=== PATIENT | male | born 1940 | race Caucasian/White ===

== ENCOUNTER → 2017-04-12 | Day surgery (SDC) | payer OTHER ==
[2017-04-06 09:14] VITALS: Ht 182.9 cm; Wt 95.5 kg
[~2017-04-12] VITALS: Ht 182.9 cm; Wt 95.5 kg
[~2017-04-12] MED LIST: 500ML BSS 0.3ML EPI 1:1000PF IRRIG ONE; ACET1TAB84 PO; ACETAMINOPHEN 325 MG TAB PO PRN; AMVISC PLUS 0.8ML SYRINGE INT OCU ONE; ASPI81TA28 PO; ATROPINE SULFATE 0.1 MG/ML 5ML SYR IV PRN; BROM0.0911 OP; BSS FLUSH ONE; CYCLOPENTOLATE HCL 1% OP SOLN PER DROP CHARGE OPL ONE; ENDOCOAT 0.85ML SYRINGE INT OCU ONE; EpHEDrine SULFATE INJ 50 MG/ML AMP IV PRN; EpINEphrine INJ 1MG/ML AMP 1 MG/ML AMP ONE; GLUC10007 PO; LACTATED RINGER'S 1000ML 500 ML IV SCH; LIDOCAINE 4% OP SOLN DROP CHARGE ONE; LIDOCAINE 4% OP SOLN DROP CHARGE OPL SCH; LIDOCAINE HCL 1% MPF 2 ML VIAL ONE; LISI20TA3 PO; LYSI500C2 PO; MIDAZOLAM HCL 1 MG/ML 2ML VIAL ONE; MIX: 4ML BSS 1ML EPI 1:1000 PF TOP ONE; MOXIFLOXACIN OPH SOLN PER DROP CHARGE ONE; MULT-221 PO; MULT15TA2 PO; NURSING VERBAL MED ORDER ONE; OFLO0.3S4 OPL; OMEG-21 PO; PHENYLEPHRINE HCL 10% OP SOLN 5 ML BTL OPL ONE; PHENYLEPHRINE HCL 10% OP SOLN PER DROP CHARGE OPL ONE; POTA99TA PO; POVIDONE-IODINE OP SOLN 30 ML BTL ONE; PRED1SUS3 OPL; PROPARACAINE 0.5% OP SOLN PER DROP CHARGE OPL SCH; PROPARACAINE HCL 0.5% OP SOLN 15 ML BTL OPL ONE; TOBRAMYCIN/DEXAMETHASONE OPH OINT PER APPLN CHARGE ONE; TRAZ100T29 PO; TROPICAMIDE 1% OP SOLN PER DROP CHARGE OPL ONE
[2017-04-12] MEDS: PHENYLEPHRINE HCL 10% OP SOLN PER DROP CHARGE OPL SCH ×3 (09:21→09:31)
[2017-04-12] MEDS: TROPICAMIDE 1% OP SOLN PER DROP CHARGE OPL SCH ×3 (09:23→09:32)
[2017-04-12] MEDS: CYCLOPENTOLATE HCL 1% OP SOLN PER DROP CHARGE OPL SCH ×3 (09:24→09:35)
[2017-04-12] MEDS: MOXIFLOXACIN OPH SOLN PER DROP CHARGE OPL SCH ×3 (09:25→09:36)
--- NOTE | 2017-04-12 09:35 | History & Physical Bridge - [place] ---
H&P Re-Evaluation Bridge Note: I have examined the patient, reviewed the History & Physical and in the interval since the performance of the History & Physical I have noted the following changes of clinical significance: No changes noted
--- NOTE | 2017-04-12 10:52 | [facility] Post Operative Brief Note ---
Immediate Operative Summary Operative Date Apr 12, 2017. Pre-Operative Diagnosis Cataract Left Eye Post-Operative Diagnosis Same Procedure(s) Performed Left Cataract Phacoemulsification With Intraocular Lens Implant Surgeon Dr. Allen Crystal Calibrator Surgeon(s) None Estimated Blood Loss 0 Findings left cataract Specimens 0 Complication(s) None Disposition
--- NOTE | 2017-04-12 10:54 | [facility] Operative Report ---
Operative Report Date of Service Apr 12, 2017. Operative Report DATE OF OPERATION: 04/12/17 PREOPERATIVE DIAGNOSIS: Senile nuclear cataract and astigmatism, left eye POSTOPERATIVE DIAGNOSIS: Senile nuclear cataract and astigmatism, left eye PROCEDURE PERFORMED: Phacoemulsification with toric intraocular lens implantation, left eye SURGEON: Dr. Diaz Allen ANESTHESIA: Topical with 1% intracameral lidocaine and monitored anesthesia care COMPLICATIONS: None DESCRIPTION OF PROCEDURE: After positively identifying the patient both verbally and by wristband in the preoperative area, the left eye was marked as the operative eye. Using a sterile marker, the 3:00, 6:00, and 9:00 positions on the limbus were marked after placing a drop of proparacaine, and the 173 degree axis was marked with a Robomarker. The patient was first taken to the femtosecond laser room, but the femto portion of the procedure had to be aborted due to inadequate docking and suction. The patient was then brought back to the operating room by the anesthesia and nursing staff where they were given a drop of tetracaine and betadine into the operative eye. They were then sterilely prepped and draped in the standard fashion typical for ophthalmic surgery. Steri-strips were placed along the upper eyelids to keep the lashes back, and a lid speculum was placed into the operative eye. At this point, a documented time out was performed with members of the ophthalmology, nursing, and anesthesia staffs all agreeing upon the correct patient, correct location for surgery, correct procedure, and correct type and power of intraocular lens to be implanted. The microscope was then swung into position. Then, a paracentesis wound was made using a sideport blade. Then, in sequence, 1% preservative-free lidocaine followed by Endocoat viscoelastic was injected into the anterior chamber. Next , the main incision was made with a keratome blade in triplanar fashion. A sharp cystotome was introduced into the eye and used to create a tear in the anterior capsule, which was directed into a continuous curvilinear capsulorrhexis using Utrata forceps. Hydrodissection was then performed with BSS on a flat-tip cannula. Next, the phacoemulsification handpiece was introduced into the eye and used to remove the nucleus in a [id number]-[id number] fashion. This was done without complication and then the irrigation-aspiration handpiece was introduced into the eye and used to remove all remaining cortical and epinuclear material. Amvisc was then injected into the anterior chamber as well as into the capsular bag and using the lens injector system, a [id number] 21.0 D lens, serial number [id number], and expiration date 10/2021 was injected into the capsular bag and rotated into the correct position to correctly line up with the toric marking. Next, the irrigation-aspiration handpiece was used to remove all remaining Amvisc. BSS was used to hydrate the main wound, and then BSS was injected into the paracentesis site to reach physiologic pressure and then the main wound was checked and found to be watertight. The patient was given drops of Vigamox and tobradex ointment into the operative eye, and then the surrounding area was cleaned and dried. A clear plastic shield was placed over the eye and the patient was then sat up and taken from the operating room by the anesthesia staff having tolerated the procedure well and suffering no complications. DISPOSITION: The patient was returned to the recovery room in stable condition. I attest to the content of the Intraoperative Record and any orders documented therein. Any exceptions are noted below.
[2017-04-12 10:55] VITALS: TEMP 36.7
--- NOTE | 2017-04-12 10:55 | Discharge Instructions-SurgCtr ---
Discharge Instructions Date of Service Apr 12, 2017. Visit Reason for Visit: Left Cataract Discharge Discharge Diagnosis / Problem: left cataract Discharge Goals Goal(s): Decrease discomfort, Improve function Activity Recommendations Activity Limitations: as noted below Anesthesia . Post Anesthesia Instructions: If you have had General Anesthesia or IV Sedation: * Do not drive today. * Resume driving when surgeon permits. * Do not make important decisions or sign legal documents today. * Call surgeon for: 1. Temperature elevations greater than 101 degrees F. 2. Uncontrollable pain. 3. Excessive bleeding. 4. Persistent nausea and vomiting. 5. Medication intolerance (nausea, vomiting or rash). * For nausea and vomiting use only clear liquids such as: tea, soda, bouillon until nausea subsides, then gradually increase diet as tolerated. * If you have any concerns or questions, call your surgeon's office. If physician is unavailable and it is an emergency, call 911 or go to the nearest emergency room. . Instructions / Follow-Up Instructions / Follow-Up ACTIVITY RECOMMENDATIONS: * Light activities. * You may walk outside, read, watch television. * You may notice redness on the white part of the eye and some blurry vision - this is normal. MEDICATIONS: Resume previous medications unless instructed otherwise by your surgeon. Start all eye drops at 1 pm today: * Eye drops (today): Prednisone - one drop in operative eye every 2 hours while awake Ofloxacin - one drop in operative eye every 2 hours while awake Bromfenac - one drop in operative eye daily SPECIAL CARE INSTRUCTIONS: * Tape plastic shield over eye to sleep at night. Call your doctor at with any concerns or problems. FOLLOW UP VISIT: Follow-up with Dr Allen at [place] office as scheduled. Diet Recommendations Home Diet: no limitations Procedures Procedures Performed: Left Cataract Phacoemulsification With Intraocular Lens Implant Pending Studies Studies pending at discharge: no Medical Emergencies . Who to Call and When: Medical Emergencies: If at any time you feel your situation is an emergency, please call 911 immediately. . Non-Emergent Contact Non-Emergency issues call your: Surgeon . . "Provider Documentation" section prepared by Diaz Allen. .
--- NOTE | 2017-04-12 11:10 | Anesthesiology Progress Note ---
Anesthesia Post Op Note Date & Time Apr 12, 2017 at 11:10 Vital Signs Pain Intensity: 0 Vital Signs Past 12 Hours Date Time Temp Pulse Resp B/P (MAP) Pulse Ox O2 Delivery O2 Flow Rate FiO2 04/12/17 10:55 36.7 54 16 157/87 (110) 98 Room Air 04/12/17 10:22 60 16 150/94 95 Room Air 04/12/17 10:13 57 16 166/96 94 Room Air 04/12/17 09:16 36.6 60 16 165/103 (123) 96 Room Air Notes Mental Status: alert / awake / arousable, participated in evaluation Nausea / Vomiting: adequately controlled Pain: adequately controlled Airway Patency, RR, SpO2: stable & adequate BP & HR: stable & adequate Hydration State: stable & adequate Anesthetic Complications: no major complications apparent
[2017-04-12 11:17] VITALS: BP 165/93; PULSE 57; O2SAT 97
== END | disposition home or self-care (01) ==
LOC: X.SURG 08:50
PROVIDERS: ATTEND Ophthalmology
DX: H25.12 Age-related nuclear cataract, left eye (principal); H52.202 Unspecified astigmatism, left eye; I10 Essential (primary) hypertension; E66.9 Obesity, unspecified; M19.90 Unspecified osteoarthritis, unspecified site; Z79.82 Long term (current) use of aspirin; Z90.2 Acquired absence of lung [part of]; Z98.890 Other specified postprocedural states

== ENCOUNTER 2019-05-19 10:27 | Inpatient (IN) ==
[2019-05-19] MEDS ORDERED: MoRPHine SULFATE 4 MG/ML 1 ML CARP\\VIAL IV STA ×2 (11:00→14:20)
[2019-05-19] MEDS ORDERED: ONDANSETRON INJ 2 MG/ML 2 ML VIAL IV STA (11:00)
[2019-05-19 11:49] LABS: Basophils # (auto) 0.03 K/uL (0-0.2); Basophils % (auto) 0.2 %; Eosinophils # (auto) 0.13 K/uL (0-0.5); Hematocrit (blood only) 44.8 % (42-52); Immature Granulocytes # (auto) 0.11 K/uL (0.00-0.02); Immature Granulocytes % (auto) 0.8 %; Lymphocytes # (auto) 1.88 K/uL (1.2-3.4); Mean Corpuscular Hemoglobin 31.3 pg (25-34); Mean Corpuscular Hgb Conc 33.5 g/dL (32-36); Mean Corpuscular Volume 93.3 fL (80-100); Mean Platelet Volume 11.3 fL (7.4-10.4); Monocytes # (auto) 0.91 K/uL (0.11-0.59); Monocytes % (auto) 6.8 %; Neutrophils # (auto) 10.35 K/uL (1.4-6.5); Neutrophils % (auto) 77.2 %; Platelet Count 165 K/uL (130-400); RDW Coefficient of Variation 14.3 % (11.5-14.5); RDW Standard Deviation 48.8 fL (36.4-46.3); White Blood Count 13.41 K/uL (4.8-10.8)
[2019-05-19 12:01] LABS: Partial Thromboplastin Ratio 0.8; Partial Thromboplastin Time 22.7 Seconds (21.0-31.0)
[2019-05-19 12:07] LABS: BUN Creatinine Ratio 14.4 (10-20); Calcium 9.9 mg/dl (8.5-10.1); Creatinine Clr Calc Pharmacy 72.4 ml/min; Est GFR (African American) 76.9; Est GFR (Non-African American) 66.3; Potassium 4.4 mmol/L (3.5-5.1)
--- NOTE | 2019-05-19 12:32 | XRay Report ---
XR chest 1V portable CLINICAL HISTORY: Preoperative chest. Trauma. Hip fracture. COMPARISON STUDY: No previous studies for comparison. FINDINGS: The heart is enlarged. Postsurgical changes are present within the right hemithorax. There are right-sided pleurodiaphragmatic calcifications. There is partial absence of the right sixth rib. There is a small right pleural effusion versus chronic right pleural thickening. There is right apica l capping. There is no failure. There is no lobar consolidation.[ IMPRESSION: 1. Postsurgical changes within the right hemithorax. No acute findings. Electronically signed by: Dave Fontana M.D. 05/19/2019 12:30 PM
--- NOTE | 2019-05-19 12:33 | XRay Report ---
XR hip RT min 2V CLINICAL HISTORY: Right hip pain status post trauma COMPARISON: None. DISCUSSION: There is an acute mid cervical right femoral neck fracture. There is no dislocation. IMPRESSION: Acute right femoral neck fracture. Electronically signed by: Dave Fontana M.D. 05/19/2019 12:32 PM
--- NOTE | 2019-05-19 12:34 | XRay Report ---
XR lumbar spine 2-3V CLINICAL HISTORY: Back pain status post trauma COMPARISON STUDY: No previous studies for comparison. FINDINGS: There are moderate degenerative changes with disc space narrowing most pronounced at the L4 -5 and L5-S1 levels. There are pleurodiaphragmatic calcifications present. There is a thoracolumbar s estrella curvature convex to the right. There are no acute fractures. IMPRESSION: 1. No acute fractures 2. 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 Electronically signed by: Dave Fontana M.D. 05/19/2019 12:33 PM
--- NOTE | 2019-05-19 14:13 | Anesthesiology Consultation ---
Date of Service May 19, 2019 Assessment & Plan (1) Encounter for pre-operative examination: 78 year old M with hx of mechanical fall on 05/19. Surgical hx includes R middle lobectomy for what was an apparently benign pulmonary nodule in the . He has had multiple minor general surgeries without anesthetic complications. PMH + for HTN and HLD. He appears moderately dehydrated on exam and BP is somewhat labile in the ER. Medicine will consult on the patient to optimize medical management and if approved, we will plan for operative management tomorrow morning. Spinal vs General anesthesia discussed with patient and he prefers GA. 78 year old M with hx of mechanical fall on 05/19. Surgical hx includes R middle lobectomy for what was an apparently benign pulmonary nodule in the . He has had multiple minor general surgeries without anesthetic complications. PMH + for HTN and HLD. He appears moderately dehydrated on exam and BP is somewhat labile in the ER. Medicine will consult on the patient to optimize medical management and if approved, we will plan for operative management tomorrow morning. Spinal vs General anesthesia discussed with patient and he prefers GA. Chart Review Chart Review: Pending: Refer to Additional Notes / Consult section (awaiting admission and medical management.) Consults Requested medical History Height/Weight Height: 6 ft Weight: 103.4 kg Allergies Allergy/AdvReac Type Severity Reaction Status Date / Time No Known Allergies Allergy Unverified 05/19/19 11:05 Medications Home Medications Medication Instructions Recorded Confirmed Last Taken atorvastatin [Lipitor] 10 mg PO HS 05/19/19 05/19/19 05/18/19 gabapentin [Neurontin] 200 mg PO BID 05/19/19 05/19/19 05/19/19 lisinopril [Zestril] 20 mg PO QAM 05/19/19 05/19/19 05/19/19 metoprolol succinate [Toprol XL] 25 mg PO QAM 05/19/19 05/19/19 05/19/19 omega 5-fao-nfo-fish oil [Fish Oil] 1 cap PO DAILY 05/19/19 05/19/19 Unknown Past Medical History Medical History S/P TURP (status post transurethral resection of prostate) (Acute) Past Family History Family History Other No pertinent family history in first degree relatives Physical Exam Vital Signs Last Vital Signs Temp 37.1 C 05/19/19 10:27 Pulse 65 05/19/19 12:27 Resp 22 05/19/19 12:27 BP 142/89 H 05/19/19 12:27 Pulse Ox 92 05/19/19 12:27 ENMT Mouth: + dentures Thyromental Distance: > or= 3.5 Finger Breadths Mallampati Class: II Neck normal visual inspection Respiratory normal respiratory effort Auscultation: lungs clear to auscultation bilaterally Cardiovascular Rate/Rhythm: regular rate and regular rhythm Psychiatric Orientation: alert Testing Laboratory Results 05/19/19 11:28 05/19/19 11:28 PT 10.0 Seconds (9.0-12.0) 05/19/19 11:28 INR 1.0 (0.9-1.1) 05/19/19 11:28 APTT 22.7 Seconds (21.0-31.0) 05/19/19 11:28 Blood Type O Positive 05/19/19 11:28 Antibody Screen NEGATIVE 05/19/19 11:28 Electrocardiogram Date: 05/19/19 Findings: + NSR @ (+ PVC) Chest X-Ray Date: 05/19/19 Findings: + NAD (s/p R lobectomy) :
--- NOTE | 2019-05-19 15:09 | XRay Report ---
XR pelvis 1-2V routine CLINICAL HISTORY: Right hip pain COMPARISON: Right hip films dated 05/19/2019 DISCUSSION: There is no SI joint diastases. There is no symphysis diastases. Degenerative changes are present within the lower lumbar spine. There is a right femoral neck fracture. IMPRESSION: Right femoral neck fracture. Electronically signed by: Dave Fontana M.D. 05/19/2019 3:08 PM
--- NOTE | 2019-05-19 15:15 | History & Physical Report ---
Date of Service May 19, 2019 Assessment & Plan (1) Fall: (2) Closed fracture of right hip: Mr. Jade is a 78-year-old male who has significant past medical history of HTN, HLD, BPH who presents to [facility] ED after sustaining a mechanical fall walking his dog with subsequent right hip pain. Right hip x-ray revealed right femoral neck fracture. Chest x-ray negative for acute cardiopulmonary abnormality. EKG revealed normal sinus rhythm with PVC. H&H stable at 15.0 and 44.8, WBC 13.4K, 165, INR 1.0. BMP relatively unremarkable. Admit to Med/surg Orthopedics consulted - Dr. Campa has already seen and evaluated patient, case scheduled for 7 AM tomorrow morning Anesthesia consulted -seen and evaluated Preop antibiotics ordered IV morphine 2 mg every 2 hours as needed pain, oxycodone 5 mg every 4 hours as needed pain SCD/teds Cook cath ordered MRSA screen IVF 125 cc/h x 2 L for preop hydration From medicine standpoint he is capable of achieving 4 METs without any significant chest discomfort or shortness of breath. Risk factors include hypertension hyperlipidemia but no prior history of cardiac disease. He is medically cleared to undergo surgical intervention for right femoral neck fracture. (3) HTN (hypertension): BP elevated in ED likely in setting of acute pain Controlled on outpatient regimen of lisinopril and metoprolol Monitor (4) HLD (hyperlipidemia): continue statin (5) BPH (benign prostatic hyperplasia): cook cath ordered UA negative for infection (6) DVT prophylaxis: SCD/TEDS Will hold chemical prophylaxis today in setting of the scheduled procedure for 7 AM tomorrow Disposition: Admit to Med/Surg, case management consulted Follow-up: PCP Dr. Cerda upon discharge Patient was seen and examined in collaboration with Dr. Soliman, please see addendum History of Present Illness Chief Complaint: Fall prior to arrival with subsequent right hip pain. Primary Care Provider: Alexander Cerda DO Mr. Jade is a 78-year-old male who has significant past medical history of HTN, HLD, BPH who presents to [facility] ED after sustaining a mechanical fall walking his dog with subsequent right hip pain. is at bedside. Patient was walking his brown retriever outside when he sustained a mechanical fall on the ice and landing in wet grass. He had significant right hip pain and was unable to get up on his own. Somebody assisted him to his feet and brought him into ED for further evaluation. At baseline he is very active. He walks for 30 minutes 3 times a day with his brown retriever. This is on a flat and graded incline. He denies any chest pain, palpitations, shortness of breath with exertion or at rest, chest pain with exertion during this. He can climb a flight of stairs without getting chest pain or shortness of breath. He denies any prior history of cardiac disease or cardiac surgery. Up until today he was in a normal state of health. Denies any recent illness, fever, chills, sweats, syncope, lightheadedness, dizziness, cough, hemoptysis, nausea, vomiting, abdominal pain. He did have a bowel movement this morning and denies melena or hematochezia. He does have increased urinary frequency secondary to BPH but denies any dysuria, hematuria. He did take his metoprolol and lisinopril this morning. Last time he had anything to eat or drink was at 6 AM this morning. 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 He also had a TURP in 2013. Denies any difficulty with anesthesia. Allergies Allergy/AdvReac Type Severity Reaction Status Date / Time No Known Allergies Allergy Unverified 05/19/19 11:05 Home Medications Home Medications Medication Instructions Recorded Confirmed Type atorvastatin [Lipitor] 10 mg PO HS 05/19/19 05/19/19 History gabapentin [Neurontin] 200 mg PO BID 05/19/19 05/19/19 History lisinopril [Zestril] 20 mg PO QAM 05/19/19 05/19/19 History metoprolol succinate [Toprol XL] 25 mg PO QAM 05/19/19 05/19/19 History omega 1-qmu-rqy-fish oil [Fish Oil] 1 cap PO DAILY 05/19/19 05/19/19 History vitamins A,C,S-tfsl-gaarzs 1 tab PO BID 05/19/19 05/19/19 History [PreserVision AREDS] Past Med/Surg History Medical History BPH (benign prostatic hyperplasia) HLD (hyperlipidemia) HTN (hypertension) Surgical History History of hemorrhoidectomy History of lobectomy of lung Right middle lobe lobectomy 1983, benign History of transurethral resection of prostate Family History Father Cancer Neck and brain Sister Stroke Social History Preferred Language: Liberian Communication Ability: Effective Travel Pt Required: No Beliefs That Will Affect Care: None Current Living Situation: Spouse Other Information That Helps Us Care for You: No Feels Safe at Home: Yes Safety Concerns: Feels Safe At This Time Smoking Status: Former smoker Tobacco Type: cigars ; Cigarettes Per Day: 2 ; Do You Dip or Chew Tobacco: No ; Smoking End Date: 1 week since last cigar ; Second Hand Exposure: No ; Tobacco Cessation Education Requested by Patient: No Hx Alcohol Use: Yes Alcohol type: hard liquor Alcohol Intake Frequency: Daily Alcohol Intake Frequency Comment: 1 2oz shot mixed drink daily Hx Substance Use: No Review of Systems Review of Systems: All systems reviewed & are unremarkable except as noted in HPI & below Physical Exam Physical Exam: Constitutional: WD/WN, vitals as above, NAD, sitting up in bed, pleasant, conversing easily Head: Normocephalic, Atraumatic Eyes: PERRL, conjunctivae normal, anicteric sclerae ENMT: external ear and nose normal, oropharynx normal Neck: trachea midline, no thyromegaly normal visual inspection Respiratory: normal respiratory effort, lungs clear to auscultation, no wheeze, rales, rhonchi. Normal insp/exp effort, no accessory muscle use Cardiovascular: RRR, no murmur, no edema Vessels: no JVD or carotid bruit Chest: normal inspection of chest Abdomen: normal bowel sounds, soft, nontender, no hepatosplenomegaly Musculoskeletal: no cyanosis or clubbing, Skin: no rashes, warm and dry normal turgor Neurologic: PERRL, EOMI, accommodation nl, no face palsy, no dysarthria CN's II-XI intact bilaterally and moves all extremities except RLE not assessed given fracture Psychiatric: A+Ox3, euthymic affect Lymphatic: no cervical or axillary lymphadenopathy : deferred Results & Data Vital Signs (Past 12 Hours) Vital Signs Temp Pulse Pulse Resp BP BP Pulse Ox 05/19/19 12:27 65 22 142/89 H 92 05/19/19 10:27 37.1 C 67 18 171/122 H 96 Laboratory Results Short CBC 05/19/19 Range/Units 11:28 WBC 13.41 H (4.8-10.8) K/uL Hgb 15.0 (14.0-18.0) g/dL Hct 44.8 (42-52) % Plt Count 165 (130-400) K/uL BMP 05/19/19 11:28 Sodium 139 Potassium 4.4 Chloride 108 H Carbon Dioxide 27 BUN 16 Creatinine 1.08 Glucose 104 H Calcium 9.9 Urine 05/19/19 Range/Units 15:05 Urine Color Yellow Urine Appearance Clear (Clear) Urine pH 5.5 (4.5-7.5) Ur Specific [place] 1.020 (1.000-1.030) Urine Protein Trace H (Negative) Urine Glucose (UA) Negative (Negative) Diagnostic Findings CXR: IMPRESSION: 1. Postsurgical changes within the right hemithorax. No acute findings. Hip xray: IMPRESSION: Acute right femoral neck fracture. Lumbar Spine Xray: IMPRESSION: 1. No acute fractures 2. 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 Pelvis Xray: IMPRESSION: Right femoral neck fracture. Medications Administered Discontinued Medications Morphine Sulfate (Morphine Sulfate) 4 mg IV NOW STA Stop: 05/19/19 11:01 Last Admin: 05/19/19 11:42 Dose: 4 mg Documented by: [id number] Ondansetron HCl (Zofran) 4 mg IV NOW STA Stop: 05/19/19 11:01 Last Admin: 05/19/19 11:44 Dose: 4 mg Documented by: [id number] ECG Rate (beats per minute): 65 Rhythm: normal sinus Findings: + PVC Code Status & VTE Plan Code Status Full Code VTE Prophylaxis Plan VTE Prophylaxis will be ordered: Yes Supervising Physician Co-Signing Physician Notes Attending addendum: The patient was seen and examined in emergency room Is a 78 years old gentleman with significant past medical history of hypertension and hyperlipidemia apparently has had a fall while he was walking his dog He could not have managed to get off following the fall and is complaining of severe pain in right hip He was found to have closed fracture of the right hip Complaints pain at the right hip but otherwise denies any other symptoms On examination No apparent distress at rest Hemodynamically stable Chest- clear to auscultate bilaterally Heart-S1-S2, regular, no murmur appreciated Abdomen-soft, benign, nontender Extremities-negative for any edema Right lower extremity is shorter and externally rotated His admission labs, EKG and imaging studies reviewed He does not have any medical history and his blood pressure is controlled He denies any shortness of breath and/or chest pain on usual activities He will be medically cleared for proposed surgery tomorrow He will continue his beta-lenny even on the day of surgery Agree with assessment and plan as outlined above by OTTO [address] Dr (1) Fall Encounter type: initial encounter Qualified Code(s): W19.XXXA - Unspecified fall, initial encounter (2) Closed fracture of right hip Encounter type: initial encounter Qualified Code(s): S72.001A - Fracture of unspecified part of neck of right femur, initial encounter for closed fracture
[2019-05-19 15:18] LABS: Appearance Urine Clear (Clear); Bacteria Urine Automated Negative (Negative); Bilirubin Urine Negative (Negative); Blood Urine Trace (Negative); Color Urine Yellow; Glucose Urine UA Negative (Negative); Ketones Urine Trace (Negative); Leukocyte Esterase Urine Negative (Negative); Nitrite Urine Negative (Negative); Protein Urine Trace (Negative); Urobilinogen Urine Negative (Negative); pH Urine 5.5 (4.5-7.5)
[2019-05-19] MEDS ORDERED: ALUMINUM/MAGNESIUM SUSP 30 ML UDC PO PRN (15:56)
[2019-05-19] MEDS ORDERED: ONDANSETRON INJ 2 MG/ML 2 ML VIAL IV PRN (15:56)
[2019-05-19] MEDS ORDERED: MoRPHine SULFATE 2 MG/ML CARP IV PRN (15:56)
[2019-05-19] MEDS ORDERED: bisacodyL 10 MG SUPP PR PRN (15:56)
[2019-05-19] MEDS ORDERED: MAGNESIUM HYDROXIDE SUSP 30 ML UDC PO PRN ×2 (15:56)
[2019-05-19] MEDS ORDERED: NALOXONE HCL 0.4 MG/1 ML VIAL/CARP IV PRN (15:56)
[2019-05-19] MEDS ORDERED: POLYETHYLENE (MIRALAX) 17 GM PACK PO PRN (15:56)
[2019-05-19] MEDS: SODIUM CHLORIDE 0.9% 1000ML 1,000 ML IV SCH (16:24)
--- NOTE | 2019-05-19 16:38 | Orthopedic Consultation ---
Date of Consultation May 19, 2019 Assessment & Plan (1) Closed fracture of right hip: The patient is a 78 year old active male who sustained a right hip fracture. The patients treatment options of conservative versus surgical intervention were discussed. Since the patient was an ambulatory prior to the injury and to avoid the risks of bed sores, pulmonary complications, and to give the best chance for ambulation, I recommended surgery. The patient and family understands the risks of surgery, which include but are not limited to: bleeding, infection, re-operation, damage to nerves and arteries, continued pain, failure of the hardware, mal-union, non-union, DVT, and . In addition she is aware of the 20-30% morbidity associated with hip fracture for up to 1 year following a hip fracture. The patient and family understands all of these instructions and explanations, all of their questions have been satisfactorily addressed. The patient has elected to proceed with surgery and the informed consent was signed for ORIF. They understand that if the fracture is unable to be reduced, he may require a dona-arthroplasty. He will be admitted to the medicine service with planned surgery tomorrow if medically stable. For additional pre-operative planning, to assess the configuration of the fracture a CT of the right hip will be obtained. Patient is NWB and NPO after midnight. Ancef will be on-call to the OR. Present on Admission?: Yes History of Present Illness Reason for Consultation: Right hip fracture Requesting Physician: Mp Campa MD Attending Physician: Pauline Soliman MD History of Present Illness 78 year old active male slipped while walking his dog earlier today injuring his right hip. Unable to bare weight. Came to ER where x-rays were obtained and I was consulted for further evaluation and treatment. Allergies Allergy/AdvReac Type Severity Reaction Status Date / Time No Known Allergies Allergy Unverified 05/19/19 11:05 Home Medications Home Medications Medication Instructions Recorded Confirmed Type atorvastatin [Lipitor] 10 mg PO HS 05/19/19 05/19/19 History gabapentin [Neurontin] 200 mg PO BID 05/19/19 05/19/19 History lisinopril [Zestril] 20 mg PO QAM 05/19/19 05/19/19 History metoprolol succinate [Toprol XL] 25 mg PO QAM 05/19/19 05/19/19 History omega 1-hjn-tfx-fish oil [Fish Oil] 1 cap PO DAILY 05/19/19 05/19/19 History vitamins A,C,R-nvvp-tvpvwg 1 tab PO BID 05/19/19 05/19/19 History [PreserVision AREDS] Patient History Medical History BPH (benign prostatic hyperplasia) HLD (hyperlipidemia) HTN (hypertension) Surgical History History of hemorrhoidectomy History of lobectomy of lung Right middle lobe lobectomy 1983, benign History of transurethral resection of prostate Family History Father Cancer Neck and brain Sister Stroke Social History (Updated 05/19/19 @ 15:19 by Eli Parkinson PA-C) Preferred Language: [place] Leonean Communication Ability: Effective Foreign Diplomat Required: No Beliefs That Will Affect Care: None Current Living Situation: Spouse Other Information That Helps Us Care for You: No Feels Safe at Home: Yes Safety Concerns: Feels Safe At This Time Smoking Status: Former smoker Tobacco Type: cigars ; Cigarettes Per Day: 2 ; Do You Dip or Chew Tobacco: No ; Smoking End Date: 1 week since last cigar ; Second Hand Exposure: No ; Tobacco Cessation Education Requested by Patient: No Hx Alcohol Use: Yes Alcohol type: hard liquor Alcohol Intake Frequency: Daily Alcohol Intake Frequency Comment: 1 2oz shot mixed drink daily Hx Substance Use: No Review of Systems Review of Systems: All systems reviewed & are unremarkable except as noted in HPI & below Denies CP, SOB. Was feeling in his [place] state of health prior to fall. Physical Exam Physical Exam: RLE: Sensation to light touch is intact distally. 2+ DP pulse. Ablr to wiggle toes and ankle up and down. Shortened and externally rotated. Calf soft and non-tender. Results & Data Vital Signs (Past 12 Hours) Vital Signs Temp Pulse Pulse Pulse Resp BP BP 05/19/19 15:57 36.9 C 73 18 153/91 H 05/19/19 15:01 82 27 H 113/79 05/19/19 14:31 73 17 101/56 L 05/19/19 14:00 74 22 137/74 05/19/19 12:27 65 22 142/89 H 05/19/19 12:00 65 22 142/89 H 05/19/19 11:37 72 13 127/82 05/19/19 10:27 37.1 C 67 18 171/122 H Pulse Ox 05/19/19 15:57 97 05/19/19 15:01 98 05/19/19 14:31 96 05/19/19 14:00 95 05/19/19 12:27 92 05/19/19 12:00 92 05/19/19 11:37 95 05/19/19 10:27 96 Laboratory Results 05/19/19 05/19/19 05/19/19 Range/Units 15:05 11:28 11:28 WBC (4.8-10.8) K/uL RBC (4.7-6.1) M/uL Hgb (14.0-18.0) g/dL Hct (42-52) % MCV (80-100) fL MCH (25-34) pg MCHC (32-36) g/dL RDW Std Deviation (36.4-46.3) fL RDW Coeff of Leeann (11.5-14.5) % Plt Count (130-400) K/uL MPV (7.4-10.4) fL Immature Gran % (Auto) % Neut % (Auto) % Lymph % (Auto) % Green % (Auto) % Eos % (Auto) % Baso % (Auto) % Immature Gran # (Auto) (0.00-0.02) K/uL Neut # (Auto) (1.4-6.5) K/uL Lymph # (Auto) (1.2-3.4) K/uL Green # (Auto) (0.11-0.59) K/uL Eos # (Auto) (0-0.5) K/uL Baso # (Auto) (0-0.2) K/uL PT (9.0-12.0) Seconds INR (0.9-1.1) APTT (21.0-31.0) Seconds PTT Ratio Sodium 139 (136-145) mmol/L Potassium 4.4 (3.5-5.1) mmol/L Chloride 108 H (98-107) mmol/L Carbon Dioxide 27 (21-32) mmol/L Anion Gap 4.0 (3-11) BUN 16 (7-18) mg/dl Creatinine 1.08 (0.6-1.4) mg/dl Est Cr Clr Drug Dosing 72.4 ml/min Est GFR ( Amer) 76.9 Est GFR (Non-Af Amer) 66.3 BUN/Creatinine Ratio 14.4 (10-20) Glucose 104 H (70-99) mg/dl Calcium 9.9 (8.5-10.1) mg/dl Urine Color Yellow Urine Appearance Clear (Clear) Urine pH 5.5 (4.5-7.5) Ur Specific Mey[place] Chuck 1.020 (1.000-1.030) Urine Protein Trace H (Negative) Urine Glucose (UA) Negative (Negative) Urine Ketones Trace H (Negative) Urine Blood Trace H (Negative) Urine Nitrite Negative (Negative) Urine Bilirubin Negative (Negative) Urine Urobilinogen Negative (Negative) Ur Leukocyte Esterase Negative (Negative) Urine WBC (Auto) 1-5 (0-5) /hpf Urine RBC (Auto) 10-30 H (0-4) /hpf U Hyaline Cast (Auto) 1-5 (0-5) /lpf U Epithel Cells (Auto) 10-20 H (0-5) /lpf Urine Bacteria (Auto) Negative (Negative) Blood Type O Positive Antibody Screen NEGATIVE 05/19/19 05/19/19 Range/Units 11:28 11:28 WBC 13.41 H (4.8-10.8) K/uL RBC 4.80 (4.7-6.1) M/uL Hgb 15.0 (14.0-18.0) g/dL Hct 44.8 (42-52) % MCV 93.3 (80-100) fL MCH 31.3 (25-34) pg MCHC 33.5 (32-36) g/dL RDW Std Deviation 48.8 H (36.4-46.3) fL RDW Coeff of Leeann 14.3 (11.5-14.5) % Plt Count 165 (130-400) K/uL MPV 11.3 H (7.4-10.4) fL Immature Gran % (Auto) 0.8 % Neut % (Auto) 77.2 % Lymph % (Auto) 14.0 % Green % (Auto) 6.8 % Eos % (Auto) 1.0 % Baso % (Auto) 0.2 % Immature Gran # (Auto) 0.11 H (0.00-0.02) K/uL Neut # (Auto) 10.35 H (1.4-6.5) K/uL Lymph # (Auto) 1.88 (1.2-3.4) K/uL Green # (Auto) 0.91 H (0.11-0.59) K/uL Eos # (Auto) 0.13 (0-0.5) K/uL Baso # (Auto) 0.03 (0-0.2) K/uL PT 10.0 (9.0-12.0) Seconds INR 1.0 (0.9-1.1) APTT 22.7 (21.0-31.0) Seconds PTT Ratio 0.8 Sodium (136-145) mmol/L Potassium (3.5-5.1) mmol/L Chloride (98-107) mmol/L Carbon Dioxide (21-32) mmol/L Anion Gap (3-11) BUN (7-18) mg/dl Creatinine (0.6-1.4) mg/dl Est Cr Clr Drug Dosing ml/min Est GFR ( Amer) Est GFR (Non-Af Amer) BUN/Creatinine Ratio (10-20) Glucose (70-99) mg/dl Calcium (8.5-10.1) mg/dl Urine Color Urine Appearance (Clear) Urine pH (4.5-7.5) Ur Specific Mey[place] Chuck (1.000-1.030) Urine Protein (Negative) Urine Glucose (UA) (Negative) Urine Ketones (Negative) Urine Blood (Negative) Urine Nitrite (Negative) Urine Bilirubin (Negative) Urine Urobilinogen (Negative) Ur Leukocyte Esterase (Negative) Urine WBC (Auto) (0-5) /hpf Urine RBC (Auto) (0-4) /hpf U Hyaline Cast (Auto) (0-5) /lpf U Epithel Cells (Auto) (0-5) /lpf Urine Bacteria (Auto) (Negative) Blood Type Antibody Screen Diagnostic Findings AP Pelvis and AP & Lateral Right hip show an acute femoral neck fracture. (1) Closed fracture of right hip Encounter type: initial encounter Qualified Code(s): S72.001A - Fracture of unspecified part of neck of right femur, initial encounter for closed fracture
--- NOTE | 2019-05-19 16:53 | Emergency Department Note ---
Entered by Kady Yan acting as a scribe for Miki Draper MD History of Present Illness General Chief complaint: Fall Stated complaint: FELL;HURT R HIP/LEG Time Seen by Provider: 05/19/19 10:53 Source: patient History of Present Illness Onset (ago): hour(s) 1 Location: right (hip, buttock) Pain Consistency: + other (after a fall while walking his dog) Maximum Pain Intensity: 8 Quality: + other (fall) Relieved By: + movement Associated symptoms: + other (Positive right hip pain. Negative head pain, abdominal pain, neck pain, toe numbness, syncope); no chest pain The patient is a 78 year old male who presents to the ED with complaints of a fall around 1 hour area captain. He reports he was walking his dog and slipped when he was walking from the [facility] onto the wet grass. He did land on the grass but the ground was very hard and likely frozen underneath. He states he landed on his right buttock and hip. He reports he tried standing up, but could not due to his pain. He notes he has a sharp pain in his right hip that is worse with movement. The patient denies head pain, chest pain, abdominal pain, neck pain, toe numbness, syncope. Home Medications Home Medications Medication Instructions Recorded Confirmed Type atorvastatin [Lipitor] 10 mg PO HS 05/19/19 05/19/19 History gabapentin [Neurontin] 200 mg PO BID 05/19/19 05/19/19 History lisinopril [Zestril] 20 mg PO QAM 05/19/19 05/19/19 History metoprolol succinate [Toprol XL] 25 mg PO QAM 05/19/19 05/19/19 History omega 5-mxd-zjb-fish oil [Fish Oil] 1 cap PO DAILY 05/19/19 05/19/19 History vitamins A,C,X-uexe-mopcfj 1 tab PO BID 05/19/19 05/19/19 History [PreserVision AREDS] Allergies Allergy/AdvReac Type Severity Reaction Status Date / Time No Known Allergies Allergy Unverified 05/19/19 11:05 Past Med/Surg History Medical History BPH (benign prostatic hyperplasia) HLD (hyperlipidemia) HTN (hypertension) Surgical History History of hemorrhoidectomy History of lobectomy of lung Right middle lobe lobectomy 1983, benign History of transurethral resection of prostate Family History Father Cancer Neck and brain Sister Stroke Social History Preferred Language: [place] Islander Communication Ability: Effective Enrobing Machine Corder Required: No Beliefs That Will Affect Care: None Current Living Situation: Spouse Other Information That Helps Us Care for You: No Feels Safe at Home: Yes Safety Concerns: Feels Safe At This Time Smoking Status: Former smoker Tobacco Type: cigars ; Cigarettes Per Day: 2 ; Do You Dip or Chew Tobacco: No ; Smoking End Date: 1 week since last cigar ; Second Hand Exposure: No ; Tobacco Cessation Education Requested by Patient: No Hx Alcohol Use: Yes Alcohol type: hard liquor Alcohol Intake Frequency: Daily Alcohol Intake Frequency Comment: 1 2oz shot mixed drink daily Hx Substance Use: No Review of Systems See HPI for pertinent positives & negatives. and A total of 10 systems reviewed and were otherwise negative Physical Exam Vital Signs Vital Signs - 24 hr 05/19/19 10:27 05/19/19 11:37 05/19/19 12:00 Temperature 37.1 C Temperature Source Oral Pulse Rate 67 72 65 Pulse Rate [Apical] Pulse Rate from SpO2 Sensor 69 68 Pulse Rhythm Regular Respiratory Rate 18 13 22 Respiratory Depth Blood Pressure 171/122 H 127/82 142/89 H Blood Pressure [Right Arm] Blood Pressure Mean 138 90 113 Blood Pressure Mean [Right Arm] Blood Pressure Position Lying Pulse Oximetry 96 95 92 Oxygen Delivery Method Room Air Sepsis Recent Fever Within 48 Hours No Sepsis Action Taken by Nursing No Action Required 05/19/19 12:27 05/19/19 14:00 Temperature Temperature Source Pulse Rate 74 Pulse Rate [Apical] 65 Pulse Rate from SpO2 Sensor 73 Pulse Rhythm Respiratory Rate 22 22 Respiratory Depth Normal Blood Pressure 137/74 Blood Pressure [Right Arm] 142/89 H Blood Pressure Mean 89 Blood Pressure Mean [Right Arm] 106 Blood Pressure Position Pulse Oximetry 92 95 Oxygen Delivery Method Room Air Sepsis Recent Fever Within 48 Hours Sepsis Action Taken by Nursing Constitutional: Vital signs reviewed. Eyes: Pupils are equal round reactive to light. Conjunctiva are noninjected. ENT: Pharynx is clear without erythema or exudate. Mucous membranes are moist. Neck supple without meningeal signs. Respiratory: Clear to auscultation bilaterally. Breath sounds are equal bilaterally. Cardiovascular: Regular rate and rhythm. No rubs or gallops. GI: Soft, nondistended and nontender. Bowel sounds are present. Musculoskeletal: Right hip tenderness with external rotation. NVI Integumentary: No cyanosis. Neurological: The patient is awake and alert. No focal deficits. Psychiatric: Normal affect. Course Course 1056: Past medical records reviewed. The patient was evaluated in room A12. A complete history and physical exam was performed. 1300: I reevaluated the patient at this time. He states his pain is controlled. 1312: Discussed the patient's case with Nadia Clements. He states he will check the OR schedule to see if he can evaluate the patient today. 1314: I updated the patient at this time. He has not eaten or drank 0600 today. 1321: Discussed the patient's case with Eli Parkinson PA-C on behalf of Dr. Soliman, [facility] Hospitalist. The patient will be evaluated for further management. 1400: Nadia Clements and anesthesia evaluated the patient. They are taking him to the OR. 1450: Nadia Clements is taking him to the OR tomorrow morning instead. Administered Medications Sodium Chloride (Nss 1000ml) 1,000 mls @ 125 mls/hr IV .Q8H [facility] Stop: 05/20/19 08:59 Last Admin: 05/19/19 16:24 Dose: 125 mls/hr Documented by: [id number] Morphine Sulfate (Morphine Sulfate) 2 mg IV Q2H PRN PRN Reason: MODERATE Pain (Scale 4,5,6) Stop: 06/02/19 15:55 Last Admin: 05/19/19 16:23 Dose: 2 mg Documented by: [id number] Discontinued Medications Morphine Sulfate (Morphine Sulfate) 4 mg IV NOW STA Stop: 05/19/19 11:01 Last Admin: 05/19/19 11:42 Dose: 4 mg Documented by: [id number] Morphine Sulfate (Morphine Sulfate) 4 mg IV NOW STA Stop: 05/19/19 14:21 Last Admin: 05/19/19 15:15 Dose: 4 mg Documented by: [id number] Ondansetron HCl (Zofran) 4 mg IV NOW STA Stop: 05/19/19 11:01 Last Admin: 05/19/19 11:44 Dose: 4 mg Documented by: [id number] Medical Decision Making Differential Diagnosis Differential diagnosis: Etiologies such as hip fracture, pelvis fracture, vertebral fracture, contusion, strain, as well as others were entertained. Medical Records Attestation: I reviewed the patient's medical records. I did perform a limited focused review of portions of the patient's old chart on the electronic medical record. The patient has had no recent pertinent visits to this hospital. Home Medications Current Medication List: was personally reviewed by me Laboratory Data Attestation: I reviewed the patient's lab results. Result diagrams: 05/19/19 11:28 05/19/19 11:28 Lab Results 05/19/19 05/19/19 05/19/19 Range/Units 11:28 11:28 11:28 WBC 13.41 H (4.8-10.8) K/uL RBC 4.80 (4.7-6.1) M/uL Hgb 15.0 (14.0-18.0) g/dL Hct 44.8 (42-52) % MCV 93.3 (80-100) fL MCH 31.3 (25-34) pg MCHC 33.5 (32-36) g/dL RDW Std Deviation 48.8 H (36.4-46.3) fL RDW Coeff of Leeann 14.3 (11.5-14.5) % Plt Count 165 (130-400) K/uL MPV 11.3 H (7.4-10.4) fL Immature Gran % (Auto) 0.8 % Neut % (Auto) 77.2 % Lymph % (Auto) 14.0 % [place] % (Auto) 6.8 % Eos % (Auto) 1.0 % Baso % (Auto) 0.2 % Immature Gran # (Auto) 0.11 H (0.00-0.02) K/uL Neut # (Auto) 10.35 H (1.4-6.5) K/uL Lymph # (Auto) 1.88 (1.2-3.4) K/uL [place] # (Auto) 0.91 H (0.11-0.59) K/uL Eos # (Auto) 0.13 (0-0.5) K/uL Baso # (Auto) 0.03 (0-0.2) K/uL PT 10.0 (9.0-12.0) Seconds INR 1.0 (0.9-1.1) APTT 22.7 (21.0-31.0) Seconds PTT Ratio 0.8 Sodium 139 (136-145) mmol/L Potassium 4.4 (3.5-5.1) mmol/L Chloride 108 H (98-107) mmol/L Carbon Dioxide 27 (21-32) mmol/L Anion Gap 4.0 (3-11) BUN 16 (7-18) mg/dl Creatinine 1.08 (0.6-1.4) mg/dl Est Cr Clr Drug Dosing 72.4 ml/min Est GFR ( Amer) 76.9 Est GFR (Non-Af Amer) 66.3 BUN/Creatinine Ratio 14.4 (10-20) Glucose 104 H (70-99) mg/dl Calcium 9.9 (8.5-10.1) mg/dl Blood Type Antibody Screen 05/19/19 Range/Units 11:28 WBC (4.8-10.8) K/uL RBC (4.7-6.1) M/uL Hgb (14.0-18.0) g/dL Hct (42-52) % MCV (80-100) fL MCH (25-34) pg MCHC (32-36) g/dL RDW Std Deviation (36.4-46.3) fL RDW Coeff of Leeann (11.5-14.5) % Plt Count (130-400) K/uL MPV (7.4-10.4) fL Immature Gran % (Auto) % Neut % (Auto) % Lymph % (Auto) % [place] % (Auto) % Eos % (Auto) % Baso % (Auto) % Immature Gran # (Auto) (0.00-0.02) K/uL Neut # (Auto) (1.4-6.5) K/uL Lymph # (Auto) (1.2-3.4) K/uL [place] # (Auto) (0.11-0.59) K/uL Eos # (Auto) (0-0.5) K/uL Baso # (Auto) (0-0.2) K/uL PT (9.0-12.0) Seconds INR (0.9-1.1) APTT (21.0-31.0) Seconds PTT Ratio Sodium (136-145) mmol/L Potassium (3.5-5.1) mmol/L Chloride (98-107) mmol/L Carbon Dioxide (21-32) mmol/L Anion Gap (3-11) BUN (7-18) mg/dl Creatinine (0.6-1.4) mg/dl Est Cr Clr Drug Dosing ml/min Est GFR ( Amer) Est GFR (Non-Af Amer) BUN/Creatinine Ratio (10-20) Glucose (70-99) mg/dl Calcium (8.5-10.1) mg/dl Blood Type O Positive Antibody Screen NEGATIVE Imaging Data Radiologist's Impression: Radiology results as stated below per my review and the radiologist's interpretation: XR lumbar spine 2-3V CLINICAL HISTORY: Back pain status post trauma COMPARISON STUDY: No previous studies for comparison. FINDINGS: There are moderate degenerative changes with disc space narrowing most pronounced at the L4-5 and L5-S1 levels. There are pleurodiaphragmatic calcifications present. There is a thoracolumbar spinal curvature convex to the right. There are no acute fractures. IMPRESSION: 1. No acute fractures 2. 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 Electronically signed by: Dave Fontana M.D. 05/19/2019 12:33 PM XR hip RT min 2V CLINICAL HISTORY: Right hip pain status post trauma COMPARISON: None. DISCUSSION: There is an acute mid cervical right femoral neck fracture. There is no dislocation. IMPRESSION: Acute right femoral neck fracture. Electronically signed by: Dave Fontana M.D. 05/19/2019 12:32 PM XR chest 1V portable CLINICAL HISTORY: Preoperative chest. Trauma. Hip fracture. COMPARISON STUDY: No previous studies for comparison. FINDINGS: The heart is enlarged. Postsurgical changes are present within the right hemithorax. There are right-sided pleurodiaphragmatic calcifications. There is partial absence of the right sixth rib. There is a small right pleural effusion versus chronic right pleural thickening. There is right apical capping. There is no failure. There is no lobar consolidation.[ IMPRESSION: 1. Postsurgical changes within the right hemithorax. No acute findings. Electronically signed by: Dave Fontana M.D. 05/19/2019 12:30 PM ECG Data Attestation: I personally reviewed and interpreted this ECG as follows: Indication: + other (pre op) Rate (beats per minute): 65 Rhythm: + sinus rhythm ECG ST segments: no ST elevation ECG Findings: + PVCs and + Other (QRS is 80) Blood Pressure Blood Pressure Findings: Elevated blood pressure Blood Pressure Disposition: further management by hospitalist MDM Narrative I did evaluate the patient as noted above. The patient presents after mecha nical fall while walking his dog. He complains of low back pain and hip pain. He has external rotation of the right hip with significant tenderness. He is neurovascular intact. He denies any other injury including head or neck injury. IV access was established. The patient was placed on a continuous marketing development representative. I did treat the patient with IV morphine and Zofran. I did order and personally review the patient's 12-lead EKG as described above. He has normal sinus rhythm with PVCs. No acute ischemia. I did order and personally reviewed the images of the patient's chest/lumbar spine/hip and pelvis x-rays as described above. The patient has a right femoral neck fracture. No compression fractures of the lumbar spine. I did order and review the patient's blood work as noted in the electronic medical record. His white count is 13,000. He is not anemic. Electrolytes are unremarkable. I did discuss the case with the orthopedic physician on-call as well as the hospitalist. He was admitted to the hospital for operative repair tomorrow. I did discuss the test results with the patient and his . Impression & Plan Closed fracture of right hip, Fall Discharge Plan Visit Data *Final* Discharge Date/Time: 05/19/19 15:15 Chief Complaint: Fall Stated Complaint: FELL;HURT R HIP/LEG ED Provider: Miki Draper Discharge Problem: Closed fracture of right hip, Fall Patient Disposition: Admitted As Inpatient Discharge Instructions Interventions: ED Discharge Assessment Last Done: 05/19/19 15:15 Discharge Problem: Closed fracture of right hip Qualifiers: Encounter type: initial encounter Qualified Code(s): S72.001A - Fracture of unspecified part of neck of right femur, initial encounter for closed fracture Fall Qualifiers: Encounter type: initial encounter Qualified Code(s): W19.XXXA - Unspecified fall, initial encounter The scribe's documentation has been prepared under my direction and personally reviewed by me in its entirety. I confirm that the note above accurately reflects all work, treatment, procedures, and medical decision making performed by me.
--- NOTE | 2019-05-19 16:57 | CT Scan Report ---
CT hip RT wo con CT DOSE: 587.86 mGy.cm CLINICAL HISTORY: Right hip fracture. Preoperative planning. TECHNIQUE: Helical images were acquired in the transverse plane. Sagittal and coronal reformatted desiree ges were acquired. A dose lowering technique was utilized adhering to the principles of ALARA. COMPARISON STUDY: X-ray study performed 05/19/2019 FINDINGS: There is an acute oblique femoral neck fracture with mild comminution. There is no dislocat ion. There is lateral displacement of the femoral shaft. There is mild surrounding soft tissue edema. IMPRESSION: 1. Acute comminuted oblique femoral neck fracture. No evidence of intertrochanteric extension. No franky dence of dislocation Electronically signed by: Dave Fontana M.D. 05/19/2019 4:55 PM
[2019-05-19] MEDS: OXYCODONE HCL IR 5 MG TAB (IMMEDIATE RELEASE) PO PRN (18:11)
[2019-05-19] MEDS: DOCUSATE SODIUM/SENNA 50/8.6MG TAB PO SCH (20:44)
[2019-05-19] MEDS: ATORVASTATIN 10 MG TAB PO SCH (20:44)
[2019-05-19] MEDS: GABAPENTIN 100 MG CAP PO SCH (20:45)
[2019-05-20] MEDS: SODIUM CHLORIDE 0.9% 1000ML 1,000 ML IV SCH ×3 (00:51→21:23)
[2019-05-20 05:25] LABS: Hematocrit (blood only) 40.4 % (42-52); Hemoglobin 13.4 g/dL (14.0-18.0); Mean Corpuscular Hemoglobin 30.6 pg (25-34); Mean Corpuscular Hgb Conc 33.2 g/dL (32-36); Mean Corpuscular Volume 92.2 fL (80-100); Mean Platelet Volume 11.1 fL (7.4-10.4); Platelet Count 154 K/uL (130-400); RDW Coefficient of Variation 14.3 % (11.5-14.5); RDW Standard Deviation 48.3 fL (36.4-46.3); Red Blood Count 4.38 M/uL (4.7-6.1); White Blood Count 13.44 K/uL (4.8-10.8)
[2019-05-20 05:48] LABS: BUN Creatinine Ratio 13.7 (10-20); Calcium 8.9 mg/dl (8.5-10.1); Creatinine Clr Calc Pharmacy 84.5 ml/min; Est GFR (African American) 95.8; Est GFR (Non-African American) 82.7; Potassium 4.1 mmol/L (3.5-5.1)
[2019-05-20] MEDS: OXYCODONE HCL IR 5 MG TAB (IMMEDIATE RELEASE) PO PRN (05:48)
[2019-05-20] MEDS ORDERED: CEFAZOLIN 2000MG 2,000 MG/15 ML SYR IV SCH (06:00)
[2019-05-20] MEDS ORDERED: ROPIVACAINE 0.5% HCL/PF 150 MG, BUPIVACAINE 0.5% MPF 30 ML, EPINEPHrine 0.15 MG, Ketoro... INFIL SCH (06:00)
[2019-05-20] MEDS ORDERED: BUPIVACAINE 0.5 % 5 MG/1 ML PF 10ML VIAL ONE (06:37)
[2019-05-20] MEDS ORDERED: PROPOFOL IV EMULSION 10 MG/ML 20 ML VIAL IV ONE (06:50)
[2019-05-20] MEDS ORDERED: fentaNYL citrate 100 MCG/2 ML VIAL ONE (06:52)
[2019-05-20] MEDS ORDERED: ORTHO JOINT ANESTHETIC ONE (06:53)
[2019-05-20] MEDS ORDERED: BUPIVACAINE 0.5 % 5 MG/1 ML MPF 30ML VIAL ONE (06:54)
[2019-05-20] MEDS ORDERED: LIDOCAINE/EPINEPHRINE 1% 20 ML VIAL ONE (06:54)
--- NOTE | 2019-05-20 06:54 | Orthopedic Progress Note ---
Date of Service May 20, 2019 Assessment & Plan (1) Closed fracture of right hip: The patient is a 78 year old active male who sustained a right hip fracture. The patients treatment options of conservative versus surgical intervention were discussed. Since the patient was an ambulatory prior to the injury and to avoid the risks of bed sores, pulmonary complications, and to give the best chance for ambulation, I recommended surgery. The patient and family understands the risks of surgery, which include but are not limited to: bleeding, infection, re-operation, damage to nerves and arteries, continued pain, fracture, dislocation, progression of arthritis, TN, stroke, DVT, and de ath. In addition she is aware of the 20-30% morbidity associated with hip fracture for up to 1 year following a hip fracture. The patient and family understands all of these instructions and explanations, all of their questions have been satisfactorily addressed. The patient has elected to proceed with surgery and the informed consent was signed for dona-arthroplasty, as I explained that due to his fracture type , attempted ORIF has a high failure rate. Patient is NWB and NPO since midnight. Ancef is on-call to the OR. Subjective Right hip pain. Did not get any sleep last night due to noise. Review of Systems Review of Systems: All systems reviewed & are unremarkable except as noted in HPI & below Physical Exam Physical Exam: RLE: Neurovascularly intact. Shortened and externally rotated. Results & Data Vital Signs (Past 12 Hours) Vital Signs Temp Pulse Resp BP Pulse Ox Pulse Ox 05/20/19 06:36 37.4 C 80 16 160/84 H 92 05/20/19 00:35 94 05/19/19 22:55 37.4 C 89 18 161/82 H [address] Right hip showed displaced right femoral neck fracture, [place] Type 3. (1) Closed fracture of right hip Encounter type: initial encounter Qualified Code(s): S72.001A - Fracture of unspecified part of neck of right femur, initial encounter for closed fracture
[2019-05-20] MEDS ORDERED: MIDAZOLAM HCL 1 MG/ML 2ML VIAL ONE (07:11)
[2019-05-20] MEDS: GABAPENTIN 100 MG CAP PO SCH ×2 (07:50→21:14)
[2019-05-20] MEDS: lisinopriL 20 MG TAB PO SCH (07:51)
[2019-05-20] MEDS: METOPROLOL SUCC 25MG EXT REL TAB PO SCH (07:51)
[2019-05-20] MEDS ORDERED: CISATRACURIUM BESYLATE IV SOLN 2 MG/ML 10 ML VIAL IV ONE (08:10)
[2019-05-20] MEDS ORDERED: SUCCINYLCHOLINE 100MG/5ML SYR ONE (08:10)
[2019-05-20] MEDS ORDERED: HYDROmorphone INJ 2 MG/ML SYR/VIAL ONE (08:11)
[2019-05-20] MEDS ORDERED: TRANEXAMIC ACID / 0.7% NACL 1,000 MG/100 ML BAG IV STA ×2 (08:19→08:22)
[2019-05-20] MEDS ORDERED: TRANEXAMIC ACID 1,000 MG in 0.9 % SODIUM CHLORIDE 100 ML IV ONE ×2 (08:30→08:45)
--- NOTE | 2019-05-20 09:25 | XRay Report ---
XR hip RT 1V CLINICAL HISTORY: INTRAOPERATIVE XTABLE RIGHT HIP COMPARISON STUDY: Right hip CT 05/19/2019. FINDINGS: Single view of the right hip demonstrates an acetabular and femoral spacer for a right tota l arthroplasty. The hardware appears intact. No fracture or dislocation. A David catheter is in place . IMPRESSION: Intraoperative image for a right total hip arthroplasty. Electronically signed by: Alberto Lino M.D. 05/20/2019 9:24 AM
--- NOTE | 2019-05-20 10:06 | Post Operative Brief Note ---
Immediate Post Op Note v1 Date of Surgery May 20, 2019 Pre & Post Diagnosis Operation Date: 05/20/19 07:00 Pre-Op Diagnosis: Closed fracture of right hip. Post-Op Diagnosis: Closed fracture of right hip. I identified the patient and participated in the time-out.: Yes Procedure Operation Date: 05/20/19 07:00 Actual Procedures p Right hip hemiarthroplasty.(Right) - Mp Campa MD Surgeon Mp Campa MD Political Advisor Luis Hurd MD Estimated Blood Loss 100 Findings See Below Displaced, comminuted femoral neck fracture. Fluids 1600 cc Specimens Right femoral head Drains David Catheter Anesthesia Type General Complications none
--- NOTE | 2019-05-20 10:07 | Operative Report ---
Post Operative Report Pre & Post Diagnosis Operation Date: 05/20/19 07:00 Pre-Op Diagnosis: Closed fracture of right hip. Post-Op Diagnosis: Closed fracture of right hip. I identified the patient and participated in the time-out.: Yes Procedure Operation Date: 05/20/19 07:00 Actual Procedures p Right hip hemiarthroplasty.(Right) - Mp Campa MD Surgeon Mp Campa MD Nurse Practitioner Physicians Assistant Luis Hurd MD Estimated Blood Loss 100 Findings See Below Displaced, comminuted femoral neck fracture, that tore through the posterior capsule. 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 After orthopedic consult discussing the patients treatment options of conservative versus surgical intervention, she agreed for a planned hemiarthroplasty. Since the patient was ambulatory prior to the injury and to avoid the risks of bed sores, pulmonary complications, and to give the patient the best chance for ambulation, I recommended surgery. The patient understands the risks of surgery, which include but are not limited to: bleeding, infection, re- operation, damage to nerves and arteries, continued pain, failure of the hardware, dislocation, DVT, and . In addition the patient is aware of the 20-30% morbidity associated with hip fracture for up to 1 year following a hip fracture. The patient understands all of these instructions and explanations, all of their questions have been satisfactorily addressed. The patient has elected to proceed with surgery and the informed consent was signed. Description of Procedure Implants: 1) LD/FX, Size 14 Standard body/Neck Offset Cemented (Linda/Biomet), with 13 mm centralizer. 2) Femoral Head 28mm Diameter, + 3.5 mm Neck Length. 3) 53 mm Multipolar Bipolar Cup. 4) 28 mm ID Liner, Multipolar Bipolar Cup. 5) Simplex cement 2 (Styker). Description of Procedure The patient was taken to the Operating Room and placed in the lateral position with a herrmann bag following general anesthesia administration. A multidisciplinary time-out was performed identifying my initials on the right lower limb as the correct and operative limb. Prior to the incision being made, 2 grams of intravenous Ancef were given. The right lower extremity was prepped in the standard fashion. The trochanter was marked as was the planned incision 1/3 proximal and 2/3 distal to the tip of the greater trochanter. The incisions were injected with a 50:50 mixture of 1% Lidocaine epi and 0.5% Bupivacaine plain for a total of 10cc. A standard posterior approach was made. The planned incision was carried down through the Tensor Fascia Katie , which was then split in-line with its fibers. The Gluteus [place] was bluntly dissected. The Piriformis and short external rotators were dissected off the femur and tagged for later repair. The fracture was easily identified as it had impaled and tore the posterior capsule. The remaining capsule was incised and freed off the fracture fragments. The Neck cut was made to allow removal of the femoral head and comminuted fragments. The femoral canal was prepared with Box osteotome, followed by a canal finder. The femur was sequentially broached in the standard fashion, and trial heads were placed. Fluoroscopy was brought in to ensure adequate proper alignment, fill of the canal, head size, and leg length With a little difficult to spiritual counselor as prior to taking the remaining edge and attempt had been made to shuck the hip and the connector to the broach had slightly . The femur was then prepped and cemented using 3rd generation technique followed by placement of the trial components initially with a zero head and then switch to a +3.5 mm head in the standard fashion and the hip reduced. There was excellent stability with no sense of dislocation with 20 degrees adduction, flexion 90 degrees, and internal rotation to 60 degrees. The wounds were copiously irrigated. The remaining capsule was closed with 0 Vicryl. The external rotators were closed over bon bridges with #2 FiberWire and 0 Vicryl. The Tensor Fascia Katie was closed with #1 Vicryl. The subcutaneous tissue was closed with 3-0 Vicryl. The skin was closed with Zipline and shield. The incision was covered with 4 x 4's, ABD and foam tape. The patient was transfer to her hospital bed and taken to the PACU in stable condition. The sponge and needle counts were correct. Post-op Instructions: The patient was admitted to back to the Med/Surg floor. Final x-rays will be obtained in the PACU. The patient will be WBAT with a walker. The patient will be seen by PT/OT. The patient's labs will be checked in the am. DVT prophylaxis will be with TEDs, mechanical devices and will start ASA in the AM. I attest to the content of the Intraoperative Record and any orders documented therein. Any exceptions are noted below.
[2019-05-20] MEDS ORDERED: ONDANSETRON INJ 2 MG/ML 2 ML VIAL ONE (10:13)
[2019-05-20] MEDS ORDERED: GLYCOPYRROLATE 0.2 MG/ML VIAL ONE (10:14)
[2019-05-20] MEDS ORDERED: DEXAMETHASONE SOD INJ 4 MG/ML VIAL ONE (10:14)
[2019-05-20] MEDS ORDERED: NEOSTIGMINE METHYLSULFATE 5 MG/5 ML SYR ONE (10:14)
[2019-05-20] MEDS ORDERED: ATROPINE SULFATE 0.1 MG/ML 10ML SYR IV PRN (10:37)
[2019-05-20] MEDS ORDERED: fentaNYL citrate 100 MCG/2 ML VIAL IV PRN (10:37)
[2019-05-20] MEDS ORDERED: ONDANSETRON INJ 2 MG/ML 2 ML VIAL IV PRN ×2 (10:37→12:39)
[2019-05-20] MEDS ORDERED: LABETALOL HCL IV 5 MG/ML 20ML IV PRN (10:37)
[2019-05-20] MEDS ORDERED: ePHEDrine sulfate 50 MG/ML AMP IV PRN (10:37)
[2019-05-20] MEDS ORDERED: PROMETHAZINE HCL 12.5 MG in SODIUM CHLORIDE 0.9% 50 ML IV PRN (10:37)
[2019-05-20] MEDS ORDERED: FLUMAZENIL 0.1 MG/1 ML 10 ML VIAL IV PRN (10:37)
[2019-05-20] MEDS ORDERED: NALOXONE HCL 0.4 MG/1 ML VIAL/CARP IV PRN (10:37)
--- NOTE | 2019-05-20 11:15 | Operative Report ---
Post Operative Report Pre & Post Diagnosis Operation Date: 05/20/19 07:00 Pre-Op Diagnosis: Closed fracture of right hip. Post-Op Diagnosis: Closed fracture of right hip. I identified the patient and participated in the time-out.: Yes Procedure Operation Date: 05/20/19 07:00 Actual Procedures p Right hip hemiarthroplasty.(Right) - Mp Campa MD Surgeon Mp Campa MD Fuel Operator Luis Hurd MD Estimated Blood Loss 100 Findings Consistent with Post-Op Diagnosis Specimens femoral head Complications none Disposition Accompanied Patient To Recovery: Yes Disposition: Recovery Room Description of Procedure Lateral decubitus position, standard prep and drape, Time-out Tee's approach, Right hip hemiarthroplasty Please see Dr Campa's procedure notes for specific details I was present throughout the case, assisted for wound closure and transferred the patient to PACU in stable condition I attest to the content of the Intraoperative Record and any orders documented therein. Any exceptions are noted below.
--- NOTE | 2019-05-20 12:10 | Anesthesiology Progress Note ---
Date of Service May 20, 2019 Anesthesia Post Procedure Vital Signs Vital Signs: Temp Pulse Pulse Pulse Resp BP BP 05/20/19 11:55 78 16 139/71 05/20/19 11:45 80 14 137/76 05/20/19 11:35 81 12 126/69 05/20/19 11:25 36.5 C 82 12 133/74 05/20/19 11:15 93 H 14 137/71 05/20/19 11:05 89 15 137/92 05/20/19 10:55 85 15 149/77 H 05/20/19 10:45 83 15 131/73 05/20/19 10:37 37.8 C H 82 14 156/90 H 05/20/19 06:44 37.5 C 77 18 05/20/19 06:36 37.4 C 80 16 05/20/19 00:35 05/19/19 22:55 37.4 C 89 18 05/19/19 15:57 36.9 C 73 18 05/19/19 15:01 82 27 H 113/79 05/19/19 14:31 73 17 101/56 L 05/19/19 14:00 74 22 137/74 05/19/19 12:27 65 22 BP Pulse Ox Pulse Ox 05/20/19 11:55 95 05/20/19 11:45 95 05/20/19 11:35 97 05/20/19 11:25 98 05/20/19 11:15 98 05/20/19 11:05 100 05/20/19 10:55 98 05/20/19 10:45 98 05/20/19 10:37 98 05/20/19 06:44 156/83 H 94 05/20/19 06:36 160/84 H 92 05/20/19 00:35 94 05/19/19 22:55 161/82 H 94 05/19/19 15:57 153/91 H 97 05/19/19 15:01 98 05/19/19 14:31 96 05/19/19 14:00 95 05/19/19 12:27 142/89 H 92 Pain Intensity Right Leg: Pain Intensity: 0 Transfer of Care Handoff Completed per policy Notes Mental Status: alert / awake / arousable Patient Amnestic to Procedure: Yes Nausea / Vomiting: adequately controlled Pain: adequately controlled Airway Patency, RR, SpO2: stable & adequate BP & HR: stable & adequate Hydration State: stable & adequate Anesthetic Complications: no major complications apparent
--- NOTE | 2019-05-20 12:29 | XRay Report ---
XR pelvis 1-2V routine HISTORY: 78 years-old Male AP pelvis centered on hips right hip total joint arthroplasty COMPARISON: Right hip radiographs same day TECHNIQUE: Single AP view of the pelvis FINDINGS: Right hip total joint arthroplasty appears to be in satisfactory alignment. No acute fracture or disl ocation. Mild to moderate left hip osteoarthritis. Expected postsurgical soft tissue swelling and gege p tissue air about the lateral right hip. No retained foreign body. Surgical clips project over the u pper scrotum. David catheter noted. IMPRESSION: Satisfactory alignment of the right hip total joint arthroplasty with expected postsurgic al findings. The above report was generated using voice recognition software. It may contain grammatical, syntax o r spelling errors. Electronically signed by: Chriss Walsh M.D. 05/20/2019 12:27 PM
[2019-05-20] MEDS ORDERED: METOCLOPRAMIDE HCL INJ 5 MG/ML 2 ML VIAL IV PRN (12:39)
[2019-05-20] MEDS ORDERED: DiphenhydrAMINE HCL 50 MG/ML VIAL IV PRN (12:39)
[2019-05-20] MEDS: KETOROLAC TROMETHAMINE 15 MG/ML VIAL IV SCH ×2 (13:32→19:45)
[2019-05-20] MEDS ORDERED: TRANEXAMIC ACID 1,000 MG in 0.9 % SODIUM CHLORIDE 100 ML IV SCH ×2 (14:00→16:29)
[2019-05-20] MEDS: CEFAZOLIN 2000MG 2,000 MG/15 ML SYR IV SCH ×2 (15:16→23:31)
--- NOTE | 2019-05-20 18:02 | Hospitalist Progress Note ---
Date of Service May 20, 2019 Assessment & Plan (1) Fall: (2) Closed fracture of right hip: Mr. Jade is a 78-year-old male who has significant past medical history of HTN, HLD, BPH who presents to [facility] after sustaining a mechanical fall walking his dog with subsequent right hip pain. Right hip x-ray revealed right femoral neck fracture. No medical contraindication to go for the proposed surgery Status post right hip hemiarthroplasty on 05/20 Remains drowsy from the effect of anesthetics Denies any significant symptom Management will be as per Ortho (3) HTN (hypertension): BP elevated in ED likely in setting of acute pain Controlled on outpatient regimen of lisinopril and metoprolol Blood pressure remains stable but at the lower side of normal (4) HLD (hyperlipidemia): continue statin (5) BPH (benign prostatic hyperplasia): cook cath ordered UA negative for infection (6) DVT prophylaxis: SCD/TEDS Will hold chemical prophylaxis today in setting of the scheduled procedure for 7 AM tomorrow Anticoagulation as per Ortho Disposition: Admit to Med/Surg, case management consulted Follow-up: PCP Dr. Cerda upon discharge Subjective 05/20 The patient was seen and examined in medical floor He is status post right hip hemiarthroplasty, POD #0 He remains very drowsy and has been having bad dreams Denies any chest pain and/or palpitation, any numbness and/or tingling in the extremities Review of Systems Review of Systems: Unobtainable due to reduced consciousness Physical Exam Physical Exam: Lying in bed with some discomfort and anxiety Constitutional: well developed, well nourished and + ill appearing; no acute distress Eyes: PERRL, conjunctivae normal, anicteric sclerae ENMT: external ear and nose normal, oropharynx normal Neck: trachea midline, no thyromegaly Respiratory: normal respiratory effort Auscultation: lungs clear to auscultation bilaterally Cardiovascular: Rate/Rhythm: regular rate and regular rhythm Heart Sounds: no murmur Gastrointestinal (Abdomen): Inspection/Auscultation: abdomen normal to inspection and normal bowel sounds; abdomen not distended Percussion/Palpation: abdomen soft; abdomen nontender Musculoskeletal: No acute arthritis in any joints but the right lower extremity was not examined Neurologic: Alert and awake. Drowsy from the effect of medications Results & Data Vital Signs (Past 12 Hours) Vital Signs Temp Pulse Pulse Pulse Resp BP BP 05/20/19 14:39 69 16 107/65 05/20/19 13:35 75 16 114/69 05/20/19 13:12 71 16 123/78 05/20/19 12:30 36.9 C 90 14 162/73 H 05/20/19 12:05 37.2 C 84 18 130/74 05/20/19 11:55 78 16 139/71 05/20/19 11:45 80 14 137/76 05/20/19 11:35 81 12 126/69 05/20/19 11:25 36.5 C 82 12 133/74 05/20/19 11:15 93 H 14 137/71 05/20/19 11:05 89 15 137/92 05/20/19 10:55 85 15 149/77 H 05/20/19 10:45 83 15 131/73 05/20/19 10:37 37.8 C H 82 14 156/90 H 05/20/19 06:44 37.5 C 77 18 156/83 H 05/20/19 06:36 37.4 C 80 16 160/84 H Pulse Ox 05/20/19 14:39 93 05/20/19 13:35 92 05/20/19 13:12 95 05/20/19 12:30 97 05/20/19 12:05 97 05/20/19 11:55 95 05/20/19 11:45 95 05/20/19 11:35 97 05/20/19 11:25 98 05/20/19 11:15 98 05/20/19 11:05 100 05/20/19 10:55 98 05/20/19 10:45 98 05/20/19 10:37 98 05/20/19 06:44 94 05/20/19 06:36 92 Laboratory Results Short CBC 05/20/19 Range/Units 05:07 WBC 13.44 H (4.8-10.8) K/uL Hgb 13.4 L (14.0-18.0) g/dL Hct 40.4 L (42-52) % Plt Count 154 (130-400) K/uL BMP 05/20/19 05:07 Sodium 137 Potassium 4.1 Chloride 106 Carbon Dioxide 26 BUN 12 Creatinine 0.90 Glucose 123 H Calcium 8.9 Medications Administered Current Inpatient Medications Acetaminophen (Tylenol) 650 mg PO Q6H PRN PRN Reason: MILD Pain (Scale 1,2,3) Stop: 06/18/19 15:55 Al Hydrox/Mg Hydrox/Simethicone (Maalox) 30 ml PO Q6H PRN PRN Reason: Dyspepsia Stop: 06/18/19 15:55 Aspirin (Ecotrin) 325 mg PO BID [facility] Stop: 06/19/19 20:59 Atorvastatin Calcium (Lipitor) 10 mg PO HS [facility] Stop: 06/18/19 20:59 Last Admin: 05/19/19 20:44 Dose: 10 mg Documented by: Bisacodyl (Dulcolax) 10 mg [place] DAILY PRN PRN Reason: Constipation Stop: 06/18/19 15:55 Diphenhydramine HCl (Benadryl) 25 mg IV Q8H PRN PRN Reason: Itching Stop: 06/19/19 12:38 Gabapentin (Neurontin) 200 mg PO BID [facility] Stop: 06/18/19 20:59 Last Admin: 05/20/19 07:50 Dose: Not Given Documented by: Cefazolin Sodium (Ancef 2000mg) 2,000 mg in 15 mls @ 3.75 mls/min IV Q8H [facility]IZ[facility]ETH; Protocol Stop: 05/21/19 00:03 Last Admin: 05/20/19 15:16 Dose: 3.75 mls/min Documented by: Sodium Chloride (Nss 1000ml) 1,000 mls @ 100 mls/hr IV .Q10H [facility]ETH Stop: 05/21/19 06:00 Last Infusion: 05/20/19 15:50 Dose: 100 mls/hr Documented by: Ketorolac Tromethamine (Toradol) 15 mg IV Q6H [facility] Stop: 05/21/19 08:01 Last Admin: 05/20/19 13:32 Dose: 15 mg Documented by: Lisinopril (Zestril) 20 mg PO QAM [facility] Stop: 06/19/19 08:59 Last Admin: 05/20/19 07:51 Dose: Not Given Documented by: Magnesium Hydroxide (Milk Of Magnesia) 30 ml PO DAILY PRN PRN Reason: Constipation Stop: 06/18/19 15:55 Metoclopramide HCl (Reglan) 10 mg IV Q6H PRN PRN Reason: Nausea And Vomiting Stop: 06/19/19 12:38 Metoprolol Succinate ([facility]rol Xl) [facility] Stop: 06/19/19 08:59 Last Admin: 05/20/19 07:51 Dose: Not Given Documented by: Morphine Sulfate (Morphine Sulfate) 2 mg IV Q2H PRN PRN Reason: MODERATE Pain (Scale 4,5,6) Stop: 06/02/19 15:55 Last Admin: 05/19/19 16:23 Dose: 2 mg Documented by: Multivitamins (Multivitamin Tab) 1 tab PO [facility] Stop: 06/20/19 08:59 Naloxone HCl (Narcan) 0.1 mg IV UD PRN PRN Reason: Opiate Overdose Stop: 06/18/19 15:55 Ondansetron HCl (Zofran) 4 mg IV Q6H PRN PRN Reason: Nausea And Vomiting Stop: 06/18/19 15:55 Ondansetron HCl (Zofran) 4 mg IV Q6H PRN PRN Reason: Nausea And Vomiting Stop: 06/19/19 12:38 Oxycodone HCl (Roxicodone Immediate Rel) 5 mg PO Q4H PRN PRN Reason: MODERATE Pain (Scale 4,5,6) Stop: 06/02/19 15:55 Last Admin: 05/20/19 05:48 Dose: 5 mg Documented by: Polyethylene Glycol (Miralax Powder Packet) 17 gm PO DAILY PRN PRN Reason: Constipation Stop: 06/18/19 15:55 Senna/Docusate Sodium (Senokot S) 2 tab PO [facility] Stop: 06/18/19 20:59 Last Admin: 05/19/19 20:44 Dose: 2 tab Documented by: Sennosides (Senokot) 17.2 mg PO [facility] Stop: 06/19/19 20:59 (1) Fall Encounter type: initial encounter Qualified Code(s): W19.XXXA - Unspecified fall, initial encounter (2) Closed fracture of right hip Encounter type: initial encounter Qualified Code(s): S72.001A - Fracture of unspecified part of neck of right femur, initial encounter for closed fracture
[2019-05-20] MEDS: SENNA 8.6 MG TAB PO SCH (21:13)
[2019-05-20] MEDS: DOCUSATE SODIUM/SENNA 50/8.6MG TAB PO SCH (21:14)
[2019-05-20] MEDS: ASPIRIN 325 MG ECTAB PO SCH (21:14)
[2019-05-20] MEDS: ATORVASTATIN 10 MG TAB PO SCH (21:14)
[2019-05-21] MEDS: KETOROLAC TROMETHAMINE 15 MG/ML VIAL IV SCH ×2 (02:28→08:00)
[2019-05-21 05:58] LABS: Basophils # (auto) 0.01 K/uL (0-0.2); Basophils % (auto) 0.1 %; Eosinophils # (auto) 0.01 K/uL (0-0.5); Eosinophils % (auto) 0.1 %; Hematocrit (blood only) 33.6 % (42-52); Hemoglobin 11.1 g/dL (14.0-18.0); Immature Granulocytes # (auto) 0.05 K/uL (0.00-0.02); Immature Granulocytes % (auto) 0.3 %; Lymphocytes # (auto) 1.44 K/uL (1.2-3.4); Lymphocytes % (auto) 9.7 %; Mean Corpuscular Hemoglobin 30.5 pg (25-34); Mean Corpuscular Volume 92.3 fL (80-100); Monocytes # (auto) 1.21 K/uL (0.11-0.59); Monocytes % (auto) 8.1 %; Neutrophils # (auto) 12.18 K/uL (1.4-6.5); Neutrophils % (auto) 81.7 %; Platelet Count 125 K/uL (130-400); RDW Coefficient of Variation 14.1 % (11.5-14.5); RDW Standard Deviation 47.9 fL (36.4-46.3); Red Blood Count 3.64 M/uL (4.7-6.1)
[2019-05-21 06:36] LABS: BUN Creatinine Ratio 17.4 (10-20); Creatinine Clr Calc Pharmacy 75.3 ml/min; Est GFR (African American) 83.4; Est GFR (Non-African American) 71.9; Potassium 4.4 mmol/L (3.5-5.1)
--- NOTE | 2019-05-21 08:20 | Anesthesiology Progress Note ---
Date of Service May 21, 2019 Anesthesia Post Procedure Vital Signs Vital Signs: Temp Pulse Pulse Resp BP Pulse Ox Pulse Ox 05/21/19 07:04 36.4 C L 101 H 21 147/81 H 94 05/21/19 05:30 95 05/21/19 03:29 37.1 C 87 16 130/74 92 05/20/19 23:45 92 05/20/19 23:14 37.4 C 91 H 16 137/75 92 05/20/19 19:52 36.5 C 89 17 141/80 H 94 05/20/19 14:39 69 16 107/65 93 05/20/19 13:35 75 16 114/69 92 05/20/19 13:12 71 16 123/78 95 05/20/19 12:30 36.9 C 90 14 162/73 H 97 05/20/19 12:05 37.2 C 84 18 130/74 97 05/20/19 11:55 78 16 139/71 95 05/20/19 11:45 80 14 137/76 95 05/20/19 11:35 81 12 126/69 97 05/20/19 11:25 36.5 C 82 12 133/74 98 05/20/19 11:15 93 H 14 137/71 98 05/20/19 11:05 89 15 137/92 100 05/20/19 10:55 85 15 149/77 H 98 05/20/19 10:45 83 15 131/73 98 05/20/19 10:37 37.8 C H 82 14 156/90 H 98 Pain Intensity Right Leg: Pain Intensity: 0 Notes Mental Status: alert / awake / arousable and participated in evaluation Patient Amnestic to Procedure: Yes Nausea / Vomiting: adequately controlled Pain: adequately controlled Airway Patency, RR, SpO2: stable & adequate BP & HR: stable & adequate Hydration State: stable & adequate Anesthetic Complications: no major complications apparent and Pt Satisfied with anesthetic care
[2019-05-21] MEDS: GABAPENTIN 100 MG CAP PO SCH ×2 (08:58→20:15)
[2019-05-21] MEDS: MULTIVITAMIN TAB PO SCH (08:58)
[2019-05-21] MEDS: ASPIRIN 325 MG ECTAB PO SCH ×2 (08:58→20:15)
[2019-05-21] MEDS: lisinopriL 20 MG TAB PO SCH (08:59)
[2019-05-21] MEDS: METOPROLOL SUCC 25MG EXT REL TAB PO SCH (08:59)
[2019-05-21] MEDS: OXYCODONE HCL IR 5 MG TAB (IMMEDIATE RELEASE) PO PRN ×2 (10:03→16:04)
--- NOTE | 2019-05-21 14:35 | Orthopedic Progress Note ---
Date of Service May 21, 2019 Assessment & Plan (1) Closed fracture of right hip: Patient doing well. Postop day 1 right hip hemiarthroplasty. May be out of bed, weight-bear as tolerated right lower extremity with the assistance of a walker. Hip precautions right hip at all times. Use walker to assist with ambulation. Use abduction pillow or pillow between knees when sitting or lying in bed. Continue aspirin 325 mg twice daily for DVT prophylaxis as well as TOM stockings and SCDs. Case management for disposition. Patient would like to return home with in-home health nursing. No dressing change today. We will plan on doing this tomorrow. Will cover with Silverlon. Ice and elevate as needed for pain and swelling. Continue physical therapy and Occupational Therapy. Findings will be discussed with Dr. Campa. Call [phone] with any questions. i, Dr. Campa, saw and examined the patient and agree with the above findings and plan of care discussed with my PA. Continue care per primary service. Subjective doing well, no complaints of pain, states he's doing great. He has been out of bed with PT/OT with a walker. Resting in bed currently. Physical Exam Physical Exam: Right hip dressing clean, dry, intact. No distal edema. Distal pulses are 2+. Moves toes and ankle well. Strength is 5/5. Nontender in his right knee with trace knee effusion. Tolerates logrolling of his right hip. He did not have anything between his legs as he was resting so I placed a standard pillow between his knees. Results & Data Vital Signs (Past 12 Hours) Vital Signs Temp Pulse Resp BP Pulse Ox Pulse Ox 05/21/19 07:04 36.4 C L 101 H 21 147/81 H 94 05/21/19 05:30 95 05/21/19 03:29 37.1 C 87 16 130/74 92 Laboratory Results 05/21/19 05/21/19 Range/Units 05:27 05:27 WBC 14.90 H (4.8-10.8) K/uL RBC 3.64 L (4.7-6.1) M/uL Hgb 11.1 L (14.0-18.0) g/dL Hct 33.6 L (42-52) % MCV 92.3 (80-100) fL MCH 30.5 (25-34) pg MCHC 33.0 (32-36) g/dL RDW Std Deviation 47.9 H (36.4-46.3) fL RDW Coeff of Leeann 14.1 (11.5-14.5) % Plt Count 125 L (130-400) K/uL MPV 11.0 H (7.4-10.4) fL Immature Gran % (Auto) 0.3 % Neut % (Auto) 81.7 % Lymph % (Auto) 9.7 % Donley % (Auto) 8.1 % Eos % (Auto) 0.1 % Baso % (Auto) 0.1 % Immature Gran # (Auto) 0.05 H (0.00-0.02) K/uL Neut # (Auto) 12.18 H (1.4-6.5) K/uL Lymph # (Auto) 1.44 (1.2-3.4) K/uL Donley # (Auto) 1.21 H (0.11-0.59) K/uL Eos # (Auto) 0.01 (0-0.5) K/uL Baso # (Auto) 0.01 (0-0.2) K/uL Sodium 138 (136-145) mmol/L Potassium 4.4 (3.5-5.1) mmol/L Chloride 107 (98-107) mmol/L Carbon Dioxide 24 (21-32) mmol/L Anion Gap 7.0 (3-11) BUN 18 (7-18) mg/dl Creatinine 1.01 (0.6-1.4) mg/dl Est Cr Clr Drug Dosing 75.3 ml/min Est GFR ( Amer) 83.4 Est GFR (Non-Af Amer) 71.9 BUN/Creatinine Ratio 17.4 (10-20) Glucose 123 H (70-99) mg/dl Calcium 9.0 (8.5-10.1) mg/dl Diagnostic Findings XR pelvis 1-2V routine HISTORY: 78 years-old Male AP pelvis centered on hips right hip total joint arthroplasty COMPARISON: Right hip radiographs same day TECHNIQUE: Single AP view of the pelvis FINDINGS: Right hip cemented Hemiarthroplasty in satisfactory alignment. No acute fracture or dislocation. Mild to moderate left hip osteoarthritis. Expected postsurgical soft tissue swelling and deep tissue air about the lateral right hip. No retained foreign body. Surgical clips project over the upper scrotum. David catheter noted. IMPRESSION: Satisfactory alignment of the right hip cemented hemiarthroplasty with expected postsurgical findings. (1) Closed fracture of right hip Encounter type: initial encounter Qualified Code(s): S72.001A - Fracture of unspecified part of neck of right femur, initial encounter for closed fracture
--- NOTE | 2019-05-21 16:40 | Hospitalist Progress Note ---
Date of Service May 21, 2019 Assessment & Plan (1) Fall: (2) Closed fracture of right hip: Mr. Jade is a 78-year-old male who has significant past medical history of HTN, HLD, BPH who presents to [facility] ED after sustaining a mechanical fall walking his dog with subsequent right hip pain. Right hip x-ray revealed right femoral neck fracture. No medical contraindication to go for the proposed surgery Status post right hip hemiarthroplasty on 05/20 Remains drowsy from the effect of anesthetics Denies any significant symptom Management will be as per Ortho Clinically much better and has been getting physical therapy Plan to discharge home with home health as per the Ortho DVT prophylaxis with aspirin 325-minute twice daily as well as TOM stockings and SCDs (3) HTN (hypertension): BP elevated in ED likely in setting of acute pain Controlled on outpatient regimen of lisinopril and metoprolol Blood pressure remains stable but at the lower side of normal (4) HLD (hyperlipidemia): continue statin (5) BPH (benign prostatic hyperplasia): cook cath ordered UA negative for infection (6) DVT prophylaxis: SCD/TEDS Will hold chemical prophylaxis today in setting of the scheduled procedure for 7 AM tomorrow Anticoagulation as per Ortho DVT prophylaxis with aspirin 325 mg twice daily as well as TOM stockings and SCDs Disposition: Admit to Med/Surg, case management consulted Follow-up: PCP Dr. Cerda upon discharge Subjective 05/20 The patient was seen and examined in medical floor He is status post right hip hemiarthroplasty, POD #0 He remains very drowsy and has been having bad dreams Denies any chest pain and/or palpitation, any numbness and/or tingling in the extremities 05/21 The patient was seen and examined in medical floor He complains of some pain in the right hip Has been getting physical therapy Likely to be discharged home with home health Review of Systems Review of Systems: All systems reviewed and are unremarkable except as noted Musculoskeletal: Complaints to have right hip pain status post right hip surgery Physical Exam Physical Exam: Sitting on a chair with some discomfort Constitutional: well developed, well nourished and + ill appearing; no acute distress Eyes: PERRL, conjunctivae normal, anicteric sclerae ENMT: external ear and nose normal, oropharynx normal Neck: trachea midline, no thyromegaly Respiratory: normal respiratory effort; no respiratory distress Auscultation: lungs clear to auscultation bilaterally Cardiovascular: Rate/Rhythm: regular rate and regular rhythm Heart Sounds: no murmur Gastrointestinal (Abdomen): Inspection/Auscultation: abdomen normal to inspection and normal bowel sounds Percussion/Palpation: abdomen soft; abdomen nontender Musculoskeletal: Right hip pain Neurologic: moves all extremities and + focal motor deficit Results & Data Vital Signs (Past 12 Hours) Vital Signs Temp Pulse Resp BP Pulse Ox Pulse Ox 05/21/19 15:01 37.2 C 82 18 106/66 96 05/21/19 07:04 36.4 C L 101 H 21 147/81 H 94 05/21/19 05:30 95 Laboratory Results Short CBC 05/21/19 Range/Units 05:27 WBC 14.90 H (4.8-10.8) K/uL Hgb 11.1 L (14.0-18.0) g/dL Hct 33.6 L (42-52) % Plt Count 125 L (130-400) K/uL BMP 05/21/19 05:27 Sodium 138 Potassium 4.4 Chloride 107 Carbon Dioxide 24 BUN 18 Creatinine 1.01 Glucose 123 H Calcium 9.0 Medications Administered Current Inpatient Medications Acetaminophen (Tylenol) 650 mg PO Q6H PRN PRN Reason: MILD Pain (Scale 1,2,3) Stop: 06/18/19 15:55 Al Hydrox/Mg Hydrox/Simethicone (Maalox) 30 ml PO Q6H PRN PRN Reason: Dyspepsia Stop: 06/18/19 15:55 Aspirin (Ecotrin) 325 mg PO BID [facility] Stop: 06/19/19 20:59 Last Admin: 05/21/19 08:58 Dose: 325 mg Documented by: Atorvastatin Calcium (Lipitor) 10 mg PO HS [facility] Stop: 06/18/19 20:59 Last Admin: 05/20/19 21:14 Dose: 10 mg Documented by: Bisacodyl (Dulcolax) 10 mg [place] DAILY PRN PRN Reason: Constipation Stop: 06/18/19 15:55 Diphenhydramine HCl (Benadryl) 25 mg IV Q8H PRN PRN Reason: Itching Stop: 06/19/19 12:38 Gabapentin (Neurontin) 200 mg PO BID [facility] Stop: 06/18/19 20:59 Last Admin: 05/21/19 08:58 Dose: 200 mg Documented by: Lisinopril (Zestril) 20 mg PO [facility] Stop: 06/19/19 08:59 Last Admin: 05/21/19 08:59 Dose: 20 mg Documented by: Magnesium Hydroxide (Milk Of Magnesia) 30 ml PO DAILY PRN PRN Reason: Constipation Stop: 06/18/19 15:55 Metoclopramide HCl (Reglan) 10 mg IV Q6H PRN PRN Reason: Nausea And Vomiting Stop: 06/19/19 12:38 Metoprolol Succinate (Toprol Xl) 25 mg PO [facility] Stop: 06/19/19 08:59 Last Admin: 05/21/19 08:59 Dose: 25 mg Documented by: Morphine Sulfate (Morphine Sulfate) 2 mg IV Q2H PRN PRN Reason: MODERATE Pain (Scale 4,5,6) Stop: 06/02/19 15:55 Last Admin: 05/19/19 16:23 Dose: 2 mg Documented by: Multivitamins (Multivitamin Tab) 1 tab PO [facility] Stop: 06/20/19 08:59 Last Admin: 05/21/19 08:58 Dose: 1 tab Documented by: Naloxone HCl (Narcan) 0.1 mg IV UD PRN PRN Reason: Opiate Overdose Stop: 06/18/19 15:55 Ondansetron HCl (Zofran) 4 mg IV Q6H PRN PRN Reason: Nausea And Vomiting Stop: 06/18/19 15:55 Ondansetron HCl (Zofran) 4 mg IV Q6H PRN PRN Reason: Nausea And Vomiting Stop: 06/19/19 12:38 Oxycodone HCl (Roxicodone Immediate Rel) 5 mg PO Q4H PRN PRN Reason: MODERATE Pain (Scale 4,5,6) Stop: 06/02/19 15:55 Last Admin: 05/21/19 16:04 Dose: 5 mg Documented by: Polyethylene Glycol (Miralax Powder Packet) 17 gm PO DAILY PRN PRN Reason: Constipation Stop: 06/18/19 15:55 Senna/Docusate Sodium (Senokot S) 2 tab PO [facility] Stop: 06/18/19 20:59 Last Admin: 05/20/19 21:14 Dose: 2 tab Documented by: Sennosides (Senokot) 17.2 mg PO HS [facility] Stop: 06/19/19 20:59 Last Admin: 05/20/19 21:13 Dose: 17.2 mg Documented by: (1) Fall Encounter type: initial encounter Qualified Code(s): W19.XXXA - Unspecified fall, initial encounter (2) Closed fracture of right hip Encounter type: initial encounter Qualified Code(s): S72.001A - Fracture of unspecified part of neck of right femur, initial encounter for closed fracture
[2019-05-21] MEDS: SENNA 8.6 MG TAB PO SCH (20:16)
[2019-05-21] MEDS: ATORVASTATIN 10 MG TAB PO SCH (20:16)
[2019-05-21] MEDS: DOCUSATE SODIUM/SENNA 50/8.6MG TAB PO SCH (20:16)
[2019-05-21] MEDS: ACETAMINOPHEN 325 MG TAB PO PRN (23:51)
[2019-05-22] MEDS: METOPROLOL SUCC 25MG EXT REL TAB PO SCH (07:57)
[2019-05-22] MEDS: lisinopriL 20 MG TAB PO SCH (07:58)
[2019-05-22] MEDS: ASPIRIN 325 MG ECTAB PO SCH (07:58)
[2019-05-22] MEDS: GABAPENTIN 100 MG CAP PO SCH ×2 (07:58→20:43)
[2019-05-22] MEDS: MULTIVITAMIN TAB PO SCH (07:58)
[2019-05-22 08:18] LABS: Basophils # (auto) 0.02 K/uL (0-0.2); Basophils % (auto) 0.2 %; Eosinophils # (auto) 0.12 K/uL (0-0.5); Hematocrit (blood only) 31.1 % (42-52); Hemoglobin 10.6 g/dL (14.0-18.0); Immature Granulocytes # (auto) 0.05 K/uL (0.00-0.02); Immature Granulocytes % (auto) 0.4 %; Lymphocytes # (auto) 1.54 K/uL (1.2-3.4); Lymphocytes % (auto) 12.9 %; Mean Corpuscular Hemoglobin 30.9 pg (25-34); Mean Corpuscular Hgb Conc 34.1 g/dL (32-36); Mean Corpuscular Volume 90.7 fL (80-100); Mean Platelet Volume 10.6 fL (7.4-10.4); Monocytes # (auto) 1.51 K/uL (0.11-0.59); Monocytes % (auto) 12.7 %; Neutrophils # (auto) 8.69 K/uL (1.4-6.5); Neutrophils % (auto) 72.8 %; Platelet Count 113 K/uL (130-400); RDW Coefficient of Variation 14.2 % (11.5-14.5); Red Blood Count 3.43 M/uL (4.7-6.1); White Blood Count 11.93 K/uL (4.8-10.8)
--- NOTE | 2019-05-22 08:34 | Orthopedic Progress Note ---
Date of Service May 22, 2019 Assessment & Plan (1) Closed fracture of right hip: Patient doing well. Postop day 2 right hip hemiarthroplasty. May be out of bed, weight-bear as tolerated right lower extremity with the assistance of a walker. Hip precautions right hip at all times, for 8 weeks. Use walker to assist with ambulation. Use abduction pillow or pillow between knees when sitting or lying in bed. DVT prophylaxis: Switch aspirin to 81 mg twice daily, continue TOM stockings and SCDs. Case management for disposition. Patient would like to return home with in-home health nursing. Dressing change to Silverlon 05/22/2019. Ice and elevate as needed for pain and swelling. Continue physical therapy and Occupational Therapy. Labs: Palettes low, continue to monitor, switched ASA to 81 mg. Continue care per primary service. Subjective Feeling better, but does not feel comfortable with moving or getting out of bed. Review of Systems Review of Systems: All systems reviewed & are unremarkable except as noted in HPI & below Physical Exam Physical Exam: RLE: Incision clean, dry, intact. calf soft non-tender. Neuro intact. Results & Data Vital Signs (Past 12 Hours) Vital Signs Temp Pulse Resp BP BP Pulse Ox Pulse Ox 05/22/19 06:50 36.8 C 74 20 126/76 94 05/22/19 04:00 94 05/21/19 23:45 92 05/21/19 23:02 36.4 C L 85 18 131/75 92 Diagnostic Findings 05/22/19 05/22/19 Range/Units 08:05 08:05 WBC 11.93 H (4.8-10.8) K/uL RBC 3.43 L (4.7-6.1) M/uL Hgb 10.6 L (14.0-18.0) g/dL Hct 31.1 L (42-52) % MCV 90.7 (80-100) fL MCH 30.9 (25-34) pg MCHC 34.1 (32-36) g/dL RDW Std Deviation 47.0 H (36.4-46.3) fL RDW Coeff of Leeann 14.2 (11.5-14.5) % Plt Count 113 L (130-400) K/uL MPV 10.6 H (7.4-10.4) fL Immature Gran % (Auto) 0.4 % Neut % (Auto) 72.8 % Lymph % (Auto) 12.9 % [place] % (Auto) 12.7 % Eos % (Auto) 1.0 % Baso % (Auto) 0.2 % Immature Gran # (Auto) 0.05 H (0.00-0.02) K/uL Neut # (Auto) 8.69 H (1.4-6.5) K/uL Lymph # (Auto) 1.54 (1.2-3.4) K/uL [place] # (Auto) 1.51 H (0.11-0.59) K/uL Eos # (Auto) 0.12 (0-0.5) K/uL Baso # (Auto) 0.02 (0-0.2) K/uL Sodium Pending Potassium Pending Chloride Pending Carbon Dioxide Pending Anion Gap Pending BUN Pending Creatinine Pending Est Cr Clr Drug Dosing Pending Est GFR ( Amer) Pending Est GFR (Non-Af Amer) Pending BUN/Creatinine Ratio Pending Glucose Pending Calcium Pending (1) Closed fracture of right hip Encounter type: initial encounter Qualified Code(s): S72.001A - Fracture of unspecified part of neck of right femur, initial encounter for closed fracture
[2019-05-22 08:55] LABS: BUN Creatinine Ratio 18.7 (10-20); Calcium 9.1 mg/dl (8.5-10.1); Creatinine Clr Calc Pharmacy 88.5 ml/min; Est GFR (African American) 97.6; Est GFR (Non-African American) 84.2; Potassium 3.8 mmol/L (3.5-5.1)
--- NOTE | 2019-05-22 13:42 | XRay Report ---
XR hip RT 1V CLINICAL HISTORY: post-op right hip dona-arthroplasty COMPARISON STUDY: Pelvis 05/20/2019. FINDINGS: Single crosstable lateral view of the right hip demonstrates a right hip hemiarthroplasty. Hardware appears intact. No fracture or dislocation. Overlying bandage an incision are again noted. IMPRESSION: Right hip hemiarthroplasty. No evidence for hardware complication. Electronically signed by: Alberto Lino M.D. 05/22/2019 1:41 PM
[2019-05-22] MEDS: ACETAMINOPHEN 325 MG TAB PO PRN ×2 (15:47→20:44)
[2019-05-22] MEDS ORDERED: LIDOCAINE 5% 1 PATCH TD SCH (19:00)
--- NOTE | 2019-05-22 19:32 | Hospitalist Progress Note ---
Date of Service May 22, 2019 Assessment & Plan (1) Fall: (2) Closed fracture of right hip: Mr. Jade is a 78-year-old male who has significant past medical history of HTN, HLD, BPH who presented to [facility] ED after sustaining a mechanical fall walking his dog with subsequent right hip pain. Right hip x-ray revealed right femoral neck fracture. No medical contraindication to go for the proposed surgery Status post right hip hemiarthroplasty on 05/20 Pt was drowsy from the effect of anesthetics, also gets confused easy when taking opioid medications - For pain will start scheduled tylenol and lidocaine patches Management, per Ortho Clinically much better and has been getting physical therapy Plan to discharge home with home health as per the Ortho DVT prophylaxis with aspirin 325-minute twice daily (now decreased to 81 bid d/t thrombocytopenia) as well as TOM stockings and SCDs (3) HTN (hypertension): BP elevated in ED likely in setting of acute pain, now well controlled Controlled on outpatient regimen of lisinopril and metoprolol (4) HLD (hyperlipidemia): continue statin Thrombocytopenia - will cont. to monitor - ASA decreased per ortho to 81mg bid (5) BPH (benign prostatic hyperplasia): cook cath ordered UA negative for infection (6) DVT prophylaxis: SCD/TEDS Anticoagulation as per Ortho DVT prophylaxis with aspirin 325 mg twice daily (now decreased to 81 mg twice a day due to thrombocytopenia) as well as TOM stockings and SCDs Disposition: Admit to Med/Surg, case management consulted, plan for d/c home w/ home health Follow-up: PCP Dr. Cerda upon discharge Subjective Patient seems to be confused with any narcotics. Per nurse patient received Chandler yesterday in the afternoon and he was still confused in the evening. He feels much better today though and he is doing quite well however he is complaining about low back pain, which is chronic and possibly right hip pain. X-ray of his R hip unremarkable. He denies any fevers, chills, chest pain, shortness of breath, dental pain, nausea or vomiting. However he is also concerned about going home yet because of his pain and difficulty with walking. Per nursing patient was able to walk with a walker without much difficulty. Plt decr., ASA decr. by ortho 81mg bid Review of Systems Review of Systems: All systems reviewed & are unremarkable except as noted in HPI & below Constitutional: no fever and no chills Respiratory: no cough, no dyspnea and no pain on inspiration Cardiovascular: no chest pain, no dyspnea on exertion and no palpitations Gastrointestinal: no abdominal pain, no nausea and no vomiting Physical Exam Physical Exam: Physical Exam: Elderly male lying in bed, in no acute distress Constitutional: well developed, well nourished, no acute distress Eyes: PERRL, EOMI, conjunctivae normal, anicteric sclerae ENMT: external ear and nose normal, oropharynx normal Neck: trachea midline, no thyromegaly Respiratory: normal respiratory effort; no respiratory distress Auscultation: lungs clear to auscultation bilaterally Cardiovascular: Rate/Rhythm: regular rate and regular rhythm Heart Sounds: no murmur Gastrointestinal (Abdomen): Inspection/Auscultation: abdomen normal to inspection and normal bowel sounds Percussion/Palpation: abdomen soft; abdomen nontender Musculoskeletal: Low back pain (chronic),Right hip pain Neurologic: Alert and oriented x3, speech fluent, no facial asymmetry, moves all 4 extremities Results & Data Vital Signs (Past 12 Hours) Vital Signs Temp Pulse Resp BP Pulse Ox 05/22/19 15:56 37.5 C 75 16 132/79 95 Laboratory Results 05/22/19 05/22/19 Range/Units 08:05 08:05 WBC 11.93 H (4.8-10.8) K/uL RBC 3.43 L (4.7-6.1) M/uL Hgb 10.6 L (14.0-18.0) g/dL Hct 31.1 L (42-52) % MCV 90.7 (80-100) fL MCH 30.9 (25-34) pg MCHC 34.1 (32-36) g/dL RDW Std Deviation 47.0 H (36.4-46.3) fL RDW Coeff of Leeann 14.2 (11.5-14.5) % Plt Count 113 L (130-400) K/uL MPV 10.6 H (7.4-10.4) fL Immature Gran % (Auto) 0.4 % Neut % (Auto) 72.8 % Lymph % (Auto) 12.9 % Saline % (Auto) 12.7 % Eos % (Auto) 1.0 % Baso % (Auto) 0.2 % Immature Gran # (Auto) 0.05 H (0.00-0.02) K/uL Neut # (Auto) 8.69 H (1.4-6.5) K/uL Lymph # (Auto) 1.54 (1.2-3.4) K/uL Saline # (Auto) 1.51 H (0.11-0.59) K/uL Eos # (Auto) 0.12 (0-0.5) K/uL Baso # (Auto) 0.02 (0-0.2) K/uL Sodium 136 (136-145) mmol/L Potassium 3.8 (3.5-5.1) mmol/L Chloride 105 (98-107) mmol/L Carbon Dioxide 26 (21-32) mmol/L Anion Gap 5.0 (3-11) BUN 16 (7-18) mg/dl Creatinine 0.86 (0.6-1.4) mg/dl Est Cr Clr Drug Dosing 88.5 ml/min Est GFR ( Amer) 97.6 Est GFR (Non-Af Amer) 84.2 BUN/Creatinine Ratio 18.7 (10-20) Glucose 121 H (70-99) mg/dl Calcium 9.1 (8.5-10.1) mg/dl Medications Administered Current Inpatient Medications Acetaminophen (Tylenol) 650 mg PO Q6H [facility] Stop: 06/21/19 19:59 Al Hydrox/Mg Hydrox/Simethicone (Maalox) 30 ml PO Q6H PRN PRN Reason: Dyspepsia Stop: 06/18/19 15:55 Aspirin (Ecotrin Ectab) 81 mg PO BID [facility] Stop: 06/21/19 20:59 Atorvastatin Calcium (Lipitor) 10 mg PO HS [facility] Stop: 06/18/19 20:59 Last Admin: 05/21/19 20:16 Dose: 10 mg Documented by: Bisacodyl (Dulcolax) 10 mg [place] DAILY PRN PRN Reason: Constipation Stop: 06/18/19 15:55 Diphenhydramine HCl (Benadryl) 25 mg IV Q8H PRN PRN Reason: Itching Stop: 06/19/19 12:38 Gabapentin (Neurontin) 200 mg PO BID [facility] Stop: 06/18/19 20:59 Last Admin: 05/22/19 07:58 Dose: 200 mg Documented by: Lidocaine (Lidoderm 5%) 1 patch TD 1900 [facility] Stop: 06/21/19 18:59 Lisinopril (Zestril) 20 mg PO [facility] Stop: 06/19/19 08:59 Last Admin: 05/22/19 07:58 Dose: 20 mg Documented by: Magnesium Hydroxide (Milk Of Magnesia) 30 ml PO DAILY PRN PRN Reason: Constipation Stop: 06/18/19 15:55 Metoclopramide HCl (Reglan) 10 mg IV Q6H PRN PRN Reason: Nausea And Vomiting Stop: 06/19/19 12:38 Metoprolol Succinate (Toprol Xl) 25 mg PO [facility] Stop: 06/19/19 08:59 Last Admin: 05/22/19 07:57 Dose: 25 mg Documented by: Miscellaneous (Remove Lidoderm Patch) 1 ea N/A DAILY@0700 [facility] Stop: 06/22/19 06:59 Morphine Sulfate (Morphine Sulfate) 2 mg IV Q2H PRN PRN Reason: MODERATE Pain (Scale 4,5,6) Stop: 06/02/19 15:55 Last Admin: 05/19/19 16:23 Dose: 2 mg Documented by: Multivitamins (Multivitamin Tab) 1 tab PO [facility] Stop: 06/20/19 08:59 Last Admin: 05/22/19 07:58 Dose: 1 tab Documented by: Naloxone HCl (Narcan) 0.1 mg IV UD PRN PRN Reason: Opiate Overdose Stop: 06/18/19 15:55 Ondansetron HCl (Zofran) 4 mg IV Q6H PRN PRN Reason: Nausea And Vomiting Stop: 06/18/19 15:55 Ondansetron HCl (Zofran) 4 mg IV Q6H PRN PRN Reason: Nausea And Vomiting Stop: 06/19/19 12:38 Oxycodone HCl (Roxicodone Immediate Rel) 5 mg PO Q4H PRN PRN Reason: MODERATE Pain (Scale 4,5,6) Stop: 06/02/19 15:55 Last Admin: 05/21/19 16:04 Dose: 5 mg Documented by: Polyethylene Glycol (Miralax Powder Packet) 17 gm PO DAILY PRN PRN Reason: Constipation Stop: 06/18/19 15:55 Senna/Docusate Sodium (Senokot S) 2 tab PO HS [facility] Stop: 06/18/19 20:59 Last Admin: 05/21/19 20:16 Dose: 2 tab Documented by: Sennosides (Senokot) 17.2 mg PO HS [facility] Stop: 06/19/19 20:59 Last Admin: 05/21/19 20:16 Dose: Not Given Documented by: (1) Fall Encounter type: initial encounter Qualified Code(s): W19.XXXA - Unspecified fall, initial encounter (2) Closed fracture of right hip Encounter type: initial encounter Qualified Code(s): S72.001A - Fracture of unspecified part of neck of right femur, initial encounter for closed fracture
[2019-05-22] MEDS: ASPIRIN 81 MG ECTAB PO SCH (20:42)
[2019-05-22] MEDS: ATORVASTATIN 10 MG TAB PO SCH (20:42)
[2019-05-22] MEDS: DOCUSATE SODIUM/SENNA 50/8.6MG TAB PO SCH (20:43)
[2019-05-22] MEDS: SENNA 8.6 MG TAB PO SCH (20:43)
[2019-05-22] MEDS: ACETAMINOPHEN 325 MG TAB PO SCH (20:55)
[2019-05-23] MEDS: ACETAMINOPHEN 325 MG TAB PO SCH ×3 (02:26→12:39)
[2019-05-23] MEDS: OXYCODONE HCL IR 5 MG TAB (IMMEDIATE RELEASE) PO PRN (07:38)
[2019-05-23] MEDS: GABAPENTIN 100 MG CAP PO SCH (07:39)
[2019-05-23] MEDS: lisinopriL 20 MG TAB PO SCH (07:40)
[2019-05-23] MEDS: METOPROLOL SUCC 25MG EXT REL TAB PO SCH (07:40)
[2019-05-23] MEDS: ASPIRIN 81 MG ECTAB PO SCH (07:40)
[2019-05-23] MEDS: MULTIVITAMIN TAB PO SCH (07:40)
--- NOTE | 2019-05-23 12:55 | Orthopedic Progress Note ---
Date of Service May 23, 2019 Assessment & Plan (1) Closed fracture of right hip: Patient doing well. Postop day 3 right hip hemiarthroplasty. May be out of bed, weight-bear as tolerated right lower extremity with the assistance of a walker. Hip precautions right hip at all times, for 8 weeks. Use walker to assist with ambulation. Use abduction pillow or pillow between knees when sitting or lying in bed. DVT prophylaxis: Switch aspirin to 81 mg twice daily, continue TOM stockings and SCDs. Case management for disposition. Patient would like to return home with in-home health nursing. Dressing change to Silverlon 05/22/2019. Keep dressing on until follow-up appt i n 2 weeks. Ice and elevate as needed for pain and swelling. Continue physical therapy and Occupational Therapy. Labs: Palettes low, continue to monitor, switched ASA to 81 mg. Continue care per primary service. Subjective Feeling much better. States he was up this am walked the nielsen with walker on his own Review of Systems Review of Systems: All systems reviewed & are unremarkable except as noted in HPI & below Physical Exam Physical Exam: Sitting comfortably in chair. RLE: Dressing clean, dry, intact. Results & Data Vital Signs (Past 12 Hours) Vital Signs Temp Pulse Resp BP Pulse Ox Pulse Ox 05/23/19 06:57 37.3 C 71 18 139/81 95 05/23/19 06:07 36.7 C 71 16 136/77 95 05/23/19 04:29 94 Diagnostic Findings Lateral x-ray right hip, alignment looks good. (1) Closed fracture of right hip Encounter type: initial encounter Qualified Code(s): S72.001A - Fracture of unspecified part of neck of right femur, initial encounter for closed fracture
--- NOTE | 2019-05-23 14:18 | Discharge Summary ---
Date of Service May 23, 2019 Admission HPI Per Admitting Provider Mr. Jade is a 78-year-old male who has significant past medical history of HTN, HLD, BPH who presents to [facility] ED after sustaining a mechanical fall walking his dog with subsequent right hip pain. is at bedside. Patient was walking his brown retriever outside when he sustained a mechanical fall on the ice and landing in wet grass. He had significant right hip pain and was unable to get up on his own. Somebody assisted him to his feet and brought him into ED for further evaluation. At baseline he is very active. He walks for 30 minutes 3 times a day with his brown retriever. This is on a flat and graded incline. He denies any chest pain, palpitations, shortness of breath with exertion or at rest, chest pain with exertion during this. He can climb a flight of stairs without getting chest pain or shortness of breath. He denies any prior history of cardiac disease or cardiac surgery. Up until today he was in a normal state of health. Denies any recent illness, fever, chills, sweats, syncope, lightheadedness, dizziness, cough, hemoptysis, nausea, vomiting, abdominal pain. He did have a bowel movement this morning and denies melena or hematochezia. He does have increased urinary frequency secondary to BPH but denies any dysuria, hematuria. He did take his metoprolol and lisinopril this morning. Last time he had anything to eat or drink was at 6 AM this morning. 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 He also had a TURP in 2013. Denies any difficulty with anesthesia. Discharge Data Allergies Allergy/AdvReac Type Severity Reaction Status Date / Time No Known Allergies Allergy Unverified 05/19/19 11:05 Consultations 05/19/19 13:33 ED Decision to Admit Stat 05/19/19 14:03 Consult Anesthesiology Routine Consult Orthopedic Surgery Routine 05/19/19 15:56 Consult Case Management - Discharge Planning Routine Procedures Performed Operation Date: 05/20/19 07:00 Actual Procedures p Right hip hemiarthroplasty.(Right) - Mp Campa MD Ordered Studies 05/19/19 16:23 CT hip RT wo con Urgent Discharge Plan Discharge Items Patient Disposition: Home - Home Health Services Reason For Visit: HIP FX Discharge Diagnosis: Closed fracture of right hip Activity: Per Instructions section Non-emergency contact: Surgeon Call non-emergency contact if: you have any medication questions, your pain is worsening, your pain is unusual for you, you have a fever, your wound has increased redness and your wound has increased drainage Follow-up/Referrals: Alexander Cerda DO [Primary Care Provider] - Eva Stanley P.A.-C. [Physician Pole Setter] - 06/03/19 2:00 pm Diet: Regular Addtl Attending Provider Instructions: Please have blood work done (CBC w/ diff) on Monday05/27/2019, and have results faxed to your primary care provider. Make sure to contact your primary care provider to discuss the results of your blood work, your platelet count was little lower in the hospital. Keep taking aspirin 81 mg twice a day, for at least 2 weeks, discuss further with your orthopedic surgeon how long you should be on it. Keep dressing on until follow-up appt with your orthopedic surgeon, in 2 weeks. Addtl Special Education Resource Teacher Provider Instructions: Weight bear as tolerated right lower extremity Posterior hip precautions at all times Keep standard pillow between knees when sleeping and sitting in a chair Use walker to assist with ambulation Keep Silverlon in place x 7 days, then may be removed by home nursing and left open to air. Keep dry at all times while bathing. When Silverlon is in place, may shower with that on, otherwise cover with waterproof dressing once that is removed. Keep dressing on until follow-up appt in 2 weeks. Aaron stocking bilateral lower extremities, on during the day, off at night. Ankle pumps frequently to prevent stiffness and for circulation to prevent blood clots. Ice to right hip as needed for pain/swelling Elevate right leg above heart to relieve pain and swelling. Allowed for full range of motion right knee and ankle. Aspirin 81 mg twice daily x 6 weeks Pending Studies at Discharge: No Stand-Alone Forms: My [employer] Smoking Cessation Medications and DC Order Prescriptions: New acetaminophen [Mapap (acetaminophen)] 325 mg Tablet 650 mg PO Q6H 7 Days Qty: 56 RF: 0 polyethylene glycol 3350 [Miralax] 17 gram Powder In Packet 17 g PO DAILY PRN (Reason: constipation) 7 Days Qty: 10 RF: 0 aspirin [Ecotrin Low Strength] 81 mg Tablet,Delayed Release (Dr/Ec) 81 mg PO BID Qty: 14 RF: 0 sennosides [Senokot] 8.6 mg Tablet 8.6 mg PO HS 7 Days Qty: 7 RF: 0 lidocaine 5 % Adhesive Patch,Medicated 1 patch transdermal 1900 5 Days Qty: 15 RF: 0 oxycodone 5 mg Tablet 5 mg PO Q6H PRN (Reason: pain) 5 Days Qty: 10 RF: 0 Continued atorvastatin [Lipitor] 10 mg tablet 10 mg PO HS RF: 0 lisinopril [Zestril] 20 mg tablet 20 mg PO QAM RF: 0 gabapentin [Neurontin] 100 mg capsule 200 mg PO BID RF: 0 metoprolol succinate [Toprol XL] 25 mg tablet extended release 24 hr 25 mg PO QAM RF: 0 omega 3-tan-hav-fish oil [Fish Oil] 1,000 mg (120 mg-180 mg) Capsule 1 cap PO DAILY RF: 0 PreserVision AREDS 7,160-113-100 bpqb-an-oagg Tablet 1 tab PO BID RF: 0 Discharge Orders: Discharge Order (Routine); Ordered 05/23/19 Ordered By: Chicho Castellanos Admission Data Admit Date/Time: 05/19/19 14:05 Attending Provider: Chicho Castellanos Admit Provider: Pauline Soliman Primary Care Provider: Alexander Cerda Other Providers: Pauline Soliman ; Karan Fleming ; Mp Campa ; [facility],Home Health
== END 2019-05-23 16:46 | disposition home health service (06) | DRG 470 ==
LOC: ED 10:34 → 3W 14:05 → SUATTDRO 14:05 → 3W 15:15

== ENCOUNTER 2022-06-24 09:53 | Inpatient (IN) ==
--- NOTE | 2022-06-24 10:27 | Emergency Department Note ---
Impression & Plan Altered mental status, Headache ED Provider Note NAME: IZZY URIARTE AGE: 81 SEX: M : 1940 ARRIVES VIA: Ambulance INFORMANT: Patient, EMS, the patient's family members ED PROVIDER(S): Curt Randle DO CHIEF COMPLAINT: Altered mental status HPI: The patient is a 81-year-old male who presented to the emergency department for evaluation of altered mental status. The patient presented to the emergency department with EMS. He lives at home and reportedly has a history of dementia. He was last known well last evening according to his who did present to the emergency department with him. There was no reported trauma. The patient did have a headache reportedly. There is been no reported fever. There is been no reported neck pain. The patient's been compliant with his outpatient medications. The patient does have a history of hypertension. ROS: See above HPI for pertinent positives & negatives. A total of 10 systems reviewed and were otherwise negative. PAST MEDICAL HISTORY: See Below PAST SURGICAL HISTORY: See Below FAMILY HISTORY: See Below SOCIAL HISTORY: See Below HOME MEDICATIONS: See Below ALLERGIES: See Below VITALS: See Below PHYSICAL EXAMINATION: GENERAL: The patient is listless. He does follow commands slowly. He does not answer questions verbally. EYES: The conjunctivae are clear. The pupils are round and reactive. EARS, NOSE, MOUTH AND THROAT: The nose is without any evidence of any deformity. Mucous membranes are dry. NECK: The neck is nontender and supple. RESPIRATORY: Normal respiratory effort is noted there is no evidence of wheezing rhonchi or rales CARDIOVASCULAR: Regular rate and rhythm noted there no murmurs rubs or gallops normal S1 normal S2. GASTROINTESTINAL: The abdomen is soft. Abdomen is nontender. MUSCULOSKELETAL/EXTREMITIES: There is no evidence of gross deformity full range of motion is noted in the hips and shoulders. SKIN: Skin is warm and dry. Trace pedal edema was noted bilaterally. NEUROLOGIC: Patient is awake to verbal commands. The patient does not answer questions I am unable to assess orientation at this time but he does respond to his name. Strength was symmetric but diminished. There is no facial droop. MEDICAL DECISION MAKING: The patient is a 81-year-old male who presented to the emergency department by ambulance for an evaluation of headache. The patient was having alteration in his mental status. Reportedly the patient was placed on a new medication. He was placed on a muscle relaxer by his primary care physician. It is unclear if this is part of the cause of the patient's presentation. He was observed in the emergency department for a period of time. I discussed the patient's laboratory and radiographic studies with him as well as with his significant other. The patient's condition did not significantly improve. He may require further inpat ient management and work-up for this alteration of mental status as well as the headache. For this reason I discussed his case with the on-call [facility]. They have agreed to evaluate the patient in the emergency department for further management and disposition. Triage Nursing notes reviewed. Prior medical records reviewed Vital Signs: reviewed and remarkable for elevated blood pressure. Differential diagnosis: Infection, hypoglycemia, electrolyte abnormalities, overdose, toxicologic, cardiac sources, intracerebral event, neurologic, trauma, as well as other pathologies. ER treatment provided: See below Diagnostics interpreted by me: ECG: EKG was obtained in the emergency department. My interpretation is normal sinus rhythm at 62 bpm. There is no ectopy. There is no acute ST segment abnormalities noted. This was compared to a tracing from June 08, 2022. No changes were noted. Cardiac Monitoring: An order was placed for continuous cardiac monitoring. The monitor shows a rate of 65 bpm with sinus rhythm. Laboratory studies: As stated above and show below. Imaging studies: See below Consultation(s): I discussed this case with Mar who is on for the [facility]ist group. Past Med/Surg History Medical History (Updated 06/24/22 @ 15:26 by Curt Randle DO) BPH (benign prostatic hyperplasia) Chronic diastolic CHF (congestive heart failure) Closed fracture of right hip S/p repair Dementia History of CVA (cerebrovascular accident) History of frequent headaches HLD (hyperlipidemia) HTN (hypertension) Mild persistent asthma Surgical History History of hemorrhoidectomy History of lobectomy of lung Right middle lobe lobectomy 1983, benign History of transurethral resection of prostate Family History Father Cancer Neck and brain Sister Stroke Social History Smoking Status: Unknown if ever smoked Cigarettes Per Day: 2; Second Hand Exposure: No; Hx Alcohol Use: Yes Alcohol type: hard liquor Alcohol Intake Frequency Comment: 1 2oz shot mixed drink daily Hx Substance Use: No Preferred Language: Luxembourgish Communication Ability: Effective Agricultural And Forestry Supervisor Required: No Beliefs That Will Affect Care: None marital status: Current Living Situation: Spouse Feels Safe at Home: Yes Assistive Devices: None, Denture - Upper, Denture - Lower, Glasses and Walker Allergies Allergies Allergy/AdvReac Type Severity Reaction Status Date / Time No Known Allergies Allergy Verified 06/24/22 15:09 Home Meds Home Medications Medication Instructions Recorded Confirmed atorvastatin 10 mg tablet (Lipitor) 10 mg PO HS 05/19/19 06/24/22 gabapentin 100 mg capsule 300 mg PO TID Dizziness and 05/19/19 06/24/22 (Neurontin) Headaches metoprolol succinate 25 mg 12.5 mg PO QAM 05/19/19 06/24/22 tablet,extended release 24 hr (Toprol XL) omega 1-prg-ses-fish oil 1,000 mg 1 cap PO QAM 05/19/19 06/24/22 (120 mg-180 mg) capsule (Fish Oil) vitamins A,C,X-cedi-uzvjjj 2,148 1 tab PO BID 05/19/19 06/24/22 mcg-113 mg-45 mg-17.4 mg tablet (PreserVision AREDS) furosemide 20 mg tablet (Lasix) 20 mg PO Q2D 04/08/21 06/24/22 lisinopril 10 mg tablet (Zestril) 10 mg PO QAM 04/08/21 06/24/22 memantine 5 mg tablet (Namenda) 5 mg PO BID 04/08/21 06/24/22 tamsulosin 0.4 mg capsule (Flomax) 0.4 mg PO QAM 04/08/21 06/24/22 aspirin 81 mg tablet,delayed 81 mg PO DAILY 06/24/22 06/24/22 release (Ecotrin Low Strength) baclofen 10 mg tablet 10 mg PO BID PRN Headache 06/24/22 06/24/22 escitalopram oxalate 10 mg tablet 10 mg PO DAILY 06/24/22 06/24/22 fluticasone 100 mcg-salmeterol 50 1 inh inhalation BID 06/24/22 06/24/22 mcg/dose blistr powdr for inhalation (Wixela Inhub) lysine 1,000 mg tablet 1,000 mg PO DAILY 06/24/22 06/24/22 multivitamin 1 tab PO QAM 06/24/22 06/24/22 Results & Data (ED) Vital Signs Vital Signs - 24 hr 06/24/22 10:03 06/24/22 10:02 06/24/22 10:59 Temperature 36.7 C Temperature Source Oral Pulse Rate 63 Pulse Rate [Apical] 60 Pulse Rhythm [Apical] Regular Pulse Strength [Apical] Respiratory Rate 18 18 Respiratory Effort / Characteristics Non-Labored Respiratory Depth Normal Blood Pressure 167/97 H Blood Pressure [Left Arm] 134/94 Blood Pressure Mean 120 Blood Pressure Mean [Left Arm] 107 Pulse Oximetry 95 100 Oxygen Delivery Method Room Air Room Air Room Air Sepsis New/Unexplained Change in Mental Status Yes Sepsis Action Taken by Nursing No Action Required 06/24/22 10:59 06/24/22 12:33 06/24/22 14:11 Temperature Temperature Source Pulse Rate Pulse Rate [Apical] 66 65 Pulse Rhythm [Apical] Regular Pulse Strength [Apical] Normal Respiratory Rate 18 18 Respiratory Effort / Characteristics Non-Labored Non-Labored Spontaneous Respiratory Depth Normal Normal Blood Pressure Blood Pressure [Left Arm] 135/82 152/80 H Blood Pressure Mean Blood Pressure Mean [Left Arm] 99 104 Pulse Oximetry 100 99 97 Oxygen Delivery Method Room Air Room Air Room Air Sepsis New/Unexplained Change in Mental Status Sepsis Action Taken by Custodial Medications Current Medication List: was personally reviewed by me Laboratory Data Attestation: I reviewed the patient's lab results. 06/24/22 10:34 06/24/22 10:34 Lab Results 06/24/22 06/24/22 06/24/22 Range/Units 10:21 10:34 10:34 WBC 8.05 (4.8-10.8) K/ul RBC 4.30 L (4.63-6.08) M/uL Hgb 13.2 L (14.0-18.0) g/dl Hct 38.5 L (40.1-51.0) % MCV 89.5 (80.0-100.0) fL MCH 30.7 (25.0-34.0) pg MCHC 34.3 (32.0-36.0) g/dL RDW Std Deviation 49.5 H (36.4-46.3) fL RDW Coeff of Leeann 15.0 H (11.5-14.5) % Plt Count 154 (130-400) K/uL MPV 10.8 (9.4-12.4) fL Immature Gran % (Auto) 0.4 % Neut % (Auto) 70.0 % Lymph % (Auto) 20.7 % [place] % (Auto) 7.0 % Eos % (Auto) 1.5 % Baso % (Auto) 0.4 % Neut # (Auto) 5.64 (1.4-6.5) K/uL Lymph # (Auto) 1.67 (1.2-3.4) K/uL [place] # (Auto) 0.56 (0.24-0.82) K/uL Eos # (Auto) 0.12 (0-0.50) K/uL Baso # (Auto) 0.03 (0-0.2) K/uL Immature Gran # (Auto) 0.03 H (0.00-0.02) K/uL PT 10.9 (9.0-12.0) Seconds INR 1.0 (0.9-1.1) APTT 25.5 (21.0-31.0) Seconds PTT Ratio 0.9 Sodium (136-145) mmol/L Potassium (3.5-5.1) mmol/L Chloride (98-107) mmol/L Carbon Dioxide (21-32) mmol/L Anion Gap (3-11) BUN (6-23) mg/dl Creatinine (0.6-1.4) mg/dl Est Cr Clr Drug Dosing Est GFR ( Amer) ml/min Est GFR (Non-Af Amer) ml/min BUN/Creatinine Ratio (10-20) Glucose (70-99(Fasting)) mg/dl POC Glucose 99 (70-99) mg/dl Calcium (8.5-10.1) mg/dl Magnesium (1.7-2.4) mg/dl Total Bilirubin (0.2-1.0) mg/dl AST (13-39) U/L ALT (7-52) U/L Alkaline Phosphatase (34-104) U/L Total Creatine Kinase (30-223) U/L Troponin I High Sens (0-20) pg/ml Total Protein (6.0-8.3) gm/dl Albumin (3.4-5.0) gm/dl Globulin (2.5-4.0) gm/dl Albumin/Globulin Ratio (0.9-2) TSH (0.300-4.500) uIu/ml Urine Color Urine Appearance (Clear) Urine pH (4.5-7.5) Ur Specific [place] (1.000-1.030) Urine Protein (Negative) Urine Glucose (UA) (Negative) Urine Ketones (Negative) Urine Blood (Negative) Urine Nitrite (Negative) Urine Bilirubin (Negative) Urine Urobilinogen (Negative) Ur Leukocyte Esterase (Negative) SARS-CoV-2, RNA, NAAT (NEGATIVE) 06/24/22 06/24/22 06/24/22 Range/Units 10:34 10:34 12:16 WBC (4.8-10.8) K/ul RBC (4.63-6.08) M/uL Hgb (14.0-18.0) g/dl Hct (40.1-51.0) % MCV (80.0-100.0) fL MCH (25.0-34.0) pg MCHC (32.0-36.0) g/dL RDW Std Deviation (36.4-46.3) fL RDW Coeff of Leeann (11.5-14.5) % Plt Count (130-400) K/uL MPV (9.4-12.4) fL Immature Gran % (Auto) % Neut % (Auto) % Lymph % (Auto) % [place] % (Auto) % Eos % (Auto) % Baso % (Auto) % Neut # (Auto) (1.4-6.5) K/uL Lymph # (Auto) (1.2-3.4) K/uL [place] # (Auto) (0.24-0.82) K/uL Eos # (Auto) (0-0.50) K/uL Baso # (Auto) (0-0.2) K/uL Immature Gran # (Auto) (0.00-0.02) K/uL PT (9.0-12.0) Seconds INR (0.9-1.1) APTT (21.0-31.0) Seconds PTT Ratio Sodium 139 (136-145) mmol/L Potassium 4.5 (3.5-5.1) mmol/L Chloride 106 (98-107) mmol/L Carbon Dioxide 27 (21-32) mmol/L Anion Gap 6 (3-11) BUN 19 (6-23) mg/dl Creatinine 0.98 (0.6-1.4) mg/dl Est Cr Clr Drug Dosing Not Reportable Est GFR ( Amer) 84.6 ml/min Est GFR (Non-Af Amer) 73.0 ml/min BUN/Creatinine Ratio 19.4 (10-20) Glucose 95 (70-99(Fasting)) mg/dl POC Glucose (70-99) mg/dl Calcium 9.2 (8.5-10.1) mg/dl Magnesium 2.0 (1.7-2.4) mg/dl Total Bilirubin 1.1 H (0.2-1.0) mg/dl AST 22 (13-39) U/L ALT 28 (7-52) U/L Alkaline Phosphatase 46 (34-104) U/L Total Creatine Kinase 73 (30-223) U/L Troponin I High Sens 4.6 (0-20) pg/ml Total Protein 6.7 (6.0-8.3) gm/dl Albumin 3.7 (3.4-5.0) gm/dl Globulin 3.0 (2.5-4.0) gm/dl Albumin/Globulin Ratio 1.2 (0.9-2) TSH 0.839 (0.300-4.500) uIu/ml Urine Color Yellow Urine Appearance Clear (Clear) Urine pH 8.5 H (4.5-7.5) Ur Specific [place] 1.010 (1.000-1.030) Urine Protein Negative (Negative) Urine Glucose (UA) Negative (Negative) Urine Ketones Trace H (Negative) Urine Blood Negative (Negative) Urine Nitrite Negative (Negative) Urine Bilirubin Negative (Negative) Urine Urobilinogen Negative (Negative) Ur Leukocyte Esterase Negative (Negative) SARS-CoV-2, RNA, NAAT (NEGATIVE) 06/24/22 Range/Units 12:30 WBC (4.8-10.8) K/ul RBC (4.63-6.08) M/uL Hgb (14.0-18.0) g/dl Hct (40.1-51.0) % MCV (80.0-100.0) fL MCH (25.0-34.0) pg MCHC (32.0-36.0) g/dL RDW Std Deviation (36.4-46.3) fL RDW Coeff of Leeann (11.5-14.5) % Plt Count (130-400) K/uL MPV (9.4-12.4) fL Immature Gran % (Auto) % Neut % (Auto) % Lymph % (Auto) % [place] % (Auto) % Eos % (Auto) % Baso % (Auto) % Neut # (Auto) (1.4-6.5) K/uL Lymph # (Auto) (1.2-3.4) K/uL [place] # (Auto) (0.24-0.82) K/uL Eos # (Auto) (0-0.50) K/uL Baso # (Auto) (0-0.2) K/uL Immature Gran # (Auto) (0.00-0.02) K/uL PT (9.0-12.0) Seconds INR (0.9-1.1) APTT (21.0-31.0) Seconds PTT Ratio Sodium (136-145) mmol/L Potassium (3.5-5.1) mmol/L Chloride (98-107) mmol/L Carbon Dioxide (21-32) mmol/L Anion Gap (3-11) BUN (6-23) mg/dl Creatinine (0.6-1.4) mg/dl Est Cr Clr Drug Dosing Est GFR ( Amer) ml/min Est GFR (Non-Af Amer) ml/min BUN/Creatinine Ratio (10-20) Glucose (70-99(Fasting)) mg/dl POC Glucose (70-99) mg/dl Calcium (8.5-10.1) mg/dl Magnesium (1.7-2.4) mg/dl Total Bilirubin (0.2-1.0) mg/dl AST (13-39) U/L ALT (7-52) U/L Alkaline Phosphatase (34-104) U/L Total Creatine Kinase (30-223) U/L Troponin I High Sens (0-20) pg/ml Total Protein (6.0-8.3) gm/dl Albumin (3.4-5.0) gm/dl Globulin (2.5-4.0) gm/dl Albumin/Globulin Ratio (0.9-2) TSH (0.300-4.500) uIu/ml Urine Color Urine Appearance (Clear) Urine pH (4.5-7.5) Ur Specific [place] (1.000-1.030) Urine Protein (Negative) Urine Glucose (UA) (Negative) Urine Ketones (Negative) Urine Blood (Negative) Urine Nitrite (Negative) Urine Bilirubin (Negative) Urine Urobilinogen (Negative) Ur Leukocyte Esterase (Negative) SARS-CoV-2, RNA, NAAT NEGATIVE (NEGATIVE) Administered Medications Discontinued Medications Sodium Chloride (Nss) 500 mls @ 999 mls/hr IV .Q31M ELIZABETH Stop: 06/24/22 11:00 Last Infusion: 06/24/22 12:17 Dose: 0 mls/hr Documented By: Admin: 06/24/22 11:15 Dose: 999 mls/hr Documented By: DEX Imaging Data Radiologist's Impression: Chest X-Ray 06/24/22 10:21 XR chest 1V portable HISTORY: weakness COMPARISON: Chest 05/19/2019. FINDINGS: Chronic postoperative changes again noted within the right hemithorax including calcification of the right basilar pleura. The left lung is clear. No pneumothorax. No pleural effusions. The cardiac silhouette remains borderline enlarged. IMPRESSION: No significant change compared to the prior study. No acute process. ACT 112: Negative or not required by law. Electronically signed by: Alberto Lino M.D. 06/24/2022 11:[address] 06/24/22 10:21 CT OF THE HEAD WITHOUT CONTRAST CLINICAL HISTORY: Altered mental status. COMPARISON STUDY: Head CT June 08, 2022. CT DOSE: 1228.53 mGy.cm TECHNIQUE: Helical axial images of the head were obtained without IV contrast. Automated exposure control was utilized for the study. A dose lowering technique was utilized adhering to the principles of ALARA. FINDINGS: No acute intracranial hemorrhage, midline shift or mass effect is present. The ventricular system is unremarkable. The basal cisterns are patent. No extra-axial collections are present. There are no findings to suggest acute dural sinus thrombosis or acute territorial infarct. No significant calvarial abnormalities are present. Visualized portions of the sinuses and mastoid air cells are clear. IMPRESSION: No acute intracranial findings. ACT 112: Negative or not required by law. Electronically signed by: Pj Og M.D. 06/24/2022 11:22 AM Discharge Plan Visit Data Chief Complaint: Altered Mental Status Stated Complaint: AMS ED Provider: Curt Randle Discharge Problem: Altered mental status, Headache Patient Disposition: Being Evaluated by Hospitalist Forms Stand Alone Forms: My [facility] Prescriptions Prescriptions: No Action atorvastatin [Lipitor] 10 mg tablet 10 mg PO HS gabapentin [Neurontin] 100 mg capsule 300 mg PO TID metoprolol succinate [Toprol XL] 25 mg tablet extended release 24 hr 12.5 mg PO QAM omega 8-lln-vkw-fish oil [Fish Oil] 1,000 mg (120 mg-180 mg) Capsule 1 cap PO QAM PreserVision AREDS 7,160-113-100 zdxf-ci-hdic Tablet 1 tab PO BID multivitamin Tablet 1 tab PO QAM lysine 1,000 mg Tablet 1,000 mg PO DAILY baclofen 10 mg tablet 10 mg PO BID PRN (Reason: Headache) fluticasone propion-salmeterol [Wixela Inhub] 100-50 mcg/dose Blister With Device 1 inh INHALATION BID escitalopram oxalate 10 mg tablet 10 mg PO DAILY aspirin [Ecotrin Low Strength] 81 mg tablet,delayed release (DR/EC) 81 mg PO DAILY tamsulosin [Flomax] 0.4 mg capsule 0.4 mg PO QAM lisinopril [Zestril] 10 mg tablet 10 mg PO QAM furosemide [Lasix] 20 mg tablet 20 mg PO Q2D memantine [Namenda] 5 mg tablet 5 mg PO BID Referrals Referrals: Alexander Cerda, [Primary Care Provider] -
[2022-06-24] MEDS ORDERED: SODIUM CHLORIDE 0.9% 500 ML IV SCH (10:30)
[2022-06-24 11:01] LABS: Basophils # (auto) 0.03 K/uL (0-0.2); Basophils % (auto) 0.4 %; Eosinophils # (auto) 0.12 K/uL (0-0.50); Eosinophils % (auto) 1.5 %; Hematocrit (blood only) 38.5 % (40.1-51.0); Hemoglobin 13.2 g/dl (14.0-18.0); Immature Granulocytes # (auto) 0.03 K/uL (0.00-0.02); Immature Granulocytes % (auto) 0.4 %; Lymphocytes # (auto) 1.67 K/uL (1.2-3.4); Lymphocytes % (auto) 20.7 %; Mean Corpuscular Hemoglobin 30.7 pg (25.0-34.0); Mean Corpuscular Hgb Conc 34.3 g/dL (32.0-36.0); Mean Corpuscular Volume 89.5 fL (80.0-100.0); Mean Platelet Volume 10.8 fL (9.4-12.4); Monocytes # (auto) 0.56 K/uL (0.24-0.82); Neutrophils # (auto) 5.64 K/uL (1.4-6.5); Platelet Count 154 K/uL (130-400); RDW Standard Deviation 49.5 fL (36.4-46.3); White Blood Count 8.05 K/ul (4.8-10.8)
--- NOTE | 2022-06-24 11:03 | XRay Report ---
XR chest 1V portable HISTORY: weakness COMPARISON: Chest 05/19/2019. FINDINGS: Chronic postoperative changes again noted within the right hemithorax including calcificati on of the right basilar pleura. The left lung is clear. No pneumothorax. No pleural effusions. The ca rdiac silhouette remains borderline enlarged. IMPRESSION: No significant change compared to the prior study. No acute process. ACT 112: Negative or not required by law. Electronically signed by: Alberto Lino M.D. 06/24/2022 11:02 AM
[2022-06-24 11:23] LABS: Alanine Aminotransferase 28 U/L (7-52); Albumin Globulin Ratio 1.2 (0.9-2); Albumin Level 3.7 gm/dl (3.4-5.0); Alkaline Phosphatase 46 U/L (34-104); Anion Gap 6 (3-11); Aspartate Aminotransferase 22 U/L (13-39); BUN Creatinine Ratio 19.4 (10-20); Bilirubin,Total 1.1 mg/dl (0.2-1.0); Blood Urea Nitrogen 19 mg/dl (6-23); Calcium 9.2 mg/dl (8.5-10.1); Carbon Dioxide 27 mmol/L (21-32); Chloride 106 mmol/L (98-107); Creatine Kinase 73 U/L (30-223); Est GFR (African American) 84.6 ml/min; Glucose 95 mg/dl (70-99(Fasting)); Potassium 4.5 mmol/L (3.5-5.1); Sodium 139 mmol/L (136-145); Total Protein 6.7 gm/dl (6.0-8.3)
--- NOTE | 2022-06-24 11:24 | CT Scan Report ---
CT OF THE HEAD WITHOUT CONTRAST CLINICAL HISTORY: Altered mental status. COMPARISON STUDY: Head CT June 08, 2022. CT DOSE: 1228.53 mGy.cm TECHNIQUE: Helical axial images of the head were obtained without IV contrast. Automated exposure con trol was utilized for the study. A dose lowering technique was utilized adhering to the principles o f ALARA. FINDINGS: No acute intracranial hemorrhage, midline shift or mass effect is present. The ventricular system is unremarkable. The basal cisterns are patent. No extra-axial collections are present. There are no findings to suggest acute dural sinus thrombosis or acute territorial infarct. No significant calvarial abnormalities are present. Visualized portions of the sinuses and mastoid air cells are gillian ar. IMPRESSION: No acute intracranial findings. ACT 112: Negative or not required by law. Electronically signed by: Pj Og M.D. 06/24/2022 11:22 AM
[2022-06-24 11:27] LABS: Partial Thromboplastin Ratio 0.9; Partial Thromboplastin Time 25.5 Seconds (21.0-31.0); Prothrombin Time 10.9 Seconds (9.0-12.0)
[2022-06-24 11:29] LABS: Troponin I High Sensitivity 4.6 pg/ml (0-20)
[2022-06-24 12:32] LABS: Appearance Urine Clear (Clear); Bilirubin Urine Negative (Negative); Blood Urine Negative (Negative); Color Urine Yellow; Glucose Urine UA Negative (Negative); Ketones Urine Trace (Negative); Leukocyte Esterase Urine Negative (Negative); Nitrite Urine Negative (Negative); Protein Urine Negative (Negative); Urobilinogen Urine Negative (Negative); pH Urine 8.5 (4.5-7.5)
--- NOTE | 2022-06-24 15:20 | History & Physical Report ---
Date of Service June 24, 2022 Assessment & Plan (1) Altered mental status: (2) History of frequent headaches: (3) Dementia: (4) History of CVA (cerebrovascular accident): Plan: Admit to [facility] with telemetry Patient presenting from home with altered mental status and worsened speech difficulty/expressive aphasia from baseline. Patient with history of recurrent, frequent ice pick type headaches. Typically managed with gabapentin. Recently started on baclofen by PCP 2 days ago. In the ED, labs, head CT unremarkable. Suspect that patient's symptoms are due to recent use of baclofen however due to history of CVA and worsening of speech, will obtain brain MRI to rule out acute CVA. If MRI positive for CVA, will obtain additional imaging with echo and carotid ultrasound Continue ASA and statin Continue home medications for management of chronic headaches and dementia - gabapentin, escitalopram, Namenda (5) Chronic diastolic CHF (congestive heart failure): Plan: Appears euvolemic, continue home dose Lasix (6) HTN (hypertension): Plan: BP controlled, continue lisinopril and metoprolol (7) BPH (benign prostatic hyperplasia): Plan: Continue tamsulosin (8) Mild persistent asthma: Plan: No signs of acute exacerbation, continue home inhalers (9) DVT prophylaxis: Plan: SQ Lovenox History of Present Illness Chief Complaint: Altered mental status Primary Care Provider: Alexander Cerda, 81-year-old male with PMH dementia, history of frequent headaches, chronic diastolic CHF, mild persistent asthma, BPH, HLD, and other problems listed below who presents to the ED for evaluation of altered mental status. Patient with history of frequent ice pick type headaches, typically managed with gabapentin. Patient seen in ED on 06/08 for worsening of headaches. Patient was given OTC medication with improvement in symptoms. Patient's is at the bedside who provides some history due to patient's current altered mental status and dementia. History also obtained by review of outpatient records. Patient seen at PCPs office on 06/22 for ER follow-up and reports of increased frequency of headaches. Patient was started on baclofen for suspected tension-like headache. reports the patient has had 3 doses of baclofen since that, last dose being this morning. This morning when the patient woke up he reported to his that he was having a headache so she gave him a dose of Motrin and baclofen. Shortly after, she reports the patient did not recognize who she was and the patient would not get dressed. These are both very unusual for him. There was no unilateral weakness or facial droop noted. reports history of CVA with some baseline difficulty with speech. feels as though this is slightly worse than normal. No other recent illnesses, fevers, chills. Denies abdominal pain, nausea, vomiting, diarrhea. No urinary symptoms. In the ED, patient is hemodynamically stable. Labs are unremarkable. Head CT is negative for acute findings. Patient was given IVF. Allergies Allergy/AdvReac Type Severity Reaction Status Date / Time No Known Allergies Allergy Verified 06/24/22 15:09 Home Medications Medication Instructions Recorded Confirmed Type atorvastatin 10 mg tablet (Lipitor) 10 mg PO HS 05/19/19 06/24/22 History gabapentin 100 mg capsule 300 mg PO TID Dizziness and 05/19/19 06/24/22 History (Neurontin) Headaches metoprolol succinate 25 mg 12.5 mg PO QAM 05/19/19 06/24/22 History tablet,extended release 24 hr (Toprol XL) omega 6-hmq-lki-fish oil 1,000 mg 1 cap PO QAM 05/19/19 06/24/22 History (120 mg-180 mg) capsule (Fish Oil) vitamins A,C,Y-rtnu-xnkhsz 2,148 1 tab PO BID 05/19/19 06/24/22 History mcg-113 mg-45 mg-17.4 mg tablet (PreserVision AREDS) furosemide 20 mg tablet (Lasix) 20 mg PO Q2D 04/08/21 06/24/22 History lisinopril 10 mg tablet (Zestril) 10 mg PO QAM 04/08/21 06/24/22 History memantine 5 mg tablet (Namenda) 5 mg PO BID 04/08/21 06/24/22 History tamsulosin 0.4 mg capsule (Flomax) 0.4 mg PO QAM 04/08/21 06/24/22 History aspirin 81 mg tablet,delayed 81 mg PO DAILY 06/24/22 06/24/22 History release (Ecotrin Low Strength) baclofen 10 mg tablet 10 mg PO BID PRN Headache 06/24/22 06/24/22 History escitalopram oxalate 10 mg tablet 10 mg PO DAILY 06/24/22 06/24/22 History fluticasone 100 mcg-salmeterol 50 1 inh inhalation BID 06/24/22 06/24/22 History mcg/dose blistr powdr for inhalation (Wixela Inhub) lysine 1,000 mg tablet 1,000 mg PO DAILY 06/24/22 06/24/22 History multivitamin 1 tab PO QAM 06/24/22 06/24/22 History Past Med/Surg History Medical History (Updated 06/24/22 @ 15:26 by Curt Randle DO) BPH (benign prostatic hyperplasia) Chronic diastolic CHF (congestive heart failure) Closed fracture of right hip S/p repair Dementia History of CVA (cerebrovascular accident) History of frequent headaches HLD (hyperlipidemia) HTN (hypertension) Mild persistent asthma Surgical History History of hemorrhoidectomy History of lobectomy of lung Right middle lobe lobectomy 1983, benign History of transurethral resection of prostate Family History Father Cancer Neck and brain Sister Stroke Social History Smoking Status: Unknown if ever smoked Cigarettes Per Day: 2; Second Hand Exposure: No; Hx Alcohol Use: Yes Alcohol type: hard liquor Alcohol Intake Frequency Comment: 1 2oz shot mixed drink daily Hx Substance Use: No Preferred Language: Japanese Communication Ability: Effective Bleach Mixer Required: No Beliefs That Will Affect Care: None marital status: Current Living Situation: Spouse Feels Safe at Home: Yes Assistive Devices: None, Denture - Upper, Denture - Lower, Glasses and Walker Review of Systems Review of Systems: ROS per HPI, all other systems reviewed and negative Physical Exam Constitutional: WD/WN, vitals as above Eyes: PERRL, conjunctivae normal, anicteric sclerae ENMT: external ear and nose normal, oropharynx normal Respiratory: normal respiratory effort, lungs clear to auscultation Cardiovascular: Rate/Rhythm: regular rate and regular rhythm Vessels: normal peripheral pulses Extremities: + edema (Trace edema BLE) Gastrointestinal (Abdomen): normal bowel sounds, soft, nontender, no hepatosplenomegaly Musculoskeletal: no cyanosis or clubbing, extremities motor strength 5/5 Skin: no rashes, warm and dry Neurologic: moves all extremities, awake and + confused Speech / Cognition: + expressive aphasia Cranial Nerves: PERRL, normal accommodation, EOM intact bilaterally and normal facial strength Psychiatric: Orientation: alert, oriented to person, cooperative and + guarded; + not oriented to place and + not oriented to time Affect: + tearful affect Results & Data Results & Data ([facility]) Vital Signs (Past 12 Hours) Vital Signs Temp Pulse Pulse Resp BP BP Pulse Ox 06/24/22 14:11 65 18 152/80 H 97 06/24/22 12:33 66 18 135/82 99 06/24/22 10:59 100 06/24/22 10:59 60 18 134/94 100 06/24/22 10:02 06/24/22 10:03 36.7 C 63 18 167/97 H 95 O2 Del Method 06/24/22 14:11 Room Air 06/24/22 12:33 Room Air 06/24/22 10:59 Room Air 06/24/22 10:59 Room Air 06/24/22 10:02 Room Air 06/24/22 10:03 Room Air Laboratory Results Short CBC 06/24/22 Range/Units 10:34 WBC 8.05 (4.8-10.8) K/ul Hgb 13.2 L (14.0-18.0) g/dl Hct 38.5 L (40.1-51.0) % Plt Count 154 (130-400) K/uL BMP 06/24/22 10:34 Sodium 139 Potassium 4.5 Chloride 106 Carbon Dioxide 27 BUN 19 Creatinine 0.98 Glucose 95 Calcium 9.2 Cardiac Enzymes 06/24/22 Range/Units 10:34 Total Creatine Kinase 73 (30-223) U/L Liver Function 06/24/22 Range/Units 10:34 Total Bilirubin 1.1 H (0.2-1.0) mg/dl AST 22 (13-39) U/L ALT 28 (7-52) U/L Alkaline Phosphatase 46 (34-104) U/L Albumin 3.7 (3.4-5.0) gm/dl Urine 06/24/22 Range/Units 12:16 Urine Color Yellow Urine Appearance Clear (Clear) Urine pH 8.5 H (4.5-7.5) Ur Specific Ary 1.010 (1.000-1.030) Urine Protein Negative (Negative) Urine Glucose (UA) Negative (Negative) Diagnostic Findings Chest X-Ray 06/24/22 10:21 XR chest 1V portable HISTORY: weakness COMPARISON: Chest 05/19/2019. FINDINGS: Chronic postoperative changes again noted within the right hemithorax including calcification of the right basilar pleura. The left lung is clear. No pneumothorax. No pleural effusions. The cardiac silhouette remains borderline enlarged. IMPRESSION: No significant change compared to the prior study. No acute process. ACT 112: Negative or not required by law. Electronically signed by: Alberto Lino M.D. 06/24/2022 11:[address] 06/24/22 10:21 CT OF THE HEAD WITHOUT CONTRAST CLINICAL HISTORY: Altered mental status. COMPARISON STUDY: Head CT June 08, 2022. CT DOSE: 1228.53 mGy.cm TECHNIQUE: Helical axial images of the head were obtained without IV contrast. Automated exposure control was utilized for the study. A dose lowering technique was utilized adhering to the principles of ALARA. FINDINGS: No acute intracranial hemorrhage, midline shift or mass effect is present. The ventricular system is unremarkable. The basal cisterns are patent. No extra-axial collections are present. There are no findings to suggest acute dural sinus thrombosis or acute territorial infarct. No significant calvarial abnormalities are present. Visualized portions of the sinuses and mastoid air cells are clear. IMPRESSION: No acute intracranial findings. ACT 112: Negative or not required by law. Electronically signed by: Pj Og M.D. 06/24/2022 11:22 AM Code Status & VTE Plan Code Status Patient is a DNR as per my discussion with patient's who is at the bedside. VTE Prophylaxis Plan VTE Prophylaxis will be ordered: Yes Supervising Physician Co-Signing Physician Notes Patient was seen and examined. Chart Reviewed. Case discussed with RASHEED. Agree with assessment and plan as outlined
--- NOTE | 2022-06-24 16:05 | Electrocardiogram Report ---
Test Reason : Blood Pressure : / mmHG Vent. Rate : 062 BPM Atrial Rate : 062 BPM P-R Int : 118 ms QRS Dur : 082 ms QT Int : 408 ms P-R-T Axes : 046 035 030 degrees QTc Int : 414 ms Poor data quality, interpretation may be adversely affected Normal sinus rhythm Normal ECG When compared with ECG of 08-JUN-2022 19:19, No significant change was found Confirmed by Curt Issa ([id number]) on 06/24/2022 4:05:26 PM Referred By: REFERRED SELF Confirmed By:Curt Issa
[2022-06-24] MEDS ORDERED: GADOBUTROL 65ML VIAL IV ONE (16:45)
--- NOTE | 2022-06-24 16:58 | Magnetic Resonance Report ---
MRI OF THE BRAIN COMBO CLINICAL HISTORY: Weakness. Dementia. Headache. COMPARISON STUDY: CT of the brain dated 06/24/2022. TECHNIQUE: MRI of the brain was performed utilizing various T1 and T2-weighted sequences in the axial , sagittal, and coronal planes. Contrast-enhanced sequences were acquired following the administratio n of 9 cc of Gadavist. FINDINGS: Brain parenchyma: There is age-related involutional change noting mild to moderate subcortical and pe riventricular microangiopathic disease. There is no hemorrhage or mass effect. There is no restricted diffusion to suggest acute ischemia. No enhancing mass lesion is identified on the postcontrast imag es. Gonzalez-white matter differentiation is preserved. No extra-axial fluid collection is seen. The cere bellar tonsils are normal in configuration. Ventricles, sulci, and cisterns: Prominent significant delusional change. Pituitary and sella: Unremarkable. Intracranial vasculature: Normal flow voids are maintained at the skull base. Orbits: The bony orbits are grossly intact. Orbital contents are normal in appearance noting bilatera l ocular lens implants. Sinuses and mastoids: Clear. Calvarium: Unremarkable. Cervical cord: Partially visualized cervical spinal cord is normal in morphology and signal intensity . IMPRESSION: No acute intracranial abnormality. ACT 112: Negative or not required by law. Electronically signed by: Josiah Contreras M.D. 06/24/2022 4:57 PM
[2022-06-24] MEDS ORDERED: PHARMACIST DISCHARGE MED REC CONSULT PRN (17:20)
[2022-06-24] MEDS ORDERED: HALOPERIDOL LACTATE 5 MG/ML 1 ML VIAL IV STA (18:02)
[2022-06-24] MEDS ORDERED: HALOPERIDOL LACTATE 5 MG/ML 1 ML VIAL IM STA (18:02)
[2022-06-24] MEDS: ACETAMINOPHEN 325 MG TAB PO PRN (19:41)
[2022-06-24] MEDS: ENOXAPARIN INJ 40 MG/0.4 ML SYR SQ SCH ×2 (19:42→19:58)
[2022-06-24] MEDS: MEMANTINE HCL 5 MG TAB PO SCH (19:43)
[2022-06-24] MEDS: FUROSEMIDE 20 MG TAB PO SCH (19:43)
[2022-06-24] MEDS: ATORVASTATIN 10 MG TAB PO SCH (19:45)
[2022-06-24] MEDS: GABAPENTIN 300 MG CAP PO SCH (19:45)
[2022-06-24] MEDS ORDERED: INFLUENZA VACCINE HIGH DOSE PF 65+ 0.7 ML SYR IM ONE (22:30)
[2022-06-25 09:09] LABS: Basophils # (auto) 0.03 K/uL (0-0.2); Basophils % (auto) 0.4 %; Eosinophils # (auto) 0.09 K/uL (0-0.50); Eosinophils % (auto) 1.3 %; Hematocrit (blood only) 38.3 % (40.1-51.0); Immature Granulocytes # (auto) 0.02 K/uL (0.00-0.02); Immature Granulocytes % (auto) 0.3 %; Lymphocytes # (auto) 1.74 K/uL (1.2-3.4); Lymphocytes % (auto) 25.7 %; Mean Corpuscular Hemoglobin 30.2 pg (25.0-34.0); Mean Corpuscular Hgb Conc 33.9 g/dL (32.0-36.0); Mean Corpuscular Volume 89.1 fL (80.0-100.0); Mean Platelet Volume 11.2 fL (9.4-12.4); Monocytes # (auto) 0.63 K/uL (0.24-0.82); Monocytes % (auto) 9.3 %; Neutrophils # (auto) 4.27 K/uL (1.4-6.5); Platelet Count 162 K/uL (130-400); RDW Coefficient of Variation 14.9 % (11.5-14.5); RDW Standard Deviation 48.7 fL (36.4-46.3); White Blood Count 6.78 K/ul (4.8-10.8)
[2022-06-25] MEDS: MEMANTINE HCL 5 MG TAB PO SCH ×2 (09:15→20:47)
[2022-06-25] MEDS: lisinopril 10 MG TAB PO SCH (09:15)
[2022-06-25] MEDS: ESCITALOPRAM OXALATE 10 MG TAB PO SCH (09:15)
[2022-06-25] MEDS: ASPIRIN 81 MG ECTAB PO SCH (09:15)
[2022-06-25] MEDS: METOPROLOL SUCC 25MG EXT REL TAB PO SCH (09:15)
[2022-06-25] MEDS: GABAPENTIN 300 MG CAP PO SCH ×3 (09:15→20:47)
[2022-06-25] MEDS: TAMSULOSIN HCL 0.4 MG CAP PO SCH (09:15)
[2022-06-25] MEDS: FLUTICASONE/VILANTEROL 100/25MCG 14 PUFFS/INHALER INH SCH (09:16)
[2022-06-25 09:26] LABS: BUN Creatinine Ratio 19.1 (10-20); Calcium 8.2 mg/dl (8.5-10.1); Creatinine Clr Calc Pharmacy 74.4 ml/min; Est GFR (African American) 94.3 ml/min; Est GFR (Non-African American) 81.3 ml/min
[2022-06-25 10:32] LABS: Estimated Average Glucose 111 mg/dl; Hemoglobin A1C 5.5 % (4.5-5.6)
[2022-06-25] MEDS: ENOXAPARIN INJ 40 MG/0.4 ML SYR SQ SCH (17:55)
--- NOTE | 2022-06-25 19:41 | Hospitalist Progress Note ---
Date of Service June 25, 2022 Assessment & Plan (1) Altered mental status: Plan: Now resolved. Likely due to baclofen he received at home MRI brain negative for acute stroke (2) History of frequent headaches: (3) Dementia: (4) History of CVA (cerebrovascular accident): (5) Chronic diastolic CHF (congestive heart failure): Plan: Appears euvolemic, continue home dose Lasix (6) HTN (hypertension): Plan: BP controlled, continue lisinopril and metoprolol (7) BPH (benign prostatic hyperplasia): Plan: Continue tamsulosin (8) Mild persistent asthma: Plan: No signs of acute exacerbation, continue home inhalers (9) DVT prophylaxis: Plan: SQ Lovenox Plan Disposition -from home. Will ask for PT evaluation for discharge planning Admission and Anticipated Discharge Date Admission Date: June 24, 2022 Subjective Yesterday received IM haldol due to confusion and agitation. Today much less confused. He is conversive and answering questions Physical Exam Physical Exam: Pleasant, answering questions, appears to have cognitive impairment (forgetfulness) Respiratory: Breathing comfortably on room air, no wheezing/rhonchi Cardiovascular: Regular rate and rhythm, no murmurs/rubs/gallops Gastrointestinal (Abdomen): Soft,non tender, non distended Neurologic: Resting tremors, awake, alert, spontaneously moving extremities Results & Data Results & Data ([facility]) Vital Signs (Past 12 Hours) Vital Signs Temp Pulse Resp BP Pulse Ox O2 Del Method 06/25/22 19:27 36.8 C 73 20 131/66 96 Room Air (1) Altered mental status Altered mental status type: unspecified Qualified Code(s): R41.82 - Altered mental status, unspecified
[2022-06-25] MEDS: ACETAMINOPHEN 325 MG TAB PO PRN (20:46)
[2022-06-25] MEDS: ATORVASTATIN 10 MG TAB PO SCH (20:47)
[2022-06-26 06:33] LABS: Basophils # (auto) 0.04 K/uL (0-0.2); Basophils % (auto) 0.6 %; Eosinophils # (auto) 0.21 K/uL (0-0.50); Eosinophils % (auto) 2.9 %; Hematocrit (blood only) 38.6 % (40.1-51.0); Hemoglobin 13.1 g/dl (14.0-18.0); Immature Granulocytes # (auto) 0.03 K/uL (0.00-0.02); Immature Granulocytes % (auto) 0.4 %; Lymphocytes # (auto) 2.76 K/uL (1.2-3.4); Lymphocytes % (auto) 38.4 %; Mean Corpuscular Hemoglobin 30.4 pg (25.0-34.0); Mean Corpuscular Hgb Conc 33.9 g/dL (32.0-36.0); Mean Corpuscular Volume 89.6 fL (80.0-100.0); Mean Platelet Volume 11.4 fL (9.4-12.4); Monocytes # (auto) 0.73 K/uL (0.24-0.82); Monocytes % (auto) 10.2 %; Neutrophils # (auto) 3.42 K/uL (1.4-6.5); Neutrophils % (auto) 47.5 %; Platelet Count 153 K/uL (130-400); RDW Coefficient of Variation 14.6 % (11.5-14.5); RDW Standard Deviation 48.6 fL (36.4-46.3); Red Blood Count 4.31 M/uL (4.63-6.08); White Blood Count 7.19 K/ul (4.8-10.8)
[2022-06-26 07:04] LABS: BUN Creatinine Ratio 17.6 (10-20); Calcium 8.6 mg/dl (8.5-10.1); Creatinine Clr Calc Pharmacy 72.8 ml/min; Est GFR (African American) 92.6 ml/min; Est GFR (Non-African American) 79.9 ml/min; Potassium 3.9 mmol/L (3.5-5.1)
[2022-06-26] MEDS: FLUTICASONE/VILANTEROL 100/25MCG 14 PUFFS/INHALER INH SCH (09:25)
[2022-06-26] MEDS: ESCITALOPRAM OXALATE 10 MG TAB PO SCH (09:25)
[2022-06-26] MEDS: ASPIRIN 81 MG ECTAB PO SCH (09:25)
[2022-06-26] MEDS: MEMANTINE HCL 5 MG TAB PO SCH ×2 (09:26→20:25)
[2022-06-26] MEDS: METOPROLOL SUCC 25MG EXT REL TAB PO SCH (09:26)
[2022-06-26] MEDS: GABAPENTIN 300 MG CAP PO SCH ×3 (09:26→20:25)
[2022-06-26] MEDS: TAMSULOSIN HCL 0.4 MG CAP PO SCH (09:26)
[2022-06-26] MEDS: lisinopril 10 MG TAB PO SCH (09:26)
--- NOTE | 2022-06-26 13:24 | Hospitalist Progress Note ---
Date of Service June 26, 2022 Assessment & Plan (1) Altered mental status: Plan: Now resolved. Likely due to baclofen he received at home MRI brain negative for acute stroke Baseline dementia (2) History of frequent headaches: (3) Dementia: (4) History of CVA (cerebrovascular accident): (5) Chronic diastolic CHF (congestive heart failure): Plan: Appears euvolemic, continue home dose Lasix (6) HTN (hypertension): Plan: BP controlled, continue lisinopril and metoprolol (7) BPH (benign prostatic hyperplasia): Plan: Continue tamsulosin (8) Mild persistent asthma: Plan: No signs of acute exacerbation, continue home inhalers (9) DVT prophylaxis: Plan: SQ Lovenox Plan Disposition -from home. Will ask for PT evaluation for discharge planning. does not feel comfortable taking him home. He will need some sort of placement. CM notified Admission and Anticipated Discharge Date Admission Date: June 24, 2022 Subjective Patient feels well. Wants to return home. Requires supervision and some assistance when getting out of bed to use rest room I spoke with Mrs Jade and she does not feel comfortable taking her home. Requests to speak with CM to discuss placement options Physical Exam Physical Exam: Pleasantly demented, no acute distress, non toxic Respiratory: Breathing comfortably on room air, no wheezing/rhonchi/rales Cardiovascular: Regular rate and rhythm, no murmurs/rubs/gallops Gastrointestinal (Abdomen): soft, non tender, non distended Musculoskeletal: No edema Neurologic: awake, alert, answers questions somewhat appropriately, pleasantly demented Results & Data Results & Data ([facility]) Vital Signs (Past 12 Hours) Vital Signs Temp Pulse Resp BP Pulse Ox O2 Del Method 06/26/22 11:34 36.4 C L 55 L 18 144/93 H 97 Room Air 06/26/22 08:03 36.7 C 63 19 140/88 95 Room Air 06/26/22 04:10 36.4 C L 60 18 124/81 96 Room Air (1) Altered mental status Altered mental status type: unspecified Qualified Code(s): R41.82 - Altered mental status, unspecified
[2022-06-26] MEDS: FUROSEMIDE 20 MG TAB PO SCH (18:30)
[2022-06-26] MEDS: ENOXAPARIN INJ 40 MG/0.4 ML SYR SQ SCH (18:30)
[2022-06-26] MEDS: ATORVASTATIN 10 MG TAB PO SCH (20:25)
[2022-06-27 07:42] LABS: Basophils # (auto) 0.04 K/uL (0-0.2); Basophils % (auto) 0.6 %; Eosinophils # (auto) 0.21 K/uL (0-0.50); Eosinophils % (auto) 2.9 %; Hematocrit (blood only) 37.4 % (40.1-51.0); Hemoglobin 13.1 g/dl (14.0-18.0); Immature Granulocytes # (auto) 0.02 K/uL (0.00-0.02); Immature Granulocytes % (auto) 0.3 %; Lymphocytes # (auto) 2.19 K/uL (1.2-3.4); Lymphocytes % (auto) 30.4 %; Mean Corpuscular Volume 88.4 fL (80.0-100.0); Monocytes # (auto) 0.75 K/uL (0.24-0.82); Monocytes % (auto) 10.4 %; Neutrophils % (auto) 55.4 %; Platelet Count 158 K/uL (130-400); RDW Coefficient of Variation 14.7 % (11.5-14.5); RDW Standard Deviation 47.4 fL (36.4-46.3); Red Blood Count 4.23 M/uL (4.63-6.08); White Blood Count 7.21 K/ul (4.8-10.8)
[2022-06-27 08:09] LABS: BUN Creatinine Ratio 17.7 (10-20); Calcium 8.8 mg/dl (8.5-10.1); Creatinine Clr Calc Pharmacy 62.4 ml/min; Est GFR (African American) 86.8 ml/min; Est GFR (Non-African American) 74.9 ml/min; Potassium 4.2 mmol/L (3.5-5.1)
[2022-06-27] MEDS: ASPIRIN 81 MG ECTAB PO SCH (08:24)
[2022-06-27] MEDS: ESCITALOPRAM OXALATE 10 MG TAB PO SCH (08:24)
[2022-06-27] MEDS: GABAPENTIN 300 MG CAP PO SCH ×3 (08:25→20:26)
[2022-06-27] MEDS: FLUTICASONE/VILANTEROL 100/25MCG 14 PUFFS/INHALER INH SCH (08:25)
[2022-06-27] MEDS: lisinopril 10 MG TAB PO SCH (08:26)
[2022-06-27] MEDS: MEMANTINE HCL 5 MG TAB PO SCH ×2 (08:26→20:26)
[2022-06-27] MEDS: METOPROLOL SUCC 25MG EXT REL TAB PO SCH (08:27)
[2022-06-27] MEDS: TAMSULOSIN HCL 0.4 MG CAP PO SCH (08:28)
[2022-06-27] MEDS: PSYLLIUM or GUAR GUM FIBER POWDER PACKET PO SCH (17:58)
[2022-06-27] MEDS: ENOXAPARIN INJ 40 MG/0.4 ML SYR SQ SCH (19:15)
--- NOTE | 2022-06-27 19:25 | Hospitalist Progress Note ---
Date of Service June 27, 2022 Assessment & Plan (1) Altered mental status: Plan: Now resolved. Likely due to baclofen he received at home MRI brain negative for acute stroke Baseline dementia (2) History of frequent headaches: (3) Dementia: (4) History of CVA (cerebrovascular accident): (5) Chronic diastolic CHF (congestive heart failure): Plan: Appears euvolemic, continue home dose Lasix (6) HTN (hypertension): Plan: BP controlled, continue lisinopril and metoprolol (7) BPH (benign prostatic hyperplasia): Plan: Continue tamsulosin (8) Mild persistent asthma: Plan: No signs of acute exacerbation, continue home inhalers (9) DVT prophylaxis: Plan: SQ Lovenox Plan Disposition -from home. Will ask for PT evaluation for discharge planning. does not feel comfortable taking him home. He will need some sort of placement. CM notified Admission and Anticipated Discharge Date Admission Date: June 26, 2022 Subjective No issues overnight Patient very tearful today and wants to go home Physical Exam Physical Exam: Sitting in chair, crying Respiratory: Breathing comfortably on room air, no accessory muscle use Musculoskeletal: No edema Neurologic: awake, pleasantly demented. spontaneously moving extremities Psychiatric: tearful Results & Data Results & Data ([facility]) Vital Signs (Past 12 Hours) Vital Signs Temp Pulse Resp BP Pulse Ox O2 Del Method 06/27/22 16:04 36.7 C 54 L 17 117/73 94 Room Air 06/27/22 07:43 36.4 C L 60 16 153/78 H 97 Room Air (1) Altered mental status Altered mental status type: unspecified Qualified Code(s): R41.82 - Altered mental status, unspecified
[2022-06-27] MEDS: ATORVASTATIN 10 MG TAB PO SCH (20:26)
[2022-06-28] MEDS: ZOLPIDEM TARTRATE 5 MG TAB PO PRN (02:26)
[2022-06-28] MEDS: ASPIRIN 81 MG ECTAB PO SCH (10:11)
[2022-06-28] MEDS: ESCITALOPRAM OXALATE 10 MG TAB PO SCH (10:11)
[2022-06-28] MEDS: FLUTICASONE/VILANTEROL 100/25MCG 14 PUFFS/INHALER INH SCH (10:12)
[2022-06-28] MEDS: lisinopril 10 MG TAB PO SCH (10:13)
[2022-06-28] MEDS: GABAPENTIN 300 MG CAP PO SCH ×3 (10:13→21:55)
[2022-06-28] MEDS: MEMANTINE HCL 5 MG TAB PO SCH ×2 (10:15→21:55)
[2022-06-28] MEDS: TAMSULOSIN HCL 0.4 MG CAP PO SCH (10:15)
[2022-06-28] MEDS: METOPROLOL SUCC 25MG EXT REL TAB PO SCH (10:15)
[2022-06-28] MEDS: PSYLLIUM or GUAR GUM FIBER POWDER PACKET PO SCH (10:16)
[2022-06-28] MEDS: ENOXAPARIN INJ 40 MG/0.4 ML SYR SQ SCH (17:54)
[2022-06-28] MEDS: FUROSEMIDE 20 MG TAB PO SCH (17:57)
--- NOTE | 2022-06-28 20:31 | Hospitalist Progress Note ---
Date of Service June 28, 2022 Assessment & Plan (1) Altered mental status: Plan: Now resolved. Likely due to baclofen he received at home MRI brain negative for acute stroke Baseline dementia (2) History of frequent headaches: (3) Dementia: (4) History of CVA (cerebrovascular accident): (5) Chronic diastolic CHF (congestive heart failure): Plan: Appears euvolemic, continue home dose Lasix (6) HTN (hypertension): Plan: BP controlled, continue lisinopril and metoprolol (7) BPH (benign prostatic hyperplasia): Plan: Continue tamsulosin (8) Mild persistent asthma: Plan: No signs of acute exacerbation, continue home inhalers (9) DVT prophylaxis: Plan: SQ Lovenox Plan Disposition -from home. does not feel comfortable taking him home. Needs placement Admission and Anticipated Discharge Date Admission Date: June 26, 2022 Subjective No issues overnight. No complaints currently. visitng at bedside Waiting for rehab Physical Exam Physical Exam: sitting in chair, pleasant and comfortable Respiratory: Breathing comfortably on room air, no wheezing/rhonchi Cardiovascular: Regular rate and rhythm, no murmurs/rubs Gastrointestinal (Abdomen): soft Musculoskeletal: No khadra Neurologic: awake, pleasantly demented, resting tremors Results & Data Results & Data ([facility]) Vital Signs (Past 12 Hours) Vital Signs Temp Pulse Resp BP Pulse Ox O2 Del Method 06/28/22 19:57 36.8 C 68 16 148/78 H 96 Room Air 06/28/22 15:28 36.6 C 59 L 18 122/73 95 Room Air (1) Altered mental status Altered mental status type: unspecified Qualified Code(s): R41.82 - Altered mental status, unspecified
[2022-06-28] MEDS: ATORVASTATIN 10 MG TAB PO SCH (21:55)
[2022-06-29] MEDS: ACETAMINOPHEN 325 MG TAB PO PRN ×2 (08:36→15:57)
[2022-06-29] MEDS: GABAPENTIN 300 MG CAP PO SCH ×3 (08:37→20:22)
[2022-06-29] MEDS: MEMANTINE HCL 5 MG TAB PO SCH ×2 (08:37→20:22)
[2022-06-29] MEDS: lisinopril 10 MG TAB PO SCH (08:37)
[2022-06-29] MEDS: ESCITALOPRAM OXALATE 10 MG TAB PO SCH (08:37)
[2022-06-29] MEDS: FLUTICASONE/VILANTEROL 100/25MCG 14 PUFFS/INHALER INH SCH (08:37)
[2022-06-29] MEDS: ASPIRIN 81 MG ECTAB PO SCH (08:37)
[2022-06-29] MEDS: TAMSULOSIN HCL 0.4 MG CAP PO SCH (08:38)
[2022-06-29] MEDS: PSYLLIUM or GUAR GUM FIBER POWDER PACKET PO SCH (08:38)
[2022-06-29] MEDS: METOPROLOL SUCC 25MG EXT REL TAB PO SCH (08:38)
[2022-06-29] MEDS: ENOXAPARIN INJ 40 MG/0.4 ML SYR SQ SCH (17:07)
--- NOTE | 2022-06-29 19:02 | Hospitalist Progress Note ---
Date of Service June 29, 2022 Assessment & Plan (1) Altered mental status: Plan: Now resolved. Likely due to baclofen he received at home MRI brain negative for acute stroke Baseline dementia Clinically stable Waiting for placement (2) History of frequent headaches: (3) Dementia: (4) History of CVA (cerebrovascular accident): (5) Chronic diastolic CHF (congestive heart failure): Plan: Appears euvolemic, continue home dose Lasix (6) HTN (hypertension): Plan: BP controlled, continue lisinopril and metoprolol (7) BPH (benign prostatic hyperplasia): Plan: Continue tamsulosin (8) Mild persistent asthma: Plan: No signs of acute exacerbation, continue home inhalers (9) DVT prophylaxis: Plan: SQ Lovenox Plan Disposition -from home. does not feel comfortable taking him home. Needs placement Admission and Anticipated Discharge Date Admission Date: June 26, 2022 Subjective Pt was seen and examined or follow up Lying in bed with no acute distress Pt said that he feels ok He is waiting for placement Review of Systems Review of Systems: All systems reviewed & are unremarkable except as noted in Subjective Physical Exam Physical Exam: General- No acute distress Head- atraumatic Eyes- PERRL, EOMI, ENT- oropharynx clear Neck- supple, no JVD Lungs- clear to auscultation Heart- regular rhythm; no murmur Abdomen- normal bowel sounds, soft, nontender Extremities- no calf tenderness Neuro- alert, oriented x 3; PERRL, EOMI; no facial palsy; no dysarthria Skin- warm & dry Results & Data Results & Data ([facility]) Vital Signs (Past 12 Hours) Vital Signs Temp Pulse Pulse Resp BP BP Pulse Ox 06/29/22 15:21 36.7 C 66 18 136/74 94 06/29/22 07:40 06/29/22 07:09 36.7 C 60 14 151/72 H 95 O2 Del Method 06/29/22 15:21 Room Air 06/29/22 07:40 Room Air 06/29/22 07:09 Room Air (1) Altered mental status Altered mental status type: unspecified Qualified Code(s): R41.82 - Altered mental status, unspecified
[2022-06-29] MEDS: PRESERVISION AREDS PO SCH (20:21)
[2022-06-29] MEDS: ATORVASTATIN 10 MG TAB PO SCH (20:22)
[2022-06-30] MEDS: ASPIRIN 81 MG ECTAB PO SCH (08:34)
[2022-06-30] MEDS: TAMSULOSIN HCL 0.4 MG CAP PO SCH (08:34)
[2022-06-30] MEDS: FLUTICASONE/VILANTEROL 100/25MCG 14 PUFFS/INHALER INH SCH (08:35)
[2022-06-30] MEDS: lisinopril 10 MG TAB PO SCH (08:35)
[2022-06-30] MEDS: ESCITALOPRAM OXALATE 10 MG TAB PO SCH (08:35)
[2022-06-30] MEDS: PSYLLIUM or GUAR GUM FIBER POWDER PACKET PO SCH (08:35)
[2022-06-30] MEDS: PRESERVISION AREDS PO SCH ×2 (08:35→20:18)
[2022-06-30] MEDS: GABAPENTIN 300 MG CAP PO SCH ×3 (08:35→20:18)
[2022-06-30] MEDS: MEMANTINE HCL 5 MG TAB PO SCH ×2 (08:35→20:18)
[2022-06-30] MEDS: METOPROLOL SUCC 25MG EXT REL TAB PO SCH (08:39)
[2022-06-30] MEDS: FUROSEMIDE 20 MG TAB PO SCH (17:53)
[2022-06-30] MEDS: ENOXAPARIN INJ 40 MG/0.4 ML SYR SQ SCH (17:55)
[2022-06-30] MEDS: ATORVASTATIN 10 MG TAB PO SCH (20:18)
[2022-06-30] MEDS: ZOLPIDEM TARTRATE 5 MG TAB PO PRN (20:18)
--- NOTE | 2022-06-30 20:54 | Hospitalist Progress Note ---
Date of Service June 30, 2022 Assessment & Plan (1) Altered mental status: Plan: Now resolved. Likely due to baclofen he received at home MRI brain negative for acute stroke Baseline dementia Clinically stable Waiting for placement (2) History of frequent headaches: (3) Dementia: (4) History of CVA (cerebrovascular accident): (5) Chronic diastolic CHF (congestive heart failure): Plan: Appears euvolemic, continue home dose Lasix (6) HTN (hypertension): Plan: BP controlled, continue lisinopril and metoprolol (7) BPH (benign prostatic hyperplasia): Plan: Continue tamsulosin (8) Mild persistent asthma: Plan: No signs of acute exacerbation, continue home inhalers (9) DVT prophylaxis: Plan: SQ Lovenox Plan Disposition -from home. does not feel comfortable taking him home. Needs placement Admission and Anticipated Discharge Date Admission Date: June 26, 2022 Subjective Pt was seen and examined for follow up Sitting in chair with no acute distress Pt said that he feels fine He is waiting for placement Review of Systems Review of Systems: All systems reviewed & are unremarkable except as noted in Subjective Physical Exam Physical Exam: General- No acute distress Head- atraumatic Eyes- PERRL, EOMI, ENT- oropharynx clear Neck- supple, no JVD Lungs- clear to auscultation Heart- regular rhythm; no murmur Abdomen- normal bowel sounds, soft, nontender Extremities- no calf tenderness Neuro- alert, oriented x 3; PERRL, EOMI; no facial palsy; no dysarthria Skin- warm & dry Results & Data Results & Data ([facility]) Vital Signs (Past 12 Hours) Vital Signs Temp Pulse Pulse Resp BP Pulse Ox O2 Del Method 06/30/22 20:16 37.0 C 65 17 150/78 H 95 Room Air 06/30/22 15:54 36.7 C 62 18 111/68 97 Room Air (1) Altered mental status Altered mental status type: unspecified Qualified Code(s): R41.82 - Altered mental status, unspecified
[2022-07-01] MEDS: TAMSULOSIN HCL 0.4 MG CAP PO SCH (08:46)
[2022-07-01] MEDS: lisinopril 10 MG TAB PO SCH (08:46)
[2022-07-01] MEDS: ASPIRIN 81 MG ECTAB PO SCH (08:46)
[2022-07-01] MEDS: METOPROLOL SUCC 25MG EXT REL TAB PO SCH (08:47)
[2022-07-01] MEDS: PSYLLIUM or GUAR GUM FIBER POWDER PACKET PO SCH (08:47)
[2022-07-01] MEDS: ESCITALOPRAM OXALATE 10 MG TAB PO SCH (08:47)
[2022-07-01] MEDS: FLUTICASONE/VILANTEROL 100/25MCG 14 PUFFS/INHALER INH SCH (08:47)
[2022-07-01] MEDS: GABAPENTIN 300 MG CAP PO SCH ×3 (08:48→20:06)
[2022-07-01] MEDS: PRESERVISION AREDS PO SCH ×2 (08:49→20:06)
[2022-07-01] MEDS: MEMANTINE HCL 5 MG TAB PO SCH ×2 (08:49→20:07)
[2022-07-01] MEDS: ACETAMINOPHEN 325 MG TAB PO PRN ×3 (08:58→17:52)
--- NOTE | 2022-07-01 17:46 | Hospitalist Progress Note ---
Date of Service July 01, 2022 Assessment & Plan (1) Altered mental status: Plan: Now resolved. Likely due to baclofen he received at home MRI brain negative for acute stroke Baseline dementia Clinically stable Waiting for placement (2) History of frequent headaches: (3) Dementia: (4) History of CVA (cerebrovascular accident): (5) Chronic diastolic CHF (congestive heart failure): Plan: Appears euvolemic, continue home dose Lasix (6) HTN (hypertension): Plan: BP controlled, continue lisinopril and metoprolol (7) BPH (benign prostatic hyperplasia): Plan: Continue tamsulosin (8) Mild persistent asthma: Plan: No signs of acute exacerbation, continue home inhalers (9) DVT prophylaxis: Plan: SQ Lovenox Plan Disposition -from home. does not feel comfortable taking him home. Needs placement Admission and Anticipated Discharge Date Admission Date: June 26, 2022 Subjective Pt was seen and examined for follow up Lying in bed with no acute distress He is waiting for placement Review of Systems Review of Systems: All systems reviewed & are unremarkable except as noted in Subjective Physical Exam Physical Exam: General- No acute distress Head- atraumatic Eyes- PERRL, EOMI, ENT- oropharynx clear Neck- supple, no JVD Lungs- clear to auscultation Heart- regular rhythm; no murmur Abdomen- normal bowel sounds, soft, nontender Extremities- no calf tenderness Neuro- alert, oriented x 3; PERRL, EOMI; no facial palsy; no dysarthria Skin- warm & dry Results & Data Results & Data ([facility]) Vital Signs (Past 12 Hours) Vital Signs Temp Pulse Resp BP Pulse Ox O2 Del Method 07/01/22 15:14 36.8 C 55 L 16 116/70 96 Room Air 07/01/22 09:00 Room Air 07/01/22 08:35 77 152/91 H 07/01/22 07:06 36.3 C L 59 L 18 148/80 H 97 Room Air (1) Altered mental status Altered mental status type: unspecified Qualified Code(s): R41.82 - Altered mental status, unspecified
[2022-07-01] MEDS: ENOXAPARIN INJ 40 MG/0.4 ML SYR SQ SCH (17:51)
[2022-07-01] MEDS: ZOLPIDEM TARTRATE 5 MG TAB PO PRN (20:06)
[2022-07-01] MEDS: ATORVASTATIN 10 MG TAB PO SCH (20:07)
[2022-07-02] MEDS: ACETAMINOPHEN 325 MG TAB PO PRN ×3 (03:20→19:35)
[2022-07-02] MEDS: PSYLLIUM or GUAR GUM FIBER POWDER PACKET PO SCH (08:44)
[2022-07-02] MEDS: ASPIRIN 81 MG ECTAB PO SCH (08:45)
[2022-07-02] MEDS: METOPROLOL SUCC 25MG EXT REL TAB PO SCH (08:45)
[2022-07-02] MEDS: lisinopril 10 MG TAB PO SCH (08:46)
[2022-07-02] MEDS: ESCITALOPRAM OXALATE 10 MG TAB PO SCH (08:46)
[2022-07-02] MEDS: GABAPENTIN 300 MG CAP PO SCH ×3 (08:46→19:34)
[2022-07-02] MEDS: MEMANTINE HCL 5 MG TAB PO SCH ×2 (08:47→19:35)
[2022-07-02] MEDS: FLUTICASONE/VILANTEROL 100/25MCG 14 PUFFS/INHALER INH SCH (08:47)
[2022-07-02] MEDS: PRESERVISION AREDS PO SCH ×2 (08:47→19:35)
[2022-07-02] MEDS: TAMSULOSIN HCL 0.4 MG CAP PO SCH (08:47)
--- NOTE | 2022-07-02 17:22 | Hospitalist Progress Note ---
Date of Service July 02, 2022 Assessment & Plan (1) Altered mental status: Plan: Now resolved. Likely due to baclofen he received at home MRI brain negative for acute stroke Baseline dementia Clinically stable Waiting for placement (2) History of frequent headaches: (3) Dementia: (4) History of CVA (cerebrovascular accident): (5) Chronic diastolic CHF (congestive heart failure): Plan: Appears euvolemic, continue home dose Lasix (6) HTN (hypertension): Plan: BP controlled, continue lisinopril and metoprolol (7) BPH (benign prostatic hyperplasia): Plan: Continue tamsulosin (8) Mild persistent asthma: Plan: No signs of acute exacerbation, continue home inhalers (9) DVT prophylaxis: Plan: SQ Lovenox Plan Disposition -from home. does not feel comfortable taking him home. Needs placement Admission and Anticipated Discharge Date Admission Date: June 26, 2022 Subjective Pt was seen and examined for follow up Sitting in chair with no acute distress Spoke to family member at bedside in detail and answered all their questions He is waiting for placement to rehab Review of Systems Review of Systems: All systems reviewed & are unremarkable except as noted in Subjective Physical Exam Physical Exam: General- No acute distress Head- atraumatic Eyes- PERRL, EOMI, ENT- oropharynx clear Neck- supple, no JVD Lungs- clear to auscultation Heart- regular rhythm; no murmur Abdomen- normal bowel sounds, soft, nontender Extremities- no calf tenderness Neuro- alert, oriented x 3; PERRL, EOMI; no facial palsy; no dysarthria Skin- warm & dry Results & Data Results & Data ([facility]) Vital Signs (Past 12 Hours) Vital Signs Temp Pulse Resp BP Pulse Ox O2 Del Method 07/02/22 16:00 37 C 75 18 148/75 H 97 Room Air 07/02/22 07:30 36.3 C L 59 L 16 129/77 96 Room Air 07/02/22 07:20 36.3 C L 59 L 16 129/77 96 Room Air (1) Altered mental status Altered mental status type: unspecified Qualified Code(s): R41.82 - Altered mental status, unspecified
[2022-07-02] MEDS: ENOXAPARIN INJ 40 MG/0.4 ML SYR SQ SCH (19:34)
[2022-07-02] MEDS: ATORVASTATIN 10 MG TAB PO SCH (19:34)
[2022-07-02] MEDS: ZOLPIDEM TARTRATE 5 MG TAB PO PRN (19:35)
[2022-07-02] MEDS: FUROSEMIDE 20 MG TAB PO SCH (19:35)
[2022-07-03] MEDS: ACETAMINOPHEN 325 MG TAB PO PRN ×2 (06:30→18:41)
[2022-07-03] MEDS: GABAPENTIN 300 MG CAP PO SCH ×3 (07:32→20:26)
[2022-07-03] MEDS: TAMSULOSIN HCL 0.4 MG CAP PO SCH (07:32)
[2022-07-03] MEDS: METOPROLOL SUCC 25MG EXT REL TAB PO SCH (07:33)
[2022-07-03] MEDS: PSYLLIUM or GUAR GUM FIBER POWDER PACKET PO SCH (07:33)
[2022-07-03] MEDS: lisinopril 10 MG TAB PO SCH (07:34)
[2022-07-03] MEDS: ASPIRIN 81 MG ECTAB PO SCH (07:34)
[2022-07-03] MEDS: ESCITALOPRAM OXALATE 10 MG TAB PO SCH (07:35)
[2022-07-03] MEDS: FLUTICASONE/VILANTEROL 100/25MCG 14 PUFFS/INHALER INH SCH (07:35)
[2022-07-03] MEDS: MEMANTINE HCL 5 MG TAB PO SCH ×2 (07:35→20:26)
[2022-07-03] MEDS: PRESERVISION AREDS PO SCH ×2 (07:36→20:26)
[2022-07-03] MEDS: LIDOCAINE 5% 1 PATCH TD SCH (11:46)
[2022-07-03] MEDS: ENOXAPARIN INJ 40 MG/0.4 ML SYR SQ SCH (17:19)
--- NOTE | 2022-07-03 18:22 | Hospitalist Progress Note ---
Date of Service July 03, 2022 Assessment & Plan (1) Altered mental status: Plan: Now resolved. Likely due to baclofen he received at home MRI brain negative for acute stroke Baseline dementia Clinically stable Waiting for placement (2) History of frequent headaches: (3) Dementia: (4) History of CVA (cerebrovascular accident): (5) Chronic diastolic CHF (congestive heart failure): Plan: Appears euvolemic, continue home dose Lasix (6) HTN (hypertension): Plan: BP controlled, continue lisinopril and metoprolol (7) BPH (benign prostatic hyperplasia): Plan: Continue tamsulosin (8) Mild persistent asthma: Plan: No signs of acute exacerbation, continue home inhalers (9) DVT prophylaxis: Plan: SQ Lovenox Plan Disposition -from home. does not feel comfortable taking him home. waiting for placement Admission and Anticipated Discharge Date Admission Date: June 26, 2022 Subjective Pt was seen and examined for follow up Sitting in chair with no acute distress at bedside waiting for placement to rehab Review of Systems Review of Systems: All systems reviewed & are unremarkable except as noted in Subjective Physical Exam Physical Exam: General- No acute distress Head- atraumatic Eyes- PERRL, EOMI, ENT- oropharynx clear Neck- supple, no JVD Lungs- clear to auscultation Heart- regular rhythm; no murmur Abdomen- normal bowel sounds, soft, nontender Extremities- no calf tenderness Neuro- alert, oriented x 3; PERRL, EOMI; no facial palsy; no dysarthria Skin- warm & dry Results & Data Results & Data ([facility]) Vital Signs (Past 12 Hours) Vital Signs Temp Pulse Resp BP Pulse Ox O2 Del Method 07/03/22 15:15 37.0 C 61 18 123/78 94 Room Air 07/03/22 07:45 36.6 C 58 L 18 148/91 H 95 Room Air (1) Altered mental status Altered mental status type: unspecified Qualified Code(s): R41.82 - Altered mental status, unspecified
[2022-07-03] MEDS: ATORVASTATIN 10 MG TAB PO SCH (20:26)
[2022-07-03] MEDS: ZOLPIDEM TARTRATE 5 MG TAB PO PRN (21:21)
[2022-07-04] MEDS: ACETAMINOPHEN 325 MG TAB PO PRN (06:27)
[2022-07-04] MEDS: METOPROLOL SUCC 25MG EXT REL TAB PO SCH (08:37)
[2022-07-04] MEDS: GABAPENTIN 300 MG CAP PO SCH ×3 (08:37→20:03)
[2022-07-04] MEDS: MEMANTINE HCL 5 MG TAB PO SCH ×2 (08:37→20:03)
[2022-07-04] MEDS: ASPIRIN 81 MG ECTAB PO SCH (08:37)
[2022-07-04] MEDS: lisinopril 10 MG TAB PO SCH (08:37)
[2022-07-04] MEDS: ESCITALOPRAM OXALATE 10 MG TAB PO SCH (08:37)
[2022-07-04] MEDS: FLUTICASONE/VILANTEROL 100/25MCG 14 PUFFS/INHALER INH SCH (08:38)
[2022-07-04] MEDS: PSYLLIUM or GUAR GUM FIBER POWDER PACKET PO SCH (08:38)
[2022-07-04] MEDS: PRESERVISION AREDS PO SCH ×2 (08:38→20:03)
[2022-07-04] MEDS: LIDOCAINE 5% 1 PATCH TD SCH (08:38)
[2022-07-04] MEDS: TAMSULOSIN HCL 0.4 MG CAP PO SCH (08:38)
[2022-07-04] MEDS: ENOXAPARIN INJ 40 MG/0.4 ML SYR SQ SCH (17:50)
[2022-07-04] MEDS: FUROSEMIDE 20 MG TAB PO SCH (17:50)
[2022-07-04] MEDS: ATORVASTATIN 10 MG TAB PO SCH (20:03)
[2022-07-04] MEDS: ZOLPIDEM TARTRATE 5 MG TAB PO PRN (20:50)
--- NOTE | 2022-07-05 03:03 | Hospitalist Progress Note ---
Date of Service July 04, 2022 Assessment & Plan (1) Altered mental status: Plan: Now resolved. Likely due to baclofen he received at home MRI brain negative for acute stroke Baseline dementia Clinically stable Waiting for placement (2) History of frequent headaches: (3) Dementia: (4) History of CVA (cerebrovascular accident): (5) Chronic diastolic CHF (congestive heart failure): Plan: Appears euvolemic, continue home dose Lasix (6) HTN (hypertension): Plan: BP controlled, continue lisinopril and metoprolol (7) BPH (benign prostatic hyperplasia): Plan: Continue tamsulosin (8) Mild persistent asthma: Plan: No signs of acute exacerbation, continue home inhalers (9) DVT prophylaxis: Plan: SQ Lovenox Plan Disposition -from home. does not feel comfortable taking him home. waiting for placement Admission and Anticipated Discharge Date Admission Date: June 26, 2022 Subjective Pt was seen and examined for follow up Sitting in chair with no acute distress at bedside waiting for placement to rehab Review of Systems Review of Systems: All systems reviewed & are unremarkable except as noted in Subjective Physical Exam Physical Exam: General- No acute distress Head- atraumatic Eyes- PERRL, EOMI, ENT- oropharynx clear Neck- supple, no JVD Lungs- clear to auscultation Heart- regular rhythm; no murmur Abdomen- normal bowel sounds, soft, nontender Extremities- no calf tenderness Neuro- alert, oriented x 3; PERRL, EOMI; no facial palsy; no dysarthria Skin- warm & dry Results & Data Results & Data ([facility]) Vital Signs (Past 12 Hours) Vital Signs Temp Pulse Resp BP Pulse Ox O2 Del Method 07/04/22 19:43 36.8 C 61 16 132/79 96 Room Air (1) Altered mental status Altered mental status type: unspecified Qualified Code(s): R41.82 - Altered mental status, unspecified
[2022-07-05] MEDS: ASPIRIN 81 MG ECTAB PO SCH (09:22)
[2022-07-05] MEDS: MEMANTINE HCL 5 MG TAB PO SCH ×2 (09:22→20:31)
[2022-07-05] MEDS: GABAPENTIN 300 MG CAP PO SCH ×3 (09:22→20:31)
[2022-07-05] MEDS: PSYLLIUM or GUAR GUM FIBER POWDER PACKET PO SCH (09:22)
[2022-07-05] MEDS: lisinopril 10 MG TAB PO SCH (09:23)
[2022-07-05] MEDS: TAMSULOSIN HCL 0.4 MG CAP PO SCH (09:23)
[2022-07-05] MEDS: FLUTICASONE/VILANTEROL 100/25MCG 14 PUFFS/INHALER INH SCH (09:23)
[2022-07-05] MEDS: ESCITALOPRAM OXALATE 10 MG TAB PO SCH (09:23)
[2022-07-05] MEDS: LIDOCAINE 5% 1 PATCH TD SCH (09:23)
[2022-07-05] MEDS: METOPROLOL SUCC 25MG EXT REL TAB PO SCH (09:23)
[2022-07-05] MEDS: PRESERVISION AREDS PO SCH ×2 (09:24→20:31)
[2022-07-05] MEDS: ENOXAPARIN INJ 40 MG/0.4 ML SYR SQ SCH (18:10)
--- NOTE | 2022-07-05 18:50 | Hospitalist Progress Note ---
Date of Service July 05, 2022 Assessment & Plan (1) Altered mental status: Plan: Now resolved. Likely due to baclofen he received at home MRI brain negative for acute stroke Baseline dementia Clinically stable Waiting for placement Back pain Will add Voltaren gel Continue monitor (2) History of frequent headaches: (3) Dementia: (4) History of CVA (cerebrovascular accident): (5) Chronic diastolic CHF (congestive heart failure): Plan: Appears euvolemic, continue home dose Lasix (6) HTN (hypertension): Plan: BP controlled, continue lisinopril and metoprolol (7) BPH (benign prostatic hyperplasia): Plan: Continue tamsulosin (8) Mild persistent asthma: Plan: No signs of acute exacerbation, continue home inhalers (9) DVT prophylaxis: Plan: SQ Lovenox Plan Disposition -from home. does not feel comfortable taking him home. waiting for placement Admission and Anticipated Discharge Date Admission Date: June 26, 2022 Subjective Pt was seen and examined for follow up Sitting in chair with no acute distress He is complaining of back pain waiting for placement to rehab Review of Systems Review of Systems: All systems reviewed & are unremarkable except as noted in Subjective Physical Exam Physical Exam: General- No acute distress Head- atraumatic Eyes- PERRL, EOMI, ENT- oropharynx clear Neck- supple, no JVD Lungs- clear to auscultation Heart- regular rhythm; no murmur Abdomen- normal bowel sounds, soft, nontender Extremities- no calf tenderness Neuro- alert, oriented x 3; PERRL, EOMI; no facial palsy; no dysarthria Skin- warm & dry Results & Data Results & Data ([facility]) Vital Signs (Past 12 Hours) Vital Signs Temp Pulse Resp BP BP Pulse Ox O2 Del Method 07/05/22 15:12 36.7 C 63 16 133/73 96 Room Air 07/05/22 08:01 36.3 C L 65 16 131/88 98 Room Air (1) Altered mental status Altered mental status type: unspecified Qualified Code(s): R41.82 - Altered mental status, unspecified
[2022-07-05] MEDS: ATORVASTATIN 10 MG TAB PO SCH (20:31)
[2022-07-05] MEDS: ZOLPIDEM TARTRATE 5 MG TAB PO PRN (20:31)
[2022-07-05] MEDS: ACETAMINOPHEN 325 MG TAB PO PRN (20:36)
[2022-07-06] MEDS: ACETAMINOPHEN 325 MG TAB PO PRN ×2 (08:16→19:05)
[2022-07-06] MEDS: DICLOFENAC SOD 1% GEL 100 GM TUBE EXT SCH ×2 (08:18→21:03)
[2022-07-06] MEDS: LIDOCAINE 5% 1 PATCH TD SCH (08:19)
[2022-07-06] MEDS: ESCITALOPRAM OXALATE 10 MG TAB PO SCH (08:26)
[2022-07-06] MEDS: ASPIRIN 81 MG ECTAB PO SCH (08:26)
[2022-07-06] MEDS: TAMSULOSIN HCL 0.4 MG CAP PO SCH (08:26)
[2022-07-06] MEDS: GABAPENTIN 300 MG CAP PO SCH ×3 (08:27→21:04)
[2022-07-06] MEDS: lisinopril 10 MG TAB PO SCH (08:28)
[2022-07-06] MEDS: MEMANTINE HCL 5 MG TAB PO SCH ×2 (08:28→21:04)
[2022-07-06] MEDS: FLUTICASONE/VILANTEROL 100/25MCG 14 PUFFS/INHALER INH SCH (08:29)
[2022-07-06] MEDS: METOPROLOL SUCC 25MG EXT REL TAB PO SCH (08:29)
[2022-07-06] MEDS: PRESERVISION AREDS PO SCH ×2 (08:30→21:03)
[2022-07-06] MEDS: PSYLLIUM or GUAR GUM FIBER POWDER PACKET PO SCH (08:30)
--- NOTE | 2022-07-06 13:27 | Hospitalist Progress Note ---
Date of Service July 06, 2022 Assessment & Plan (1) Altered mental status: Plan: Now resolved. Likely due to baclofen he received at home MRI brain negative for acute stroke Baseline dementia Clinically stable Waiting for placement Back pain Will add Voltaren gel Continue monitor Leg Cramps check bmp and mag in a.m. encourage fluid intake (2) History of frequent headaches: (3) Dementia: (4) History of CVA (cerebrovascular accident): (5) Chronic diastolic CHF (congestive heart failure): Plan: Appears euvolemic, continue home dose Lasix (6) HTN (hypertension): Plan: BP controlled, continue lisinopril and metoprolol 137/80 (7) BPH (benign prostatic hyperplasia): Plan: Continue tamsulosin (8) Mild persistent asthma: Plan: No signs of acute exacerbation, continue home inhalers (9) DVT prophylaxis: Plan: SQ Lovenox Plan Disposition -from home. does not feel comfortable taking him home. waiting for placement to [facility] Pt was seen and examined in collaboration with Dr. Domínguez, please see addendum A total of 25 minutes were spent with greater than 50% of that time face to face with the patient, personally reviewing all current laboratories, imaging studies, past medication reconciliation, outpatient chart review, and discussion with specialists to collaborate care for the patient with attending. Please see attending documentation for corrections and/or additions. Admission and Anticipated Discharge Date Admission Date: June 26, 2022 Supervising Physician Co-Signing Physician Notes Patient seen and examined Agree with findings and plans as detailed by Eli Bowers PA-C Subjective Pt was seen and examined in room 375-2. Follow up AMS 2/2 baclofen. Awaiting placement. at bedside. pt c/o intermittent leg cramps. Denies f/c/s, chest pain, sob, n/v/d. APpetite is good. Review of Systems Review of Systems: All systems reviewed & are unremarkable except as noted in HPI & below Physical Exam Physical Exam: Gen: Tall, elderly M, sitting up in bed, WD/WN, NAD, A&O x 2 HEENT: Normocephalic, atraumatic, conjunctivae moist, sclerae anicteric, mucous membranes moist. Lung: Clear to Auscultation bilaterally, no wheezes/rales/rhonchi Heart: Regular rate, regular rhythm, no murmurs, rubs, or gallops Abdomen: Soft, NT, ND +BS x 4 Extremities: No edema Skin: Warm, no rash, negative turgor. Neuro: noted expressive aphasia - per at baseline Results & Data Results & Data ([facility]) Vital Signs (Past 12 Hours) Vital Signs Temp Pulse Resp BP Pulse Ox O2 Del Method 07/06/22 08:25 56 L 137/80 07/06/22 07:04 37.1 C 56 L 16 126/76 97 Room Air Medications Administered Current Inpatient Medications Acetaminophen (Acetaminophen 325 Mg Tab) 650 mg PO Q4H PRN PRN Reason: Pain or Fever Stop: 07/24/22 17:19 Last Admin: 07/06/22 08:16 Dose: 650 mg Aspirin (Aspirin 81 Mg Ectab) 81 mg PO DAILY [facility] Stop: 07/25/22 08:59 Last Admin: 07/06/22 08:26 Dose: 81 mg Atorvastatin Calcium (Atorvastatin 10 Mg Tab) 10 mg PO HS [facility] Stop: 07/24/22 20:59 Last Admin: 07/05/22 20:31 Dose: 10 mg Diclofenac Sodium (Diclofenac Sod 1% Gel 100 Gm Tube) 2 gm EXT BID [facility]; Protocol Stop: 08/05/22 08:59 Last Admin: 07/06/22 08:18 Dose: 2 gm Enoxaparin Sodium (Enoxaparin Inj 40 Mg/0.4 Ml Syr) 40 mg SQ Q24H [facility] Stop: 07/24/22 17:59 Last Admin: 07/05/22 18:10 Dose: 40 mg Escitalopram Oxalate (Escitalopram Oxalate 10 Mg Tab) 10 mg PO DAILY [facility] Stop: 07/25/22 08:59 Last Admin: 07/06/22 08:26 Dose: 10 mg Fluticasone/Vilanterol (Fluticasone/Vilanterol 100/25mcg 14 Puffs/Inhaler) 1 puffs INH DAILY [facility] Stop: 07/25/22 08:59 Last Admin: 07/06/22 08:29 Dose: 1 puffs Furosemide (Furosemide 20 Mg Tab) 20 mg PO Q2D@1800 [facility] Stop: 07/24/22 17:59 Last Admin: 07/04/22 17:50 Dose: 20 mg Gabapentin (Gabapentin 300 Mg Cap) 300 mg PO TID [facility] Stop: 07/24/22 20:59 Last Admin: 07/06/22 08:27 Dose: 300 mg Lidocaine (L[facility]ocaine 5% 1 Patch) [facility] Stop: 08/02/22 11:14 Last Admin: 07/06/22 08:19 Dose: 1 patch Lisinopril (Lisinopril 10 Mg Tab) 10 mg PO QAM [facility] Stop: 07/25/22 08:59 Last Admin: 07/06/22 08:28 Dose: 10 mg Memantine (Memantine Hcl 5 Mg Tab) 5 mg PO BID [facility] Stop: 07/24/22 20:59 Last Admin: 07/06/22 08:28 Dose: 5 mg Metoprolol Succinate (Metoprolol Succ 25mg Ext Rel Tab) [facility] Stop: 07/25/22 08:59 Last Admin: 07/06/22 08:29 Dose: Not Given Miscellaneous (Remove Lidoderm Patch) 1 each N/A DAILY@2100 [facility] Stop: 08/02/22 20:59 Last Admin: 07/05/22 20:31 Dose: 1 each Multivitamins/Minerals (Preservision Areds) 1 tab PO BID [facility] Stop: 07/29/22 20:59 Last Admin: 07/06/22 08:30 Dose: 1 tab Psyllium Hydrophilic Mucilloid (Psyllium Or Guar Gum Fiber Powder Packet) [facility] pkt [facility] Stop: 07/27/22 14:59 Last Admin: 07/06/22 08:30 Dose: 1 pkt Tamsulosin HCl (Tamsulosin Hcl 0.4 Mg Cap) 0.4 mg [facility] Stop: 07/25/22 08:59 Last Admin: 07/06/22 08:26 Dose: 0.4 mg Zolpidem Tartrate (Zolpidem Tartrate 5 Mg Tab) 5 mg PO HS PRN PRN Reason: Sleep Stop: 07/28/22 02:08 Last Admin: 07/05/22 20:31 Dose: 5 mg (1) Altered mental status Altered mental status type: unspecified Qualified Code(s): R41.82 - Altered mental status, unspecified
[2022-07-06] MEDS: FUROSEMIDE 20 MG TAB PO SCH (17:36)
[2022-07-06] MEDS: ENOXAPARIN INJ 40 MG/0.4 ML SYR SQ SCH (17:36)
[2022-07-06] MEDS: ATORVASTATIN 10 MG TAB PO SCH (21:04)
[2022-07-06] MEDS: ZOLPIDEM TARTRATE 5 MG TAB PO PRN (21:04)
[2022-07-07 07:19] LABS: Basophils # (auto) 0.06 K/uL (0-0.2); Basophils % (auto) 0.9 %; Eosinophils # (auto) 0.18 K/uL (0-0.50); Eosinophils % (auto) 2.8 %; Hematocrit (blood only) 38.9 % (40.1-51.0); Hemoglobin 13.2 g/dl (14.0-18.0); Immature Granulocytes # (auto) 0.04 K/uL (0.00-0.02); Immature Granulocytes % (auto) 0.6 %; Lymphocytes # (auto) 2.54 K/uL (1.2-3.4); Lymphocytes % (auto) 39.4 %; Mean Corpuscular Hemoglobin 30.4 pg (25.0-34.0); Mean Corpuscular Hgb Conc 33.9 g/dL (32.0-36.0); Mean Corpuscular Volume 89.6 fL (80.0-100.0); Mean Platelet Volume 10.8 fL (9.4-12.4); Monocytes # (auto) 0.64 K/uL (0.24-0.82); Monocytes % (auto) 9.9 %; Neutrophils # (auto) 2.98 K/uL (1.4-6.5); Neutrophils % (auto) 46.4 %; Platelet Count 185 K/uL (130-400); RDW Coefficient of Variation 14.3 % (11.5-14.5); RDW Standard Deviation 47.4 fL (36.4-46.3); Red Blood Count 4.34 M/uL (4.63-6.08); White Blood Count 6.44 K/ul (4.8-10.8)
[2022-07-07 07:48] LABS: Calcium 8.9 mg/dl (8.5-10.1); Potassium 4.4 mmol/L (3.5-5.1)
[2022-07-07 07:53] LABS: BUN Creatinine Ratio 23.6 (10-20); Creatinine Clr Calc Pharmacy 56.5 ml/min; Est GFR (Non-African American) 66.4 ml/min
[2022-07-07] MEDS: PSYLLIUM or GUAR GUM FIBER POWDER PACKET PO SCH (08:49)
[2022-07-07] MEDS: ESCITALOPRAM OXALATE 10 MG TAB PO SCH (08:50)
[2022-07-07] MEDS: GABAPENTIN 300 MG CAP PO SCH ×3 (08:50→21:02)
[2022-07-07] MEDS: TAMSULOSIN HCL 0.4 MG CAP PO SCH (08:50)
[2022-07-07] MEDS: ASPIRIN 81 MG ECTAB PO SCH (08:51)
[2022-07-07] MEDS: MEMANTINE HCL 5 MG TAB PO SCH ×2 (08:51→21:02)
[2022-07-07] MEDS: METOPROLOL SUCC 25MG EXT REL TAB PO SCH (08:51)
[2022-07-07] MEDS: lisinopril 10 MG TAB PO SCH (08:51)
[2022-07-07] MEDS: PRESERVISION AREDS PO SCH ×2 (08:52→21:01)
[2022-07-07] MEDS: LIDOCAINE 5% 1 PATCH TD SCH (09:23)
[2022-07-07] MEDS: DICLOFENAC SOD 1% GEL 100 GM TUBE EXT SCH ×2 (09:23→21:01)
[2022-07-07] MEDS: FLUTICASONE/VILANTEROL 100/25MCG 14 PUFFS/INHALER INH SCH (12:06)
--- NOTE | 2022-07-07 14:24 | Hospitalist Progress Note ---
Date of Service July 07, 2022 Assessment & Plan (1) Altered mental status: Plan: Now resolved. Likely due to baclofen he received at home MRI brain negative for acute stroke Baseline dementia Clinically stable Waiting for placement Back pain Will add Voltaren gel Continue monitor Leg Cramps check bmp and mag in a.m. encourage fluid intake (2) History of frequent headaches: (3) Dementia: (4) History of CVA (cerebrovascular accident): (5) Chronic diastolic CHF (congestive heart failure): Plan: Appears euvolemic, continue home dose Lasix (6) HTN (hypertension): Plan: BP normotensive, continue lisinopril and metoprolol (7) BPH (benign prostatic hyperplasia): Plan: Continue tamsulosin (8) Mild persistent asthma: Plan: No signs of acute exacerbation, continue home inhalers (9) DVT prophylaxis: Plan: SQ Lovenox Plan Disposition From home. does not feel comfortable taking him home. Waiting for placement to [facility] Pt was seen and examined in collaboration with Dr. Domínguez, please see addendum. A total of 25 minutes were spent with greater than 50% of that time face to face with the patient, personally reviewing all current laboratories, imaging studies, past medication reconciliation, outpatient chart review, and discussion with specialists to collaborate care for the patient with attending. Please see attending documentation for corrections and/or additions. Admission and Anticipated Discharge Date Admission Date: June 26, 2022 Supervising Physician Co-Signing Physician Notes Patient seen and examined Agree with findings and plans per Herminia Gil PA-C Subjective Pt was seen and examined in room 375-2. Follow up AMS 2/2 baclofen. Awaiting placement. Resting comfortably in bedside chair after getting ready with SOIL TECHNICIAN help in the bathroom. Had some back pain initially this morning that resolved with movement. Denies any new symptoms overnight. No f/c/s, chest pain, sob, n/v/d. Eating without issue. Review of Systems Review of Systems: At least ten systems reviewed and negative except as noted in the HPI. Physical Exam Physical Exam: Gen: WD/WN, NAD, sitting in bedside chair, A&Ox2 (baseline) HEENT: Normocephalic, atraumatic, conjunctivae moist, sclerae anicteric, mucous membranes moist Lung: Clear to Auscultation bilaterally, no wheezes/rales/rhonchi Heart: Regular rate, regular rhythm, no murmurs, rubs, or gallops Abdomen: Soft, NT, ND +BS x 4 Extremities: no edema Skin: Warm, no rash Results & Data Results & Data ([facility]) Vital Signs (Past 12 Hours) Vital Signs Temp Pulse Resp BP Pulse Ox O2 Del Method 07/07/22 07:29 36.8 C 56 L 16 127/79 96 Room Air Laboratory Results Short CBC 07/07/22 Range/Units 06:05 WBC 6.44 (4.8-10.8) K/ul Hgb 13.2 L (14.0-18.0) g/dl Hct 38.9 L (40.1-51.0) % Plt Count 185 (130-400) K/uL BMP 07/07/22 06:05 Sodium 138 Potassium 4.4 Chloride 104 Carbon Dioxide 30 BUN 25 H Creatinine 1.06 Glucose 89 Calcium 8.9 Diagnostic Findings Chest X-Ray 06/24/22 10:21 XR chest 1V portable HISTORY: weakness COMPARISON: Chest 05/19/2019. FINDINGS: Chronic postoperative changes again noted within the right hemithorax including calcification of the right basilar pleura. The left lung is clear. No pneumothorax. No pleural effusions. The cardiac silhouette remains borderline enlarged. IMPRESSION: No significant change compared to the prior study. No acute process. ACT 112: Negative or not required by law. Electronically signed by: Alberto Lino M.D. 06/24/2022 11:[address] 06/24/22 10:21 CT OF THE HEAD WITHOUT CONTRAST CLINICAL HISTORY: Altered mental status. COMPARISON STUDY: Head CT June 08, 2022. CT DOSE: 1228.53 mGy.cm TECHNIQUE: Helical axial images of the head were obtained without IV contrast. Automated exposure control was utilized for the study. A dose lowering technique was utilized adhering to the principles of ALARA. FINDINGS: No acute intracranial hemorrhage, midline shift or mass effect is present. The ventricular system is unremarkable. The basal cisterns are patent. No extra-axial collections are present. There are no findings to suggest acute dural sinus thrombosis or acute territorial infarct. No significant calvarial abnormalities are present. Visualized portions of the sinuses and mastoid air ce lls are clear. IMPRESSION: No acute intracranial findings. ACT 112: Negative or not required by law. Electronically signed by: Pj Og M.D. 06/24/2022 11:22 AM Brain MRI 06/24/22 14:44 MRI OF THE BRAIN COMBO CLINICAL HISTORY: Weakness. Dementia. Headache. COMPARISON STUDY: CT of the brain dated 06/24/2022. TECHNIQUE: MRI of the brain was performed utilizing various T1 and T2-weighted sequences in the axial, sagittal, and coronal planes. Contrast-enhanced sequences were acquired following the administration of 9 cc of Gadavist. FINDINGS: Brain parenchyma: There is age-related involutional change noting mild to moderate subcortical and periventricular microangiopathic disease. There is no hemorrhage or mass effect. There is no restricted diffusion to suggest acute ischemia. No enhancing mass lesion is identified on the postcontrast images. Gonzalez-white matter differentiation is preserved. No extra-axial fluid collection is seen. The cerebellar tonsils are normal in configuration. Ventricles, sulci, and cisterns: Prominent significant delusional change. Pituitary and sella: Unremarkable. Intracranial vasculature: Normal flow voids are maintained at the skull base. Orbits: The bony orbits are grossly intact. Orbital contents are normal in appearance noting bilateral ocular lens implants. Sinuses and mastoids: Clear. Calvarium: Unremarkable. Cervical cord: Partially visualized cervical spinal cord is normal in morphology and signal intensity. IMPRESSION: No acute intracranial abnormality. ACT 112: Negative or not required by law. Electronically signed by: Josiah Contreras M.D. 06/24/2022 4:57 PM (1) Altered mental status Altered mental status type: unspecified Qualified Code(s): R41.82 - Altered mental status, unspecified
[2022-07-07] MEDS: ENOXAPARIN INJ 40 MG/0.4 ML SYR SQ SCH (17:31)
[2022-07-07] MEDS: ACETAMINOPHEN 325 MG TAB PO PRN (21:00)
[2022-07-07] MEDS: ZOLPIDEM TARTRATE 5 MG TAB PO PRN (21:00)
[2022-07-07] MEDS: ATORVASTATIN 10 MG TAB PO SCH (21:02)
[2022-07-08] MEDS: ACETAMINOPHEN 325 MG TAB PO PRN ×3 (03:56→20:31)
[2022-07-08] MEDS: GABAPENTIN 300 MG CAP PO SCH ×3 (08:49→20:33)
[2022-07-08] MEDS: FLUTICASONE/VILANTEROL 100/25MCG 14 PUFFS/INHALER INH SCH (08:49)
[2022-07-08] MEDS: MEMANTINE HCL 5 MG TAB PO SCH ×2 (08:49→20:34)
[2022-07-08] MEDS: DICLOFENAC SOD 1% GEL 100 GM TUBE EXT SCH ×2 (08:49→20:32)
[2022-07-08] MEDS: ESCITALOPRAM OXALATE 10 MG TAB PO SCH (08:50)
[2022-07-08] MEDS: ASPIRIN 81 MG ECTAB PO SCH (08:50)
[2022-07-08] MEDS: lisinopril 10 MG TAB PO SCH (08:50)
[2022-07-08] MEDS: METOPROLOL SUCC 25MG EXT REL TAB PO SCH (08:50)
[2022-07-08] MEDS: TAMSULOSIN HCL 0.4 MG CAP PO SCH (08:51)
[2022-07-08] MEDS: LIDOCAINE 5% 1 PATCH TD SCH (08:51)
[2022-07-08] MEDS: PRESERVISION AREDS PO SCH ×2 (08:52→20:32)
[2022-07-08] MEDS: PSYLLIUM or GUAR GUM FIBER POWDER PACKET PO SCH (08:52)
--- NOTE | 2022-07-08 14:40 | Hospitalist Progress Note ---
Date of Service July 08, 2022 Assessment & Plan (1) Altered mental status: Plan: Now resolved. Likely due to baclofen he received at home MRI brain negative for acute stroke Baseline dementia Clinically stable Waiting for placement Back pain Will add Voltaren gel Continue monitor Leg Cramps check bmp and mag in a.m. encourage fluid intake (2) History of frequent headaches: (3) Dementia: (4) History of CVA (cerebrovascular accident): (5) Chronic diastolic CHF (congestive heart failure): Plan: Appears euvolemic, continue home dose Lasix (6) HTN (hypertension): Plan: BP normotensive, continue lisinopril and metoprolol (7) BPH (benign prostatic hyperplasia): Plan: Continue tamsulosin (8) Mild persistent asthma: Plan: No signs of acute exacerbation, continue home inhalers (9) DVT prophylaxis: Plan: SQ Lovenox Plan Disposition From home. does not feel comfortable taking him home. Waiting for placement to [facility] Pt was seen and examined in collaboration with Dr. Domínguez, please see addendum. Will update over the phone this afternoon. A total of 25 minutes were spent with greater than 50% of that time face to face with the patient, personally reviewing all current laboratories, imaging studies, past medication reconciliation, outpatient chart review, and discussion with specialists to collaborate care for the patient with attending. Please see attending documentation for corrections and/or additions. Admission and Anticipated Discharge Date Admission Date: June 26, 2022 Supervising Physician Co-Signing Physician Notes Patient sen and examined Reports only chronic low back pain Findings and plan is as detailed by Herminia Mane PA-C Awaiting placement Subjective Pt was seen and examined in room 375-2. Follow up AMS 2/2 baclofen. Awaiting placement. Resting comfortably in bedside chair after getting ready. Denies any new symptoms overnight. No f/c/s, chest pain, sob, n/v/d. Eating without issue. Review of Systems Review of Systems: At least ten systems reviewed and negative except as noted in the HPI. Physical Exam Physical Exam: Gen: WD/WN, NAD, sitting in bedside chair, A&Ox2 (baseline) HEENT: Normocephalic, atraumatic, conjunctivae moist, sclerae anicteric, mucous membranes moist Lung: Clear to Auscultation bilaterally, no wheezes/rales/rhonchi Heart: Regular rate, regular rhythm, no murmurs, rubs, or gallops Abdomen: Soft, NT, ND +BS x 4 Extremities: no edema Skin: Warm, no rash Results & Data Results & Data ([facility]) Vital Signs (Past 12 Hours) Vital Signs Temp Pulse Resp BP Pulse Ox O2 Del Method 07/08/22 07:34 36.4 C L 60 16 137/72 97 Room Air Diagnostic Findings Chest X-Ray 06/24/22 10:21 XR chest 1V portable HISTORY: weakness COMPARISON: Chest 05/19/2019. FINDINGS: Chronic postoperative changes again noted within the right hemithorax including calcification of the right basilar pleura. The left lung is clear. No pneumothorax. No pleural effusions. The cardiac silhouette remains borderline enlarged. IMPRESSION: No significant change compared to the prior study. No acute process. ACT 112: Negative or not required by law. Electronically signed by: Alberto Lino M.D. 06/24/2022 11:[address] 06/24/22 10:21 CT OF THE HEAD WITHOUT CONTRAST CLINICAL HISTORY: Altered mental status. COMPARISON STUDY: Head CT June 08, 2022. CT DOSE: 1228.53 mGy.cm TECHNIQUE: Helical axial images of the head were obtained without IV contrast. Automated exposure control was utilized for the study. A dose lowering technique was utilized adhering to the principles of ALARA. FINDINGS: No acute intracranial hemorrhage, midline shift or mass effect is present. The ventricular system is unremarkable. The basal cisterns are patent. No extra-axial collections are present. There are no findings to suggest acute dural sinus thrombosis or acute territorial infarct. No significant calvarial abnormalities are present. Visualized portions of the sinuses and mastoid air cells are clear. IMPRESSION: No acute intracranial findings. ACT 112: Negative or not required by law. Electronically signed by: Pj Og M.D. 06/24/2022 11:22 AM Brain MRI 06/24/22 14:44 MRI OF THE BRAIN COMBO CLINICAL HISTORY: Weakness. Dementia. Headache. COMPARISON STUDY: CT of the brain dated 06/24/2022. TECHNIQUE: MRI of the brain was performed utilizing various T1 and T2-weighted sequences in the axial, sagittal, and coronal planes. Contrast-enhanced sequences were acquired following the administration of 9 cc of Gadavist. FINDINGS: Brain parenchyma: There is age-related involutional change noting mild to moderate subcortical and periventricular microangiopathic disease. There is no hemorrhage or mass effect. There is no restricted diffusion to suggest acute ischemia. No enhancing mass lesion is identified on the postcontrast images. Gonzalez-white matter differentiation is preserved. No extra-axial fluid collection is seen. The cerebellar tonsils are normal in configuration. Ventricles, sulci, and cisterns: Prominent significant delusional change. Pituitary and sella: Unremarkable. Intracranial vasculature: Normal flow voids are maintained at the skull base. Orbits: The bony orbits are grossly intact. Orbital contents are normal in appearance noting bilateral ocular lens implants. Sinuses and mastoids: Clear. Calvarium: Unremarkable. Cervical cord: Partially visualized cervical spinal cord is normal in morphology and signal intensity. IMPRESSION: No acute intracranial abnormality. ACT 112: Negative or not required by law. Electronically signed by: Josiah Contreras M.D. 06/24/2022 4:57 PM (1) Altered mental status Altered mental status type: unspecified Qualified Code(s): R41.82 - Altered mental status, unspecified
[2022-07-08] MEDS: ENOXAPARIN INJ 40 MG/0.4 ML SYR SQ SCH (17:22)
[2022-07-08] MEDS: FUROSEMIDE 20 MG TAB PO SCH (17:22)
[2022-07-08] MEDS: ZOLPIDEM TARTRATE 5 MG TAB PO PRN (20:32)
[2022-07-08] MEDS: ATORVASTATIN 10 MG TAB PO SCH (20:33)
[2022-07-09] MEDS: DICLOFENAC SOD 1% GEL 100 GM TUBE EXT SCH ×2 (08:31→20:06)
[2022-07-09] MEDS: ESCITALOPRAM OXALATE 10 MG TAB PO SCH (08:32)
[2022-07-09] MEDS: TAMSULOSIN HCL 0.4 MG CAP PO SCH (08:32)
[2022-07-09] MEDS: MEMANTINE HCL 5 MG TAB PO SCH ×2 (08:32→20:06)
[2022-07-09] MEDS: LIDOCAINE 5% 1 PATCH TD SCH (08:32)
[2022-07-09] MEDS: ASPIRIN 81 MG ECTAB PO SCH (08:32)
[2022-07-09] MEDS: METOPROLOL SUCC 25MG EXT REL TAB PO SCH (08:32)
[2022-07-09] MEDS: lisinopril 10 MG TAB PO SCH (08:32)
[2022-07-09] MEDS: FLUTICASONE/VILANTEROL 100/25MCG 14 PUFFS/INHALER INH SCH (08:33)
[2022-07-09] MEDS: GABAPENTIN 300 MG CAP PO SCH ×3 (08:33→20:06)
[2022-07-09] MEDS: PRESERVISION AREDS PO SCH ×2 (08:33→20:07)
[2022-07-09] MEDS: PSYLLIUM or GUAR GUM FIBER POWDER PACKET PO SCH (08:34)
--- NOTE | 2022-07-09 14:57 | Hospitalist Progress Note ---
Date of Service July 09, 2022 Assessment & Plan (1) Altered mental status: Plan: Now resolved. Likely due to baclofen he received at home MRI brain negative for acute stroke Baseline dementia Clinically stable Waiting for placement Back pain This is chronic per Review of out hip XR on [employer] [facility] show osteoarthrosis Continue prn tylenol (2) History of frequent headaches: (3) Dementia: (4) History of CVA (cerebrovascular accident): (5) Chronic diastolic CHF (congestive heart failure): Plan: Appears euvolemic, continue home dose Lasix (6) HTN (hypertension): Plan: BP normotensive Continue lisinopril and metoprolol (7) BPH (benign prostatic hyperplasia): Plan: Continue tamsulosin (8) Mild persistent asthma: Plan: Stable Continue home inhalers (9) DVT prophylaxis: Plan: SQ Lovenox Plan Disposition From home. does not feel comfortable taking him home. Waiting for placement to [facility] Admission and Anticipated Discharge Date Admission Date: June 26, 2022 Subjective Patient seen and examined Denied any new complaints No back pain at this time Physical Exam Constitutional: + well hydrated; no acute distress Eyes: PERRL, conjunctivae normal, anicteric sclerae ENMT: external ear and nose normal, oropharynx normal Respiratory: normal respiratory effort, lungs clear to auscultation Cardiovascular: Rate/Rhythm: regular rate and regular rhythm S1 S2 Gastrointestinal (Abdomen): normal bowel sounds, soft, nontender, no hepatosplenomegaly Musculoskeletal: No pedal edema Neurologic: PERRL, EOMI, accommodation nl, no face palsy, no dysarthria Psychiatric: Orientation: alert, oriented to person, oriented to place and cooperative; + not oriented to time Results & Data Results & Data ([facility]) Vital Signs (Past 12 Hours) Vital Signs Pulse Resp BP Pulse Ox O2 Del Method 07/09/22 08:10 56 L 18 137/89 97 Room Air (1) Altered mental status Altered mental status type: unspecified Qualified Code(s): R41.82 - Altered mental status, unspecified
[2022-07-09] MEDS: ENOXAPARIN INJ 40 MG/0.4 ML SYR SQ SCH (17:29)
[2022-07-09] MEDS: ATORVASTATIN 10 MG TAB PO SCH (20:07)
[2022-07-09] MEDS: ZOLPIDEM TARTRATE 5 MG TAB PO PRN (20:09)
[2022-07-09] MEDS: ACETAMINOPHEN 325 MG TAB PO PRN (20:09)
[2022-07-10 07:05] LABS: Hematocrit (blood only) 41.4 % (40.1-51.0); Hemoglobin 14.1 g/dl (14.0-18.0); Mean Corpuscular Hemoglobin 30.7 pg (25.0-34.0); Mean Corpuscular Hgb Conc 34.1 g/dL (32.0-36.0); Mean Platelet Volume 10.1 fL (9.4-12.4); Platelet Count 176 K/uL (130-400); RDW Coefficient of Variation 14.1 % (11.5-14.5); RDW Standard Deviation 46.4 fL (36.4-46.3); White Blood Count 6.86 K/ul (4.8-10.8)
[2022-07-10 07:59] LABS: Calcium 9.1 mg/dl (8.5-10.1); Potassium 4.3 mmol/L (3.5-5.1)
[2022-07-10 08:05] LABS: BUN Creatinine Ratio 24.2 (10-20); Creatinine Clr Calc Pharmacy 63.1 ml/min; Est GFR (African American) 87.9 ml/min; Est GFR (Non-African American) 75.8 ml/min
[2022-07-10] MEDS: MEMANTINE HCL 5 MG TAB PO SCH ×2 (08:05→20:48)
[2022-07-10] MEDS: FLUTICASONE/VILANTEROL 100/25MCG 14 PUFFS/INHALER INH SCH (08:05)
[2022-07-10] MEDS: DICLOFENAC SOD 1% GEL 100 GM TUBE EXT SCH ×2 (08:05→20:46)
[2022-07-10] MEDS: GABAPENTIN 300 MG CAP PO SCH ×3 (08:05→20:47)
[2022-07-10] MEDS: ASPIRIN 81 MG ECTAB PO SCH (08:07)
[2022-07-10] MEDS: PRESERVISION AREDS PO SCH ×2 (08:07→20:47)
[2022-07-10] MEDS: METOPROLOL SUCC 25MG EXT REL TAB PO SCH (08:09)
[2022-07-10] MEDS: TAMSULOSIN HCL 0.4 MG CAP PO SCH (08:09)
[2022-07-10] MEDS: lisinopril 10 MG TAB PO SCH (08:09)
[2022-07-10] MEDS: ESCITALOPRAM OXALATE 10 MG TAB PO SCH (08:10)
[2022-07-10] MEDS: LIDOCAINE 5% 1 PATCH TD SCH (08:10)
[2022-07-10] MEDS: PSYLLIUM or GUAR GUM FIBER POWDER PACKET PO SCH (08:11)
--- NOTE | 2022-07-10 11:30 | Hospitalist Progress Note ---
Date of Service July 10, 2022 Assessment & Plan (1) Altered mental status: Plan: Now resolved. Likely due to baclofen he received at home MRI brain negative for acute stroke Baseline dementia Clinically stable Waiting for placement Back pain This is chronic per Review of out hip XR on [employer] show osteoarthrosis Continue prn tylenol (2) History of frequent headaches: (3) Dementia: (4) History of CVA (cerebrovascular accident): (5) Chronic diastolic CHF (congestive heart failure): Plan: Appears euvolemic, continue home dose Lasix (6) HTN (hypertension): Plan: BP normotensive Continue lisinopril and metoprolol (7) BPH (benign prostatic hyperplasia): Plan: Continue tamsulosin (8) Mild persistent asthma: Plan: Stable Continue home inhalers (9) DVT prophylaxis: Plan: SQ Lovenox Plan Disposition From home. does not feel comfortable taking him home. Waiting for placement to [facility] Admission and Anticipated Discharge Date Admission Date: June 26, 2022 Subjective Patient seen and examined Denied any new complaints Physical Exam Constitutional: + well hydrated; no acute distress Eyes: PERRL, conjunctivae normal, anicteric sclerae ENMT: external ear and nose normal, oropharynx normal Respiratory: normal respiratory effort, lungs clear to auscultation Cardiovascular: Rate/Rhythm: regular rate and regular rhythm S1 S2 Gastrointestinal (Abdomen): normal bowel sounds, soft, nontender, no hepatosplenomegaly Musculoskeletal: No pedal edema Neurologic: PERRL, EOMI, accommodation nl, no face palsy, no dysarthria Psychiatric: Orientation: alert, oriented to person, oriented to place and cooperative; + not oriented to time Results & Data Results & Data ([facility]) Vital Signs (Past 12 Hours) Vital Signs Temp Pulse Resp BP Pulse Ox O2 Del Method 07/10/22 07:35 36.9 C 63 16 147/83 H 97 Room Air (1) Altered mental status Altered mental status type: unspecified Qualified Code(s): R41.82 - Altered mental status, unspecified
[2022-07-10] MEDS: ENOXAPARIN INJ 40 MG/0.4 ML SYR SQ SCH (17:34)
[2022-07-10] MEDS: FUROSEMIDE 20 MG TAB PO SCH (17:35)
[2022-07-10] MEDS: ZOLPIDEM TARTRATE 5 MG TAB PO PRN (20:46)
[2022-07-10] MEDS: ACETAMINOPHEN 325 MG TAB PO PRN (20:46)
[2022-07-10] MEDS: ATORVASTATIN 10 MG TAB PO SCH (20:47)
[2022-07-11] MEDS: ASPIRIN 81 MG ECTAB PO SCH (08:39)
[2022-07-11] MEDS: GABAPENTIN 300 MG CAP PO SCH ×3 (08:39→20:21)
[2022-07-11] MEDS: ESCITALOPRAM OXALATE 10 MG TAB PO SCH (08:39)
[2022-07-11] MEDS: lisinopril 10 MG TAB PO SCH (08:40)
[2022-07-11] MEDS: TAMSULOSIN HCL 0.4 MG CAP PO SCH (08:40)
[2022-07-11] MEDS: METOPROLOL SUCC 25MG EXT REL TAB PO SCH (08:40)
[2022-07-11] MEDS: MEMANTINE HCL 5 MG TAB PO SCH ×2 (08:40→20:21)
[2022-07-11] MEDS: PSYLLIUM or GUAR GUM FIBER POWDER PACKET PO SCH (08:41)
[2022-07-11] MEDS: FLUTICASONE/VILANTEROL 100/25MCG 14 PUFFS/INHALER INH SCH (08:42)
[2022-07-11] MEDS: PRESERVISION AREDS PO SCH ×2 (08:58→20:21)
[2022-07-11] MEDS: DICLOFENAC SOD 1% GEL 100 GM TUBE EXT SCH ×2 (10:56→20:21)
[2022-07-11] MEDS: LIDOCAINE 5% 1 PATCH TD SCH (10:56)
--- NOTE | 2022-07-11 11:36 | Hospitalist Progress Note ---
Date of Service July 11, 2022 Assessment & Plan (1) Altered mental status: Plan: Now resolved. Likely due to baclofen he received at home MRI brain negative for acute stroke Baseline dementia Clinically stable Waiting for placement Back pain Is much improved, no complaints today Continue monitor Outpatient hip x-ray shows osteoarthrosis As needed Tylenol (2) History of frequent headaches: (3) Dementia: (4) History of CVA (cerebrovascular accident): (5) Chronic diastolic CHF (congestive heart failure): Plan: Appears euvolemic, continue home dose Lasix (6) HTN (hypertension): Plan: BP controlled, continue lisinopril and metoprolol 120/74 (7) BPH (benign prostatic hyperplasia): Plan: Continue tamsulosin (8) Mild persistent asthma: Plan: No signs of acute exacerbation, continue home inhalers (9) DVT prophylaxis: Plan: SQ Lovenox Plan Disposition -from home. does not feel comfortable taking him home. waiting for placement to [facility] Pt was seen and examined in collaboration with Dr. Domínguez, please see addendum A total of 15 minutes were spent with greater than 50% of that time face to face with the patient, personally reviewing all current laboratories, imaging studies, past medication reconciliation, outpatient chart review, and discussion with specialists to collaborate care for the patient with attending. Please see attending documentation for corrections and/or additions. Admission and Anticipated Discharge Date Admission Date: June 26, 2022 Supervising Physician Co-Signing Physician Notes Patient seen and examined Agree with findings and plans as detailed by Eli Bowers PA-C Subjective Pt was seen and examined in room 375-2. Follow up AMS 2/2 baclofen. Awaiting placement. Doing Well this morning. States he was up at 6 AM. Denies further back pain. Nurse Kaleb at bedside offers no new complaints. Denies fever, chills, sweats, chest pain, shortness breath, nausea, vomiting. Unsure if he has had BM. Per nursing positive BM. Review of Systems Review of Systems: At least ten systems reviewed and negative except as noted in the HPI. Physical Exam Physical Exam: Gen: Tall, elderly M, sitting up in bed, WD/WN, NAD, A&O x 1 person only HEENT: Normocephalic, atraumatic, conjunctivae moist, sclerae anicteric, mucous membranes moist. Lung: Clear to Auscultation bilaterally, no wheezes/rales/rhonchi Heart: Regular rate, regular rhythm, no murmurs, rubs, or gallops Abdomen: Soft, NT, ND +BS x 4 Extremities: No edema Skin: Warm, no rash, negative turgor. Neuro: noted expressive aphasia Results & Data Results & Data ([facility]) Vital Signs (Past 12 Hours) Vital Signs Temp Pulse Resp BP Pulse Ox O2 Del Method 07/11/22 07:59 36.6 C 62 18 120/74 96 Room Air 07/11/22 00:10 36.3 C L 60 18 149/78 H 94 Room Air Medications Administered Current Inpatient Medications Acetaminophen (Acetaminophen 325 Mg Tab) 650 mg PO Q4H PRN PRN Reason: Pain or Fever Stop: 07/24/22 17:19 Last Admin: 07/10/22 20:46 Dose: 650 mg Aspirin (Aspirin 81 Mg Ectab) 81 mg PO DAILY [facility] Stop: 07/25/22 08:59 Last Admin: 07/11/22 08:39 Dose: 81 mg Atorvastatin Calcium (Atorvastatin 10 Mg Tab) 10 mg PO HS [facility] Stop: 07/24/22 20:59 Last Admin: 07/10/22 20:47 Dose: 10 mg Diclofenac Sodium (Diclofenac Sod 1% Gel 100 Gm Tube) 2 gm EXT BID [facility]; Protocol Stop: 08/05/22 08:59 Last Admin: 07/11/22 10:56 Dose: 2 gm Enoxaparin Sodium (Enoxaparin Inj 40 Mg/0.4 Ml Syr) 40 mg SQ Q24H [facility] Stop: 07/24/22 17:59 Last Admin: 07/10/22 17:34 Dose: 40 mg Escitalopram Oxalate (Escitalopram Oxalate 10 Mg Tab) 10 mg PO DAILY [facility] Stop: 07/25/22 08:59 Last Admin: 07/11/22 08:39 Dose: 10 mg Fluticasone/Vilanterol (Fluticasone/Vilanterol 100/25mcg 14 Puffs/Inhaler) 1 puffs INH DAILY [facility] Stop: 07/25/22 08:59 Last Admin: 07/11/22 08:42 Dose: 1 puffs Furosemide (Furosemide 20 Mg Tab) 20 mg PO Q2D@1800 [facility] Stop: 07/24/22 17:59 Last Admin: 07/10/22 17:35 Dose: 20 mg Gabapentin (Gabapentin 300 Mg Cap) 300 mg PO TID [facility] Stop: 07/24/22 20:59 Last Admin: 07/11/22 08:39 Dose: 300 mg Lidocaine (Lidocaine 5% 1 Patch) 1 patch TD QAM [facility] Stop: 08/02/22 11:14 Last Admin: 07/11/22 10:56 Dose: 1 patch Lisinopril (Lisinopril 10 Mg Tab) 10 mg PO [facility] Stop: 07/25/22 08:59 Last Admin: 07/11/22 08:40 Dose: 10 mg Memantine (Memantine Hcl 5 Mg Tab) 5 mg PO BID [facility] Stop: 07/24/22 20:59 Last Admin: 07/11/22 08:40 Dose: 5 mg Metoprolol Succinate (Metoprolol Succ 25mg Ext Rel Tab) [facility] [place] Stop: 07/25/22 08:59 Last Admin: 07/11/22 08:40 Dose: 12.5 mg Miscellaneous (Remove Lidoderm Patch) 1 each N/A DAILY@2100 [facility] Stop: 08/02/22 20:59 Last Admin: 07/10/22 20:47 Dose: 1 each Multivitamins/Minerals (Preservision Areds) 1 tab PO BID [facility] Stop: 07/29/22 20:59 Last Admin: 07/11/22 08:58 Dose: 1 tab Psyllium Hydrophilic Mucilloid (Psyllium Or Guar Gum Fiber Powder Packet) [facility] pkt [facility] [place] Stop: 07/27/22 14:59 Last Admin: 07/11/22 08:41 Dose: 1 pkt Tamsulosin HCl (Tamsulosin Hcl 0.4 Mg Cap) 0.4 [facility] [place] Stop: 07/25/22 08:59 Last Admin: 07/11/22 08:40 Dose: 0.4 mg Zolpidem Tartrate (Zolpidem Tartrate 5 Mg Tab) 5 mg PO HS PRN PRN Reason: Sleep Stop: 07/28/22 02:08 Last Admin: 07/10/22 20:46 Dose: 5 mg (1) Altered mental status Altered mental status type: unspecified Qualified Code(s): R41.82 - Altered mental status, unspecified
[2022-07-11] MEDS: ENOXAPARIN INJ 40 MG/0.4 ML SYR SQ SCH (17:58)
[2022-07-11] MEDS: ATORVASTATIN 10 MG TAB PO SCH (20:21)
[2022-07-11] MEDS: ZOLPIDEM TARTRATE 5 MG TAB PO PRN (20:42)
[2022-07-12] MEDS: MEMANTINE HCL 5 MG TAB PO SCH ×2 (08:07→20:32)
[2022-07-12] MEDS: lisinopril 10 MG TAB PO SCH (08:07)
[2022-07-12] MEDS: GABAPENTIN 300 MG CAP PO SCH ×3 (08:07→20:32)
[2022-07-12] MEDS: ASPIRIN 81 MG ECTAB PO SCH (08:08)
[2022-07-12] MEDS: TAMSULOSIN HCL 0.4 MG CAP PO SCH (08:09)
[2022-07-12] MEDS: ESCITALOPRAM OXALATE 10 MG TAB PO SCH (08:10)
[2022-07-12] MEDS: PRESERVISION AREDS PO SCH ×2 (08:11→20:33)
[2022-07-12] MEDS: METOPROLOL SUCC 25MG EXT REL TAB PO SCH (08:12)
[2022-07-12] MEDS: FLUTICASONE/VILANTEROL 100/25MCG 14 PUFFS/INHALER INH SCH (08:48)
[2022-07-12] MEDS: DICLOFENAC SOD 1% GEL 100 GM TUBE EXT SCH ×2 (08:49→20:33)
[2022-07-12] MEDS: LIDOCAINE 5% 1 PATCH TD SCH (08:50)
[2022-07-12] MEDS: PSYLLIUM or GUAR GUM FIBER POWDER PACKET PO SCH (10:07)
[2022-07-12] MEDS ORDERED: Nursing to Pharmacy Communication SCH (12:00)
--- NOTE | 2022-07-12 12:07 | Hospitalist Progress Note ---
Date of Service July 12, 2022 Assessment & Plan (1) Altered mental status: Plan: Now resolved. Likely due to baclofen he received at home MRI brain negative for acute stroke Baseline dementia Clinically stable Waiting for placement Back pain Is much improved, had mild discomfort this morning but now resolved, suspect MSK Continue monitor Outpatient hip x-ray shows osteoarthrosis As needed Tylenol (2) History of frequent headaches: (3) Dementia: Plan: pleasantly confused mood stable (4) History of CVA (cerebrovascular accident): (5) Chronic diastolic CHF (congestive heart failure): Plan: Appears euvolemic, continue home dose Lasix (6) HTN (hypertension): Plan: BP controlled, continue lisinopril and metoprolol 120/70 (7) BPH (benign prostatic hyperplasia): Plan: Continue tamsulosin (8) Mild persistent asthma: Plan: No signs of acute exacerbation, continue home inhalers (9) DVT prophylaxis: Plan: SQ Lovenox Plan Disposition -from home. does not feel comfortable taking him home. waiting for placement to [facility] Pt was seen and examined in collaboration with Dr. Domínguez, please see addendum A total of 15 minutes were spent with greater than 50% of that time face to face with the patient, personally reviewing all current laboratories, imaging studies, past medication reconciliation, outpatient chart review, and discussion with specialists to collaborate care for the patient with attending. Please see attending documentation for corrections and/or additions. Admission and Anticipated Discharge Date Admission Date: June 26, 2022 Supervising Physician Co-Signing Physician Notes Patient seen and examined Reported some low back pain earlier today that resolved with medication Otherwise no new complaints Exam is unremarkable Currently waiting placement for waterm[facility] bed at [facility] Agree with findings and plans as detailed by Eli Bowers PA-C Subjective Pt was seen and examined in room 375-2. Follow up AMS 2/2 baclofen. Awaiting placement. at bedside. C/o L low back pain this a.m. but not resolved. he is sitting in bedside chair. offers no complaints, but misses dog Susy. Denies cp, sob, f/c/s, n/v/d. Review of Systems Review of Systems: All systems reviewed & are unremarkable except as noted in HPI & below Physical Exam Physical Exam: please refer to Dr. Domínguez addendum for exam findings. Results & Data Results & Data ([facility]) Vital Signs (Past 12 Hours) Vital Signs Temp Pulse Resp BP Pulse Ox O2 Del Method 07/12/22 10:53 36.3 C L 70 19 120/70 97 Room Air 07/12/22 07:33 36.5 C 54 L 20 112/74 95 Room Air Medications Administered Current Inpatient Medications Acetaminophen (Acetaminophen 325 Mg Tab) 650 mg PO Q4H PRN PRN Reason: Pain or Fever Stop: 07/24/22 17:19 Last Admin: 07/10/22 20:46 Dose: 650 mg Aspirin (Aspirin 81 Mg Ectab) 81 mg PO DAILY [facility] Stop: 07/25/22 08:59 Last Admin: 07/12/22 08:08 Dose: 81 mg Atorvastatin Calcium (Atorvastatin 10 Mg Tab) 10 mg PO HS [facility] Stop: 07/24/22 20:59 Last Admin: 07/11/22 20:21 Dose: 10 mg Diclofenac Sodium (Diclofenac Sod 1% Gel 100 Gm Tube) 2 gm EXT BID [facility]; Protocol Stop: 08/05/22 08:59 Last Admin: 07/12/22 08:49 Dose: 2 gm Enoxaparin Sodium (Enoxaparin Inj 40 Mg/0.4 Ml Syr) 40 mg SQ Q24H [facility] Stop: 07/24/22 17:59 Last Admin: 07/11/22 17:58 Dose: 40 mg Escitalopram Oxalate (Escitalopram Oxalate 10 Mg Tab) 10 mg PO DAILY [facility] Stop: 07/25/22 08:59 Last Admin: 07/12/22 08:10 Dose: 10 mg Fluticasone/Vilanterol (Fluticasone/Vilanterol 100/25mcg 14 Puffs/Inhaler) 1 puffs INH DAILY [facility] Stop: 07/25/22 08:59 Last Admin: 07/12/22 08:48 Dose: 1 puffs Furosemide (Furosemide 20 Mg Tab) 20 mg PO Q2D@0900 [facility] Stop: 08/11/22 12:14 Gabapentin (Gabapentin 300 Mg Cap) 300 mg PO TID [facility] Stop: 07/24/22 20:59 Last Admin: 07/12/22 08:07 Dose: 300 mg Lidocaine (Lidocaine 5% 1 Patch) 1 patch TD QAM [facility] Stop: 08/02/22 11:14 Last Admin: 07/12/22 08:50 Dose: 1 patch Lisinopril (Lisinopril 10 Mg Tab) 10 mg PO QAM [facility] Stop: 07/25/22 08:59 Last Admin: 07/12/22 08:07 Dose: 10 mg Memantine (Memantine Hcl 5 Mg Tab) 5 mg PO BID [facility] Stop: 07/24/22 20:59 Last Admin: 07/12/22 08:07 Dose: 5 mg Metoprolol Succinate (Metoprolol Succ 25mg Ext Rel Tab) 12.5 mg PO QAM [facility] Stop: 07/25/22 08:59 Last Admin: 07/12/22 08:12 Dose: Not Given Miscellaneous (Remove Lidoderm Patch) 1 each N/A DAILY@2100 [facility] Stop: 08/02/22 20:59 Last Admin: 07/11/22 20:21 Dose: 1 each Miscellaneous Information (Nursing To Pharmacy Communication) 1 each N/A TODAY [facility] Stop: 08/11/22 11:59 Multivitamins/Minerals (Preservision Areds) 1 tab PO BID [facility] Stop: 07/29/22 20:59 Last Admin: 07/12/22 08:11 Dose: 1 tab Psyllium Hydrophilic Mucilloid (Psyllium Or Guar Gum Fiber Powder Packet) [facility] [place]: 07/27/22 14:59 Last Admin: 07/12/22 10:07 Dose: 1 pkt Tamsulosin HCl (Tamsulosin Hcl 0.4 Mg Cap) 0.4 mg [facility] [place]: 07/25/22 08:59 Last Admin: 07/12/22 08:09 Dose: 0.4 mg Zolpidem Tartrate (Zolpidem Tartrate 5 Mg Tab) 5 mg PO HS PRN PRN Reason: Sleep Stop: 07/28/22 02:08 Last Admin: 07/11/22 20:42 Dose: 5 mg (1) Altered mental status Altered mental status type: unspecified Qualified Code(s): R41.82 - Altered mental status, unspecified
[2022-07-12] MEDS: FUROSEMIDE 20 MG TAB PO SCH (12:53)
[2022-07-12] MEDS: ENOXAPARIN INJ 40 MG/0.4 ML SYR SQ SCH (17:14)
[2022-07-12] MEDS: ZOLPIDEM TARTRATE 5 MG TAB PO PRN (20:32)
[2022-07-12] MEDS: ATORVASTATIN 10 MG TAB PO SCH (20:32)
[2022-07-13] MEDS: LIDOCAINE 5% 1 PATCH TD SCH (08:16)
[2022-07-13] MEDS: MEMANTINE HCL 5 MG TAB PO SCH ×2 (08:16→21:03)
[2022-07-13] MEDS: PRESERVISION AREDS PO SCH ×2 (08:16→21:04)
[2022-07-13] MEDS: DICLOFENAC SOD 1% GEL 100 GM TUBE EXT SCH ×2 (08:16→21:03)
[2022-07-13] MEDS: FLUTICASONE/VILANTEROL 100/25MCG 14 PUFFS/INHALER INH SCH (08:16)
[2022-07-13] MEDS: TAMSULOSIN HCL 0.4 MG CAP PO SCH (08:17)
[2022-07-13] MEDS: GABAPENTIN 300 MG CAP PO SCH ×3 (08:17→21:03)
[2022-07-13] MEDS: lisinopril 10 MG TAB PO SCH (08:17)
[2022-07-13] MEDS: ASPIRIN 81 MG ECTAB PO SCH (08:17)
[2022-07-13] MEDS: METOPROLOL SUCC 25MG EXT REL TAB PO SCH (08:18)
[2022-07-13] MEDS: ESCITALOPRAM OXALATE 10 MG TAB PO SCH (08:18)
[2022-07-13] MEDS: PSYLLIUM or GUAR GUM FIBER POWDER PACKET PO SCH (08:28)
--- NOTE | 2022-07-13 12:41 | Hospitalist Progress Note ---
Date of Service July 13, 2022 Assessment & Plan (1) Altered mental status: Plan: Now resolved. Likely due to baclofen he received at home MRI brain negative for acute stroke Baseline dementia Clinically stable Waiting for placement Back pain Is much improved, suspect msk Continue monitor Outpatient hip x-ray shows osteoarthrosis As needed Tylenol Bowel Regimen no BM since 07/10 will add daily colace with hold parameters (2) History of frequent headaches: (3) Dementia: Plan: pleasantly confused mood stable (4) History of CVA (cerebrovascular accident): (5) Chronic diastolic CHF (congestive heart failure): Plan: Appears euvolemic, continue home dose Lasix (6) HTN (hypertension): Plan: BP controlled, continue lisinopril and metoprolol 133/76 (7) BPH (benign prostatic hyperplasia): Plan: Continue tamsulosin (8) Mild persistent asthma: Plan: No signs of acute exacerbation, continue home inhalers (9) DVT prophylaxis: Plan: SQ Lovenox Plan Disposition -from home. does not feel comfortable taking him home. waiting for placement to [facility] Pt was seen and examined in collaboration with Dr. Lentz, please see addendum A total of 15 minutes were spent with greater than 50% of that time face to face with the patient, personally reviewing all current laboratories, imaging studies, past medication reconciliation, outpatient chart review, and discussion with specialists to collaborate care for the patient with attending. Please see attending documentation for corrections and/or additions. Admission and Anticipated Discharge Date Admission Date: June 26, 2022 Supervising Physician Co-Signing Physician Notes I have seen and examined the patient and have discussed the case with the provider above. I agree with the assessment and plan as stated. Patient seen and examined. He is doing well today without complaints. Eager to move out of here and move forward to rehab. Still awaiting a bed and states that he understands. No changes, cont current medical therapy while awaiting placement. DO Debra Lentz Pt was seen and examined in room 375-2. Follow up AMS 2/2 baclofen. Awaiting placement. Feels well this morning. Denies f/c/s, chest pain, sob, n/v/d. No back pain this morning. Review of Systems Review of Systems: All systems reviewed & are unremarkable except as noted in HPI & below Physical Exam Physical Exam: Gen: Tall, elderly M, sitting up in bed, WD/WN, NAD, A&O x 2 HEENT: Normocephalic, atraumatic, conjunctivae moist, sclerae anicteric, mucous membranes moist. Lung: Clear to Auscultation bilaterally, no wheezes/rales/rhonchi Heart: Regular rate, regular rhythm, no murmurs, rubs, or gallops Abdomen: Soft, NT, ND +BS x 4 Extremities: No edema Skin: Warm, no rash, negative turgor. Neuro: noted expressive aphasia Results & Data Results & Data ([facility]) Vital Signs (Past 12 Hours) Vital Signs Temp Pulse Resp BP Pulse Ox O2 Del Method 07/13/22 08:34 36.7 C 62 18 133/76 95 Room Air Medications Administered Current Inpatient Medications Acetaminophen (Acetaminophen 325 Mg Tab) 650 mg PO Q4H PRN PRN Reason: Pain or Fever Stop: 07/24/22 17:19 Last Admin: 07/10/22 20:46 Dose: 650 mg Aspirin (Aspirin 81 Mg Ectab) 81 mg PO DAILY [facility] Stop: 07/25/22 08:59 Last Admin: 07/13/22 08:17 Dose: 81 mg Atorvastatin Calcium (Atorvastatin 10 Mg Tab) 10 mg PO HS [facility] Stop: 07/24/22 20:59 Last Admin: 07/12/22 20:32 Dose: 10 mg Diclofenac Sodium (Diclofenac Sod 1% Gel 100 Gm Tube) 2 gm EXT BID [facility]; Protocol Stop: 08/05/22 08:59 Last Admin: 07/13/22 08:16 Dose: 2 gm Enoxaparin Sodium (Enoxaparin Inj 40 Mg/0.4 Ml Syr) 40 mg SQ Q24H [facility] Stop: 07/24/22 17:59 Last Admin: 07/12/22 17:14 Dose: 40 mg Escitalopram Oxalate (Escitalopram Oxalate 10 Mg Tab) 10 mg PO DAILY [facility] Stop: 07/25/22 08:59 Last Admin: 07/13/22 08:18 Dose: 10 mg Fluticasone/Vilanterol (Fluticasone/Vilanterol 100/25mcg 14 Puffs/Inhaler) 1 puffs INH DAILY [facility] Stop: 07/25/22 08:59 Last Admin: 07/13/22 08:16 Dose: 1 puffs Furosemide (Furosemide 20 Mg Tab) 20 mg PO Q2D@0900 [facility] Stop: 08/11/22 12:14 Last Admin: 07/12/22 12:53 Dose: 20 mg Gabapentin (Gabapentin 300 Mg Cap) 300 mg PO TID [facility] Stop: 07/24/22 20:59 Last Admin: 07/13/22 08:17 Dose: 300 mg Lidocaine (Lidocaine 5% 1 Patch) 1 patch TD QAM [facility] Stop: 08/02/22 11:14 Last Admin: 07/13/22 08:16 Dose: 1 patch Lisinopril (Lisinopril 10 Mg Tab) 10 mg PO QAM [facility] Stop: 07/25/22 08:59 Last Admin: 07/13/22 08:17 Dose: 10 mg Memantine (Memantine Hcl 5 Mg Tab) 5 mg PO BID [facility] Stop: 07/24/22 20:59 Last Admin: 07/13/22 08:16 Dose: 5 mg Metoprolol Succinate (Metoprolol Succ 25mg Ext Rel Tab) 12.5 [facility] Stop: 07/25/22 08:59 Last Admin: 07/13/22 08:18 Dose: 12.5 mg Miscellaneous (Remove Lidoderm Patch) 1 each N/A DAILY@2100 [facility] Stop: 08/02/22 20:59 Last Admin: 07/12/22 20:33 Dose: 1 each Multivitamins/Minerals (Preservision Areds) 1 tab PO BID [facility] Stop: 07/29/22 20:59 Last Admin: 07/13/22 08:16 Dose: 1 tab Psyllium Hydrophilic Mucilloid (Psyllium Or Guar Gum Fiber Powder Packet) 1 pkt PO QAM [facility] Stop: 07/27/22 14:59 Last Admin: 07/13/22 08:28 Dose: 1 pkt Tamsulosin HCl (Tamsulosin Hcl 0.4 Mg Cap) 0.4 mg PO QAM [facility] Stop: 07/25/22 08:59 Last Admin: 07/13/22 08:17 Dose: 0.4 mg Zolpidem Tartrate (Zolpidem Tartrate 5 Mg Tab) 5 mg PO HS PRN PRN Reason: Sleep Stop: 07/28/22 02:08 Last Admin: 07/12/22 20:32 Dose: 5 mg (1) Altered mental status Altered mental status type: unspecified Qualified Code(s): R41.82 - Altered mental status, unspecified
[2022-07-13] MEDS: DOCUSATE SODIUM 100 MG CAP PO SCH ×2 (13:23→21:03)
[2022-07-13] MEDS: ENOXAPARIN INJ 40 MG/0.4 ML SYR SQ SCH (18:23)
[2022-07-13] MEDS: ATORVASTATIN 10 MG TAB PO SCH (21:03)
[2022-07-13] MEDS: ZOLPIDEM TARTRATE 5 MG TAB PO PRN (21:03)
[2022-07-14] MEDS: PRESERVISION AREDS PO SCH ×2 (08:39→21:52)
[2022-07-14] MEDS: TAMSULOSIN HCL 0.4 MG CAP PO SCH (08:39)
[2022-07-14] MEDS: lisinopril 10 MG TAB PO SCH (08:40)
[2022-07-14] MEDS: PSYLLIUM or GUAR GUM FIBER POWDER PACKET PO SCH (08:40)
[2022-07-14] MEDS: GABAPENTIN 300 MG CAP PO SCH ×3 (08:40→21:49)
[2022-07-14] MEDS: DICLOFENAC SOD 1% GEL 100 GM TUBE EXT SCH ×2 (08:40→21:51)
[2022-07-14] MEDS: METOPROLOL SUCC 25MG EXT REL TAB PO SCH (08:40)
[2022-07-14] MEDS: MEMANTINE HCL 5 MG TAB PO SCH ×2 (08:40→21:49)
[2022-07-14] MEDS: LIDOCAINE 5% 1 PATCH TD SCH (08:41)
[2022-07-14] MEDS: ASPIRIN 81 MG ECTAB PO SCH (08:41)
[2022-07-14] MEDS: DOCUSATE SODIUM 100 MG CAP PO SCH ×2 (08:41→21:50)
[2022-07-14] MEDS: FLUTICASONE/VILANTEROL 100/25MCG 14 PUFFS/INHALER INH SCH (08:41)
[2022-07-14] MEDS: ESCITALOPRAM OXALATE 10 MG TAB PO SCH (08:41)
[2022-07-14] MEDS: FUROSEMIDE 20 MG TAB PO SCH (08:41)
--- NOTE | 2022-07-14 16:08 | Hospitalist Progress Note ---
Date of Service July 14, 2022 Assessment & Plan (1) Altered mental status: Plan: Now resolved. Likely due to baclofen he received at home MRI brain negative for acute stroke Baseline dementia Clinically stable Waiting for placement Back pain Is much improved, suspect msk Continue monitor Outpatient hip x-ray shows osteoarthrosis As needed Tylenol Bowel Regimen Colace added with hold parameters Had a bowel movement this morning (2) History of frequent headaches: (3) Dementia: Plan: pleasantly confused mood stable (4) History of CVA (cerebrovascular accident): (5) Chronic diastolic CHF (congestive heart failure): Plan: Appears euvolemic, continue home dose Lasix (6) HTN (hypertension): Plan: BP controlled, continue lisinopril and metoprolol 133/76 (7) BPH (benign prostatic hyperplasia): Plan: Continue tamsulosin (8) Mild persistent asthma: Plan: No signs of acute exacerbation, continue home inhalers (9) DVT prophylaxis: Plan: SQ Lovenox Plan Disposition -from home. does not feel comfortable taking him home. -Waiting for placement to [facility] Pt was seen and examined in collaboration with Dr. Lentz, please see addendum Admission and Anticipated Discharge Date Admission Date: June 26, 2022 Supervising Physician Co-Signing Physician Notes I have seen and examined the patient and have discussed the case with the provider above. I agree with the assessment and plan as stated. Patient seen and examined. He is doing well today without complaints. Eager to return home and adamant that his puppy come with him. No changes, cont current medical therapy while awaiting placement. DO Debra Lentz Pt was seen and examined in room 375-2. Follow up AMS 2/2 baclofen. Awaiting placement. Family at bedside visiting with patient. Feeling well. Denies f/c/s, chest pain, sob, n/v/d. Review of Systems Review of Systems: At least ten systems reviewed and negative except as noted in the HPI. Physical Exam Physical Exam: Gen: WD/WN, NAD, sitting in bedside chair, A&Ox2 (baseline), expressive aphasia HEENT: Normocephalic, atraumatic, conjunctivae moist, sclerae anicteric, mucous membranes moist Lung: Clear to Auscultation bilaterally, no wheezes/rales/rhonchi Heart: Regular rate, regular rhythm, no murmurs, rubs, or gallops Abdomen: Soft, NT, ND +BS x 4 Extremities: no edema Skin: Warm, no rash Results & Data Results & Data ([facility]) Vital Signs (Past 12 Hours) Vital Signs Temp Pulse Resp BP Pulse Ox O2 Del Method 07/14/22 15:13 36.5 C 56 L 16 116/71 97 Room Air 07/14/22 07:33 36.4 C L 55 L 18 132/75 96 Room Air (1) Altered mental status Altered mental status type: unspecified Qualified Code(s): R41.82 - Altered mental status, unspecified
[2022-07-14] MEDS: ENOXAPARIN INJ 40 MG/0.4 ML SYR SQ SCH (17:48)
[2022-07-14] MEDS: ZOLPIDEM TARTRATE 5 MG TAB PO PRN (21:49)
[2022-07-14] MEDS: ATORVASTATIN 10 MG TAB PO SCH (21:50)
[2022-07-15] MEDS: DICLOFENAC SOD 1% GEL 100 GM TUBE EXT SCH ×2 (07:31→20:06)
[2022-07-15] MEDS: FLUTICASONE/VILANTEROL 100/25MCG 14 PUFFS/INHALER INH SCH (07:31)
[2022-07-15] MEDS: DOCUSATE SODIUM 100 MG CAP PO SCH ×2 (07:34→20:05)
[2022-07-15] MEDS: MEMANTINE HCL 5 MG TAB PO SCH ×2 (07:34→20:06)
[2022-07-15] MEDS: ESCITALOPRAM OXALATE 10 MG TAB PO SCH (07:34)
[2022-07-15] MEDS: GABAPENTIN 300 MG CAP PO SCH ×3 (07:34→20:06)
[2022-07-15] MEDS: TAMSULOSIN HCL 0.4 MG CAP PO SCH (07:34)
[2022-07-15] MEDS: ASPIRIN 81 MG ECTAB PO SCH (07:34)
[2022-07-15] MEDS: ENOXAPARIN INJ 40 MG/0.4 ML SYR SQ SCH (07:34)
[2022-07-15] MEDS: lisinopril 10 MG TAB PO SCH (07:34)
[2022-07-15] MEDS: LIDOCAINE 5% 1 PATCH TD SCH (07:35)
[2022-07-15] MEDS: METOPROLOL SUCC 25MG EXT REL TAB PO SCH (08:46)
[2022-07-15] MEDS: PRESERVISION AREDS PO SCH ×2 (08:47→20:04)
[2022-07-15] MEDS: PSYLLIUM or GUAR GUM FIBER POWDER PACKET PO SCH (09:32)
--- NOTE | 2022-07-15 14:22 | Hospitalist Progress Note ---
Date of Service July 15, 2022 Assessment & Plan (1) Altered mental status: Plan: Now resolved. Likely due to baclofen he received at home MRI brain negative for acute stroke Baseline dementia Clinically stable Waiting for placement Back pain Is much improved, suspect msk Continue monitor Outpatient hip x-ray shows osteoarthrosis As needed Tylenol Bowel Regimen Colace added with hold parameters Last bowel movement 07/14 (2) History of frequent headaches: (3) Dementia: Plan: pleasantly confused mood stable (4) History of CVA (cerebrovascular accident): (5) Chronic diastolic CHF (congestive heart failure): Plan: Appears euvolemic, continue home dose Lasix (6) HTN (hypertension): Plan: BP controlled, continue lisinopril and metoprolol 133/76 (7) BPH (benign prostatic hyperplasia): Plan: Continue tamsulosin (8) Mild persistent asthma: Plan: No signs of acute exacerbation, continue home inhalers (9) DVT prophylaxis: Plan: SQ Lovenox Plan Disposition -from home. does not feel comfortable taking him home. waiting for placement to [facility] Pt was seen and examined in collaboration with Dr. Lentz, please see addendum Admission and Anticipated Discharge Date Admission Date: June 26, 2022 Supervising Physician Co-Signing Physician Notes I have seen and examined the patient and have discussed the case with the provider above. I agree with the assessment and plan as stated. Patient seen and examined. He is doing well today without complaints. Confused and cannot clearly communicate to me that he comprehends what is going on. No changes overall, cont current medical therapy while awaiting placement. DO Debra Lentz Pt was seen and examined in room 375-2 in follow-up for AMS 2/2 baclofen. Anxiously awaiting discharge. Feeling well. Denies f/c/s, chest pain, sob, n/v/d. Review of Systems Review of Systems: At least ten systems reviewed and negative except as noted in the HPI. Physical Exam Physical Exam: Gen: WD/WN, NAD, lying in bed, A&Ox2 (baseline), + expressive aphasia HEENT: Normocephalic, atraumatic, conjunctivae moist, sclerae anicteric, mucous membranes moist Lung: Clear to Auscultation bilaterally, no wheezes/rales/rhonchi Heart: Regular rate, regular rhythm, no murmurs, rubs, or gallops Abdomen: Soft, NT, ND +BS x 4 Extremities: no edema Skin: Warm, no rash Results & Data Results & Data ([facility]) Vital Signs (Past 12 Hours) Vital Signs Temp Pulse Resp BP Pulse Ox O2 Del Method 07/15/22 07:21 36.6 C 55 L 16 135/77 98 Room Air (1) Altered mental status Altered mental status type: unspecified Qualified Code(s): R41.82 - Altered mental status, unspecified
[2022-07-15] MEDS: ATORVASTATIN 10 MG TAB PO SCH (20:06)
[2022-07-16] MEDS: METOPROLOL SUCC 25MG EXT REL TAB PO SCH (09:17)
[2022-07-16] MEDS: FLUTICASONE/VILANTEROL 100/25MCG 14 PUFFS/INHALER INH SCH (09:18)
[2022-07-16] MEDS: DICLOFENAC SOD 1% GEL 100 GM TUBE EXT SCH ×2 (09:18→20:16)
[2022-07-16] MEDS: LIDOCAINE 5% 1 PATCH TD SCH (09:18)
[2022-07-16] MEDS: PRESERVISION AREDS PO SCH ×2 (09:19→20:15)
[2022-07-16] MEDS: ESCITALOPRAM OXALATE 10 MG TAB PO SCH (09:19)
[2022-07-16] MEDS: DOCUSATE SODIUM 100 MG CAP PO SCH ×2 (09:19→20:14)
[2022-07-16] MEDS: FUROSEMIDE 20 MG TAB PO SCH (09:19)
[2022-07-16] MEDS: ASPIRIN 81 MG ECTAB PO SCH (09:19)
[2022-07-16] MEDS: GABAPENTIN 300 MG CAP PO SCH ×3 (09:20→20:15)
[2022-07-16] MEDS: MEMANTINE HCL 5 MG TAB PO SCH ×2 (09:20→20:15)
[2022-07-16] MEDS: PSYLLIUM or GUAR GUM FIBER POWDER PACKET PO SCH (09:20)
[2022-07-16] MEDS: lisinopril 10 MG TAB PO SCH (09:20)
[2022-07-16] MEDS: TAMSULOSIN HCL 0.4 MG CAP PO SCH (09:21)
--- NOTE | 2022-07-16 15:50 | Hospitalist Progress Note ---
Date of Service July 16, 2022 Assessment & Plan (1) Altered mental status: Plan: Now resolved. Likely due to baclofen he received at home MRI brain negative for acute stroke Baseline dementia and he is mentating at his baseline. Clinically stable Waiting for placement Denies back pain which was an earlier issue this admission. Continue monitor Outpatient hip x-ray shows osteoarthrosis As needed Tylenol Bowel Regimen Colace added with hold parameters Last bowel movement 07/14 (2) History of frequent headaches: (3) Dementia: Plan: pleasantly confused mood stable (4) History of CVA (cerebrovascular accident): Plan: chronic, stable. Cont medications for secondary prophylaxis including ASA and statin. (5) Chronic diastolic CHF (congestive heart failure): Plan: Appears euvolemic, continue home dose Lasix and Toprol (6) HTN (hypertension): Plan: BP controlled, continue lisinopril and metoprolol (7) BPH (benign prostatic hyperplasia): Plan: chronic, stable, making good urine. Continue tamsulosin per home regimen. (8) Mild persistent asthma: Plan: No signs of acute exacerbation, continue home inhalers (9) DVT prophylaxis: Plan: SQ Lovenox DNR/DNI Disposition-from home. does not feel comfortable taking him home. [facility] Admission and Anticipated Discharge Date Admission Date: June 26, 2022 Subjective Pt was seen and examined in room 375-2 in follow-up for AMS 2/2 baclofen. Stable without any acute issues and awaiting bed availability Family was at bedside assisting him with lunch. Later came back to evaluate him and he is pleasantly confused but reports alot of noise not allowing him to sleep pat night. No other issues. Review of Systems Review of Systems: All systems were reviewed and negative except as indicated in subjective above. Physical Exam Physical Exam: CONSTITUTIONAL: WNWD, vitals as above, generally well- appearing, NAD EYES: normal conjunctivae, no scleral icterus ENT: external ear and nose normal, NECK: trachea midline, RESPIRATORY: clear to auscultation bilaterally, no crackles, rales or wheezes, normal respiratory effort CARDIOVASCULAR: regular rate and rhythm, S1 and 2 heard without murmurs, gallops or rubs, no JVD, no peripheral edema CHEST: inspection of chest was normal GASTROINTESTINAL: soft, nontender, ND, no guarding MUSCULOSKELETAL: strength 5/5 throughout, head is normocephalic and atraumatic SKIN: warm and dry NEUROLOGIC: CN 2-12 grossly intact, no sensory deficit, normal cognition, normal speech, no tremor PSYCHIATRIC: alert cooperative with exam. Pleasantly confused. Results & Data Results & Data ([facility]) Vital Signs (Past 12 Hours) Vital Signs Temp Pulse Resp BP Pulse Ox O2 Del Method 07/16/22 15:25 36.8 C 60 18 104/63 95 Room Air 07/16/22 07:36 36.4 C L 56 L 16 134/78 97 Room Air Medications Administered Current Inpatient Medications Acetaminophen (Acetaminophen 325 Mg Tab) 650 mg PO Q4H PRN PRN Reason: Pain or Fever Stop: 07/24/22 17:19 Last Admin: 07/10/22 20:46 Dose: 650 mg Aspirin (Aspirin 81 Mg Ectab) 81 mg PO DAILY [facility] Stop: 07/25/22 08:59 Last Admin: 07/16/22 09:19 Dose: 81 mg Atorvastatin Calcium (Atorvastatin 10 Mg Tab) 10 mg PO HS [facility] Stop: 07/24/22 20:59 Last Admin: 07/15/22 20:06 Dose: 10 mg Diclofenac Sodium (Diclofenac Sod 1% Gel 100 Gm Tube) 2 gm EXT BID [facility]; Protocol Stop: 08/05/22 08:59 Last Admin: 07/16/22 09:18 Dose: 2 gm Docusate Sodium (Docusate Sodium 100 Mg Cap) 100 mg PO BID [facility] Stop: 08/12/22 12:44 Last Admin: 07/16/22 09:19 Dose: 100 mg Enoxaparin Sodium (Enoxaparin Inj 40 Mg/0.4 Ml Syr) 40 mg SQ Q24H [facility] Stop: 07/24/22 17:59 Last Admin: 07/15/22 07:34 Dose: 40 mg Escitalopram Oxalate (Escitalopram Oxalate 10 Mg Tab) 10 mg PO DAILY [facility] Stop: 07/25/22 08:59 Last Admin: 07/16/22 09:19 Dose: 10 mg Fluticasone/Vilanterol (Fluticasone/Vilanterol 100/25mcg 14 Puffs/Inhaler) 1 puffs INH DAILY [facility] Stop: 07/25/22 08:59 Last Admin: 07/16/22 09:18 Dose: 1 puffs Furosemide (Furosemide 20 Mg Tab) 20 mg PO Q2D@0900 [facility] Stop: 08/11/22 12:14 Last Admin: 07/16/22 09:19 Dose: 20 mg Gabapentin (Gabapentin 300 Mg Cap) 300 mg PO TID [facility] Stop: 07/24/22 20:59 Last Admin: 07/16/22 14:25 Dose: 300 mg Lidocaine (Lidocaine 5% 1 Patch) 1 patch TD QAM [facility] Stop: 08/02/22 11:14 Last Admin: 07/16/22 09:18 Dose: 1 patch Lisinopril (Lisinopril 10 Mg Tab) 10 mg PO QAM [facility] Stop: 07/25/22 08:59 Last Admin: 07/16/22 09:20 Dose: 10 mg Memantine (Memantine Hcl 5 Mg Tab) 5 mg PO BID [facility] Stop: 07/24/22 20:59 Last Admin: 07/16/22 09:20 Dose: 5 mg Metoprolol Succinate (Metoprolol Succ 25mg Ext Rel Tab) 12.[facility] Stop: 07/25/22 08:59 Last Admin: 07/16/22 09:17 Dose: Not Given Miscellaneous (Remove Lidoderm Patch) 1 each N/A DAILY@2100 [facility] Stop: 08/02/22 20:59 Last Admin: 07/15/22 20:06 Dose: 1 each Multivitamins/Minerals (Preservision Areds) 1 tab PO BID [facility] Stop: 07/29/22 20:59 Last Admin: 07/16/22 09:19 Dose: 1 tab Psyllium Hydrophilic Mucilloid (Psyllium Or Guar Gum Fiber Powder Packet) 1 pkt [facility] Stop: 07/27/22 14:59 Last Admin: 07/16/22 09:20 Dose: 1 pkt Tamsulosin HCl (Tamsulosin Hcl 0.4 Mg Cap) 0.4 mg PO QAM [facility] Stop: 07/25/22 08:59 Last Admin: 07/16/22 09:21 Dose: 0.4 mg Zolpidem Tartrate (Zolpidem Tartrate 5 Mg Tab) 5 mg PO HS PRN PRN Reason: Sleep Stop: 07/28/22 02:08 Last Admin: 07/14/22 21:49 Dose: 5 mg (1) Altered mental status Altered mental status type: unspecified Qualified Code(s): R41.82 - Altered mental status, unspecified
[2022-07-16] MEDS: ENOXAPARIN INJ 40 MG/0.4 ML SYR SQ SCH (17:37)
[2022-07-16] MEDS: ATORVASTATIN 10 MG TAB PO SCH (20:14)
[2022-07-17] MEDS: LIDOCAINE 5% 1 PATCH TD SCH (09:35)
[2022-07-17] MEDS: DICLOFENAC SOD 1% GEL 100 GM TUBE EXT SCH ×2 (09:35→21:05)
[2022-07-17] MEDS: METOPROLOL SUCC 25MG EXT REL TAB PO SCH (09:36)
[2022-07-17] MEDS: PSYLLIUM or GUAR GUM FIBER POWDER PACKET PO SCH (09:37)
[2022-07-17] MEDS: ASPIRIN 81 MG ECTAB PO SCH (09:37)
[2022-07-17] MEDS: ESCITALOPRAM OXALATE 10 MG TAB PO SCH (09:37)
[2022-07-17] MEDS: DOCUSATE SODIUM 100 MG CAP PO SCH ×2 (09:37→21:04)
[2022-07-17] MEDS: PRESERVISION AREDS PO SCH ×2 (09:38→21:06)
[2022-07-17] MEDS: FLUTICASONE/VILANTEROL 100/25MCG 14 PUFFS/INHALER INH SCH (09:38)
[2022-07-17] MEDS: GABAPENTIN 300 MG CAP PO SCH ×3 (09:38→21:05)
[2022-07-17] MEDS: MEMANTINE HCL 5 MG TAB PO SCH ×2 (09:38→21:05)
[2022-07-17] MEDS: lisinopril 10 MG TAB PO SCH (09:38)
[2022-07-17] MEDS: TAMSULOSIN HCL 0.4 MG CAP PO SCH (09:38)
[2022-07-17] MEDS: ENOXAPARIN INJ 40 MG/0.4 ML SYR SQ SCH (17:16)
--- NOTE | 2022-07-17 20:29 | Hospitalist Progress Note ---
Date of Service July 17, 2022 Assessment & Plan (1) Altered mental status: Plan: Now resolved. Likely due to baclofen he received at home MRI brain negative for acute stroke Baseline dementia and he is mentating at his baseline. Clinically stable Waiting for placement Denies back pain which was an earlier issue this admission. Continue monitor Outpatient hip x-ray shows osteoarthrosis As needed Tylenol Bowel Regimen Colace added with hold parameters Last bowel movement 07/17 (2) History of frequent headaches: (3) Dementia: Plan: pleasantly confused mood stable (4) History of CVA (cerebrovascular accident): Plan: chronic, stable. Cont medications for secondary prophylaxis including ASA and statin. (5) Chronic diastolic CHF (congestive heart failure): Plan: Appears euvolemic, continue home dose Lasix and Toprol (6) HTN (hypertension): Plan: BP controlled, continue lisinopril and metoprolol (7) BPH (benign prostatic hyperplasia): Plan: chronic, stable, making good urine. Continue tamsulosin per home regimen. (8) Mild persistent asthma: Plan: No signs of acute exacerbation, continue home inhalers (9) DVT prophylaxis: Plan: SQ Lovenox DNR/DNI Disposition-from home. does not feel comfortable taking him home. [facility] Hospitalist Admission and Anticipated Discharge Date Admission Date: June 26, 2022 Subjective Pt was seen and examined in room 375-2 in follow-up for AMS 2/2 baclofen. Stable without any acute issues and awaiting bed availability Family was at bedside He was walking in room and dancing at bedside Appears cheerful with present. Review of Systems Review of Systems: All systems were reviewed and negative except as indicated in subjective above. Physical Exam Physical Exam: CONSTITUTIONAL: WNWD, vitals as above, generally well- appearing, NAD EYES: normal conjunctivae, no scleral icterus ENT: external ear and nose normal, NECK: trachea midline, RESPIRATORY: clear to auscultation bilaterally, no crackles, rales or wheezes, normal respiratory effort CARDIOVASCULAR: regular rate and rhythm, S1 and 2 heard without murmurs, gallops or rubs, no JVD, no peripheral edema CHEST: inspection of chest was normal GASTROINTESTINAL: soft, nontender, ND, no guarding MUSCULOSKELETAL: strength 5/5 throughout, head is normocephalic and atraumatic SKIN: warm and dry NEUROLOGIC: CN 2-12 grossly intact, no sensory deficit, normal cognition, normal speech, no tremor PSYCHIATRIC: alert cooperative with exam. Pleasantly confused. Results & Data Results & Data ([facility]) Vital Signs (Past 12 Hours) Vital Signs Temp Pulse Resp BP Pulse Ox O2 Del Method 07/17/22 15:04 36.7 C 62 16 117/69 97 Room Air Medications Administered Current Inpatient Medications Acetaminophen (Acetaminophen 325 Mg Tab) 650 mg PO Q4H PRN PRN Reason: Pain or Fever Stop: 07/24/22 17:19 Last Admin: 07/10/22 20:46 Dose: 650 mg Aspirin (Aspirin 81 Mg Ectab) 81 mg PO DAILY [facility] Stop: 07/25/22 08:59 Last Admin: 07/17/22 09:37 Dose: 81 mg Atorvastatin Calcium (Atorvastatin 10 Mg Tab) 10 mg PO HS [facility] Stop: 07/24/22 20:59 Last Admin: 07/16/22 20:14 Dose: 10 mg Diclofenac Sodium (Diclofenac Sod 1% Gel 100 Gm Tube) 2 gm EXT BID [facility]; Protocol Stop: 08/05/22 08:59 Last Admin: 07/17/22 09:35 Dose: Not Given Docusate Sodium (Docusate Sodium 100 Mg Cap) 100 mg PO BID [facility] Stop: 08/12/22 12:44 Last Admin: 07/17/22 09:37 Dose: 100 mg Enoxaparin Sodium (Enoxaparin Inj 40 Mg/0.4 Ml Syr) 40 mg SQ Q24H [facility] Stop: 07/24/22 17:59 Last Admin: 07/17/22 17:16 Dose: 40 mg Escitalopram Oxalate (Escitalopram Oxalate 10 Mg Tab) 10 mg PO DAILY [facility] Stop: 07/25/22 08:59 Last Admin: 07/17/22 09:37 Dose: 10 mg Fluticasone/Vilanterol (Fluticasone/Vilanterol 100/25mcg 14 Puffs/Inhaler) 1 puffs INH DAILY [facility] Stop: 07/25/22 08:59 Last Admin: 07/17/22 09:38 Dose: 1 puffs Furosemide (Furosemide 20 Mg Tab) 20 mg PO Q2D@0900 [facility] Stop: 08/11/22 12:14 Last Admin: 07/16/22 09:19 Dose: 20 mg Gabapentin (Gabapentin 300 Mg Cap) 300 mg PO TID [facility] Stop: 07/24/22 20:59 Last Admin: 07/17/22 13:47 Dose: 300 mg Lidocaine (Lidocaine 5% 1 Patch) [address] [facility] [place] [facility]: 08/02/22 11:14 Last Admin: 07/17/22 09:35 Dose: Not Given Lisinopril (Lisinopril 10 Mg Tab) [address] [facility] [place] Stop: 07/25/22 08:59 Last Admin: 07/17/22 09:38 Dose: 10 mg Memantine (Memantine Hcl 5 Mg Tab) 5 mg PO BID [facility] Stop: 07/24/22 20:59 Last Admin: 07/17/22 09:38 Dose: 5 mg Metoprolol Succinate (Metoprolol Succ 25mg Ext Rel Tab) 12.5 mg [facility] Stop: 07/25/22 08:59 Last Admin: 07/17/22 09:36 Dose: Not Given Miscellaneous (Remove Lidoderm Patch) 1 each N/A DAILY@2100 [facility] Stop: 08/02/22 20:59 Last Admin: 07/16/22 20:18 Dose: Not Given Multivitamins/Minerals (Preservision Areds) 1 tab PO BID [facility] Stop: 07/29/22 20:59 Last Admin: 07/17/22 09:38 Dose: 1 tab Psyllium Hydrophilic Mucilloid (Psyllium Or Guar Gum Fiber Powder Packet) [address] [facility] [place] Stop: 07/27/22 14:59 Last Admin: 07/17/22 09:37 Dose: 1 pkt Tamsulosin HCl (Tamsulosin Hcl 0.4 Mg Cap) 0.4 mg PO [facility] Stop: 07/25/22 08:59 Last Admin: 07/17/22 09:38 Dose: 0.4 mg Zolpidem Tartrate (Zolpidem Tartrate 5 Mg Tab) 5 mg PO HS PRN PRN Reason: Sleep Stop: 07/28/22 02:08 Last Admin: 07/14/22 21:49 Dose: 5 mg (1) Altered mental status Altered mental status type: unspecified Qualified Code(s): R41.82 - Altered mental status, unspecified
[2022-07-17] MEDS: ATORVASTATIN 10 MG TAB PO SCH (21:04)
[2022-07-18] MEDS: MEMANTINE HCL 5 MG TAB PO SCH ×2 (08:28→21:08)
[2022-07-18] MEDS: METOPROLOL SUCC 25MG EXT REL TAB PO SCH (08:28)
[2022-07-18] MEDS: GABAPENTIN 300 MG CAP PO SCH ×3 (08:29→21:08)
[2022-07-18] MEDS: DOCUSATE SODIUM 100 MG CAP PO SCH ×2 (08:29→21:08)
[2022-07-18] MEDS: lisinopril 10 MG TAB PO SCH (08:29)
[2022-07-18] MEDS: FLUTICASONE/VILANTEROL 100/25MCG 14 PUFFS/INHALER INH SCH (08:29)
[2022-07-18] MEDS: TAMSULOSIN HCL 0.4 MG CAP PO SCH (08:30)
[2022-07-18] MEDS: ESCITALOPRAM OXALATE 10 MG TAB PO SCH (08:30)
[2022-07-18] MEDS: DICLOFENAC SOD 1% GEL 100 GM TUBE EXT SCH ×2 (08:30→21:09)
[2022-07-18] MEDS: ASPIRIN 81 MG ECTAB PO SCH (08:30)
[2022-07-18] MEDS: FUROSEMIDE 20 MG TAB PO SCH (08:30)
[2022-07-18] MEDS: PRESERVISION AREDS PO SCH ×2 (08:31→21:09)
[2022-07-18] MEDS: LIDOCAINE 5% 1 PATCH TD SCH (08:31)
[2022-07-18] MEDS: PSYLLIUM or GUAR GUM FIBER POWDER PACKET PO SCH (08:31)
--- NOTE | 2022-07-18 14:44 | Hospitalist Progress Note ---
Date of Service July 18, 2022 Assessment & Plan (1) Altered mental status: Plan: Now resolved. Likely due to baclofen he received at home MRI brain negative for acute stroke Baseline dementia and he is mentating at his baseline. Clinically stable Waiting for placement Denies back pain which was an earlier issue this admission. Continue monitor Outpatient hip x-ray shows osteoarthrosis As needed Tylenol Bowel Regimen Colace added with hold parameters Last bowel movement 07/17 (2) History of frequent headaches: (3) Dementia: Plan: pleasantly confused mood stable (4) History of CVA (cerebrovascular accident): Plan: chronic, stable. Cont medications for secondary prophylaxis including ASA and statin. (5) Chronic diastolic CHF (congestive heart failure): Plan: Appears euvolemic, continue home dose Lasix and Toprol (6) HTN (hypertension): Plan: BP controlled, continue lisinopril and metoprolol (7) BPH (benign prostatic hyperplasia): Plan: chronic, stable, making good urine. Continue tamsulosin per home regimen. (8) Mild persistent asthma: Plan: No signs of acute exacerbation, continue home inhalers (9) DVT prophylaxis: Plan: SQ Lovenox DNR/DNI Disposition-from home. does not feel comfortable taking him home. waiting for placement to [facility] Admission and Anticipated Discharge Date Admission Date: June 26, 2022 Subjective Patient seen and examined at bedside. He is sitting up on the chair; not in any distress. Review of Systems Review of Systems: All systems reviewed & are unremarkable except as noted in Subjective Physical Exam Physical Exam: CONSTITUTIONAL: WNWD, vitals as above, generally well- appearing, NAD EYES: normal conjunctivae, no scleral icterus ENT: external ear and nose normal, NECK: trachea midline, RESPIRATORY: clear to auscultation bilaterally, no crackles, rales or wheezes, normal respiratory effort CARDIOVASCULAR: regular rate and rhythm, S1 and 2 heard without murmurs, gallops or rubs, no JVD, no peripheral edema CHEST: inspection of chest was normal GASTROINTESTINAL: soft, nontender, ND, no guarding MUSCULOSKELETAL: strength 5/5 throughout, head is normocephalic and atraumatic SKIN: warm and dry NEUROLOGIC: CN 2-12 grossly intact, no sensory deficit, normal cognition, normal speech, no tremor PSYCHIATRIC: alert cooperative with exam. Pleasantly confused. Results & Data Results & Data ([facility]) Vital Signs (Past 12 Hours) Vital Signs Temp Pulse Resp BP Pulse Ox O2 Del Method 07/18/22 07:44 36.9 C 60 16 132/81 97 Room Air Laboratory Results Laboratory Results WBC 6.86 K/ul (4.8-10.8) 07/10/22 06:49 RBC 4.60 M/uL (4.63-6.08) L 07/10/22 06:49 Hgb 14.1 g/dl (14.0-18.0) 07/10/22 06:49 Hct 41.4 % (40.1-51.0) 07/10/22 06:49 MCV 90.0 fL (80.0-100.0) 07/10/22 06:49 MCH 30.7 pg (25.0-34.0) 07/10/22 06:49 MCHC 34.1 g/dL (32.0-36.0) 07/10/22 06:49 RDW Std Deviation 46.4 fL (36.4-46.3) H 07/10/22 06:49 RDW Coeff of Leeann 14.1 % (11.5-14.5) 07/10/22 06:49 Plt Count 176 K/uL (130-400) 07/10/22 06:49 MPV 10.1 fL (9.4-12.4) 07/10/22 06:49 Immature Gran % (Auto) 0.6 % 07/07/22 06:05 Neut % (Auto) 46.4 % 07/07/22 06:05 Lymph % (Auto) 39.4 % 07/07/22 06:05 [place] % (Auto) 9.9 % 07/07/22 06:05 Eos % (Auto) 2.8 % 07/07/22 06:05 Baso % (Auto) 0.9 % 07/07/22 06:05 Neut # (Auto) 2.98 K/uL (1.4-6.5) 07/07/22 06:05 Lymph # (Auto) 2.54 K/uL (1.2-3.4) 07/07/22 06:05 [place] # (Auto) 0.64 K/uL (0.24-0.82) 07/07/22 06:05 Eos # (Auto) 0.18 K/uL (0-0.50) 07/07/22 06:05 Baso # (Auto) 0.06 K/uL (0-0.2) 07/07/22 06:05 Immature Gran # (Auto) 0.04 K/uL (0.00-0.02) H 07/07/22 06:05 PT 10.9 Seconds (9.0-12.0) 06/24/22 10:34 INR 1.0 (0.9-1.1) 06/24/22 10:34 APTT 25.5 Seconds (21.0-31.0) 06/24/22 10:34 PTT Ratio 0.9 06/24/22 10:34 Sodium 137 mmol/L (136-145) 07/10/22 06:49 Potassium 4.3 mmol/L (3.5-5.1) 07/10/22 06:49 Chloride 104 mmol/L (98-107) 07/10/22 06:49 Carbon Dioxide 30 mmol/L (21-32) 07/10/22 06:49 Anion Gap 3 (3-11) 07/10/22 06:49 BUN 23 mg/dl (6-23) 07/10/22 06:49 Creatinine 0.95 mg/dl (0.6-1.4) 07/10/22 06:49 Est Cr Clr Drug Dosing 63.1 ml/min 07/10/22 06:49 Est GFR ( Amer) 87.9 ml/min 07/10/22 06:49 Est GFR (Non-Af Amer) 75.8 ml/min 07/10/22 06:49 BUN/Creatinine Ratio 24.2 (10-20) H 07/10/22 06:49 Glucose 93 mg/dl (70-99(Fasting)) 07/10/22 06:49 POC Glucose 99 mg/dl (70-99) 06/24/22 10:21 Estimat Average Glucose 111 mg/dl 06/25/22 08:46 Hemoglobin A1c 5.5 % (4.5-5.6) 06/25/22 08:46 Calcium 9.1 mg/dl (8.5-10.1) 07/10/22 06:49 Magnesium 2.0 mg/dl (1.7-2.4) 07/07/22 06:05 Total Bilirubin 1.1 mg/dl (0.2-1.0) H 06/24/22 10:34 AST 22 U/L (13-39) 06/24/22 10:34 ALT 28 U/L (7-52) 06/24/22 10:34 Alkaline Phosphatase 46 U/L (34-104) 06/24/22 10:34 Total Creatine Kinase 73 U/L (30-223) 06/24/22 10:34 Troponin I High Sens 4.6 pg/ml (0-20) 06/24/22 10:34 Total Protein 6.7 gm/dl (6.0-8.3) 06/24/22 10:34 Albumin 3.7 gm/dl (3.4-5.0) 06/24/22 10:34 Globulin 3.0 gm/dl (2.5-4.0) 06/24/22 10:34 Albumin/Globulin Ratio 1.2 (0.9-2) 06/24/22 10:34 Triglycerides 68 mg/dl (0-150) 06/25/22 08:46 Cholesterol 129 mg/dl (0-200) 06/25/22 08:46 LDL Cholesterol, Calc 51 mg/dl 06/25/22 08:46 VLDL Cholesterol, Calc 14 mg/dl (0-30) 06/25/22 08:46 HDL Cholesterol 64 mg/dl 06/25/22 08:46 Cholesterol/HDL Ratio 2.0 (0-5) 06/25/22 08:46 TSH 0.839 uIu/ml (0.300-4.500) 06/24/22 10:34 Urine Color Yellow 06/24/22 12:16 Urine Appearance Clear (Clear) 06/24/22 12:16 Urine pH 8.5 (4.5-7.5) H 06/24/22 12:16 Ur Specific [place] 1.010 (1.000-1.030) 06/24/22 12:16 Urine Protein Negative (Negative) 06/24/22 12:16 Urine Glucose (UA) Negative (Negative) 06/24/22 12:16 Urine Ketones Trace (Negative) H 06/24/22 12:16 Urine Blood Negative (Negative) 06/24/22 12:16 Urine Nitrite Negative (Negative) 06/24/22 12:16 Urine Bilirubin Negative (Negative) 06/24/22 12:16 Urine Urobilinogen Negative (Negative) 06/24/22 12:16 Ur Leukocyte Esterase Negative (Negative) 06/24/22 12:16 SARS-CoV-2, RNA, NAAT NEGATIVE (NEGATIVE) 06/24/22 12:30 Impressions Chest X-Ray 06/24/22 10:21 XR chest 1V portable HISTORY: weakness COMPARISON: Chest 05/19/2019. FINDINGS: Chronic postoperative changes again noted within the right hemithorax including calcification of the right basilar pleura. The left lung is clear. No pneumothorax. No pleural effusions. The cardiac silhouette remains borderline enlarged. IMPRESSION: No significant change compared to the prior study. No acute process. ACT 112: Negative or not required by law. Electronically signed by: Alberto Lino M.D. 06/24/2022 11:[address] 06/24/22 10:21 CT OF THE HEAD WITHOUT CONTRAST CLINICAL HISTORY: Altered mental status. COMPARISON STUDY: Head CT June 08, 2022. CT DOSE: 1228.53 mGy.cm TECHNIQUE: Helical axial images of the head were obtained without IV contrast. Automated exposure control was utilized for the study. A dose lowering technique was utilized adhering to the principles of ALARA. FINDINGS: No acute intracranial hemorrhage, midline shift or mass effect is present. The ventricular system is unremarkable. The basal cisterns are patent. No extra-axial collections are present. There are no findings to suggest acute dural sinus thrombosis or acute territorial infarct. No significant calvarial abnormalities are present. Visualized portions of the sinuses and mastoid air cells are clear. IMPRESSION: No acute intracranial findings. ACT 112: Negative or not required by law. Electronically signed by: Pj Og M.D. 06/24/2022 11:22 AM Brain MRI 06/24/22 14:44 MRI OF THE BRAIN COMBO CLINICAL HISTORY: Weakness. Dementia. Headache. COMPARISON STUDY: CT of the brain dated 06/24/2022. TECHNIQUE: MRI of the brain was performed utilizing various T1 and T2-weighted sequences in the axial, sagittal, and coronal planes. Contrast-enhanced sequences were acquired following the administration of 9 cc of Gadavist. FINDINGS: Brain parenchyma: There is age-related involutional change noting mild to moderate subcortical and periventricular microangiopathic disease. There is no hemorrhage or mass effect. There is no restricted diffusion to suggest acute ischemia. No enhancing mass lesion is identified on the postcontrast images. Gonzalez-white matter differentiation is preserved. No extra-axial fluid collection is seen. The cerebellar tonsils are normal in configuration. Ventricles, sulci, and cisterns: Prominent significant delusional change. Pituitary and sella: Unremarkable. Intracranial vasculature: Normal flow voids are maintained at the skull base. Orbits: The bony orbits are grossly intact. Orbital contents are normal in appearance noting bilateral ocular lens implants. Sinuses and mastoids: Clear. Calvarium: Unremarkable. Cervical cord: Partially visualized cervical spinal cord is normal in morphology and signal intensity. IMPRESSION: No acute intracranial abnormality. ACT 112: Negative or not required by law. Electronically signed by: Josiah Contreras M.D. 06/24/2022 4:57 PM (1) Altered mental status Altered mental status type: unspecified Qualified Code(s): R41.82 - Altered mental status, unspecified
[2022-07-18] MEDS: ENOXAPARIN INJ 40 MG/0.4 ML SYR SQ SCH (18:58)
[2022-07-18] MEDS: ATORVASTATIN 10 MG TAB PO SCH (21:08)
[2022-07-19] MEDS: MEMANTINE HCL 5 MG TAB PO SCH ×2 (08:16→20:27)
[2022-07-19] MEDS: lisinopril 10 MG TAB PO SCH (08:17)
[2022-07-19] MEDS: DOCUSATE SODIUM 100 MG CAP PO SCH ×2 (08:17→20:28)
[2022-07-19] MEDS: GABAPENTIN 300 MG CAP PO SCH ×3 (08:17→20:28)
[2022-07-19] MEDS: TAMSULOSIN HCL 0.4 MG CAP PO SCH (08:18)
[2022-07-19] MEDS: ASPIRIN 81 MG ECTAB PO SCH (08:18)
[2022-07-19] MEDS: ESCITALOPRAM OXALATE 10 MG TAB PO SCH (08:18)
[2022-07-19] MEDS: DICLOFENAC SOD 1% GEL 100 GM TUBE EXT SCH ×2 (08:18→20:27)
[2022-07-19] MEDS: FLUTICASONE/VILANTEROL 100/25MCG 14 PUFFS/INHALER INH SCH (08:19)
[2022-07-19] MEDS: LIDOCAINE 5% 1 PATCH TD SCH (08:19)
[2022-07-19] MEDS: METOPROLOL SUCC 25MG EXT REL TAB PO SCH (08:20)
[2022-07-19] MEDS: PSYLLIUM or GUAR GUM FIBER POWDER PACKET PO SCH (08:20)
[2022-07-19] MEDS: PRESERVISION AREDS PO SCH ×2 (08:21→20:27)
--- NOTE | 2022-07-19 12:00 | Hospitalist Progress Note ---
Date of Service July 19, 2022 Assessment & Plan (1) Altered mental status: Plan: Now resolved. Likely due to baclofen he received at home MRI brain negative for acute stroke Baseline dementia and he is mentating at his baseline. Clinically stable Waiting for placement Denies back pain which was an earlier issue this admission. Continue monitor Outpatient hip x-ray shows osteoarthrosis As needed Tylenol Bowel Regimen Colace added with hold parameters Last bowel movement 07/17 (2) History of frequent headaches: (3) Dementia: Plan: pleasantly confused mood stable (4) History of CVA (cerebrovascular accident): Plan: chronic, stable. Cont medications for secondary prophylaxis including ASA and statin. (5) Chronic diastolic CHF (congestive heart failure): Plan: Appears euvolemic, continue home dose Lasix and Toprol (6) HTN (hypertension): Plan: BP controlled, continue lisinopril and metoprolol (7) BPH (benign prostatic hyperplasia): Plan: chronic, stable, making good urine. Continue tamsulosin per home regimen. (8) Mild persistent asthma: Plan: No signs of acute exacerbation, continue home inhalers (9) DVT prophylaxis: Plan: SQ Lovenox DNR/DNI Disposition-from home. does not feel comfortable taking him home. waiting for placement to [facility] Admission and Anticipated Discharge Date Admission Date: June 26, 2022 Subjective Comfortable; not in any distress. No overnight events. Review of Systems Review of Systems: All systems reviewed & are unremarkable except as noted in Subjective Physical Exam Physical Exam: CONSTITUTIONAL: WNWD, vitals as above, generally well- appearing, NAD EYES: normal conjunctivae, no scleral icterus ENT: external ear and nose normal, NECK: trachea midline, RESPIRATORY: clear to auscultation bilaterally, no crackles, rales or wheezes, normal respiratory effort CARDIOVASCULAR: regular rate and rhythm, S1 and 2 heard without murmurs, gallops or rubs, no JVD, no peripheral edema CHEST: inspection of chest was normal GASTROINTESTINAL: soft, nontender, ND, no guarding MUSCULOSKELETAL: strength 5/5 throughout, head is normocephalic and atraumatic SKIN: warm and dry NEUROLOGIC: CN 2-12 grossly intact, no sensory deficit, normal cognition, normal speech, no tremor PSYCHIATRIC: alert cooperative with exam. Pleasantly confused. Results & Data Results & Data ([facility]) Vital Signs (Past 12 Hours) Vital Signs Temp Pulse Resp BP BP Pulse Ox O2 Del Method 07/19/22 08:14 49 L 128/73 07/19/22 07:29 36.4 C L 49 L 16 113/72 98 Room Air Laboratory Results Laboratory Results WBC 6.86 K/ul (4.8-10.8) 07/10/22 06:49 RBC 4.60 M/uL (4.63-6.08) L 07/10/22 06:49 Hgb 14.1 g/dl (14.0-18.0) 07/10/22 06:49 Hct 41.4 % (40.1-51.0) 07/10/22 06:49 MCV 90.0 fL (80.0-100.0) 07/10/22 06:49 MCH 30.7 pg (25.0-34.0) 07/10/22 06:49 MCHC 34.1 g/dL (32.0-36.0) 07/10/22 06:49 RDW Std Deviation 46.4 fL (36.4-46.3) H 07/10/22 06:49 RDW Coeff of Leeann 14.1 % (11.5-14.5) 07/10/22 06:49 Plt Count 176 K/uL (130-400) 07/10/22 06:49 MPV 10.1 fL (9.4-12.4) 07/10/22 06:49 Immature Gran % (Auto) 0.6 % 07/07/22 06:05 Neut % (Auto) 46.4 % 07/07/22 06:05 Lymph % (Auto) 39.4 % 07/07/22 06:05 [place] % (Auto) 9.9 % 07/07/22 06:05 Eos % (Auto) 2.8 % 07/07/22 06:05 Baso % (Auto) 0.9 % 07/07/22 06:05 Neut # (Auto) 2.98 K/uL (1.4-6.5) 07/07/22 06:05 Lymph # (Auto) 2.54 K/uL (1.2-3.4) 07/07/22 06:05 [place] # (Auto) 0.64 K/uL (0.24-0.82) 07/07/22 06:05 Eos # (Auto) 0.18 K/uL (0-0.50) 07/07/22 06:05 Baso # (Auto) 0.06 K/uL (0-0.2) 07/07/22 06:05 Immature Gran # (Auto) 0.04 K/uL (0.00-0.02) H 07/07/22 06:05 PT 10.9 Seconds (9.0-12.0) 06/24/22 10:34 INR 1.0 (0.9-1.1) 06/24/22 10:34 APTT 25.5 Seconds (21.0-31.0) 06/24/22 10:34 PTT Ratio 0.9 06/24/22 10:34 Sodium 137 mmol/L (136-145) 07/10/22 06:49 Potassium 4.3 mmol/L (3.5-5.1) 07/10/22 06:49 Chloride 104 mmol/L (98-107) 07/10/22 06:49 Carbon Dioxide 30 mmol/L (21-32) 07/10/22 06:49 Anion Gap 3 (3-11) 07/10/22 06:49 BUN 23 mg/dl (6-23) 07/10/22 06:49 Creatinine 0.95 mg/dl (0.6-1.4) 07/10/22 06:49 Est Cr Clr Drug Dosing 63.1 ml/min 07/10/22 06:49 Est GFR ( Amer) 87.9 ml/min 07/10/22 06:49 Est GFR (Non-Af Amer) 75.8 ml/min 07/10/22 06:49 BUN/Creatinine Ratio 24.2 (10-20) H 07/10/22 06:49 Glucose 93 mg/dl (70-99(Fasting)) 07/10/22 06:49 POC Glucose 99 mg/dl (70-99) 06/24/22 10:21 Estimat Average Glucose 111 mg/dl 06/25/22 08:46 Hemoglobin A1c 5.5 % (4.5-5.6) 06/25/22 08:46 Calcium 9.1 mg/dl (8.5-10.1) 07/10/22 06:49 Magnesium 2.0 mg/dl (1.7-2.4) 07/07/22 06:05 Total Bilirubin 1.1 mg/dl (0.2-1.0) H 06/24/22 10:34 AST 22 U/L (13-39) 06/24/22 10:34 ALT 28 U/L (7-52) 06/24/22 10:34 Alkaline Phosphatase 46 U/L (34-104) 06/24/22 10:34 Total Creatine Kinase 73 U/L (30-223) 06/24/22 10:34 Troponin I High Sens 4.6 pg/ml (0-20) 06/24/22 10:34 Total Protein 6.7 gm/dl (6.0-8.3) 06/24/22 10:34 Albumin 3.7 gm/dl (3.4-5.0) 06/24/22 10:34 Globulin 3.0 gm/dl (2.5-4.0) 06/24/22 10:34 Albumin/Globulin Ratio 1.2 (0.9-2) 06/24/22 10:34 Triglycerides 68 mg/dl (0-150) 06/25/22 08:46 Cholesterol 129 mg/dl (0-200) 06/25/22 08:46 LDL Cholesterol, Calc 51 mg/dl 06/25/22 08:46 VLDL Cholesterol, Calc 14 mg/dl (0-30) 06/25/22 08:46 HDL Cholesterol 64 mg/dl 06/25/22 08:46 Cholesterol/HDL Ratio 2.0 (0-5) 06/25/22 08:46 TSH 0.839 uIu/ml (0.300-4.500) 06/24/22 10:34 Urine Color Yellow 06/24/22 12:16 Urine Appearance Clear (Clear) 06/24/22 12:16 Urine pH 8.5 (4.5-7.5) H 06/24/22 12:16 Ur Specific [place] 1.010 (1.000-1.030) 06/24/22 12:16 Urine Protein Negative (Negative) 06/24/22 12:16 Urine Glucose (UA) Negative (Negative) 06/24/22 12:16 Urine Ketones Trace (Negative) H 06/24/22 12:16 Urine Blood Negative (Negative) 06/24/22 12:16 Urine Nitrite Negative (Negative) 06/24/22 12:16 Urine Bilirubin Negative (Negative) 06/24/22 12:16 Urine Urobilinogen Negative (Negative) 06/24/22 12:16 Ur Leukocyte Esterase Negative (Negative) 06/24/22 12:16 SARS-CoV-2, RNA, NAAT NEGATIVE (NEGATIVE) 06/24/22 12:30 Impressions Chest X-Ray 06/24/22 10:21 XR chest 1V portable HISTORY: weakness COMPARISON: Chest 05/19/2019. FINDINGS: Chronic postoperative changes again noted within the right hemithorax including calcification of the right basilar pleura. The left lung is clear. No pneumothorax. No pleural effusions. The cardiac silhouette remains borderline enlarged. IMPRESSION: No significant change compared to the prior study. No acute process. ACT 112: Negative or not required by law. Electronically signed by: Alberto Lino M.D. 06/24/2022 11:[address] 06/24/22 10:21 CT OF THE HEAD WITHOUT CONTRAST CLINICAL HISTORY: Altered mental status. COMPARISON STUDY: Head CT June 08, 2022. CT DOSE: 1228.53 mGy.cm TECHNIQUE: Helical axial images of the head were obtained without IV contrast. Automated exposure control was utilized for the study. A dose lowering technique was utilized adhering to the principles of ALARA. FINDINGS: No acute intracranial hemorrhage, midline shift or mass effect is present. The ventricular system is unremarkable. The basal cisterns are patent. No extra-axial collections are present. There are no findings to suggest acute dural sinus thrombosis or acute territorial infarct. No significant calvarial abnormalities are present. Visualized portions of the sinuses and mastoid air cells are clear. IMPRESSION: No acute intracranial findings. ACT 112: Negative or not required by law. Electronically signed by: Pj Og M.D. 06/24/2022 11:22 AM Brain MRI 06/24/22 14:44 MRI OF THE BRAIN COMBO CLINICAL HISTORY: Weakness. Dementia. Headache. COMPARISON STUDY: CT of the brain dated 06/24/2022. TECHNIQUE: MRI of the brain was performed utilizing various T1 and T2-weighted sequences in the axial, sagittal, and coronal planes. Contrast-enhanced sequences were acquired following the administration of 9 cc of Gadavist. FINDINGS: Brain parenchyma: There is age-related involutional change noting mild to moderate subcortical and periventricular microangiopathic disease. There is no hemorrhage or mass effect. There is no restricted diffusion to suggest acute i schemia. No enhancing mass lesion is identified on the postcontrast images. Gonzalez-white matter differentiation is preserved. No extra-axial fluid collection is seen. The cerebellar tonsils are normal in configuration. Ventricles, sulci, and cisterns: Prominent significant delusional change. Pituitary and sella: Unremarkable. Intracranial vasculature: Normal flow voids are maintained at the skull base. Orbits: The bony orbits are grossly intact. Orbital contents are normal in appearance noting bilateral ocular lens implants. Sinuses and mastoids: Clear. Calvarium: Unremarkable. Cervical cord: Partially visualized cervical spinal cord is normal in morphology and signal intensity. IMPRESSION: No acute intracranial abnormality. ACT 112: Negative or not required by law. Electronically signed by: Josiah Contreras M.D. 06/24/2022 4:57 PM (1) Altered mental status Altered mental status type: unspecified Qualified Code(s): R41.82 - Altered mental status, unspecified
[2022-07-19] MEDS: ENOXAPARIN INJ 40 MG/0.4 ML SYR SQ SCH (18:35)
[2022-07-19] MEDS: ATORVASTATIN 10 MG TAB PO SCH (20:28)
[2022-07-19] MEDS: ZOLPIDEM TARTRATE 5 MG TAB PO PRN (20:31)
[2022-07-20] MEDS: DICLOFENAC SOD 1% GEL 100 GM TUBE EXT SCH ×2 (08:24→20:51)
[2022-07-20] MEDS: GABAPENTIN 300 MG CAP PO SCH ×3 (08:24→20:52)
[2022-07-20] MEDS: FLUTICASONE/VILANTEROL 100/25MCG 14 PUFFS/INHALER INH SCH (08:25)
[2022-07-20] MEDS: DOCUSATE SODIUM 100 MG CAP PO SCH ×2 (08:25→20:52)
[2022-07-20] MEDS: MEMANTINE HCL 5 MG TAB PO SCH ×2 (08:25→20:52)
[2022-07-20] MEDS: ESCITALOPRAM OXALATE 10 MG TAB PO SCH (08:25)
[2022-07-20] MEDS: lisinopril 10 MG TAB PO SCH (08:25)
[2022-07-20] MEDS: FUROSEMIDE 20 MG TAB PO SCH (08:26)
[2022-07-20] MEDS: METOPROLOL SUCC 25MG EXT REL TAB PO SCH (08:26)
[2022-07-20] MEDS: LIDOCAINE 5% 1 PATCH TD SCH (08:26)
[2022-07-20] MEDS: ASPIRIN 81 MG ECTAB PO SCH (08:27)
[2022-07-20] MEDS: TAMSULOSIN HCL 0.4 MG CAP PO SCH (08:27)
[2022-07-20] MEDS: PSYLLIUM or GUAR GUM FIBER POWDER PACKET PO SCH (08:27)
[2022-07-20] MEDS: PRESERVISION AREDS PO SCH ×2 (08:27→20:51)
--- NOTE | 2022-07-20 12:10 | Hospitalist Progress Note ---
Date of Service July 20, 2022 Assessment & Plan (1) Altered mental status: Plan: Now resolved. Likely due to baclofen he received at home MRI brain negative for acute stroke Baseline dementia and he is mentating at his baseline. Clinically stable Waiting for placement Denies back pain which was an earlier issue this admission. Continue monitor Outpatient hip x-ray shows osteoarthrosis As needed Tylenol Bowel Regimen Colace added with hold parameters (2) History of frequent headaches: (3) Dementia: Plan: pleasantly confused mood stable (4) History of CVA (cerebrovascular accident): Plan: chronic, stable. Cont medications for secondary prophylaxis including ASA and statin. (5) Chronic diastolic CHF (congestive heart failure): Plan: Appears euvolemic, continue home dose Lasix and Toprol (6) HTN (hypertension): Plan: BP controlled, continue lisinopril and metoprolol (7) BPH (benign prostatic hyperplasia): Plan: chronic, stable, making good urine. Continue tamsulosin per home regimen. (8) Mild persistent asthma: Plan: No signs of acute exacerbation, continue home inhalers (9) DVT prophylaxis: Plan: SQ Lovenox DNR/DNI Disposition-from home. does not feel comfortable taking him home. waiting for placement to [facility] Admission and Anticipated Discharge Date Admission Date: June 26, 2022 Subjective Comfortable; not in any distress. Denies any fever, chills, chest pain or shortness of breath. Review of Systems Review of Systems: All systems reviewed & are unremarkable except as noted in Subjective Physical Exam Physical Exam: CONSTITUTIONAL: WNWD, vitals as above, generally well- appearing, NAD EYES: normal conjunctivae, no scleral icterus ENT: external ear and nose normal, NECK: trachea midline, RESPIRATORY: clear to auscultation bilaterally, no crackles, rales or wheezes, normal respiratory effort CARDIOVASCULAR: regular rate and rhythm, S1 and 2 heard without murmurs, gallops or rubs, no JVD, no peripheral edema CHEST: inspection of chest was normal GASTROINTESTINAL: soft, nontender, ND, no guarding MUSCULOSKELETAL: strength 5/5 throughout, head is normocephalic and atraumatic SKIN: warm and dry NEUROLOGIC: CN 2-12 grossly intact, no sensory deficit, normal cognition, normal speech, no tremor PSYCHIATRIC: alert cooperative with exam. Pleasantly confused. Results & Data Results & Data ([facility]) Vital Signs (Past 12 Hours) Vital Signs Temp Pulse Resp BP Pulse Ox O2 Del Method 07/20/22 08:20 36.5 C 64 18 156/90 H 96 Room Air Laboratory Results Laboratory Results WBC 6.86 K/ul (4.8-10.8) 07/10/22 06:49 RBC 4.60 M/uL (4.63-6.08) L 07/10/22 06:49 Hgb 14.1 g/dl (14.0-18.0) 07/10/22 06:49 Hct 41.4 % (40.1-51.0) 07/10/22 06:49 MCV 90.0 fL (80.0-100.0) 07/10/22 06:49 MCH 30.7 pg (25.0-34.0) 07/10/22 06:49 MCHC 34.1 g/dL (32.0-36.0) 07/10/22 06:49 RDW Std Deviation 46.4 fL (36.4-46.3) H 07/10/22 06:49 RDW Coeff of Leeann 14.1 % (11.5-14.5) 07/10/22 06:49 Plt Count 176 K/uL (130-400) 07/10/22 06:49 MPV 10.1 fL (9.4-12.4) 07/10/22 06:49 Immature Gran % (Auto) 0.6 % 07/07/22 06:05 Neut % (Auto) 46.4 % 07/07/22 06:05 Lymph % (Auto) 39.4 % 07/07/22 06:05 [place] % (Auto) 9.9 % 07/07/22 06:05 Eos % (Auto) 2.8 % 07/07/22 06:05 Baso % (Auto) 0.9 % 07/07/22 06:05 Neut # (Auto) 2.98 K/uL (1.4-6.5) 07/07/22 06:05 Lymph # (Auto) 2.54 K/uL (1.2-3.4) 07/07/22 06:05 [place] # (Auto) 0.64 K/uL (0.24-0.82) 07/07/22 06:05 Eos # (Auto) 0.18 K/uL (0-0.50) 07/07/22 06:05 Baso # (Auto) 0.06 K/uL (0-0.2) 07/07/22 06:05 Immature Gran # (Auto) 0.04 K/uL (0.00-0.02) H 07/07/22 06:05 PT 10.9 Seconds (9.0-12.0) 06/24/22 10:34 INR 1.0 (0.9-1.1) 06/24/22 10:34 APTT 25.5 Seconds (21.0-31.0) 06/24/22 10:34 PTT Ratio 0.9 06/24/22 10:34 Sodium 137 mmol/L (136-145) 07/10/22 06:49 Potassium 4.3 mmol/L (3.5-5.1) 07/10/22 06:49 Chloride 104 mmol/L (98-107) 07/10/22 06:49 Carbon Dioxide 30 mmol/L (21-32) 07/10/22 06:49 Anion Gap 3 (3-11) 07/10/22 06:49 BUN 23 mg/dl (6-23) 07/10/22 06:49 Creatinine 0.95 mg/dl (0.6-1.4) 07/10/22 06:49 Est Cr Clr Drug Dosing 63.1 ml/min 07/10/22 06:49 Est GFR ( Amer) 87.9 ml/min 07/10/22 06:49 Est GFR (Non-Af Amer) 75.8 ml/min 07/10/22 06:49 BUN/Creatinine Ratio 24.2 (10-20) H 07/10/22 06:49 Glucose 93 mg/dl (70-99(Fasting)) 07/10/22 06:49 POC Glucose 99 mg/dl (70-99) 06/24/22 10:21 Estimat Average Glucose 111 mg/dl 06/25/22 08:46 Hemoglobin A1c 5.5 % (4.5-5.6) 06/25/22 08:46 Calcium 9.1 mg/dl (8.5-10.1) 07/10/22 06:49 Magnesium 2.0 mg/dl (1.7-2.4) 07/07/22 06:05 Total Bilirubin 1.1 mg/dl (0.2-1.0) H 06/24/22 10:34 AST 22 U/L (13-39) 06/24/22 10:34 ALT 28 U/L (7-52) 06/24/22 10:34 Alkaline Phosphatase 46 U/L (34-104) 06/24/22 10:34 Total Creatine Kinase 73 U/L (30-223) 06/24/22 10:34 Troponin I High Sens 4.6 pg/ml (0-20) 06/24/22 10:34 Total Protein 6.7 gm/dl (6.0-8.3) 06/24/22 10:34 Albumin 3.7 gm/dl (3.4-5.0) 06/24/22 10:34 Globulin 3.0 gm/dl (2.5-4.0) 06/24/22 10:34 Albumin/Globulin Ratio 1.2 (0.9-2) 06/24/22 10:34 Triglycerides 68 mg/dl (0-150) 06/25/22 08:46 Cholesterol 129 mg/dl (0-200) 06/25/22 08:46 LDL Cholesterol, Calc 51 mg/dl 06/25/22 08:46 VLDL Cholesterol, Calc 14 mg/dl (0-30) 06/25/22 08:46 HDL Cholesterol 64 mg/dl 06/25/22 08:46 Cholesterol/HDL Ratio 2.0 (0-5) 06/25/22 08:46 TSH 0.839 uIu/ml (0.300-4.500) 06/24/22 10:34 Urine Color Yellow 06/24/22 12:16 Urine Appearance Clear (Clear) 06/24/22 12:16 Urine pH 8.5 (4.5-7.5) H 06/24/22 12:16 Ur Specific [place] 1.010 (1.000-1.030) 06/24/22 12:16 Urine Protein Negative (Negative) 06/24/22 12:16 Urine Glucose (UA) Negative (Negative) 06/24/22 12:16 Urine Ketones Trace (Negative) H 06/24/22 12:16 Urine Blood Negative (Negative) 06/24/22 12:16 Urine Nitrite Negative (Negative) 06/24/22 12:16 Urine Bilirubin Negative (Negative) 06/24/22 12:16 Urine Urobilinogen Negative (Negative) 06/24/22 12:16 Ur Leukocyte Esterase Negative (Negative) 06/24/22 12:16 SARS-CoV-2, RNA, NAAT NEGATIVE (NEGATIVE) 06/24/22 12:30 Impressions Chest X-Ray 06/24/22 10:21 XR chest 1V portable HISTORY: weakness COMPARISON: Chest 05/19/2019. FINDINGS: Chronic postoperative changes again noted within the right hemithorax including calcification of the right basilar pleura. The left lung is clear. No pneumothorax. No pleural effusions. The cardiac silhouette remains borderline enlarged. IMPRESSION: No significant change compared to the prior study. No acute process. ACT 112: Negative or not required by law. Electronically signed by: Alberto Lino M.D. 06/24/2022 11:[address] 06/24/22 10:21 CT OF THE HEAD WITHOUT CONTRAST CLINICAL HISTORY: Altered mental status. COMPARISON STUDY: Head CT June 08, 2022. CT DOSE: 1228.53 mGy.cm TECHNIQUE: Helical axial images of the head were obtained without IV contrast. Automated exposure control was utilized for the study. A dose lowering technique was utilized adhering to the principles of ALARA. FINDINGS: No acute intracranial hemorrhage, midline shift or mass effect is present. The ventricular system is unremarkable. The basal cisterns are patent. No extra-axial collections are present. There are no findings to suggest acute dural sinus thrombosis or acute territorial infarct. No significant calvarial abnormalities are present. Visualized portions of the sinuses and mastoid air cells are clear. IMPRESSION: No acute intracranial findings. ACT 112: Negative or not required by law. Electronically signed by: Pj Og M.D. 06/24/2022 11:22 AM Brain MRI 06/24/22 14:44 MRI OF THE BRAIN COMBO CLINICAL HISTORY: Weakness. Dementia. Headache. COMPARISON STUDY: CT of the brain dated 06/24/2022. TECHNIQUE: MRI of the brain was performed utilizing various T1 and T2-weighted sequences in the axial, sagittal, and coronal planes. Contrast-enhanced sequences were acquired following the administration of 9 cc of Gadavist. FINDINGS: Brain parenchyma: There is age-related involutional change noting mild to moderate subcortical and periventricular microangiopathic disease. There is no hemorrhage or mass effect. There is no restricted diffusion to suggest acute ischemia. No enhancing mass lesion is identified on the postcontrast images. Gonzalez-white matter differentiation is preserved. No extra-axial fluid collection is seen. The cerebellar tonsils are normal in configuration. Ventricles, sulci, and cisterns: Prominent significant delusional change. Pituitary and sella: Unremarkable. Intracranial vasculature: Normal flow voids are maintained at the skull base. Orbits: The bony orbits are grossly intact. Orbital contents are normal in appearance noting bilateral ocular lens implants. Sinuses and mastoids: Clear. Calvarium: Unremarkable. Cervical cord: Partially visualized cervical spinal cord is normal in morphology and signal intensity. IMPRESSION: No acute intracranial abnormality. ACT 112: Negative or not required by law. Electronically signed by: Josiah Contreras M.D. 06/24/2022 4:57 PM (1) Altered mental status Altered mental status type: unspecified Qualified Code(s): R41.82 - Altered mental status, unspecified
[2022-07-20] MEDS: ENOXAPARIN INJ 40 MG/0.4 ML SYR SQ SCH (18:13)
[2022-07-20] MEDS: ACETAMINOPHEN 325 MG TAB PO PRN (18:31)
[2022-07-20] MEDS: ZOLPIDEM TARTRATE 5 MG TAB PO PRN (20:51)
[2022-07-20] MEDS: ATORVASTATIN 10 MG TAB PO SCH (20:51)
[2022-07-21] MEDS: GABAPENTIN 300 MG CAP PO SCH ×3 (08:29→21:07)
[2022-07-21] MEDS: MEMANTINE HCL 5 MG TAB PO SCH ×2 (08:29→21:07)
[2022-07-21] MEDS: ACETAMINOPHEN 325 MG TAB PO PRN (08:29)
[2022-07-21] MEDS: ESCITALOPRAM OXALATE 10 MG TAB PO SCH (08:30)
[2022-07-21] MEDS: TAMSULOSIN HCL 0.4 MG CAP PO SCH (08:30)
[2022-07-21] MEDS: ASPIRIN 81 MG ECTAB PO SCH (08:30)
[2022-07-21] MEDS: METOPROLOL SUCC 25MG EXT REL TAB PO SCH (08:30)
[2022-07-21] MEDS: lisinopril 10 MG TAB PO SCH (08:31)
[2022-07-21] MEDS: DOCUSATE SODIUM 100 MG CAP PO SCH ×2 (08:31→21:06)
[2022-07-21] MEDS: PRESERVISION AREDS PO SCH ×2 (08:31→21:06)
[2022-07-21] MEDS: PSYLLIUM or GUAR GUM FIBER POWDER PACKET PO SCH (08:32)
[2022-07-21] MEDS: DICLOFENAC SOD 1% GEL 100 GM TUBE EXT SCH ×2 (08:32→21:07)
[2022-07-21] MEDS: LIDOCAINE 5% 1 PATCH TD SCH (08:35)
[2022-07-21] MEDS: FLUTICASONE/VILANTEROL 100/25MCG 14 PUFFS/INHALER INH SCH (09:49)
[2022-07-21 11:33] LABS: Creatinine Clr Calc Pharmacy 56.5 ml/min; Est GFR (Non-African American) 66.4 ml/min
--- NOTE | 2022-07-21 12:56 | Hospitalist Progress Note ---
Date of Service July 21, 2022 Assessment & Plan (1) Altered mental status: Plan: Now resolved. Likely due to baclofen he received at home MRI brain negative for acute stroke Baseline dementia and he is mentating at his baseline. Clinically stable Waiting for placement Denies back pain which was an earlier issue this admission. Continue monitor Outpatient hip x-ray shows osteoarthrosis As needed Tylenol Bowel Regimen Colace added with hold parameters (2) History of frequent headaches: (3) Dementia: Plan: pleasantly confused mood stable (4) History of CVA (cerebrovascular accident): Plan: chronic, stable. Cont medications for secondary prophylaxis including ASA and statin. (5) Chronic diastolic CHF (congestive heart failure): Plan: Appears euvolemic, continue home dose Lasix and Toprol (6) HTN (hypertension): Plan: BP controlled, continue lisinopril and metoprolol (7) BPH (benign prostatic hyperplasia): Plan: chronic, stable, making good urine. Continue tamsulosin per home regimen. (8) Mild persistent asthma: Plan: No signs of acute exacerbation, continue home inhalers (9) DVT prophylaxis: Plan: SQ Lovenox DNR/DNI Disposition-from home. does not feel comfortable taking him home. waiting for placement to [facility] Admission and Anticipated Discharge Date Admission Date: June 26, 2022 Subjective He complains of pain at back of the head; Tylenol given. Otherwise, he is comfortable; not in any distress. No overnight events. Review of Systems Review of Systems: All systems reviewed & are unremarkable except as noted in Subjective Physical Exam Physical Exam: CONSTITUTIONAL: WNWD, vitals as above, generally well- appearing, NAD EYES: normal conjunctivae, no scleral icterus ENT: external ear and nose normal, NECK: trachea midline, RESPIRATORY: clear to auscultation bilaterally, no crackles, rales or wheezes, normal respiratory effort CARDIOVASCULAR: regular rate and rhythm, S1 and 2 heard without murmurs, gallops or rubs, no JVD, no peripheral edema CHEST: inspection of chest was normal GASTROINTESTINAL: soft, nontender, ND, no guarding MUSCULOSKELETAL: strength 5/5 throughout, head is normocephalic and atraumatic SKIN: warm and dry NEUROLOGIC: CN 2-12 grossly intact, no sensory deficit, normal cognition, normal speech, no tremor PSYCHIATRIC: alert cooperative with exam. Pleasantly confused. Results & Data Results & Data ([facility]) Vital Signs (Past 12 Hours) Vital Signs Temp Pulse Resp BP Pulse Ox O2 Del Method 07/21/22 07:49 36.6 C 56 L 20 139/67 96 Room Air (1) Altered mental status Altered mental status type: unspecified Qualified Code(s): R41.82 - Altered mental status, unspecified
[2022-07-21] MEDS: ENOXAPARIN INJ 40 MG/0.4 ML SYR SQ SCH (18:24)
[2022-07-21] MEDS: ZOLPIDEM TARTRATE 5 MG TAB PO PRN (21:06)
[2022-07-21] MEDS: ATORVASTATIN 10 MG TAB PO SCH (21:07)
[2022-07-22] MEDS: GABAPENTIN 300 MG CAP PO SCH ×3 (08:47→20:15)
[2022-07-22] MEDS: PRESERVISION AREDS PO SCH ×2 (08:47→20:16)
[2022-07-22] MEDS: MEMANTINE HCL 5 MG TAB PO SCH ×2 (08:48→20:15)
[2022-07-22] MEDS: DOCUSATE SODIUM 100 MG CAP PO SCH ×2 (08:48→20:15)
[2022-07-22] MEDS: ASPIRIN 81 MG ECTAB PO SCH (08:48)
[2022-07-22] MEDS: lisinopril 10 MG TAB PO SCH (08:48)
[2022-07-22] MEDS: LIDOCAINE 5% 1 PATCH TD SCH (08:49)
[2022-07-22] MEDS: TAMSULOSIN HCL 0.4 MG CAP PO SCH (08:49)
[2022-07-22] MEDS: FUROSEMIDE 20 MG TAB PO SCH (08:49)
[2022-07-22] MEDS: DICLOFENAC SOD 1% GEL 100 GM TUBE EXT SCH ×2 (08:50→20:14)
[2022-07-22] MEDS: ESCITALOPRAM OXALATE 10 MG TAB PO SCH (08:50)
[2022-07-22] MEDS: PSYLLIUM or GUAR GUM FIBER POWDER PACKET PO SCH (08:50)
[2022-07-22] MEDS: FLUTICASONE/VILANTEROL 100/25MCG 14 PUFFS/INHALER INH SCH (08:50)
[2022-07-22] MEDS: METOPROLOL SUCC 25MG EXT REL TAB PO SCH (09:44)
--- NOTE | 2022-07-22 13:53 | Hospitalist Progress Note ---
Date of Service July 22, 2022 Assessment & Plan (1) Altered mental status: Plan: Now resolved. Likely due to baclofen he received at home MRI brain negative for acute stroke Baseline dementia and he is mentating at his baseline. Clinically stable Waiting for placement Denies back pain which was an earlier issue this admission. Continue monitor Outpatient hip x-ray shows osteoarthrosis As needed Tylenol Bowel Regimen Colace added with hold parameters (2) History of frequent headaches: (3) Dementia: Plan: pleasantly confused mood stable (4) History of CVA (cerebrovascular accident): Plan: chronic, stable. Cont medications for secondary prophylaxis including ASA and statin. (5) Chronic diastolic CHF (congestive heart failure): Plan: Appears euvolemic, continue home dose Lasix and Toprol (6) HTN (hypertension): Plan: BP controlled, continue lisinopril and metoprolol (7) BPH (benign prostatic hyperplasia): Plan: chronic, stable, making good urine. Continue tamsulosin per home regimen. (8) Mild persistent asthma: Plan: No signs of acute exacerbation, continue home inhalers (9) DVT prophylaxis: Plan: SQ Lovenox DNR/DNI Disposition-from home. does not feel comfortable taking him home. waiting for placement to [facility]. likely dc on monday. Admission and Anticipated Discharge Date Admission Date: June 26, 2022 Subjective Patient seen and examined at bedside. He is comfortably sitting up on the chair. Not in any distress Review of Systems Review of Systems: All systems reviewed & are unremarkable except as noted in Subjective Physical Exam Physical Exam: CONSTITUTIONAL: WNWD, vitals as above, generally well- appearing, NAD EYES: normal conjunctivae, no scleral icterus ENT: external ear and nose normal, NECK: trachea midline, RESPIRATORY: clear to auscultation bilaterally, no crackles, rales or wheezes, normal respiratory effort CARDIOVASCULAR: regular rate and rhythm, S1 and 2 heard without murmurs, gallops or rubs, no JVD, no peripheral edema CHEST: inspection of chest was normal GASTROINTESTINAL: soft, nontender, ND, no guarding MUSCULOSKELETAL: strength 5/5 throughout, head is normocephalic and atraumatic SKIN: warm and dry NEUROLOGIC: CN 2-12 grossly intact, no sensory deficit, normal cognition, normal speech, no tremor PSYCHIATRIC: alert cooperative with exam. Pleasantly confused. Results & Data Results & Data ([facility]) Vital Signs (Past 12 Hours) Vital Signs Temp Pulse Resp BP Pulse Ox O2 Del Method 07/22/22 07:35 36.6 C 55 L 16 131/78 98 Room Air (1) Altered mental status Altered mental status type: unspecified Qualified Code(s): R41.82 - Altered mental status, unspecified
[2022-07-22] MEDS: ENOXAPARIN INJ 40 MG/0.4 ML SYR SQ SCH (17:18)
[2022-07-22] MEDS: ATORVASTATIN 10 MG TAB PO SCH (20:14)
[2022-07-23] MEDS: LIDOCAINE 5% 1 PATCH TD SCH (08:01)
[2022-07-23] MEDS: PSYLLIUM or GUAR GUM FIBER POWDER PACKET PO SCH (08:01)
[2022-07-23] MEDS: FLUTICASONE/VILANTEROL 100/25MCG 14 PUFFS/INHALER INH SCH (08:01)
[2022-07-23] MEDS: DOCUSATE SODIUM 100 MG CAP PO SCH ×2 (08:02→19:51)
[2022-07-23] MEDS: lisinopril 10 MG TAB PO SCH (08:02)
[2022-07-23] MEDS: METOPROLOL SUCC 25MG EXT REL TAB PO SCH (08:02)
[2022-07-23] MEDS: DICLOFENAC SOD 1% GEL 100 GM TUBE EXT SCH ×2 (08:02→19:51)
[2022-07-23] MEDS: ASPIRIN 81 MG ECTAB PO SCH (08:02)
[2022-07-23] MEDS: PRESERVISION AREDS PO SCH ×2 (08:02→19:53)
[2022-07-23] MEDS: GABAPENTIN 300 MG CAP PO SCH ×3 (08:02→19:52)
[2022-07-23] MEDS: MEMANTINE HCL 5 MG TAB PO SCH ×2 (08:02→19:52)
[2022-07-23] MEDS: TAMSULOSIN HCL 0.4 MG CAP PO SCH (08:02)
[2022-07-23] MEDS: ESCITALOPRAM OXALATE 10 MG TAB PO SCH (08:02)
--- NOTE | 2022-07-23 11:53 | Hospitalist Progress Note ---
Date of Service July 23, 2022 Assessment & Plan (1) Altered mental status: Plan: Now resolved. Likely due to baclofen he received at home MRI brain negative for acute stroke Baseline dementia and he is mentating at his baseline. Clinically stable Denies back pain which was an earlier issue this admission. Continue monitor Outpatient hip x-ray shows osteoarthrosis As needed Tylenol Bowel Regimen Colace added with hold parameters (2) History of frequent headaches: (3) Dementia: Plan: pleasantly confused mood stable (4) History of CVA (cerebrovascular accident): Plan: chronic, stable. Cont medications for secondary prophylaxis including ASA and statin. (5) Chronic diastolic CHF (congestive heart failure): Plan: Appears euvolemic, continue home dose Lasix and Toprol (6) HTN (hypertension): Plan: BP controlled, continue lisinopril and metoprolol (7) BPH (benign prostatic hyperplasia): Plan: chronic, stable, making good urine. Continue tamsulosin per home regimen. (8) Mild persistent asthma: Plan: No signs of acute exacerbation, continue home inhalers (9) DVT prophylaxis: Plan: SQ Lovenox DNR/DNI Disposition-from home. does not feel comfortable taking him home. waiting for placement to [facility]. likely dc on monday. Admission and Anticipated Discharge Date Admission Date: June 26, 2022 Subjective Patient seen and examined at bedside. Comfortably sitting up on the bed eating breakfast. Denies chest pain, headache or dizziness. Review of Systems Review of Systems: All systems reviewed & are unremarkable except as noted in Subjective Physical Exam Physical Exam: CONSTITUTIONAL: WNWD, vitals as above, generally well- appearing, NAD EYES: normal conjunctivae, no scleral icterus ENT: external ear and nose normal, NECK: trachea midline, RESPIRATORY: clear to auscultation bilaterally, no crackles, rales or wheezes, normal respiratory effort CARDIOVASCULAR: regular rate and rhythm, S1 and 2 heard without murmurs, gallops or rubs, no JVD, no peripheral edema CHEST: inspection of chest was normal GASTROINTESTINAL: soft, nontender, ND, no guarding MUSCULOSKELETAL: strength 5/5 throughout, head is normocephalic and atraumatic SKIN: warm and dry NEUROLOGIC: CN 2-12 grossly intact, no sensory deficit, normal cognition, normal speech, no tremor PSYCHIATRIC: alert cooperative with exam. Pleasantly confused. Results & Data Results & Data ([facility]) Vital Signs (Past 12 Hours) Vital Signs Temp Pulse Resp BP Pulse Ox O2 Del Method 07/23/22 07:43 36.6 C 66 16 156/83 H 97 Room Air Laboratory Results Laboratory Results WBC 6.86 K/ul (4.8-10.8) 07/10/22 06:49 RBC 4.60 M/uL (4.63-6.08) L 07/10/22 06:49 Hgb 14.1 g/dl (14.0-18.0) 07/10/22 06:49 Hct 41.4 % (40.1-51.0) 07/10/22 06:49 MCV 90.0 fL (80.0-100.0) 07/10/22 06:49 MCH 30.7 pg (25.0-34.0) 07/10/22 06:49 MCHC 34.1 g/dL (32.0-36.0) 07/10/22 06:49 RDW Std Deviation 46.4 fL (36.4-46.3) H 07/10/22 06:49 RDW Coeff of Leeann 14.1 % (11.5-14.5) 07/10/22 06:49 Plt Count 176 K/uL (130-400) 07/10/22 06:49 MPV 10.1 fL (9.4-12.4) 07/10/22 06:49 Immature Gran % (Auto) 0.6 % 07/07/22 06:05 Neut % (Auto) 46.4 % 07/07/22 06:05 Lymph % (Auto) 39.4 % 07/07/22 06:05 [place] % (Auto) 9.9 % 07/07/22 06:05 Eos % (Auto) 2.8 % 07/07/22 06:05 Baso % (Auto) 0.9 % 07/07/22 06:05 Neut # (Auto) 2.98 K/uL (1.4-6.5) 07/07/22 06:05 Lymph # (Auto) 2.54 K/uL (1.2-3.4) 07/07/22 06:05 [place] # (Auto) 0.64 K/uL (0.24-0.82) 07/07/22 06:05 Eos # (Auto) 0.18 K/uL (0-0.50) 07/07/22 06:05 Baso # (Auto) 0.06 K/uL (0-0.2) 07/07/22 06:05 Immature Gran # (Auto) 0.04 K/uL (0.00-0.02) H 07/07/22 06:05 PT 10.9 Seconds (9.0-12.0) 06/24/22 10:34 INR 1.0 (0.9-1.1) 06/24/22 10:34 APTT 25.5 Seconds (21.0-31.0) 06/24/22 10:34 PTT Ratio 0.9 06/24/22 10:34 Sodium 137 mmol/L (136-145) 07/10/22 06:49 Potassium 4.3 mmol/L (3.5-5.1) 07/10/22 06:49 Chloride 104 mmol/L (98-107) 07/10/22 06:49 Carbon Dioxide 30 mmol/L (21-32) 07/10/22 06:49 Anion Gap 3 (3-11) 07/10/22 06:49 BUN 23 mg/dl (6-23) 07/10/22 06:49 Creatinine 1.06 mg/dl (0.6-1.4) 07/21/22 08:09 Est Cr Clr Drug Dosing 56.5 ml/min 07/21/22 08:09 Est GFR ( Amer) 77.0 ml/min 07/21/22 08:09 Est GFR (Non-Af Amer) 66.4 ml/min 07/21/22 08:09 BUN/Creatinine Ratio 24.2 (10-20) H 07/10/22 06:49 Glucose 93 mg/dl (70-99(Fasting)) 07/10/22 06:49 POC Glucose 99 mg/dl (70-99) 06/24/22 10:21 Estimat Average Glucose 111 mg/dl 06/25/22 08:46 Hemoglobin A1c 5.5 % (4.5-5.6) 06/25/22 08:46 Calcium 9.1 mg/dl (8.5-10.1) 07/10/22 06:49 Magnesium 2.0 mg/dl (1.7-2.4) 07/07/22 06:05 Total Bilirubin 1.1 mg/dl (0.2-1.0) H 06/24/22 10:34 AST 22 U/L (13-39) 06/24/22 10:34 ALT 28 U/L (7-52) 06/24/22 10:34 Alkaline Phosphatase 46 U/L (34-104) 06/24/22 10:34 Total Creatine Kinase 73 U/L (30-223) 06/24/22 10:34 Troponin I High Sens 4.6 pg/ml (0-20) 06/24/22 10:34 Total Protein 6.7 gm/dl (6.0-8.3) 06/24/22 10:34 Albumin 3.7 gm/dl (3.4-5.0) 06/24/22 10:34 Globulin 3.0 gm/dl (2.5-4.0) 06/24/22 10:34 Albumin/Globulin Ratio 1.2 (0.9-2) 06/24/22 10:34 Triglycerides 68 mg/dl (0-150) 06/25/22 08:46 Cholesterol 129 mg/dl (0-200) 06/25/22 08:46 LDL Cholesterol, Calc 51 mg/dl 06/25/22 08:46 VLDL Cholesterol, Calc 14 mg/dl (0-30) 06/25/22 08:46 HDL Cholesterol 64 mg/dl 06/25/22 08:46 Cholesterol/HDL Ratio 2.0 (0-5) 06/25/22 08:46 TSH 0.839 uIu/ml (0.300-4.500) 06/24/22 10:34 Urine Color Yellow 06/24/22 12:16 Urine Appearance Clear (Clear) 06/24/22 12:16 Urine pH 8.5 (4.5-7.5) H 06/24/22 12:16 Ur Specific [place] 1.010 (1.000-1.030) 06/24/22 12:16 Urine Protein Negative (Negative) 06/24/22 12:16 Urine Glucose (UA) Negative (Negative) 06/24/22 12:16 Urine Ketones Trace (Negative) H 06/24/22 12:16 Urine Blood Negative (Negative) 06/24/22 12:16 Urine Nitrite Negative (Negative) 06/24/22 12:16 Urine Bilirubin Negative (Negative) 06/24/22 12:16 Urine Urobilinogen Negative (Negative) 06/24/22 12:16 Ur Leukocyte Esterase Negative (Negative) 06/24/22 12:16 SARS-CoV-2, RNA, NAAT NEGATIVE (NEGATIVE) 06/24/22 12:30 Impressions Chest X-Ray 06/24/22 10:21 XR chest 1V portable HISTORY: weakness COMPARISON: Chest 05/19/2019. FINDINGS: Chronic postoperative changes again noted within the right hemithorax including calcification of the right basilar pleura. The left lung is clear. No pneumothorax. No pleural effusions. The cardiac silhouette remains borderline enlarged. IMPRESSION: No significant change compared to the prior study. No acute process. ACT 112: Negative or not required by law. Electronically signed by: Alberto Lino M.D. 06/24/2022 11:[address] 06/24/22 10:21 CT OF THE HEAD WITHOUT CONTRAST CLINICAL HISTORY: Altered mental status. COMPARISON STUDY: Head CT June 08, 2022. CT DOSE: 1228.53 mGy.cm TECHNIQUE: Helical axial images of the head were obtained without IV contrast. Automated exposure control was utilized for the study. A dose lowering technique was utilized adhering to the principles of ALARA. FINDINGS: No acute intracranial hemorrhage, midline shift or mass effect is present. The ventricular system is unremarkable. The basal cisterns are patent. No extra-axial collections are present. There are no findings to suggest acute dural sinus thrombosis or acute territorial infarct. No significant calvarial abnormalities are present. Visualized portions of the sinuses and mastoid air cells are clear. IMPRESSION: No acute intracranial findings. ACT 112: Negative or not required by law. Electronically signed by: Pj Og M.D. 06/24/2022 11:22 AM Brain MRI 06/24/22 14:44 MRI OF THE BRAIN COMBO CLINICAL HISTORY: Weakness. Dementia. Headache. COMPARISON STUDY: CT of the brain dated 06/24/2022. TECHNIQUE: MRI of the brain was performed utilizing various T1 and T2-weighted sequences in the axial, sagittal, and coronal planes. Contrast-enhanced sequences were acquired following the administration of 9 cc of Gadavist. FINDINGS: Brain parenchyma: There is age-related involutional change noting mild to moderate subcortical and periventricular microangiopathic disease. There is no hemorrhage or mass effect. There is no restricted diffusion to suggest acute ischemia. No enhancing mass lesion is identified on the postcontrast images. Gonzalez-white matter differentiation is preserved. No extra-axial fluid collection is seen. The cerebellar tonsils are normal in configuration. Ventricles, sulci, and cisterns: Prominent significant delusional change. Pituitary and sella: Unremarkable. Intracranial vasculature: Normal flow voids are maintained at the skull base. Orbits: The bony orbits are grossly intact. Orbital contents are normal in appearance noting bilateral ocular lens implants. Sinuses and mastoids: Clear. Calvarium: Unremarkable. Cervical cord: Partially visualized cervical spinal cord is normal in morphology and signal intensity. IMPRESSION: No acute intracranial abnormality. ACT 112: Negative or not required by law. Electronically signed by: Jsoiah Contreras M.D. 06/24/2022 4:57 PM (1) Altered mental status Altered mental status type: unspecified Qualified Code(s): R41.82 - Altered mental status, unspecified
[2022-07-23] MEDS: ENOXAPARIN INJ 40 MG/0.4 ML SYR SQ SCH (17:55)
[2022-07-23] MEDS: ATORVASTATIN 10 MG TAB PO SCH (19:51)
[2022-07-24 07:30] LABS: Est GFR (African American) 76.1 ml/min; Est GFR (Non-African American) 65.7 ml/min
[2022-07-24] MEDS: FUROSEMIDE 20 MG TAB PO SCH (08:20)
[2022-07-24] MEDS: DICLOFENAC SOD 1% GEL 100 GM TUBE EXT SCH ×2 (08:20→19:54)
[2022-07-24] MEDS: DOCUSATE SODIUM 100 MG CAP PO SCH ×2 (08:20→19:53)
[2022-07-24] MEDS: MEMANTINE HCL 5 MG TAB PO SCH ×2 (08:20→23:52)
[2022-07-24] MEDS: lisinopril 10 MG TAB PO SCH (08:20)
[2022-07-24] MEDS: GABAPENTIN 300 MG CAP PO SCH ×2 (08:20→14:03)
[2022-07-24] MEDS: ASPIRIN 81 MG ECTAB PO SCH (08:20)
[2022-07-24] MEDS: PSYLLIUM or GUAR GUM FIBER POWDER PACKET PO SCH (08:20)
[2022-07-24] MEDS: ESCITALOPRAM OXALATE 10 MG TAB PO SCH (08:20)
[2022-07-24] MEDS: TAMSULOSIN HCL 0.4 MG CAP PO SCH (08:20)
[2022-07-24] MEDS: FLUTICASONE/VILANTEROL 100/25MCG 14 PUFFS/INHALER INH SCH (08:21)
[2022-07-24] MEDS: PRESERVISION AREDS PO SCH ×2 (08:21→19:54)
[2022-07-24] MEDS: METOPROLOL SUCC 25MG EXT REL TAB PO SCH (08:21)
[2022-07-24] MEDS: LIDOCAINE 5% 1 PATCH TD SCH (08:21)
--- NOTE | 2022-07-24 12:13 | Hospitalist Progress Note ---
Date of Service July 24, 2022 Assessment & Plan (1) Altered mental status: Plan: Now resolved. Likely due to baclofen he received at home MRI brain negative for acute stroke Baseline dementia and he is mentating at his baseline. Clinically stable Denies back pain which was an earlier issue this admission. Continue monitor Outpatient hip x-ray shows osteoarthrosis As needed Tylenol Bowel Regimen Colace added with hold parameters (2) History of frequent headaches: (3) Dementia: Plan: pleasantly confused mood stable (4) History of CVA (cerebrovascular accident): Plan: chronic, stable. Cont medications for secondary prophylaxis including ASA and statin. (5) Chronic diastolic CHF (congestive heart failure): Plan: Appears euvolemic, continue home dose Lasix and Toprol (6) HTN (hypertension): Plan: BP controlled, continue lisinopril and metoprolol (7) BPH (benign prostatic hyperplasia): Plan: chronic, stable, making good urine. Continue tamsulosin per home regimen. (8) Mild persistent asthma: Plan: No signs of acute exacerbation, continue home inhalers (9) DVT prophylaxis: Plan: SQ Lovenox DNR/DNI Disposition-from home. does not feel comfortable taking him home. waiting for placement to [facility]. likely dc on monday. Admission and Anticipated Discharge Date Admission Date: June 26, 2022 Subjective Patient seen and examined at bedside. No overnight events. No complains of fever, chills, chest pain, shortness of breath. Review of Systems Review of Systems: All systems reviewed & are unremarkable except as noted in Subjective Physical Exam Physical Exam: CONSTITUTIONAL: WNWD, vitals as above, generally well- appearing, NAD EYES: normal conjunctivae, no scleral icterus ENT: external ear and nose normal, NECK: trachea midline, RESPIRATORY: clear to auscultation bilaterally, no crackles, rales or wheezes, normal respiratory effort CARDIOVASCULAR: regular rate and rhythm, S1 and 2 heard without murmurs, gallops or rubs, no JVD, no peripheral edema CHEST: inspection of chest was normal GASTROINTESTINAL: soft, nontender, ND, no guarding MUSCULOSKELETAL: strength 5/5 throughout, head is normocephalic and atraumatic SKIN: warm and dry NEUROLOGIC: CN 2-12 grossly intact, no sensory deficit, normal cognition, normal speech, no tremor PSYCHIATRIC: alert cooperative with exam. Pleasantly confused. Results & Data Results & Data ([facility]) Vital Signs (Past 12 Hours) Vital Signs Temp Pulse Resp BP Pulse Ox O2 Del Method 07/24/22 07:45 36.5 C 64 16 114/71 96 Room Air 07/24/22 01:49 64 18 137/88 96 Room Air Laboratory Results Laboratory Results WBC 6.86 K/ul (4.8-10.8) 07/10/22 06:49 RBC 4.60 M/uL (4.63-6.08) L 07/10/22 06:49 Hgb 14.1 g/dl (14.0-18.0) 07/10/22 06:49 Hct 41.4 % (40.1-51.0) 07/10/22 06:49 MCV 90.0 fL (80.0-100.0) 07/10/22 06:49 MCH 30.7 pg (25.0-34.0) 07/10/22 06:49 MCHC 34.1 g/dL (32.0-36.0) 07/10/22 06:49 RDW Std Deviation 46.4 fL (36.4-46.3) H 07/10/22 06:49 RDW Coeff of Leeann 14.1 % (11.5-14.5) 07/10/22 06:49 Plt Count 176 K/uL (130-400) 07/10/22 06:49 MPV 10.1 fL (9.4-12.4) 07/10/22 06:49 Immature Gran % (Auto) 0.6 % 07/07/22 06:05 Neut % (Auto) 46.4 % 07/07/22 06:05 Lymph % (Auto) 39.4 % 07/07/22 06:05 [place] % (Auto) 9.9 % 07/07/22 06:05 Eos % (Auto) 2.8 % 07/07/22 06:05 Baso % (Auto) 0.9 % 07/07/22 06:05 Neut # (Auto) 2.98 K/uL (1.4-6.5) 07/07/22 06:05 Lymph # (Auto) 2.54 K/uL (1.2-3.4) 07/07/22 06:05 [place] # (Auto) 0.64 K/uL (0.24-0.82) 07/07/22 06:05 Eos # (Auto) 0.18 K/uL (0-0.50) 07/07/22 06:05 Baso # (Auto) 0.06 K/uL (0-0.2) 07/07/22 06:05 Immature Gran # (Auto) 0.04 K/uL (0.00-0.02) H 07/07/22 06:05 PT 10.9 Seconds (9.0-12.0) 06/24/22 10:34 INR 1.0 (0.9-1.1) 06/24/22 10:34 APTT 25.5 Seconds (21.0-31.0) 06/24/22 10:34 PTT Ratio 0.9 06/24/22 10:34 Sodium 137 mmol/L (136-145) 07/10/22 06:49 Potassium 4.3 mmol/L (3.5-5.1) 07/10/22 06:49 Chloride 104 mmol/L (98-107) 07/10/22 06:49 Carbon Dioxide 30 mmol/L (21-32) 07/10/22 06:49 Anion Gap 3 (3-11) 07/10/22 06:49 BUN 23 mg/dl (6-23) 07/10/22 06:49 Creatinine 1.07 mg/dl (0.6-1.4) 07/24/22 05:22 Est Cr Clr Drug Dosing 56.0 ml/min 07/24/22 05:22 Est GFR ( Amer) 76.1 ml/min 07/24/22 05:22 Est GFR (Non-Af Amer) 65.7 ml/min 07/24/22 05:22 BUN/Creatinine Ratio 24.2 (10-20) H 07/10/22 06:49 Glucose 93 mg/dl (70-99(Fasting)) 07/10/22 06:49 POC Glucose 99 mg/dl (70-99) 06/24/22 10:21 Estimat Average Glucose 111 mg/dl 06/25/22 08:46 Hemoglobin A1c 5.5 % (4.5-5.6) 06/25/22 08:46 Calcium 9.1 mg/dl (8.5-10.1) 07/10/22 06:49 Magnesium 2.0 mg/dl (1.7-2.4) 07/07/22 06:05 Total Bilirubin 1.1 mg/dl (0.2-1.0) H 06/24/22 10:34 AST 22 U/L (13-39) 06/24/22 10:34 ALT 28 U/L (7-52) 06/24/22 10:34 Alkaline Phosphatase 46 U/L (34-104) 06/24/22 10:34 Total Creatine Kinase 73 U/L (30-223) 06/24/22 10:34 Troponin I High Sens 4.6 pg/ml (0-20) 06/24/22 10:34 Total Protein 6.7 gm/dl (6.0-8.3) 06/24/22 10:34 Albumin 3.7 gm/dl (3.4-5.0) 06/24/22 10:34 Globulin 3.0 gm/dl (2.5-4.0) 06/24/22 10:34 Albumin/Globulin Ratio 1.2 (0.9-2) 06/24/22 10:34 Triglycerides 68 mg/dl (0-150) 06/25/22 08:46 Cholesterol 129 mg/dl (0-200) 06/25/22 08:46 LDL Cholesterol, Calc 51 mg/dl 06/25/22 08:46 VLDL Cholesterol, Calc 14 mg/dl (0-30) 06/25/22 08:46 HDL Cholesterol 64 mg/dl 06/25/22 08:46 Cholesterol/HDL Ratio 2.0 (0-5) 06/25/22 08:46 TSH 0.839 uIu/ml (0.300-4.500) 06/24/22 10:34 Urine Color Yellow 06/24/22 12:16 Urine Appearance Clear (Clear) 06/24/22 12:16 Urine pH 8.5 (4.5-7.5) H 06/24/22 12:16 Ur Specific [place] 1.010 (1.000-1.030) 06/24/22 12:16 Urine Protein Negative (Negative) 06/24/22 12:16 Urine Glucose (UA) Negative (Negative) 06/24/22 12:16 Urine Ketones Trace (Negative) H 06/24/22 12:16 Urine Blood Negative (Negative) 06/24/22 12:16 Urine Nitrite Negative (Negative) 06/24/22 12:16 Urine Bilirubin Negative (Negative) 06/24/22 12:16 Urine Urobilinogen Negative (Negative) 06/24/22 12:16 Ur Leukocyte Esterase Negative (Negative) 06/24/22 12:16 SARS-CoV-2, RNA, NAAT NEGATIVE (NEGATIVE) 06/24/22 12:30 Impressions Chest X-Ray 06/24/22 10:21 XR chest 1V portable HISTORY: weakness COMPARISON: Chest 05/19/2019. FINDINGS: Chronic postoperative changes again noted within the right hemithorax including calcification of the right basilar pleura. The left lung is clear. No pneumothorax. No pleural effusions. The cardiac silhouette remains borderline enlarged. IMPRESSION: No significant change compared to the prior study. No acute process. ACT 112: Negative or not required by law. Electronically signed by: Alberto Lino M.D. 06/24/2022 11:[address] 06/24/22 10:21 CT OF THE HEAD WITHOUT CONTRAST CLINICAL HISTORY: Altered mental status. COMPARISON STUDY: Head CT June 08, 2022. CT DOSE: 1228.53 mGy.cm TECHNIQUE: Helical axial images of the head were obtained without IV contrast. Automated exposure control was utilized for the study. A dose lowering technique was utilized adhering to the principles of ALARA. FINDINGS: No acute intracranial hemorrhage, midline shift or mass effect is present. The ventricular system is unremarkable. The basal cisterns are patent. No extra-axial collections are present. There are no findings to suggest acute dural sinus thrombosis or acute territorial infarct. No significant calvarial abnormalities are present. Visualized portions of the sinuses and mastoid air cells are clear. IMPRESSION: No acute intracranial findings. ACT 112: Negative or not required by law. Electronically signed by: Pj Og M.D. 06/24/2022 11:22 AM Brain MRI 06/24/22 14:44 MRI OF THE BRAIN COMBO CLINICAL HISTORY: Weakness. Dementia. Headache. COMPARISON STUDY: CT of the brain dated 06/24/2022. TECHNIQUE: MRI of the brain was performed utilizing various T1 and T2-weighted sequences in the axial, sagittal, and coronal planes. Contrast-enhanced sequences were acquired following the administration of 9 cc of Gadavist. FINDINGS: Brain parenchyma: There is age-related involutional change noting mild to moderate subcortical and periventricular microangiopathic disease. There is no hemorrhage or mass effect. There is no restricted diffusion to suggest acute ischemia. No enhancing mass lesion is identified on the postcontrast images. Gonzalez-white matter differentiation is preserved. No extra-axial fluid collection is seen. The cerebellar tonsils are normal in configuration. Ventricles, sulci, and cisterns: Prominent significant delusional change. Pituitary and sella: Unremarkable. Intracranial vasculature: Normal flow voids are maintained at the skull base. Orbits: The bony orbits are grossly intact. Orbital contents are normal in appearance noting bilateral ocular lens implants. Sinuses and mastoids: Clear. Calvarium: Unremarkable. Cervical cord: Partially visualized cervical spinal cord is normal in morphology and signal intensity. IMPRESSION: No acute intracranial abnormality. ACT 112: Negative or not required by law. Electronically signed by: Josiah Contreras M.D. 06/24/2022 4:57 PM (1) Altered mental status Altered mental status type: unspecified Qualified Code(s): R41.82 - Altered mental status, unspecified
[2022-07-24] MEDS ORDERED: GABAPENTIN 300 MG CAP PO STA (22:45)
[2022-07-25 06:23] LABS: Basophils # (auto) 0.04 K/uL (0-0.2); Basophils % (auto) 0.6 %; Eosinophils # (auto) 0.21 K/uL (0-0.50); Eosinophils % (auto) 3.1 %; Hemoglobin 13.2 g/dl (14.0-18.0); Immature Granulocytes # (auto) 0.04 K/uL (0.01-0.20); Immature Granulocytes % (auto) 0.6 %; Lymphocytes # (auto) 2.91 K/uL (1.2-3.4); Lymphocytes % (auto) 43.1 %; Mean Corpuscular Hemoglobin 30.6 pg (25.0-34.0); Mean Corpuscular Hgb Conc 33.8 g/dL (32.0-36.0); Mean Corpuscular Volume 90.3 fL (80.0-100.0); Mean Platelet Volume 10.9 fL (9.4-12.4); Monocytes # (auto) 0.56 K/uL (0.11-0.59); Monocytes % (auto) 8.3 %; Neutrophils # (auto) 2.99 K/uL (1.40-6.50); Neutrophils % (auto) 44.3 %; Platelet Count 171 K/uL (130-400); RDW Coefficient of Variation 14.1 % (11.5-14.5); RDW Standard Deviation 47.2 fL (36.4-46.3); Red Blood Count 4.32 M/uL (4.70-6.10); White Blood Count 6.75 K/ul (4.8-10.8)
[2022-07-25 06:42] LABS: Albumin Globulin Ratio 1.5 (0.9-2); Albumin Level 3.5 gm/dl (3.4-5.0); BUN Creatinine Ratio 19.2 (10-20); Bilirubin,Total 0.7 mg/dl (0.2-1.0); Calcium 9.2 mg/dl (8.5-10.1); Creatinine Clr Calc Pharmacy 57.6 ml/min; Est GFR (African American) 78.8 ml/min; Globulin 2.4 gm/dl (2.5-4.0); Potassium 4.3 mmol/L (3.5-5.1); Total Protein 5.9 gm/dl (6.0-8.3)
[2022-07-25] MEDS: DICLOFENAC SOD 1% GEL 100 GM TUBE EXT SCH (08:54)
[2022-07-25] MEDS: DOCUSATE SODIUM 100 MG CAP PO SCH (08:55)
[2022-07-25] MEDS: MEMANTINE HCL 5 MG TAB PO SCH (08:55)
[2022-07-25] MEDS: PRESERVISION AREDS PO SCH (08:56)
[2022-07-25] MEDS: PSYLLIUM or GUAR GUM FIBER POWDER PACKET PO SCH (08:56)
[2022-07-25] MEDS: LIDOCAINE 5% 1 PATCH TD SCH (08:56)
[2022-07-25] MEDS ORDERED: GABAPENTIN 300 MG CAP PO SCH (09:00)
[2022-07-25] MEDS ORDERED: ENOXAPARIN INJ 40 MG/0.4 ML SYR SQ SCH ×2 (09:00→18:00)
--- NOTE | 2022-07-25 10:03 | Discharge Summary ---
Discharge Summary Date of Service July 25, 2022 Notes For Next Care Provider Pt admitted for Altered Mental Status 2/2 initiation of baclofen for frequent headaches. This was discontinued and symptoms resolved. Hx of CVA therefore MRI was ordered and negative for acute stroke. He does have hx of CVA and therefore does have some residual expressive aphasia. Medication Changes From Visit Discontinue Baclofen. Start bowel regimen colace 100mg twice daily. Admission HPI Per Admitting Provider 81-year-old male with PMH dementia, history of frequent headaches, chronic diastolic CHF, mild persistent asthma, BPH, HLD, and other problems listed below who presents to the ED for evaluation of altered mental status. Patient with history of frequent ice pick type headaches, typically managed with gabapentin. Patient seen in ED on 06/08 for worsening of headaches. Patient was given OTC medication with improvement in symptoms. Patient's is at the bedside who provides some history due to patient's current altered mental status and dementia. History also obtained by review of outpatient records. Patient seen at PCPs office on 06/22 for ER follow-up and reports of increased frequency of headaches. Patient was started on baclofen for suspected tension-like headache. reports the patient has had 3 doses of baclofen since that, last dose being this morning. This morning when the patient woke up he reported to his that he was having a headache so she gave him a dose of Motrin and baclofen. Shortly after, she reports the patient did not recognize who she was and the patient would not get dressed. These are both very unusual for him. There was no unilateral weakness or facial droop noted. reports history of CVA with some baseline difficulty with speech. feels as though this is slightly worse than normal. No other recent illnesses, fevers, chills. Denies abdominal pain, nausea, vomiting, diarrhea. No urinary symptoms. In the ED, patient is hemodynamically stable. Labs are unremarkable. Head CT is negative for acute findings. Patient was given IVF. Principal Dx & Hospital Course #1 = Principal Diagnosis (1) Altered mental status: This is a 81-year-old male who has significant past medical history of dementia, history of CVA, chronic diastolic CHF, HTN, BPH, mild persistent asthma and headaches who presented to ER secondary to altered mental status. He also had worsened speech difficulty/expressive aphasia from baseline. Prior to admission he was started on baclofen 2 days prior due to frequent, recurrent ice pick type headaches. It was felt that his symptoms were likely due to baclofen and this was discontinued. His altered mental status resolved. He did undergo MRI to rule out acute CVA which was negative. During his hospitalization he did have back pain that was felt to be musculoskeletal in nature. He was treated conservatively with lidocaine patch and Tylenol. Outpatient hip x-rays were reviewed which showed osteoarthrosis. Overall this improved. He did develop constipation which was resolved with twice daily Colace. His chronic medical conditions remained stable throughout hospitalization including diastolic CHF, HTN, BPH and mild persistent asthma. In regards to his dementia his mood and behaviors remain stable. There is no significant change to medical regimen except discontinuation of baclofen and the addition of Colace twice daily. On day of discharge she was in good spirits without any acute concerns. He denied any current pain. He was ready and anticipating being discharged. He was hemodynamically stable and blood pressure was 151/83. did not feel co mfortable taking patient home and he remained hospitalized until a bed became available at [facility] for halfway resident. (2) History of frequent headaches: (3) Dementia: (4) History of CVA (cerebrovascular accident): (5) Chronic diastolic CHF (congestive heart failure): (6) HTN (hypertension): (7) BPH (benign prostatic hyperplasia): (8) Mild persistent asthma: (9) DVT prophylaxis: Discharge Exam Gen: Tall, elderly M, sitting up in bed, WD/WN, NAD, A&O x 2 HEENT: Normocephalic, atraumatic, conjunctivae moist, sclerae anicteric, mucous membranes moist. Lung: Clear to Auscultation bilaterally, no wheezes/rales/rhonchi Heart: Regular rate, regular rhythm, no murmurs, rubs, or gallops Abdomen: Soft, NT, ND +BS x 4 Extremities: No edema Skin: Warm, no rash, negative turgor. Neuro: noted expressive aphasia Updated Medication List Medication Instructions Recorded Confirmed Type atorvastatin 10 mg tablet (Lipitor) 10 mg PO HS 05/19/19 06/24/22 History gabapentin 100 mg capsule 300 mg PO TID Dizziness and 05/19/19 06/24/22 History (Neurontin) Headaches metoprolol succinate 25 mg 12.5 mg PO QAM 05/19/19 06/24/22 History tablet,extended release 24 hr (Toprol XL) omega 2-fhj-rbl-fish oil 1,000 mg 1 cap PO QAM 05/19/19 06/24/22 History (120 mg-180 mg) capsule (Fish Oil) vitamins A,C,Z-carx-wofjxj 2,148 1 tab PO BID 05/19/19 06/24/22 History mcg-113 mg-45 mg-17.4 mg tablet (PreserVision AREDS) furosemide 20 mg tablet (Lasix) 20 mg PO Q2D 04/08/21 06/24/22 History lisinopril 10 mg tablet (Zestril) 10 mg PO QAM 04/08/21 06/24/22 History memantine 5 mg tablet (Namenda) 5 mg PO BID 04/08/21 06/24/22 History tamsulosin 0.4 mg capsule (Flomax) 0.4 mg PO QAM 04/08/21 06/24/22 History aspirin 81 mg tablet,delayed 81 mg PO DAILY 06/24/22 06/24/22 History release (Ecotrin Low Strength) escitalopram oxalate 10 mg tablet 10 mg PO DAILY 06/24/22 06/24/22 History fluticasone 100 mcg-salmeterol 50 1 inh inhalation BID 06/24/22 06/24/22 History mcg/dose blistr powdr for inhalation (Wixela Inhub) lysine 1,000 mg tablet 1,000 mg PO DAILY 06/24/22 06/24/22 History multivitamin 1 tab PO QAM 06/24/22 06/24/22 History docusate sodium 100 mg capsule 100 mg PO BID #20 caps 07/25/22 Rx Hospital Stay Data Consultations 06/24/22 13:57 ED Decision to Admit Stat Diagnostic Imagining Performed Chest X-Ray 06/24/22 10:21 XR chest 1V portable HISTORY: weakness COMPARISON: Chest 05/19/2019. FINDINGS: Chronic postoperative changes again noted within the right hemithorax including calcification of the right basilar pleura. The left lung is clear. No pneumothorax. No pleural effusions. The cardiac silhouette remains borderline enlarged. IMPRESSION: No significant change compared to the prior study. No acute process. ACT 112: Negative or not required by law. Electronically signed by: Alberto Lino M.D. 06/24/2022 11:[address] 06/24/22 10:21 CT OF THE HEAD WITHOUT CONTRAST CLINICAL HISTORY: Altered mental status. COMPARISON STUDY: Head CT June 08, 2022. CT DOSE: 1228.53 mGy.cm TECHNIQUE: Helical axial images of the head were obtained without IV contrast. Automated exposure control was utilized for the study. A dose lowering technique was utilized adhering to the principles of ALARA. FINDINGS: No acute intracranial hemorrhage, midline shift or mass effect is present. The ventricular system is unremarkable. The basal cisterns are patent. No extra-axial collections are present. There are no findings to suggest acute dural sinus thrombosis or acute territorial infarct. No significant calvarial abnormalities are present. Visualized portions of the sinuses and mastoid air cells are clear. IMPRESSION: No acute intracranial findings. ACT 112: Negative or not required by law. Electronically signed by: Pj Og M.D. 06/24/2022 11:22 AM Brain MRI 06/24/22 14:44 MRI OF THE BRAIN COMBO CLINICAL HISTORY: Weakness. Dementia. Headache. COMPARISON STUDY: CT of the brain dated 06/24/2022. TECHNIQUE: MRI of the brain was performed utilizing various T1 and T2-weighted sequences in the axial, sagittal, and coronal planes. Contrast-enhanced sequences were acquired following the administration of 9 cc of Gadavist. FINDINGS: Brain parenchyma: There is age-related involutional change noting mild to moderate subcortical and periventricular microangiopathic disease. There is no h emorrhage or mass effect. There is no restricted diffusion to suggest acute ischemia. No enhancing mass lesion is identified on the postcontrast images. Gonzalez-white matter differentiation is preserved. No extra-axial fluid collection is seen. The cerebellar tonsils are normal in configuration. Ventricles, sulci, and cisterns: Prominent significant delusional change. Pituitary and sella: Unremarkable. Intracranial vasculature: Normal flow voids are maintained at the skull base. Orbits: The bony orbits are grossly intact. Orbital contents are normal in appearance noting bilateral ocular lens implants. Sinuses and mastoids: Clear. Calvarium: Unremarkable. Cervical cord: Partially visualized cervical spinal cord is normal in morphology and signal intensity. IMPRESSION: No acute intracranial abnormality. ACT 112: Negative or not required by law. Electronically signed by: Josiah Contreras M.D. 06/24/2022 4:57 PM Pending Results Patient Have Any Pending Studies at Discharge: No Discharge Instructions Given to Patient (Per Discharging Provider) MEDICATION CHANGES: Stop Baclofen and recommend avoid mood altering medications. Recommend Docusate sodium 100mg twice daily to promote bowel habits. SUMMARY OF TEST RESULTS: You were hospitalized secondary to confusion. It was felt this was secondary to the medication Baclofen, which has since been resolved. During hospital stay you developed Back Pain which was felt to be musculoskeletal. This was treated conservative with Lidocaine patch and Tylenol. You also required twice daily stool softener to promote bowel habits. Chronic Medical conditions including Chronic Heart failure, High blood pressure, History of Stroke, Asthma remained stable throughout hospitalization. PENDING TEST RESULTS: None RECOMMENDATIONS FOR FOLLOW-UP: Follow up with Provider at [facility]. Recommend CBC, BMP in 1 week. Recommend twice daily stool softener, hold for loose stools. OTHER INSTRUCTIONS: Seek medical attention if you have: * temperature above 101 * chest pain or trouble breathing * abdominal pain, nausea, vomiting * diarrhea, dark stools or bloody stools * any unanswered questions or concerns Call 911 if symptoms are severe. Please take good care of yourself. It has been a pleasure taking care of you. Please take care of yourself. If you have any questions regarding your recent hospitalization please contact [facility] and request [facility] @ [phone]. Total Time Total Time Spent Total Time Spent (In Minutes): 45 minutes Supervising Physician Co-Signing Physician Notes I have seen and examined the patient and have discussed the case with the provider above. I agree with the assessment and plan and exam as stated. Patient seen and examined. He is doing well today without complaints. No changes overall, cont current medical therapy, DC baclofen on DC.
[2022-07-25] MEDS ORDERED: ATORVASTATIN 10 MG TAB PO SCH (21:00)
== END 2022-07-25 11:05 | DRG 948 ==
LOC: EDINP 09:53 → ED 09:53 → 2W 16:22 → SUATTDRO 06-26 13:34 → 3N 06-26 16:18

== ENCOUNTER 2022-12-24 21:39 | Inpatient (IN) ==
--- NOTE | 2022-12-24 22:24 | Emergency Department Note ---
History of Present Illness General Chief complaint: Fall Stated complaint: FALL/BROKEN HIP? Time Seen by Provider: 12/24/22 21:47 History of Present Illness This 82-year-old [facility] with dementia who fell and has an obvious hip fracture. Patient is demented and history is obtained from EMS. Patient apparently fell and was brought in. Home Medications Medication Instructions Recorded Confirmed Type atorvastatin 10 mg tablet (Lipitor) 10 mg PO HS 05/19/19 12/24/22 History metoprolol succinate 25 mg 12.5 mg PO QAM 05/19/19 12/24/22 History tablet,extended release 24 hr (Toprol XL) omega 3-scg-yvq-fish oil 1,000 mg 1 cap PO QAM 05/19/19 12/24/22 History (120 mg-180 mg) capsule (Fish Oil) vitamins A,C,C-qciz-bxtzok 2,148 1 tab PO BIDM 05/19/19 12/24/22 History mcg-113 mg-45 mg-17.4 mg tablet (PreserVision AREDS) furosemide 20 mg tablet (Lasix) 20 mg PO Q OTHER DAY 04/08/21 12/24/22 History lisinopril 10 mg tablet (Zestril) 10 mg PO QAM 04/08/21 12/24/22 History memantine 5 mg tablet (Namenda) 5 mg PO BID 04/08/21 12/24/22 History tamsulosin 0.4 mg capsule (Flomax) 0.4 mg PO HS 04/08/21 12/24/22 History escitalopram oxalate 10 mg tablet 10 mg PO DAILY 06/24/22 12/24/22 History fluticasone 100 mcg-salmeterol 50 1 inh inhalation BIDM 06/24/22 12/24/22 History mcg/dose blistr powdr for inhalation (Wixela Inhub) lysine 1,000 mg tablet 1,000 mg PO DAILY 06/24/22 12/24/22 History multivitamin 1 tab PO QAM 06/24/22 12/24/22 History Abh Gel 1 applic topical BID 12/24/22 12/24/22 History acetaminophen 325 mg tablet 650 mg PO Q6H PRN TEMP >100/PAIN 12/24/22 12/24/22 History (Tylenol) carboxymethylcellulose sodium 1 % 2 drp ophthalmic (eye) TID 12/24/22 12/24/22 History eye drops (Artificial Tears (carboxymethylcellulose)) fluticasone propionate 50 2 spray intranasal DAILY 12/24/22 12/24/22 History mcg/actuation nasal spray,suspension gabapentin 300 mg capsule 300 mg PO TID 12/24/22 12/24/22 History haloperidol lactate 5 mg/mL 5 mg IM Q6H PRN BPSD 12/24/22 12/24/22 History injection solution lidocaine 4 % topical patch 1 patch topical DAILY 12/24/22 12/24/22 History magnesium oxide 400 mg PO DAILY 12/24/22 12/24/22 History psyllium 1 packet PO QAM 12/24/22 12/24/22 History riboflavin (vitamin B2) 400 mg 400 mg PO DAILY 12/24/22 12/24/22 History tablet sennosides 8.6 mg-docusate sodium 1 tab-cap PO BID 12/24/22 12/24/22 History 50 mg tablet (Senokot-S) Allergies Allergy/AdvReac Type Severity Reaction Status Date / Time No Known Allergies Allergy Verified 12/24/22 23:07 Past Med/Surg History Medical History BPH (benign prostatic hyperplasia) Chronic diastolic CHF (congestive heart failure) Closed fracture of right hip S/p repair Dementia History of CVA (cerebrovascular accident) History of frequent headaches HLD (hyperlipidemia) HTN (hypertension) Mild persistent asthma Surgical History History of hemorrhoidectomy History of lobectomy of lung Right middle lobe lobectomy 1983, benign History of transurethral resection of prostate Family History Father Cancer Neck and brain Sister Stroke Social History Smoking Status: Unknown if ever smoked Cigarettes Per Day: 2; Second Hand Exposure: No; Do You Dip or Chew Tobacco: No; Hx Alcohol Use: Yes Alcohol type: hard liquor Alcohol Intake Frequency Comment: 1 2oz shot mixed drink daily Hx Substance Use: No Preferred Language: Serbian Communication Ability: Impaired Odd Jobs Day Worker Required: No Beliefs That Will Affect Care: None marital status: Current Living Situation: Spouse Feels Safe at Home: Yes Assistive Devices: Cane, Glasses and Raised Toilet Seat Review of Systems A total of 10 systems reviewed and were otherwise negative Physical Exam Vital Signs Vital Signs - 24 hr 12/24/22 21:41 12/24/22 22:40 12/24/22 22:01 Temperature 37.0 C Temperature Source Axillary Pulse Rate 83 81 Pulse Rate [Finger] 84 Respiratory Rate 15 22 22 Respiratory Effort / Characteristics Non-Labored Non-Labored Respiratory Depth Normal Normal Blood Pressure 169/88 H 142/75 H Blood Pressure [Right Arm] 144/70 H Blood Pressure Mean 115 97 Blood Pressure Mean [Right Arm] 94 Pulse Oximetry 96 92 96 Oxygen Delivery Method Room Air Room Air Sepsis Recent Fever Within 48 Hours No Sepsis New/Unexplained Change in Mental Status No Sepsis Action Taken by Nursing No Action Required 12/24/22 22:30 12/24/22 23:00 12/24/22 23:30 Temperature Temperature Source Pulse Rate 81 84 87 Pulse Rate [Finger] Respiratory Rate 22 24 17 Respiratory Effort / Characteristics Respiratory Depth Blood Pressure 144/70 H 132/72 132/74 Blood Pressure [Right Arm] Blood Pressure Mean 94 92 93 Blood Pressure Mean [Right Arm] Pulse Oximetry 91 93 93 Oxygen Delivery Method Sepsis Recent Fever Within 48 Hours Sepsis New/Unexplained Change in Mental Status Sepsis Action Taken by Nursing 12/25/22 00:01 Temperature Temperature Source Pulse Rate 86 Pulse Rate [Finger] Respiratory Rate 22 Respiratory Effort / Characteristics Respiratory Depth Blood Pressure 127/85 Blood Pressure [Right Arm] Blood Pressure Mean 99 Blood Pressure Mean [Right Arm] Pulse Oximetry 92 Oxygen Delivery Method Sepsis Recent Fever Within 48 Hours Sepsis New/Unexplained Change in Mental Status Sepsis Action Taken by Nursing VITALS: Vitals are noted on the nurse's note and reviewed by myself. Vital signs stable. GENERAL: Pleasant male demented laying on the bed left leg shortened and ex ternally rotated, in no acute distress, nondiaphoretic SKIN: Skin tear to the left bicep region, the rest of the skin was without rashes, erythema, edema, or bruising. There is no tenting of the skin. Capillary reflex less than 2 seconds. HEAD: Normocephalic atraumatic. EARS: External auditory canals clear, tympanic membranes pearly west without erythema or effusion bilaterally. EYES: Pupils equal round and reactive to light and accommodation. Conjunctivae without injection, sclerae without icterus. Extraocular movements intact. NOSE: Patent, turbinates without inflammation or discharge. MOUTH: Mucous membranes moist. Pharynx without erythema or exudate. Uvula midline. Airway patent. Tongue does not deviate. NECK: Supple without nuchal rigidity. No lymphadenopathy. No thyromegaly. Cervical spine is nontender. No JVD. HEART: Regular rate and rhythm LUNGS: Clear to auscultation bilaterally without wheezes, rales or rhonchi. No retractions or accessory muscle use. ABDOMEN: Positive bowel sounds x 4. Normal tympanic percussion. Soft, nontender, without masses or organomegaly. Longoria sign negative. No guarding or rebound tenderness. No CVA tenderness MUSCULOSKELETAL: No muscle atrophy, erythema, or edema noted. Left hip tender to palpation shortened and externally rotated. Pedal pulses +2 equal and present bilaterally. NEURO: Patient was alert but not oriented to person place and time. Normal sensation to light and sharp touch. No focal neurological deficits. Course Administered Medications Discontinued Medications Diphtheria/Pertussis/Tetanus Vacc (Diphtheria/Tetanus/Pertussis Vaccine (Tdap, Age 7+Yrs) 0.5ml Syr/Vl) 0.5 ml IM .ONCE ONE Stop: 12/24/22 22:43 Last Admin: 12/24/22 22:47 Dose: 0.5 ml Documented By: TOMÁS Medical Decision Making Medical Records Attestation: I reviewed the patient's medical records. Home Medications Current Medication List: was personally reviewed by ky Laboratory Data Attestation: I reviewed the patient's lab results. 12/24/22 22:05 12/24/22 22:05 Lab Results 12/24/22 12/24/22 12/24/22 Range/Units 22:05 22:05 22:05 WBC 10.02 (4.8-10.8) K/ul RBC 4.40 L (4.70-6.10) M/uL Hgb 13.2 L (14.0-18.0) g/dl Hct 38.3 L (42.0-52.0) % MCV 87.0 (80.0-100.0) fL MCH 30.0 (25.0-34.0) pg MCHC 34.5 (32.0-36.0) g/dL RDW Std Deviation 46.7 H (36.4-46.3) fL RDW Coeff of Leeann 14.6 H (11.5-14.5) % Plt Count 170 (130-400) K/uL MPV 11.0 (9.4-12.4) fL Immature Gran % (Auto) 0.4 % Neut % (Auto) 72.3 % Lymph % (Auto) 20.4 % [place] % (Auto) 5.7 % Eos % (Auto) 0.8 % Baso % (Auto) 0.4 % Neut # (Auto) 7.25 H (1.40-6.50) K/uL Lymph # (Auto) 2.04 (1.2-3.4) K/uL [place] # (Auto) 0.57 (0.11-0.59) K/uL Eos # (Auto) 0.08 (0-0.50) K/uL Baso # (Auto) 0.04 (0-0.2) K/uL Immature Gran # (Auto) 0.04 (0.01-0.20) K/uL PT 10.4 (9.0-12.0) Seconds INR 0.9 (0.9-1.1) APTT 23.6 (21.0-31.0) Seconds PTT Ratio 0.8 Sodium 137 (136-145) mmol/L Potassium 4.4 (3.5-5.1) mmol/L Chloride 103 (98-107) mmol/L Carbon Dioxide 27 (21-32) mmol/L Anion Gap 7 (3-11) BUN 24 H (6-23) mg/dl Creatinine 1.05 (0.6-1.4) mg/dl Est Cr Clr Drug Dosing 59.8 ml/min Est GFR ( Amer) 77.3 ml/min Est GFR (Non-Af Amer) 66.7 ml/min BUN/Creatinine Ratio 22.9 H (10-20) Glucose 125 H (70-99(Fasting)) mg/dl Calcium 9.5 (8.6-10.3) mg/dl Total Bilirubin 0.6 (0.2-1.0) mg/dl AST 19 (13-39) U/L ALT 17 (7-52) U/L Alkaline Phosphatase 71 (34-104) U/L Total Protein 7.0 (6.0-8.3) gm/dl Albumin 3.9 (3.4-5.0) gm/dl Globulin 3.1 (2.5-4.0) gm/dl Albumin/Globulin Ratio 1.3 (0.9-2) Urine Color Urine Appearance (Clear) Urine pH (4.5-7.5) Ur Specific [place] (1.000-1.030) Urine Protein (Negative) Urine Glucose (UA) (Negative) Urine Ketones (Negative) Urine Blood (Negative) Urine Nitrite (Negative) Urine Bilirubin (Negative) Urine Urobilinogen (Negative) Ur Leukocyte Esterase (Negative) SARS-CoV-2, RNA, NAAT (NEGATIVE) 12/24/22 12/24/22 Range/Units 22:35 22:35 WBC (4.8-10.8) K/ul RBC (4.70-6.10) M/uL Hgb (14.0-18.0) g/dl Hct (42.0-52.0) % MCV (80.0-100.0) fL MCH (25.0-34.0) pg MCHC (32.0-36.0) g/dL RDW Std Deviation (36.4-46.3) fL RDW Coeff of Leeann (11.5-14.5) % Plt Count (130-400) K/uL MPV (9.4-12.4) fL Immature Gran % (Auto) % Neut % (Auto) % Lymph % (Auto) % [place] % (Auto) % Eos % (Auto) % Baso % (Auto) % Neut # (Auto) (1.40-6.50) K/uL Lymph # (Auto) (1.2-3.4) K/uL [place] # (Auto) (0.11-0.59) K/uL Eos # (Auto) (0-0.50) K/uL Baso # (Auto) (0-0.2) K/uL Immature Gran # (Auto) (0.01-0.20) K/uL PT (9.0-12.0) Seconds INR (0.9-1.1) APTT (21.0-31.0) Seconds PTT Ratio Sodium (136-145) mmol/L Potassium (3.5-5.1) mmol/L Chloride (98-107) mmol/L Carbon Dioxide (21-32) mmol/L Anion Gap (3-11) BUN (6-23) mg/dl Creatinine (0.6-1.4) mg/dl Est Cr Clr Drug Dosing ml/min Est GFR ( Amer) ml/min Est GFR (Non-Af Amer) ml/min BUN/Creatinine Ratio (10-20) Glucose (70-99(Fasting)) mg/dl Calcium (8.6-10.3) mg/dl Total Bilirubin (0.2-1.0) mg/dl AST (13-39) U/L ALT (7-52) U/L Alkaline Phosphatase (34-104) U/L Total Protein (6.0-8.3) gm/dl Albumin (3.4-5.0) gm/dl Globulin (2.5-4.0) gm/dl Albumin/Globulin Ratio (0.9-2) Urine Color Dark Yellow Urine Appearance Clear (Clear) Urine pH 5.5 (4.5-7.5) Ur Specific [place] 1.029 (1.000-1.030) Urine Protein Negative (Negative) Urine Glucose (UA) Negative (Negative) Urine Ketones Trace H (Negative) Urine Blood Negative (Negative) Urine Nitrite Negative (Negative) Urine Bilirubin Negative (Negative) Urine Urobilinogen Negative (Negative) Ur Leukocyte Esterase Negative (Negative) SARS-CoV-2, RNA, NAAT NEGATIVE (NEGATIVE) Imaging Data Attestation: I personally reviewed and interpreted this imaging study as follows: [facility] Narrative Prior records reviewed and summarized above. Triage Nursing notes reviewed. Additional history obtained from EMS. The patient's history was concerning for hip fracture. Differential diagnosis: Etiologies such as fracture, dislocation, neurovascular compromise, compartment syndrome, soft tissue injury, as well as others were entertained. Physical examination: Consistent with an isolated hip injury. ER treatment provided: IV lock David was placed NPO Bedrest On reassessment the patient felt better. Diagnostics interpreted by me: EKG:: Ordered for hip fracture EKG normal sinus, normal intervals, no acute ST-T wave changes. Impression normal sinus rhythm independently interpreted by myself I think arrhythmia is unlikely. EKG shows normal sinus rhythm with no interval abnormalities such as QT prolongation or WPW. There are no findings to suggest Brugada syndrome. Cardiac monitoring in the emergency department reveals no tachycardic or bradycardic dysrhythmia. Hypertrophic cardiomyopathy was considered but there are no clear historical elements pointing toward this. EKG is not suggestive. The QRS voltage is not extremely large and there are no suggestive Q waves. The labs Independently Interpreted by myself revealed mild anemia, negative COVID, negative urine Imaging studies: Xrays of the hip are concerning for fracture per my independent interpretation The patient has an isolated hip fracture and will need admission to the hospital. Labs and diagnostics were independent interpreted by myself. Medicine was consulted and the case was discussed. Patient was admitted to the medical service. He was reassessed multiple times. Patient remained stable. Consultation: A consultation was placed with hospitalist. The case was discussed and diagnostics were reviewed. The patient was evaluated in the ER for further treatment. The chart was completed utilizing [employer] Speech voice recognition software. Grammatical errors, random word insertions, pronoun errors, and incomplete sentences are an occassional consequence of this system due to software limitations, ambient noise, and hardware issues. Any formal questions or concer ns about the content, text, or information contained within the body of this dictation should be directly addressed to the physician mailroom assistant for clarification. Attending Attestation: Latrell Gee MD independently saw and evaluated this patient and agree with history and physical is otherwise documented by the physician mailroom assistant. See their note for full details. Patient resting in bed. Unfortunately with dementia and memory issues. Discussed with at bedside findings of hip fracture and need for repair. She is in agreement. We will have hospitalist evaluate for admission pending orthopedic evaluation for repair. Impression & Plan Closed fracture of left hip Discharge Plan Visit Data Chief Complaint: Fall Stated Complaint: FALL/BROKEN HIP? ED Provider: Nii Gee ED Midlevel Provider: Amairani Zayas Discharge Problem: Closed fracture of left hip Patient Disposition: Admitted As Inpatient Condition: Fair Forms Stand Alone Forms: My [facility] Prescriptions Prescriptions: No Action atorvastatin [Lipitor] 10 mg tablet 10 mg PO HS metoprolol succinate [Toprol XL] 25 mg tablet extended release 24 hr 12.5 mg PO QAM omega 4-iav-wms-fish oil [Fish Oil] 1,000 mg (120 mg-180 mg) Capsule 1 cap PO QAM PreserVision AREDS 7,160-113-100 fmcw-py-wqgd Tablet 1 tab PO BIDM multivitamin Tablet 1 tab PO QAM lysine 1,000 mg Tablet 1,000 mg PO DAILY fluticasone propion-salmeterol [Wixela Inhub] 100-50 mcg/dose Blister With Device 1 inh INHALATION BIDM escitalopram oxalate 10 mg tablet 10 mg PO DAILY Abh Gel 1 applic topical BID Rx Instructions: APPLY TO BACK acetaminophen [Tylenol] 325 mg Tablet 650 mg PO Q6H PRN (Reason: TEMP >100/PAIN) lidocaine 4 % Adhesive Patch,Medicated 1 patch TOPICAL DAILY Rx Instructions: APPLY TO LOWER BACK QAM, THEN REMOVE QHS. sennosides-docusate sodium [Senokot-S] 8.6-50 mg Tablet 1 tab-cap PO BID Metamucil Packet 1 packet PO QAM Rx Instructions: mix into at least 8 oz of water or juice before administering gabapentin 300 mg Capsule 300 mg PO TID haloperidol lactate [Haldol] 5 mg/mL Solution 5 mg IM Q6H PRN (Reason: BPSD) Rx Instructions: ENDS 12/28/22 fluticasone propionate [Flonase] 50 mcg/actuation Sanders,Suspension 2 spray INTRANASAL DAILY Rx Instructions: administer into each nostril riboflavin (vitamin B2) 400 mg Tablet 400 mg PO DAILY magnesium oxide 400 mg magnesium Tablet 400 mg PO DAILY Artificial Tears (cmc) 1 % Drops 2 drp OPHTHALMIC (EYE) TID tamsulosin [Flomax] 0.4 mg capsule 0.4 mg PO HS lisinopril [Zestril] 10 mg tablet 10 mg PO QAM furosemide [Lasix] 20 mg tablet 20 mg PO Q OTHER DAY memantine [Namenda] 5 mg tablet 5 mg PO BID Referrals Referrals: [facility] [Primary Care Provider] - Closed fracture of left hip Qualifiers: Encounter type: initial encounter Qualified Code(s): S72.002A - Fracture of unspecified part of neck of left femur, initial encounter for closed fracture
[2022-12-24 22:41] LABS: Basophils # (auto) 0.04 K/uL (0-0.2); Basophils % (auto) 0.4 %; Eosinophils # (auto) 0.08 K/uL (0-0.50); Eosinophils % (auto) 0.8 %; Hematocrit (blood only) 38.3 % (42.0-52.0); Hemoglobin 13.2 g/dl (14.0-18.0); Immature Granulocytes # (auto) 0.04 K/uL (0.01-0.20); Immature Granulocytes % (auto) 0.4 %; Lymphocytes # (auto) 2.04 K/uL (1.2-3.4); Lymphocytes % (auto) 20.4 %; Mean Corpuscular Hgb Conc 34.5 g/dL (32.0-36.0); Monocytes # (auto) 0.57 K/uL (0.11-0.59); Monocytes % (auto) 5.7 %; Neutrophils # (auto) 7.25 K/uL (1.40-6.50); Neutrophils % (auto) 72.3 %; Platelet Count 170 K/uL (130-400); RDW Coefficient of Variation 14.6 % (11.5-14.5); RDW Standard Deviation 46.7 fL (36.4-46.3); White Blood Count 10.02 K/ul (4.8-10.8)
[2022-12-24] MEDS ORDERED: DIPHTHERIA/TETANUS/PERTUSSIS Vaccine (Tdap, Age 7+yrs) 0.5mL SYR/VL IM ONE (22:42)
[2022-12-24 22:50] LABS: Appearance Urine Clear (Clear); Bilirubin Urine Negative (Negative); Blood Urine Negative (Negative); Color Urine Dark Yellow; Glucose Urine UA Negative (Negative); Ketones Urine Trace (Negative); Leukocyte Esterase Urine Negative (Negative); Nitrite Urine Negative (Negative); Protein Urine Negative (Negative); Specific Gravity Urine 1.029 (1.000-1.030); Urobilinogen Urine Negative (Negative); pH Urine 5.5 (4.5-7.5)
[2022-12-24 23:02] LABS: INR 0.9 (0.9-1.1); Partial Thromboplastin Ratio 0.8; Partial Thromboplastin Time 23.6 Seconds (21.0-31.0); Prothrombin Time 10.4 Seconds (9.0-12.0)
[2022-12-24 23:15] LABS: Albumin Globulin Ratio 1.3 (0.9-2); Albumin Level 3.9 gm/dl (3.4-5.0); BUN Creatinine Ratio 22.9 (10-20); Bilirubin,Total 0.6 mg/dl (0.2-1.0); Calcium 9.5 mg/dl (8.6-10.3); Creatinine Clr Calc Pharmacy 59.8 ml/min; Est GFR (African American) 77.3 ml/min; Est GFR (Non-African American) 66.7 ml/min; Globulin 3.1 gm/dl (2.5-4.0); Potassium 4.4 mmol/L (3.5-5.1)
--- NOTE | 2022-12-24 23:42 | History & Physical Report ---
Date of Service December 24, 2022 Assessment & Plan (1) Closed fracture of left hip: Plan: 82yo Male with PMH dementia FTT, chronic diastolic HF, HTN, BPH, asthma here for fall left hip fracture. Fall with Left hip fracture -XR per my read left hip fracture -consult placed to orthopedic surgery -IV tylenol for pain control Dementia with Altered Mental Status -all PO medications on hold -consult speech for swallow eval -ordered NSS 80mls/hr 1L -consider palliative consult Asthma -continue home inhalers FENa: NPO Code Status: DNR/DNI DVT PPX: SCDs Case Management: from [facility] dementia unit Dispo: med/surg Noelle Johnston D.O. PGY 3, FCM (2) Altered mental status: (3) Dementia: (4) HTN (hypertension): (5) HLD (hyperlipidemia): (6) BPH (benign prostatic hyperplasia): (7) Chronic diastolic CHF (congestive heart failure): History of Present Illness Chief Complaint: Fell Dementia Primary Care Provider: [facility] 82yo Male with PMH dementia FTT, chronic diastolic HF, HTN, BPH, asthma here for fall left hip fracture. He was recently in the hospital 06/24-07/25 for AMS 2/2 baclofen use sent to [facility] dementia locked unit. Has been receiving haldol given history aggression attempted elopement in dementia unit. Patient brought to ED after fall. Unable to obtain exam from patient, he is not arousable to voice or physical stimuli. ED was unable to contact . Per his records from [facility] he is DNR. Allergies Allergy/AdvReac Type Severity Reaction Status Date / Time No Known Allergies Allergy Verified 12/24/22 23:07 Home Medications Medication Instructions Recorded Confirmed Type atorvastatin 10 mg tablet (Lipitor) 10 mg PO HS 05/19/19 12/24/22 History metoprolol succinate 25 mg 12.5 mg PO QAM 05/19/19 12/24/22 History tablet,extended release 24 hr (Toprol XL) omega 8-tdu-qsh-fish oil 1,000 mg 1 cap PO QAM 05/19/19 12/24/22 History (120 mg-180 mg) capsule (Fish Oil) vitamins A,C,Y-kdrv-uadqme 2,148 1 tab PO BIDM 05/19/19 12/24/22 History mcg-113 mg-45 mg-17.4 mg tablet (PreserVision AREDS) furosemide 20 mg tablet (Lasix) 20 mg PO Q OTHER DAY 04/08/21 12/24/22 History lisinopril 10 mg tablet (Zestril) 10 mg PO QAM 04/08/21 12/24/22 History memantine 5 mg tablet (Namenda) 5 mg PO BID 04/08/21 12/24/22 History tamsulosin 0.4 mg capsule (Flomax) 0.4 mg PO HS 04/08/21 12/24/22 History escitalopram oxalate 10 mg tablet 10 mg PO DAILY 06/24/22 12/24/22 History fluticasone 100 mcg-salmeterol 50 1 inh inhalation BIDM 06/24/22 12/24/22 History mcg/dose blistr powdr for inhalation (Wixela Inhub) lysine 1,000 mg tablet 1,000 mg PO DAILY 06/24/22 12/24/22 History multivitamin 1 tab PO QAM 06/24/22 12/24/22 History Abh Gel 1 applic topical BID 12/24/22 12/24/22 History acetaminophen 325 mg tablet 650 mg PO Q6H PRN TEMP >100/PAIN 12/24/22 12/24/22 History (Tylenol) carboxymethylcellulose sodium 1 % 2 drp ophthalmic (eye) TID 12/24/22 12/24/22 History eye drops (Artificial Tears (carboxymethylcellulose)) fluticasone propionate 50 2 spray intranasal DAILY 12/24/22 12/24/22 History mcg/actuation nasal spray,suspension gabapentin 300 mg capsule 300 mg PO TID 12/24/22 12/24/22 History haloperidol lactate 5 mg/mL 5 mg IM Q6H PRN BPSD 12/24/22 12/24/22 History injection solution lidocaine 4 % topical patch 1 patch topical DAILY 12/24/22 12/24/22 History magnesium oxide 400 mg PO DAILY 12/24/22 12/24/22 History psyllium 1 packet PO QAM 12/24/22 12/24/22 History riboflavin (vitamin B2) 400 mg 400 mg PO DAILY 12/24/22 12/24/22 History tablet sennosides 8.6 mg-docusate sodium 1 tab-cap PO BID 12/24/22 12/24/22 History 50 mg tablet (Senokot-S) enoxaparin 40 mg/0.4 mL 40 mg (0.4 mL) subcut DAILY 4 12/25/22 Rx subcutaneous syringe (Lovenox) weeks #11.2 mL oxycodone-acetaminophen 5 mg-325 1 tab PO Q6H PRN pain #10 tabs 12/25/22 Rx mg tablet (Percocet) Past Med/Surg History Medical History BPH (benign prostatic hyperplasia) Chronic diastolic CHF (congestive heart failure) Closed fracture of right hip S/p repair Dementia History of CVA (cerebrovascular accident) History of frequent headaches HLD (hyperlipidemia) HTN (hypertension) Mild persistent asthma Surgical History (Updated 12/25/22 @ 06:50 by Mp Campa MD) History of hemiarthroplasty of right hip (~2019) History of hemorrhoidectomy History of lobectomy of lung Right middle lobe lobectomy 1983, benign History of transurethral resection of prostate Family History Father Cancer Neck and brain Sister Stroke Social History Smoking Status: Unknown if ever smoked Cigarettes Per Day: 2; Second Hand Exposure: No; Do You Dip or Chew Tobacco: No; Hx Alcohol Use: No Hx Substance Use: No Preferred Language: Occitan Communication Ability: Effective 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 Beliefs That Will Affect Care: None marital status: Current Living Situation: Residential Feels Safe at Home: Yes Assistive Devices: Walker Physical Exam Constitutional: + thin, + in distress and + lethargic Respiratory: poor inspiratory effort Cardiovascular: Rate/Rhythm: regular rate and regular rhythm Extremities: + edema (b/l LE) Gastrointestinal (Abdomen): Inspection/Auscultation: abdomen normal to inspection Skin: no rashes, warm and dry Results & Data Results & Data Vital Signs (Past 12 Hours) Vital Signs Temp Pulse Pulse Resp BP BP Pulse Ox 12/24/22 22:40 84 22 144/70 H 92 12/24/22 21:41 37.0 C 83 15 169/88 H 96 O2 Del Method 12/24/22 22:40 Room Air 12/24/22 21:41 Room Air Supervising Physician Co-Signing Physician Notes attending addendum: I have physically seen this patient, have supervised the medical residents activities, and agree with the H&P unless as otherwise noted. Assessment and Plan: Closed left hip fracture status post mechanical fall- N.p.o. Acetaminophen 1 g IV every 8 hours as needed for mild pain or fever Consult orthopedic surgery Dementia with altered mental status NPO NSS at 80 mils per hour Discussion with family regarding hip fracture and direction of treatment CODE STATUS: DNR/DNI Resident Activity Tracking Resident Involvement: Resident Care Provided Care Provided: Adult [facility] Medicine (1) Closed fracture of left hip Encounter type: initial encounter Qualified Code(s): S72.002A - Fracture of unspecified part of neck of left femur, initial encounter for closed fracture (2) Altered mental status Altered mental status type: unspecified Qualified Code(s): R41.82 - Altered mental status, unspecified
[2022-12-24] MEDS ORDERED: SODIUM CHLORIDE 0.9% 1000ML 1,000 ML IV SCH (23:45)
[2022-12-24] MEDS ORDERED: ACETAMINOPHEN 1,000 MG/100 ML VIAL IV STA (23:53)
[2022-12-24] MEDS ORDERED: ACETAMINOPHEN 1,000 MG/100 ML VIAL IV PRN (23:54)
[2022-12-25] MEDS: MoRPHine SULFATE 2 MG/ML CARP IV PRN ×2 (02:09→08:11)
--- NOTE | 2022-12-25 06:51 | Orthopedic Consultation ---
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 After orthopedic consult discussing the patients treatment options of conservative versus surgical intervention, as well as risks and benefits of each, the patient's MPO decided to treat conservatively, understanding that his pain would improve over the next 2 weeks, and he would likely not walk again. Continue pain control. Bed to chair. NWB LLE May eat. Continue care per primary service. Follow-up in office in 6 weeks with x-rays. Present on Admission?: Yes History of Present Illness Reason for Consultation: Left hip fracture Requesting Physician: Duc Campa MD Attending Physician: Maurilio Narayanan MD History of Present Illness 82 yo male with multiple medical problems, sustained a left hip fracture from a ground level fall. He resides in a locked dementia unit unable to obtain history from patient due to cognitive status. Allergies Allergy/AdvReac Type Severity Reaction Status Date / Time No Known Allergies Allergy Verified 12/24/22 23:07 Home Medications Medication Instructions Recorded Confirmed Type atorvastatin 10 mg tablet (Lipitor) 10 mg PO HS 05/19/19 12/24/22 History metoprolol succinate 25 mg 12.5 mg PO QAM 05/19/19 12/24/22 History tablet,extended release 24 hr (Toprol XL) omega 7-uak-mbu-fish oil 1,000 mg 1 cap PO QAM 05/19/19 12/24/22 History (120 mg-180 mg) capsule (Fish Oil) vitamins A,C,M-cmkt-cadbzx 2,148 1 tab PO BIDM 05/19/19 12/24/22 History mcg-113 mg-45 mg-17.4 mg tablet (PreserVision AREDS) furosemide 20 mg tablet (Lasix) 20 mg PO Q OTHER DAY 04/08/21 12/24/22 History lisinopril 10 mg tablet (Zestril) 10 mg PO QAM 04/08/21 12/24/22 History memantine 5 mg tablet (Namenda) 5 mg PO BID 04/08/21 12/24/22 History tamsulosin 0.4 mg capsule (Flomax) 0.4 mg PO HS 04/08/21 12/24/22 History escitalopram oxalate 10 mg tablet 10 mg PO DAILY 06/24/22 12/24/22 History fluticasone 100 mcg-salmeterol 50 1 inh inhalation BIDM 06/24/22 12/24/22 History mcg/dose blistr powdr for inhalation (Wixela Inhub) lysine 1,000 mg tablet 1,000 mg PO DAILY 06/24/22 12/24/22 History multivitamin 1 tab PO QAM 06/24/22 12/24/22 History Abh Gel 1 applic topical BID 12/24/22 12/24/22 History acetaminophen 325 mg tablet 650 mg PO Q6H PRN TEMP >100/PAIN 12/24/22 12/24/22 History (Tylenol) carboxymethylcellulose sodium 1 % 2 drp ophthalmic (eye) TID 12/24/22 12/24/22 History eye drops (Artificial Tears (carboxymethylcellulose)) fluticasone propionate 50 2 spray intranasal DAILY 12/24/22 12/24/22 History mcg/actuation nasal spray,suspension gabapentin 300 mg capsule 300 mg PO TID 12/24/22 12/24/22 History haloperidol lactate 5 mg/mL 5 mg IM Q6H PRN BPSD 12/24/22 12/24/22 History injection solution lidocaine 4 % topical patch 1 patch topical DAILY 12/24/22 12/24/22 History magnesium oxide 400 mg PO DAILY 12/24/22 12/24/22 History psyllium 1 packet PO QAM 12/24/22 12/24/22 History riboflavin (vitamin B2) 400 mg 400 mg PO DAILY 12/24/22 12/24/22 History tablet sennosides 8.6 mg-docusate sodium 1 tab-cap PO BID 12/24/22 12/24/22 History 50 mg tablet (Senokot-S) Patient History Medical History BPH (benign prostatic hyperplasia) Chronic diastolic CHF (congestive heart failure) Closed fracture of right hip S/p repair Dementia History of CVA (cerebrovascular accident) History of frequent headaches HLD (hyperlipidemia) HTN (hypertension) Mild persistent asthma Surgical History (Updated 12/25/22 @ 06:50 by Mp Campa MD) History of hemiarthroplasty of right hip (~2019) History of hemorrhoidectomy History of lobectomy of lung Right middle lobe lobectomy 1983, benign History of transurethral resection of prostate Family History Father Cancer Neck and brain Sister Stroke Social History Smoking Status: Unknown if ever smoked Cigarettes Per Day: 2; Second Hand Exposure: No; Do You Dip or Chew Tobacco: No; Hx Alcohol Use: No Hx Substance Use: No Preferred Language: Setswana Communication Ability: Impaired Results Engineer Required: No Beliefs That Will Affect Care: None marital status: Current Living Situation: Jail Feels Safe at Home: Yes Assistive Devices: Cane, Glasses and Raised Toilet Seat Review of Systems Review of Systems: Unobtainable due to cognitive status Physical Exam Physical Exam: Limited exam due to patient's cognitive status. Does not respond to questions or commands. Upper body tremors with rocking motion. Incoherent speech. LLE: Spontaneously moves toes and flexed left knee. Unable to assess sensation. BCR < 2 sec. calf was soft non-tender. Results & Data Vital Signs (Past 12 Hours) Vital Signs Temp Pulse Pulse Resp BP BP Pulse Ox 12/24/22 23:00 80 12/25/22 01:03 12/25/22 01:03 36.7 C 97 H 18 149/79 H 95 12/25/22 00:01 86 22 127/85 92 12/24/22 23:30 87 17 132/74 93 12/24/22 23:00 84 24 132/72 93 12/24/22 22:30 81 22 144/70 H 91 12/24/22 22:01 81 22 142/75 H 96 12/24/22 22:40 84 22 144/70 H 92 12/24/22 21:41 37.0 C 83 15 169/88 H 96 O2 Del Method 12/24/22 23:00 12/25/22 01:03 Room Air 12/25/22 01:03 Room Air 12/25/22 00:01 12/24/22 23:30 12/24/22 23:00 12/24/22 22:30 12/24/22 22:01 12/24/22 22:40 Room Air 12/24/22 21:41 Room Air Laboratory Results Laboratory Results WBC 10.02 K/ul (4.8-10.8) 12/24/22 22:05 RBC 4.40 M/uL (4.70-6.10) L 12/24/22 22:05 Hgb 13.2 g/dl (14.0-18.0) L 12/24/22 22:05 Hct 38.3 % (42.0-52.0) L 12/24/22 22:05 MCV 87.0 fL (80.0-100.0) 12/24/22 22:05 MCH 30.0 pg (25.0-34.0) 12/24/22 22:05 MCHC 34.5 g/dL (32.0-36.0) 12/24/22 22:05 RDW Std Deviation 46.7 fL (36.4-46.3) H 12/24/22 22:05 RDW Coeff of Leeann 14.6 % (11.5-14.5) H 12/24/22 22:05 Plt Count 170 K/uL (130-400) 12/24/22 22:05 MPV 11.0 fL (9.4-12.4) 12/24/22 22:05 Immature Gran % (Auto) 0.4 % 12/24/22 22:05 Neut % (Auto) 72.3 % 12/24/22 22:05 Lymph % (Auto) 20.4 % 12/24/22 22:05 Worth % (Auto) 5.7 % 12/24/22 22:05 Eos % (Auto) 0.8 % 12/24/22 22:05 Baso % (Auto) 0.4 % 12/24/22 22:05 Neut # (Auto) 7.25 K/uL (1.40-6.50) H 12/24/22 22:05 Lymph # (Auto) 2.04 K/uL (1.2-3.4) 12/24/22 22:05 Worth # (Auto) 0.57 K/uL (0.11-0.59) 12/24/22 22:05 Eos # (Auto) 0.08 K/uL (0-0.50) 12/24/22 22:05 Baso # (Auto) 0.04 K/uL (0-0.2) 12/24/22 22:05 Immature Gran # (Auto) 0.04 K/uL (0.01-0.20) 12/24/22 22:05 PT 10.4 Seconds (9.0-12.0) 12/24/22 22:05 INR 0.9 (0.9-1.1) 12/24/22 22:05 APTT 23.6 Seconds (21.0-31.0) 12/24/22 22:05 PTT Ratio 0.8 12/24/22 22:05 Sodium 137 mmol/L (136-145) 12/24/22 22:05 Potassium 4.4 mmol/L (3.5-5.1) 12/24/22 22:05 Chloride 103 mmol/L (98-107) 12/24/22 22:05 Carbon Dioxide 27 mmol/L (21-32) 12/24/22 22:05 Anion Gap 7 (3-11) 12/24/22 22:05 BUN 24 mg/dl (6-23) H 12/24/22 22:05 Creatinine 1.05 mg/dl (0.6-1.4) 12/24/22 22:05 Est Cr Clr Drug Dosing 59.8 ml/min 12/24/22 22:05 Est GFR ( Amer) 77.3 ml/min 12/24/22 22:05 Est GFR (Non-Af Amer) 66.7 ml/min 12/24/22 22:05 BUN/Creatinine Ratio 22.9 (10-20) H 12/24/22 22:05 Glucose 125 mg/dl (70-99(Fasting)) H 12/24/22 22:05 Calcium 9.5 mg/dl (8.6-10.3) 12/24/22 22:05 Total Bilirubin 0.6 mg/dl (0.2-1.0) 12/24/22 22:05 AST 19 U/L (13-39) 12/24/22 22:05 ALT 17 U/L (7-52) 12/24/22 22:05 Alkaline Phosphatase 71 U/L (34-104) 12/24/22 22:05 Total Protein 7.0 gm/dl (6.0-8.3) 12/24/22 22:05 Albumin 3.9 gm/dl (3.4-5.0) 12/24/22 22:05 Globulin 3.1 gm/dl (2.5-4.0) 12/24/22 22:05 Albumin/Globulin Ratio 1.3 (0.9-2) 12/24/22 22:05 Urine Color Dark Yellow 12/24/22 22:35 Urine Appearance Clear (Clear) 12/24/22 22:35 Urine pH 5.5 (4.5-7.5) 12/24/22 22:35 Ur Specific [place] 1.029 (1.000-1.030) 12/24/22 22:35 Urine Protein Negative (Negative) 12/24/22 22:35 Urine Glucose (UA) Negative (Negative) 12/24/22 22:35 Urine Ketones Trace (Negative) H 12/24/22 22:35 Urine Blood Negative (Negative) 12/24/22 22:35 Urine Nitrite Negative (Negative) 12/24/22 22:35 Urine Bilirubin Negative (Negative) 12/24/22 22:35 Urine Urobilinogen Negative (Negative) 12/24/22 22:35 Ur Leukocyte Esterase Negative (Negative) 12/24/22 22:35 SARS-CoV-2, RNA, NAAT NEGATIVE (NEGATIVE) 12/24/22 22:35 Diagnostic Findings XR hip LT 2V w pelvis HISTORY: 82 years-old Male pain/deform acute posttraumatic left hip pain COMPARISON: 05/06/2021 TECHNIQUE: AP view the pelvis with 2 views of the left hip FINDINGS: Right hip arthroplasty. [id number] osteoarthritis of the left hip. There is an acute transcervical fracture of the left femur which demonstrates impaction with apex superolateral angulation. No significant displacement or dislocation. Surgical clips of the scrotum. IMPRESSION: Acute impacted and angulated transcervical left femoral fracture. ACT 112: Negative or not required by law. The above report was generated using voice recognition software. It may contain grammatical, syntax or spelling errors. Electronically signed by: Luis Enrique Walsh M.D. 12/25/2022 8:32 AM (1) Closed fracture of left hip Encounter type: initial encounter Qualified Code(s): S72.002A - Fracture of unspecified part of neck of left femur, initial encounter for closed fracture
--- NOTE | 2022-12-25 07:07 | Electrocardiogram Report ---
Test Reason : Blood Pressure : / mmHG Vent. Rate : 084 BPM Atrial Rate : 084 BPM P-R Int : 148 ms QRS Dur : 082 ms QT Int : 364 ms P-R-T Axes : 046 055 040 degrees QTc Int : 430 ms Normal sinus rhythm Nonspecific ST abnormality Normal ECG When compared with ECG of 24-JUN-2022 10:16, No significant change was found Confirmed by Ramo Rhoades ([id number]) on 12/25/2022 7:07:09 AM Referred By: REFERRED SELF Confirmed By:Jose Rhoades
--- NOTE | 2022-12-25 08:19 | XRay Report ---
XR chest 1V portable HISTORY: 82 years-old Male pre-op preoperative exam COMPARISON: 06/24/2022 TECHNIQUE: AP view of the chest FINDINGS: Prominence of the thoracic aortic arch. Cardiomegaly. Right-sided calcified pleural plaques. Chronic right lung volume loss with chronic interstitial coarsening. No pneumothorax, pleural effusion, airsp darwin consolidation or overt pulmonary edema. Bones of the chest appear grossly intact. IMPRESSION: 1. Cardiomegaly with prominence of the thoracic aortic arch which may be projectional or represent an eurysmal dilation. 2. Chronic right lung volume loss with calcified pleural plaques. ACT 112: Negative or not required by law. The above report was generated using voice recognition software. It may contain grammatical, syntax o r spelling errors. Electronically signed by: Luis Enrique Walsh M.D. 12/25/2022 8:17 AM
--- NOTE | 2022-12-25 08:33 | XRay Report ---
XR hip LT 2V w pelvis HISTORY: 82 years-old Male pain/deform acute posttraumatic left hip pain COMPARISON: 05/06/2021 TECHNIQUE: AP view the pelvis with 2 views of the left hip FINDINGS: Right hip arthroplasty. [id number] osteoarthritis of the left hip. There is an acute transcervi matt fracture of the left femur which demonstrates impaction with apex superolateral angulation. No si gnificant displacement or dislocation. Surgical clips of the scrotum. IMPRESSION: Acute impacted and angulated transcervical left femoral fracture. ACT 112: Negative or not required by law. The above report was generated using voice recognition software. It may contain grammatical, syntax o r spelling errors. Electronically signed by: Luis Enrique Walsh M.D. 12/25/2022 8:32 AM
[2022-12-25] MEDS ORDERED: FLUTICASONE/VILANTEROL 100/25MCG 14 PUFFS/INHALER INH SCH (09:00)
--- NOTE | 2022-12-25 11:01 | Discharge Summary ---
Discharge Summary Date of Service December 25, 2022 Admission HPI Per Admitting Provider 82yo Male with PMH dementia FTT, chronic diastolic HF, HTN, BPH, asthma here for fall left hip fracture. He was recently in the hospital 06/24-07/25 for AMS 2/2 baclofen use sent to [facility] dementia locked unit. Has been receiving haldol given history aggression attempted elopement in dementia unit. Patient brought to ED after fall. Unable to obtain exam from patient, he is not arousable to voice or physical stimuli. ED was unable to contact . Per his records from [facility] he is DNR. 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 After orthopedic consult discussing the patients treatment options of conservative versus surgical intervention, as well as risks and benefits of each, the patient's decided to treat conservatively, understanding that his pain would improve over the next 2 weeks, and he would likely not walk again. Continue pain control. Bed to chair. NWB LLE Percocet prn pain Consider transition to hospice at [place] Recommend Lovenox for DVT proph (2) Headache: Continue home meds as before for all other conditions (3) Chronic diastolic CHF (congestive heart failure): (4) Dementia: (5) Mild persistent asthma: (6) BPH (benign prostatic hyperplasia): (7) HLD (hyperlipidemia): (8) HTN (hypertension): Plan Dispo-dc to [facility] Discharge Exam Constitutional well developed, comfortable and + lethargic; no acute distress Respiratory normal respiratory effort, lungs clear to auscultation Cardiovascular RRR, no murmur, no edema Gastrointestinal (Abdomen) normal bowel sounds, soft, nontender, no hepatosplenomegaly Neurologic Motor/Sensory: + tremor Psychiatric Orientation: + not alert and + not oriented x 3 Updated Medication List Medication Instructions Recorded Confirmed Type atorvastatin 10 mg tablet (Lipitor) 10 mg PO HS 05/19/19 12/24/22 History metoprolol succinate 25 mg 12.5 mg PO QAM 05/19/19 12/24/22 History tablet,extended release 24 hr (Toprol XL) omega 2-pmf-fvw-fish oil 1,000 mg 1 cap PO QAM 05/19/19 12/24/22 History (120 mg-180 mg) capsule (Fish Oil) vitamins A,C,H-bksi-weshfs 2,148 1 tab PO BIDM 05/19/19 12/24/22 History mcg-113 mg-45 mg-17.4 mg tablet (PreserVision AREDS) furosemide 20 mg tablet (Lasix) 20 mg PO Q OTHER DAY 04/08/21 12/24/22 History lisinopril 10 mg tablet (Zestril) 10 mg PO QAM 04/08/21 12/24/22 History memantine 5 mg tablet (Namenda) 5 mg PO BID 04/08/21 12/24/22 History tamsulosin 0.4 mg capsule (Flomax) 0.4 mg PO HS 04/08/21 12/24/22 History escitalopram oxalate 10 mg tablet 10 mg PO DAILY 06/24/22 12/24/22 History fluticasone 100 mcg-salmeterol 50 1 inh inhalation BIDM 06/24/22 12/24/22 History mcg/dose blistr powdr for inhalation (Wixela Inhub) lysine 1,000 mg tablet 1,000 mg PO DAILY 06/24/22 12/24/22 History multivitamin 1 tab PO QAM 06/24/22 12/24/22 History Abh Gel 1 applic topical BID 12/24/22 12/24/22 History acetaminophen 325 mg tablet 650 mg PO Q6H PRN TEMP >100/PAIN 12/24/22 12/24/22 History (Tylenol) carboxymethylcellulose sodium 1 % 2 drp ophthalmic (eye) TID 12/24/22 12/24/22 History eye drops (Artificial Tears (carboxymethylcellulose)) fluticasone propionate 50 2 spray intranasal DAILY 12/24/22 12/24/22 History mcg/actuation nasal spray,suspension gabapentin 300 mg capsule 300 mg PO TID 12/24/22 12/24/22 History haloperidol lactate 5 mg/mL 5 mg IM Q6H PRN BPSD 12/24/22 12/24/22 History injection solution lidocaine 4 % topical patch 1 patch topical DAILY 12/24/22 12/24/22 History magnesium oxide 400 mg PO DAILY 12/24/22 12/24/22 History psyllium 1 packet PO QAM 12/24/22 12/24/22 History riboflavin (vitamin B2) 400 mg 400 mg PO DAILY 12/24/22 12/24/22 History tablet sennosides 8.6 mg-docusate sodium 1 tab-cap PO BID 12/24/22 12/24/22 History 50 mg tablet (Senokot-S) enoxaparin 40 mg/0.4 mL 40 mg (0.4 mL) subcut DAILY 4 12/25/22 Rx subcutaneous syringe (Lovenox) weeks #11.2 mL oxycodone-acetaminophen 5 mg-325 1 tab PO Q6H PRN pain #10 tabs 12/25/22 Rx mg tablet (Percocet) Hospital Stay Data Consultations 12/24/22 22:47 ED Decision to Admit Stat 12/25/22 01:00 Consult Orthopedic Surgery Routine Pending Results Patient Have Any Pending Studies at Discharge: No Discharge Instructions Given to Patient (Per Discharging Provider) You were admitted with a fall causing a left hip fracture. You and your family have decided to not have surgery and allow the hip to heal without surgery. Please remain non-weightbearing to the left lower extremity. Continue Percocet as needed for pain. Please discuss with your PCP about the possibility of transitioning to hospice if your condition deteriorates. Total Time Total Time Spent Total Time Spent (In Minutes): 35 min Total Time Includes: Examination of the Patient, Discharge Planning, Medication Reconciliation and Communication With Other Providers (Orthopedics) Coding Level of Care Code 41760 INP/OBS DISCH >30 MIN Diagnoses Closed fracture of left hip S72.002A Encounter type: initial encounter Headache R51.9 Headache chronicity pattern: unspecified pattern Headache type: unspecified Intractability: not intractable Chronic diastolic CHF (congestive heart failure) I50.32 Dementia F03.90 Mild persistent asthma J45.30 BPH (benign prostatic hyperplasia) N40.0 HLD (hyperlipidemia) E78.5 HTN (hypertension) I10
--- NOTE | 2022-12-25 19:35 | Billing Data ---
Date of Service December 25, 2022 Coding Level of Care Code 78509 INT INP/OBS CARE
== END 2022-12-25 13:00 | DRG 543 ==
LOC: ED 21:39 → SUATTDRO 23:34 → 3N 23:34